=== PATIENT | female | born 1970 | race Caucasian/White ===

== ENCOUNTER 2018-03-17 14:03 | Inpatient (IN) | payer MEDICAID ==
[2018-03-17] MEDS ORDERED: VANCOMYCIN HCL INJ 1000 MG VIAL IV ONE ×2 (15:23→19:45)
--- NOTE | 2018-03-17 15:23 | ER Document Report ---
ED Medical Screen (RME) - General Chief Complaint: Skin Sore(s) Stated Complaint: RIGHT LEG PAIN Time Seen by Provider: 03/17/18 15:16 Notes: 47-year-old female. 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 Symptoms have been present now for approximately 1 month. History of MRSA. History of noncompliance. I have greeted and performed a rapid initial assessment of this patient. A comprehensive ED assessment and evaluation of the patient, analysis of test results and completion of the medical decision making process will be conducted by additional ED providers. TRAVEL OUTSIDE OF THE [place] IN LAST 30 DAYS: No - Related Data Allergies/Adverse Reactions: Sulfa (Sulfonamide Antibiotics) Allergy (Verified 03/17/18 14:06) Past Medical History - Social History Chew tobacco use (# tins/day): No Drug Abuse: None Renal/ Medical History: Denies: Hx Peritoneal Dialysis Physical Exam - Vital signs Vitals: Temp Pulse Resp BP Pulse Ox 99.2 F 111 H 20 151/83 H 97 03/17/18 14:32 03/17/18 14:32 03/17/18 14:32 03/17/18 14:32 03/17/18 14:32 - Notes Notes: There is a large open sore on the right BKA stump. Very foul odor. Mild amount of drainage. Course - Vital Signs Vital signs: Temp Pulse Resp BP Pulse Ox 99.2 F 111 H 20 151/83 H 97 03/17/18 14:32 03/17/18 14:32 03/17/18 14:32 03/17/18 14:32 03/17/18 14:32
[2018-03-17 16:03] LABS: ABSOLUTE BASOPHILS # (AUTO) 0.1 10^3/uL (0.0-0.2); ABSOLUTE EOSINOPHILS # (AUTO) 0.1 10^3/uL (0.0-0.6); ABSOLUTE LYMPHOCYTES (AUTO) 2.2 10^3/uL (0.5-4.7); ABSOLUTE MONOCYTES (AUTO) 0.5 10^3/uL (0.1-1.4); ABSOLUTE NEUT (AUTO) 7.2 10^3/uL (1.7-8.2); BASOPHILS % (AUTO) 0.8 % (0-2); EOSINOPHILS % (AUTO) 0.8 % (0-6); HEMATOCRIT 42.2 % (36.0-47.0); HEMOGLOBIN 14.1 g/dL (12.0-15.5); LYMPHOCYTES % (AUTO) 21.5 % (13-45); MEAN CORPUSCULAR HEMOGLOBIN 27.4 pg (27.0-33.4); MEAN CORPUSCULAR HGB CONC 33.5 g/dL (32.0-36.0); MEAN CORPUSCULAR VOLUME 82 fl (80-97); MONOCYTES % (AUTO) 5.3 % (3-13); PLATELET COUNT 333 10^3/uL (150-450); RED BLOOD COUNT 5.16 10^6/uL (3.72-5.28); RED CELL DISTRIBUTION WIDTH 14.7 % (11.5-14.0); SEGMENTED NEUTROPHILS % (AUTO) 71.6 % (42-78); TOTAL CELLS COUNTED % (AUTO) 100 %
--- NOTE | 2018-03-17 16:18 | RADIOLOGY REPORT (SQ) ---
EXAM DESCRIPTION: TIBIA FIBULA RIGHT COMPLETED DATE/TIME: 03/17/2018 4:04 pm REASON FOR STUDY: Open lesion on stump COMPARISON: None. NUMBER OF VIEWS: Two views. TECHNIQUE: Two radiographic images acquired of the right tibia and fibula to include the knee and an kle in at least one projection. LIMITATIONS: None. FINDINGS: MINERALIZATION: Normal. BONES: Amputation of the distal leg. There are no findings to suggest osteomyelitis. SOFT TISSUES: No obvious swelling or foreign body. OTHER: No other significant finding. IMPRESSION: No evidence of osteomyelitis. TECHNICAL DOCUMENTATION: JOB ID: [id number] [employer]- All Rights Reserved Reading location - IP/workstation name: [email or web address]
[2018-03-17 16:23] LABS: ALANINE AMINOTRANSFERASE 15 U/L (9-52); ALKALINE PHOSPHATASE 80 U/L (38-126); ANION GAP 13 (5-19); ASPARTATE AMINO TRANSFERASE 15 U/L (14-36); BILIRUBIN,DIRECT 0.3 mg/dL (0.0-0.4); BILIRUBIN,TOTAL 0.6 mg/dL (0.2-1.3); BLOOD UREA NITROGEN 16 mg/dL (7-20); C-REACTIVE PROTEIN 51.8 mg/L (<10.0); CALCIUM 9.2 mg/dL (8.4-10.2); CARBON DIOXIDE 27 mmol/L (22-30); CHLORIDE 97 mmol/L (98-107); GLUCOSE 388 mg/dL (75-110); POTASSIUM 4.5 mmol/L (3.6-5.0); SODIUM 137.2 mmol/L (137-145); TOTAL PROTEIN 7.8 g/dL (6.3-8.2)
[2018-03-17 16:40] LABS: ERYTHROCYTE SEDIMENTATION RATE 86 mm/hr (0-20)
[2018-03-17] MEDS ORDERED: LIDOCAINE 1% INJ-PF (10 MG/ML) 30 ML SDV ONE (19:02)
[2018-03-17] MEDS ORDERED: LIDOCAINE 1% INJ (10 MG/ML) 10 ML MDV INJ ONE (19:28)
--- NOTE | 2018-03-17 19:28 | Operative Report ---
Operative Report DATE OF SURGERY: 03/17/18 PREOPERATIVE DIAGNOSIS: Infected right BKA stump with callus POSTOPERATIVE DIAGNOSIS: Same OPERATION: Excisional debridement of skin, subcutaneous tissue, fascia from the right BKA stump SURGEON: TIMOTHY PERDOMO ANESTHESIA: Local TISSUE REMOVED OR ALTERED: tissue, subcutaneous tissue, and fibrous fragments COMPLICATIONS: None ESTIMATED BLOOD LOSS: 15 cc INTRAOPERATIVE FINDINGS: See below PROCEDURE: The patient's right BKA stump was exposed. There was evidence of cellulitis, and a chronic wound at the o'clock position of the stomach consistent with a, neglected pressure ulcer, with hypertrophied perimeter, and callus. There was some foul smell but no pus. Of note the patient had a strong popliteal pulse Surgical timeout was conducted. The right BKA stump was Ibis times with 1% plain lidocaine. It was scrubbed with Betadine. The hypertrophied callus and granulation tissue was excised with scissors and. The underlying heaped granulation tissue was curetted vigorously. I removed a significant amount of chronic granulation tissue and fibrous tissue such that it was only a small rim of granulating tissue posteriorly. A portion of granulation tissue sent for Gram stain culture and sensitivity. I mechanically debrided with index finger the deep tissue to the point that the transected was surrounded by a pseudocapsule. Based on preop x- ray, there was no evidence of osteomyelitis. The degree of debridement was felt to be very good. Wound irrigated with saline. 2 deep soft tissue bleeding sites were oversewn with 4-0 chromic suture. Wound irrigated again with saline, packed open with a portion of moist 4 x 4 gauze. Patient tolerated procedure well Recommendations: 1. Start wet-to-dry dressing changes tomorrow with normal saline, cover with 4 x 4 and Kerlix wrap 2. Absolutely no use of prosthesis until cleared by general surgeon. This means at least 6 weeks of no use of prosthetic limb. This was explained to the patient. 3. Patient can follow-up with advanced wound center upon discharge from hospital.
--- NOTE | 2018-03-17 19:30 | ER Document Report ---
ED General - General Chief Complaint: Skin Sore(s) Stated Complaint: RIGHT LEG PAIN Time Seen by Provider: 03/17/18 15:16 Mode of Arrival: Wheelchair Information source: Patient TRAVEL OUTSIDE OF THE [place] IN LAST 30 DAYS: No - HPI Patient complains to provider of: Leg ulcer Onset: Other - 47-year-old diabetic that presents for evaluation of a worsening ulcer at the base of her right lower extremity. 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 She does wear a prosthesis on her right leg and has been wearing it faithfully over the last several months, she developed an ulcer over the last 3 weeks which is worse and she now has drainage from that wound as well as redness and swelling. She is been attempting to change the dressings daily without much improvement in her symptoms and presented for further help today. Her blood sugars have been very uncontrolled recently. Onset/Duration: Gradual - Related Data Allergies/Adverse Reactions: Sulfa (Sulfonamide Antibiotics) Allergy (Verified 03/17/18 14:06) Past Medical History - General Information source: Patient - Social History Smoking Status: Former Smoker Chew tobacco use (# tins/day): No Drug Abuse: None Family History: None Patient has suicidal ideation: No Patient has homicidal ideation: No - Past Medical History Cardiac Medical History: Reports: Hx Hypertension Endocrine Medical History: Reports: Hx Diabetes Mellitus Type 2 Renal/ Medical History: Denies: Hx Peritoneal Dialysis Past Surgical History: Reports: Hx Orthopedic Surgery - R side BTK amputation, L elbow Review of Systems - Review of Systems -: Yes All other systems reviewed and negative Physical Exam - Vital signs Vitals: Temp Pulse Resp BP Pulse Ox 99.2 F 111 H 20 151/83 H 97 03/17/18 14:32 03/17/18 14:32 03/17/18 14:32 03/17/18 14:32 03/17/18 14:32 - General General appearance: Appears well In distress: None - HEENT Head: Normocephalic Eyes: Normal Conjunctiva: Normal Cornea: Normal Extraocular movements intact: Yes Eyelashes: Normal Pupils: PERRL - Respiratory Respiratory status: No respiratory distress Chest status: Nontender Breath sounds: Normal Chest palpation: Normal - Cardiovascular Rhythm: Tachycardia Murmur: No - Abdominal Inspection: Normal, Morbidly Obese Distension: No distension Tenderness: Nontender - Back Back: Normal - Extremities General upper extremity: Normal inspection, Nontender, Normal strength, Normal temperature General lower extremity: Other - The right lower extremity demonstrates a BKA with a stump that has an erythematous inflamed base with a large ulcerated wound approximately 3 x 3 cm with some moderate purulent drainage. Course - Re-evaluation Re-evalutation: 03/18/18 00:49 [age]-year-old female who presents for an infected stump. She has an ulcerated wound at the base of the right leg which likely demonstrates a possible undserlying osteomyelitis but at least a cellulitis in the skin surrounding the tissue. Labs through triage demonstrate an elevated CRP, there is purulent drainage the patient is actively receiving vancomycin through the IV. I have contacted on-call surgical list Dr. Landa for evaluation of possible debridement at the bedside. Dr. Landa has debrided the wound, has given wound dressing instructions this patient is to avoid the use of her prosthesis for several weeks. As this patient now is unable to use her prosthesis is morbidly obese out of shape with poorly controlled diabetes believe she is a poor outpatient management candidate. We will plan for admission to the hospitalist service for further IV antibiotics as well as therapy as necessary. Have contacted on-call hospitalist Dr. Hardy who agrees to evaluate this patient for admission - Vital Signs Vital signs: Temp Pulse Resp BP Pulse Ox 98.0 F 97 14 129/73 H 94 03/17/18 23:17 03/17/18 23:17 03/17/18 22:23 03/17/18 23:17 03/17/18 23:17 - Laboratory Result Diagrams: 03/17/18 15:46 03/17/18 15:46 Laboratory results interpreted by me: 03/17/18 03/17/18 15:46 15:46 RDW 14.7 H ESR 86 H Chloride 97 L Creatinine 0.50 L Glucose 388 H C-Reactive Protein 51.8 H Discharge - Discharge Clinical Impression: Hyperglycemia, Infection of amputation stump, right lower extremity Cellulitis Qualifiers: Site of cellulitis: extremity Site of cellulitis of extremity: lower extremity Laterality: right Qualified Code(s): L03.115 - Cellulitis of right lower limb Leg wound, right Qualifiers: Encounter type: initial encounter Qualified Code(s): S81.801A - Unspecified open wound, right lower leg, initial encounter Condition: Good Disposition: ADMITTED INPATIENT Admitting Provider: Hospitalist
[2018-03-17] MEDS ORDERED: PROMETHAZINE HCL INJ 25 MG/1 ML VIAL IV PRN (21:25)
[2018-03-17] MEDS ORDERED: ALBUTEROL SULFATE 0.083% NEB 2.5 MG/3 ML AMPUL NEB PRN (21:25)
[2018-03-17] MEDS ORDERED: PROMETHAZINE HCL 25 MG TABLET PO PRN (21:25)
[2018-03-17] MEDS ORDERED: MAG HYDROX/AL HYDROX/SIMETH SUSP 30 ML UDCUP PO PRN (21:25)
[2018-03-17] MEDS ORDERED: VANCOMYCIN HCL 0 MG in DEXTROSE 5%-WATER 250 ML IV NR (21:45)
[2018-03-17] MEDS ORDERED: AMPICILLIN SODIUM/SULBACTAM NA 3 GM in NORMAL SALINE 100 ML IV SCH (22:00)
--- NOTE | 2018-03-17 22:35 | PDOC H&P ---
History of Present Illness Admission Date/PCP: 03/17/18 21:55 None Patient complains of: right stump infection History of Present Illness: HANNAH VICTOR is a 47 year old female who has medical history of uncontrolled diabetes mellitus type 2 with right BKA done 4 years ago. Tells me that one month ago she noticed a small sore in the stump area that she did not pay much attention she was trying to heal that at home but is instead of getting better it has been getting worse to the point that last night she had excruciating pain up to 8/10 in intensity, has been having malodorous bloody and purulent secretions. Patient uses a right lower extremity prosthesis. Had evidence of cellulitis with a large wound consistent with a neglected pressure ulcer as per surgical evaluation. Surgery with Dr. Landa came and evaluated the patient and diagnosed an infected right BKA stump with callus, did excisional debridement of the skin, subcutaneous tissue, fascia from the right BKA stump. By the time I went to see the patient the procedure was over and it was all related dressing. Still malodorous smelling in the room. Denies fever has been having mild chills today, denies nausea, vomiting, shortness of breath, chest pain, cough, she is on urine or bowel movements. Patient tells me she does not have a primary care physician as she moves to our area 2 months ago from [place]. Past Medical History Cardiac Medical History: Reports: Hyperlipidema, Hypertension Pulmonary Medical History: Reports: Asthma EENT Medical History: Reports: Other - Vertigo Endocrine Medical History: Reports: Diabetes Mellitus Type 2 Psychiatric Medical History: Reports: Depression Past Surgical History Past Surgical History: Reports: Orthopedic Surgery - R side BTK amputation, L elbow Social History Smoking Status: Former Smoker - Quit 2 years ago, used to smoke 6 cigarettes/day Frequency of Alcohol Use: None Hx Recreational Drug Use: No Hx Prescription Drug Abuse: No Family History Family History: Father alive 75 years old with history of hypertension, mother at 73 years old with history of diabetes mellitus and cancer Parental Family History Reviewed: Yes - As above Children Family History Reviewed: NA Sibling(s) Family History Reviewed.: NA Medication/Allergy Allergies/Adverse Reactions: Sulfa (Sulfonamide Antibiotics) Allergy (Verified 03/17/18 14:06) Review of Systems Review of Systems: As outlined in the HPI, all others negative Physical Exam Vital Signs: Temp Pulse Resp BP Pulse Ox 99.2 F 111 H 15 139/90 H 95 03/17/18 14:32 03/17/18 14:32 03/17/18 22:00 03/17/18 20:01 03/17/18 22:00 Additional comments: General appearance: Disheveled, obese, alert and cooperative, and appears to be in no acute distress Head: Normocephalic Eyes: PEERL, EOMI, vision is grossly intact. Ears: External auditory canal and tympanic membranes clear, hearing grossly intact. Nose: No nasal discharge. Throat: Oral cavity and pharynx normal. No inflammation, swelling, exudate or lesions. Neck: Neck supple, nontender without lymphadenopathy, masses or thyromegaly. Cardiac: Normal S1 and S2. No S3, S4 or murmurs. Rhythm is regular. There is no peripheral edema, cyanosis or pallor. Extremities are warm and well perfused. Capillary refill is less than 2 seconds. No carotid bruits. Lungs: No rales, rhonchi, wheezing, distant breath sounds. Not using accessory muscles. Abdomen: Positive bowel sounds. Soft. Nondistended, nontender. No guarding or rebound. No masses. Unable to evaluate for hepatosplenomegaly due to body habitus Extremities: Right BKA with a dressing in place after I&D done. peripheral pulses intact. No varicosities. Neurological: Cranial nerves II through XII grossly intact. Strength and sensation symmetric and intact throughout. Reflexes 2+ throughout. Skin: Skin normal color, texture and turgor with no lesions or eruptions, warm and dry. Psychiatric: The mental examination revealed the patient was oriented to person , place, and time. The patient was able to demonstrate good judgment on recent , without hallucinations, abnormal affect or abnormal behaviors. Results Laboratory Results: 03/17/18 03/17/18 15:46 15:46 WBC 10.0 RBC 5.16 Hgb 14.1 Hct 42.2 MCV 82 MCH 27.4 MCHC 33.5 RDW 14.7 H Plt Count 333 Seg Neutrophils % 71.6 Lymphocytes % 21.5 Monocytes % 5.3 Eosinophils % 0.8 Basophils % 0.8 Absolute Neutrophils 7.2 Absolute Lymphocytes 2.2 Absolute Monocytes 0.5 Absolute Eosinophils 0.1 Absolute Basophils 0.1 ESR 86 H Sodium 137.2 Potassium 4.5 Chloride 97 L Carbon Dioxide 27 Anion Gap 13 BUN 16 Creatinine 0.50 L Est GFR ( Amer) > 60 Est GFR (Non-Af Amer) > 60 Glucose 388 H Calcium 9.2 Total Bilirubin 0.6 Direct Bilirubin 0.3 AST 15 ALT 15 Alkaline Phosphatase 80 C-Reactive Protein 51.8 H Total Protein 7.8 Albumin 4.0 Impressions: Tibia/Fibula X-Ray 03/17/18 15:21 IMPRESSION: No evidence of osteomyelitis. Assessment & Plan - Diagnosis (1) Infection of amputation stump, right lower extremity Is this a current diagnosis for this admission?: Yes Plan: Patient tells me she had a small ulceration in the stump area a month ago that did not have appropriate care, now comes with a large and deep ulceration that he was unable to evaluate as by the time he went to see her already surgery with Dr. Landa did I&D and the area was dressing. We will continue with IV antibiotics with vancomycin and Unasyn. Wound culture and blood cultures has been sent please follow identification and sensitivity. IV and p.o. pain medication as needed. Dr. Landa recommended start wet-to-dry dressing changes tomorrow with normal saline, cover with 4 x 4 and Kerlix wrap Absolutely no use of prosthesis and until cleared by general surgeon, this means at least 6 weeks of no use of prosthetic limb (2) Diabetes mellitus type 2 in obese Is this a current diagnosis for this admission?: Yes Plan: Accu-Cheks q. before meals and at bedtime, insulin lispro sliding scale and hypoglycemia protocol. Continue with home diabetic medication (3) Hypertension Is this a current diagnosis for this admission?: Yes Plan: Continue with home antihypertensive medications (4) DVT prophylaxis Is this a current diagnosis for this admission?: Yes Plan: Heparin - Time Time Spent: 50 to 70 Minutes - Inpatient Certification Based on my medical assessment, after consideration of the patient's comorbidities, presenting symptoms, or acuity I expect that the services needed warrant INPATIENT care.: Yes I certify that my determination is in accordance with my understanding of Medicare's requirements for reasonable and necessary INPATIENT services [42 CFR 412.3e].: Yes Medical Necessity: Risk of Complication if Not Cared For in Hospital - Infection with sepsis and septic shock - Plan Summary Plan Summary: Plan discussed with patient, agrees with it.
[2018-03-17] MEDS ORDERED: DEXTROSE 50%-WATER 25 GM/50 ML DISP.SYRIN IV PRN ×2 (22:36)
[2018-03-17] MEDS ORDERED: DEXTROSE 40% GEL 15 GM TUBE PO PRN ×2 (22:36)
[2018-03-17] MEDS ORDERED: GLUCAGON,HUMAN RECOMB 1 MG INJ IM PRN (22:36)
[2018-03-17] MEDS: HEPARIN SOD (PORCINE) 5,000 UNIT/ML 1 ML SYRINGE SUBCUT SCH (23:34)
[2018-03-18] MEDS ORDERED: AMPICILLIN SODIUM/SULBACTAM NA 3 GM in NORMAL SALINE 100 ML IV ONE ×2 (01:00→01:45)
[2018-03-18] MEDS: OXYCODONE-ACETAMINOPHEN 5-325 MG TABLET PO PRN ×3 (01:17→21:04)
[2018-03-18] MEDS ORDERED: VANCOMYCIN HCL INJ 1000 MG VIAL IV PRN (05:37)
[2018-03-18] MEDS ORDERED: AMPICILLIN SODIUM/SULBACTAM NA 3 GM in NORMAL SALINE 100 ML IV SCH (06:00)
[2018-03-18] MEDS ORDERED: VANCOMYCIN HCL 2,000 MG in DEXTROSE 5%-WATER 500 ML IV ONE ×2 (06:00→08:00)
[2018-03-18 06:19] LABS: ABSOLUTE BASOPHILS # (AUTO) 0.1 10^3/uL (0.0-0.2); ABSOLUTE EOSINOPHILS # (AUTO) 0.1 10^3/uL (0.0-0.6); ABSOLUTE LYMPHOCYTES (AUTO) 2.3 10^3/uL (0.5-4.7); ABSOLUTE MONOCYTES (AUTO) 0.7 10^3/uL (0.1-1.4); ABSOLUTE NEUT (AUTO) 7.4 10^3/uL (1.7-8.2); BASOPHILS % (AUTO) 0.8 % (0-2); HEMATOCRIT 36.8 % (36.0-47.0); HEMOGLOBIN 12.3 g/dL (12.0-15.5); LYMPHOCYTES % (AUTO) 21.4 % (13-45); MEAN CORPUSCULAR HEMOGLOBIN 27.7 pg (27.0-33.4); MEAN CORPUSCULAR HGB CONC 33.4 g/dL (32.0-36.0); MEAN CORPUSCULAR VOLUME 83 fl (80-97); MONOCYTES % (AUTO) 6.7 % (3-13); PLATELET COUNT 276 10^3/uL (150-450); RED BLOOD COUNT 4.44 10^6/uL (3.72-5.28); SEGMENTED NEUTROPHILS % (AUTO) 70.1 % (42-78); TOTAL CELLS COUNTED % (AUTO) 100 %; WHITE BLOOD COUNT 10.6 10^3/uL (4.0-10.5)
[2018-03-18] MEDS: HEPARIN SOD (PORCINE) 5,000 UNIT/ML 1 ML SYRINGE SUBCUT SCH ×3 (06:26→21:22)
[2018-03-18 06:34] LABS: ANION GAP 12 (5-19); BLOOD UREA NITROGEN 14 mg/dL (7-20); CALCIUM 8.7 mg/dL (8.4-10.2); CARBON DIOXIDE 24 mmol/L (22-30); CHLORIDE 100 mmol/L (98-107); POTASSIUM 4.2 mmol/L (3.6-5.0); SODIUM 136.4 mmol/L (137-145)
[2018-03-18] MEDS ORDERED: INSULIN LISPRO 100 UNIT/ML 3 ML VIAL SUBCUT ONE (06:45)
[2018-03-18 06:46] LABS: GLUCOSE 461 mg/dL (75-110)
[2018-03-18] MEDS: INSULIN LISPRO 100 UNIT/ML 3 ML VIAL SUBCUT PRN ×4 (06:49→21:23)
[2018-03-18] MEDS: AMPICILLIN SODIUM/SULBACTAM NA 3 GM in NORMAL SALINE 100 ML IV SCH ×3 (09:48→20:37)
[2018-03-18] MEDS ORDERED: INSULIN GLARGINE,HUM.REC.ANLOG 1,000 UNIT/10 ML UNIT SUBCUT SCH (10:00)
[2018-03-18] MEDS: INSULIN GLARGINE,HUM.REC.ANLOG 300 UNIT/3 ML INSULN.PEN SUBCUT SCH (10:35)
[2018-03-18] MEDS: VANCOMYCIN HCL 1,500 MG in DEXTROSE 5%-WATER 250 ML IV SCH (11:01)
--- NOTE | 2018-03-18 11:01 | PDOC PROGRESS REPORT ---
Subjective Progress Note for:: 03/18/18 Subjective:: The patient is sitting in bed. She does not appear to be in discomfort. She finished breakfast and is eating a bag of potato chips. Reason For Visit: STUMP INFECTION Physical Exam Vital Signs: Temp Pulse Resp BP Pulse Ox 98.0 F 96 17 117/62 94 03/18/18 08:05 03/18/18 08:05 03/18/18 08:05 03/18/18 08:05 03/18/18 08:05 General appearance: PRESENT: no acute distress, cooperative, morbidly obese - BMI 49, well-developed Head exam: PRESENT: atraumatic, normocephalic Mouth exam: PRESENT: moist, tongue midline Neck exam: PRESENT: full ROM. ABSENT: carotid bruit, JVD, lymphadenopathy Respiratory exam: PRESENT: clear to auscultation armida, symmetrical, unlabored. ABSENT: accessory muscle use, rales, rhonchi, wheezes Cardiovascular exam: PRESENT: RRR, +S1, +S2, systolic murmur - 2/6 systolic murmur GI/Abdominal exam: PRESENT: normal bowel sounds, soft. ABSENT: distended - Pendulous abdomen, guarding, tenderness Extremities exam: PRESENT: other - Right below-knee amputation Neurological exam: PRESENT: alert, awake, oriented to person, oriented to place , oriented to time, oriented to situation, CN II-XII grossly intact Psychiatric exam: PRESENT: appropriate affect, normal mood. ABSENT: agitated Focused psych exam: ABSENT: restlessness Skin exam: PRESENT: erythema - Left lower leg, other - Open wound it is several centimeters in diameter and approximately 2 cm deep. There was bright red blood on the dressing. There is nonviable appearing subcutaneous tissue at the base. It did not appear that there was exposed bone. She was tender over the superior aspect of the wound. No tenderness along the inferior aspect of the stump. Results Laboratory Results: 03/18/18 06:10 03/18/18 06:10 03/18/18 03/18/18 06:10 06:10 WBC 10.6 H RBC 4.44 Hgb 12.3 Hct 36.8 MCV 83 MCH 27.7 MCHC 33.4 RDW 15.0 H Plt Count 276 Seg Neutrophils % 70.1 Lymphocytes % 21.4 Monocytes % 6.7 Eosinophils % 1.0 Basophils % 0.8 Absolute Neutrophils 7.4 Absolute Lymphocytes 2.3 Absolute Monocytes 0.7 Absolute Eosinophils 0.1 Absolute Basophils 0.1 Sodium 136.4 L Potassium 4.2 Chloride 100 Carbon Dioxide 24 Anion Gap 12 BUN 14 Creatinine 0.44 L Est GFR ( Amer) > 60 Est GFR (Non-Af Amer) > 60 Glucose 461 H* Calcium 8.7 Impressions: Tibia/Fibula X-Ray 03/17/18 15:21 IMPRESSION: No evidence of osteomyelitis. Assessment & Plan - Diagnosis (1) Cellulitis Qualifiers: Site of cellulitis: extremity Site of cellulitis of extremity: lower extremity Laterality: right Qualified Code(s): L03.115 - Cellulitis of right lower limb Is this a current diagnosis for this admission?: Yes Plan: The patient is on vancomycin and Unasyn. Surgery has seen the patient as well. The patient's CRP is elevated at 52. White blood cell count is not elevated. (2) Diabetes mellitus type 2 in obese Is this a current diagnosis for this admission?: Yes Plan: The patient's glucose was 461 this morning. She was only on sliding scale. Initiated Lantus therapy today. Continue to watch her Accu-Cheks and adjust her medications accordingly. She is on Accu-Cheks with sliding scale coverage before meals and at bedtime. (3) Hyperglycemia Is this a current diagnosis for this admission?: Yes Plan: As above (4) Infection of amputation stump, right lower extremity Is this a current diagnosis for this admission?: Yes Plan: As above. In addition surgery recommends that the patient does not wear her prosthesis for at least a month and more likely not until the wound has been healed for several weeks. When the patient was immediately post amputation she states that she used a walker. She did fall frequently. I have asked physical therapy to see the patient to work on stand pivot transfers and possibly other modes of mobility. - Time Time Spent with patient: 15-24 minutes Medications reviewed and adjusted accordingly: Yes
--- NOTE | 2018-03-18 14:21 | PDOC PROGRESS REPORT ---
Subjective Reason For Visit: STUMP INFECTION Physical Exam Vital Signs: Temp Pulse Resp BP Pulse Ox 97.9 F 83 17 114/67 92 03/18/18 11:47 03/18/18 12:15 03/18/18 12:15 03/18/18 11:47 03/18/18 12:15 Results Laboratory Results: 03/18/18 06:10 03/18/18 06:10 03/18/18 03/18/18 06:10 06:10 WBC 10.6 H RBC 4.44 Hgb 12.3 Hct 36.8 MCV 83 MCH 27.7 MCHC 33.4 RDW 15.0 H Plt Count 276 Seg Neutrophils % 70.1 Lymphocytes % 21.4 Monocytes % 6.7 Eosinophils % 1.0 Basophils % 0.8 Absolute Neutrophils 7.4 Absolute Lymphocytes 2.3 Absolute Monocytes 0.7 Absolute Eosinophils 0.1 Absolute Basophils 0.1 Sodium 136.4 L Potassium 4.2 Chloride 100 Carbon Dioxide 24 Anion Gap 12 BUN 14 Creatinine 0.44 L Est GFR ( Amer) > 60 Est GFR (Non-Af Amer) > 60 Glucose 461 H* Calcium 8.7 Impressions: Tibia/Fibula X-Ray 03/17/18 15:21 IMPRESSION: No evidence of osteomyelitis. Assessment & Plan - Diagnosis (1) Pressure ulcer of right leg, stage 4 Is this a current diagnosis for this admission?: Yes - Plan Summary Plan Summary: Pt with a pressure ulcere to the RLE, s/p debridement. There is no active purulence or necrosis on exam today. I have discussed care with the pt. She would like to perform damp dressing changes at home instead of applying for a home wound VAC. Wash wound with soap and water BID. Damp to dry dressing chnages BID. Tight blood glucose control. Followup with wound-care clinic after discharge. F/u at [facility] in 7-10 days. I will see her again on an as-needed basis. Please renotify with any questions or concerns.
[2018-03-18] MEDS ORDERED: VANCOMYCIN HCL 1,500 MG in DEXTROSE 5%-WATER 250 ML IV ONE (21:00)
[2018-03-18] MEDS: KETOROLAC TROMETHAMINE INJ/PF 30 MG/1 ML SDV IV PRN (21:56)
[2018-03-19] MEDS: AMPICILLIN SODIUM/SULBACTAM NA 3 GM in NORMAL SALINE 100 ML IV SCH ×2 (02:23→09:23)
[2018-03-19] MEDS: VANCOMYCIN HCL 1,500 MG in DEXTROSE 5%-WATER 250 ML IV SCH ×4 (02:57→21:17)
[2018-03-19] MEDS: HEPARIN SOD (PORCINE) 5,000 UNIT/ML 1 ML SYRINGE SUBCUT SCH ×3 (05:59→21:19)
[2018-03-19 06:13] LABS: ABSOLUTE BASOPHILS # (AUTO) 0.1 10^3/uL (0.0-0.2); ABSOLUTE EOSINOPHILS # (AUTO) 0.2 10^3/uL (0.0-0.6); ABSOLUTE LYMPHOCYTES (AUTO) 2.9 10^3/uL (0.5-4.7); ABSOLUTE MONOCYTES (AUTO) 0.6 10^3/uL (0.1-1.4); ABSOLUTE NEUT (AUTO) 4.9 10^3/uL (1.7-8.2); BASOPHILS % (AUTO) 1.2 % (0-2); HEMATOCRIT 36.5 % (36.0-47.0); HEMOGLOBIN 12.1 g/dL (12.0-15.5); LYMPHOCYTES % (AUTO) 33.3 % (13-45); MEAN CORPUSCULAR HEMOGLOBIN 27.4 pg (27.0-33.4); MEAN CORPUSCULAR HGB CONC 33.1 g/dL (32.0-36.0); MEAN CORPUSCULAR VOLUME 83 fl (80-97); MONOCYTES % (AUTO) 6.7 % (3-13); PLATELET COUNT 261 10^3/uL (150-450); RED BLOOD COUNT 4.41 10^6/uL (3.72-5.28); SEGMENTED NEUTROPHILS % (AUTO) 56.8 % (42-78); TOTAL CELLS COUNTED % (AUTO) 100 %; WHITE BLOOD COUNT 8.6 10^3/uL (4.0-10.5)
[2018-03-19] MEDS: KETOROLAC TROMETHAMINE INJ/PF 30 MG/1 ML SDV IV PRN ×2 (06:22→15:12)
[2018-03-19] MEDS: OXYCODONE-ACETAMINOPHEN 5-325 MG TABLET PO PRN ×3 (06:24→21:18)
[2018-03-19] MEDS: INSULIN LISPRO 100 UNIT/ML 3 ML VIAL SUBCUT PRN ×2 (06:25→21:28)
[2018-03-19 06:33] LABS: ANION GAP 11 (5-19); BLOOD UREA NITROGEN 20 mg/dL (7-20); CALCIUM 8.5 mg/dL (8.4-10.2); CARBON DIOXIDE 25 mmol/L (22-30); CHLORIDE 101 mmol/L (98-107); GLUCOSE 285 mg/dL (75-110); POTASSIUM 4.1 mmol/L (3.6-5.0); SODIUM 137.2 mmol/L (137-145)
[2018-03-19] MEDS: INSULIN GLARGINE,HUM.REC.ANLOG 300 UNIT/3 ML INSULN.PEN SUBCUT SCH (09:23)
[2018-03-19 10:30] LABS: VANCOMYCIN,TROUGH 23.3 ug/mL (5.0-20.0)
[2018-03-19] MEDS ORDERED: INSULIN LISPRO 100 UNIT/ML 3 ML VIAL SUBCUT ONE (13:00)
--- NOTE | 2018-03-19 14:09 | PDOC PROGRESS REPORT ---
Subjective Progress Note for:: 03/19/18 Subjective:: The patient is sitting in bed. She does not appear to be in discomfort. She finished breakfast. 03/19/2018-the patient is resting comfortably in bed. She is getting her blood drawn for a vancomycin level. She reports no new clinical issues. Reason For Visit: STUMP INFECTION Physical Exam Vital Signs: Temp Pulse Resp BP Pulse Ox 98.1 F 93 18 128/65 H 94 03/19/18 11:03 03/19/18 11:03 03/19/18 11:03 03/19/18 11:03 03/19/18 11:03 Intake & Output 03/18/18 03/19/18 03/20/18 06:59 06:59 06:59 Intake Total 1172 Balance 1172 Weight 140.4 kg General appearance: PRESENT: no acute distress, cooperative, morbidly obese - BMI 48.5, well-developed Head exam: PRESENT: atraumatic, normocephalic Respiratory exam: PRESENT: clear to auscultation armida, symmetrical, unlabored. ABSENT: prolonged expiratory phas, rales, rhonchi, wheezes Cardiovascular exam: PRESENT: RRR, +S1, +S2 GI/Abdominal exam: PRESENT: normal bowel sounds, soft, other - Protuberant abdomen. ABSENT: tenderness Extremities exam: PRESENT: other - Right below-knee amputation with dressing in place. Neurological exam: PRESENT: alert, awake, oriented to person, oriented to place , oriented to time, oriented to situation, CN II-XII grossly intact Psychiatric exam: PRESENT: appropriate affect, normal mood. ABSENT: agitated, anxious Focused psych exam: ABSENT: restlessness Results Laboratory Results: 03/19/18 06:01 03/19/18 09:50 03/19/18 03/19/18 03/19/18 06:01 06:01 09:50 WBC 8.6 RBC 4.41 Hgb 12.1 Hct 36.5 MCV 83 MCH 27.4 MCHC 33.1 RDW 15.0 H Plt Count 261 Seg Neutrophils % 56.8 Lymphocytes % 33.3 Monocytes % 6.7 Eosinophils % 2.0 Basophils % 1.2 Absolute Neutrophils 4.9 Absolute Lymphocytes 2.9 Absolute Monocytes 0.6 Absolute Eosinophils 0.2 Absolute Basophils 0.1 Sodium 137.2 Potassium 4.1 Chloride 101 Carbon Dioxide 25 Anion Gap 11 BUN 20 Creatinine 0.53 0.52 Est GFR ( Amer) > 60 > 60 Est GFR (Non-Af Amer) > 60 > 60 Glucose 285 H Calcium 8.5 Magnesium 1.4 L Impressions: Tibia/Fibula X-Ray 03/17/18 15:21 IMPRESSION: No evidence of osteomyelitis. Assessment & Plan - Diagnosis (1) Cellulitis Qualifiers: Site of cellulitis: extremity Site of cellulitis of extremity: lower extremity Laterality: right Qualified Code(s): L03.115 - Cellulitis of right lower limb Is this a current diagnosis for this admission?: Yes Plan: The patient is on vancomycin and Unasyn. Surgery has seen the patient as well. The patient's CRP is elevated at 52. White blood cell count is not elevated. 03/19/2018-continue current antibiotic regimen. Pharmacy is dosing vancomycin. Culture from lesion is pending. He is also see the surgeons note. (2) Diabetes mellitus type 2 in obese Is this a current diagnosis for this admission?: Yes Plan: The patient's glucose was 461 this morning. She was only on sliding scale. Initiated Lantus therapy today. Continue to watch her Accu-Cheks and adjust her medications accordingly. She is on Accu-Cheks with sliding scale coverage before meals and at bedtime. 03/19/2018-patient normally takes her Levemir 70 units in the morning and 16 units at night. This is not the regimen that she is currently on. Changing over I will start with 50 units in the morning and 40 units at night and continue the sliding scale. I will adjust the Levemir based on the sliding scale requirements. (3) Hyperglycemia Is this a current diagnosis for this admission?: Yes Plan: As above 03/19/2018-her sugars have exhibited significant lability with wide variations. We discussed her regimen at home. I have made changes to approximate her home regimen. Initially I would use lower doses and then gradually increase to a point or have steady control. (4) Infection of amputation stump, right lower extremity Is this a current diagnosis for this admission?: Yes Plan: As above. In addition surgery recommends that the patient does not wear her prosthesis for at least a month and more likely not until the wound has been healed for several weeks. When the patient was immediately post amputation she states that she used a walker. She did fall frequently. I have asked physical therapy to see the patient to work on stand pivot transfers and possibly other modes of mobility. 03/19/2018-surgery has discussed treatment plan with the patient. The patient wishes to utilize conventional moist dressings. She would like to avoid a negative pressure dressing if possible. Surgery will see her as an outpatient in 1-2 weeks. I will need to stabilize her glucose regimen before discharging. - Time Time Spent with patient: 15-24 minutes Medications reviewed and adjusted accordingly: Yes
--- NOTE | 2018-03-19 14:10 | Progress Note ---
Provider Note Provider Note: This is an addendum to the progress note dated 03/19/2018- Diagnosis hypomagnesemia The patient's serum magnesium was low today. She will receive IV magnesium sulfate today and I have started magnesium oxide 400 mg twice daily to start. I will monitor her magnesium level.
[2018-03-19 14:18] LABS: VANCOMYCIN,TROUGH 15.8 ug/mL (5.0-20.0)
[2018-03-19] MEDS ORDERED: MAGNESIUM SULFATE/D5W 1 GM/100 ML RTUPB IV SCH (15:30)
[2018-03-19] MEDS ORDERED: AMPICILLIN SODIUM/SULBACTAM NA 3 GM in NORMAL SALINE 100 ML IV ONE (19:00)
[2018-03-19] MEDS: INSULIN DETEMIR 100 UNIT/ML 3 ML PEN SUBCUT SCH (19:15)
--- NOTE | 2018-03-19 19:22 | Operative Report ---
Bedside Procedure - History of Present Illness History of Present Illness: HANNAH VICTOR is a 47 year old female who has medical history of uncontrolled diabetes mellitus type 2 with right BKA done 4 years ago. Tells me that one month ago she noticed a small sore in the stump area that she did not pay much attention she was trying to heal that at home but is instead of getting better it has been getting worse to the point that last night she had excruciating pain up to 8/10 in intensity, has been having malodorous bloody and purulent secretions. Patient uses a right lower extremity prosthesis. Had evidence of cellulitis with a large wound consistent with a neglected pressure ulcer as per surgical evaluation. Surgery with Dr. Landa came and evaluated the patient and diagnosed an infected right BKA stump with callus, did excisional debridement of the skin, subcutaneous tissue, fascia from the right BKA stump. By the time I went to see the patient the procedure was over and it was all related dressing. Still malodorous smelling in the room. Denies fever has been having mild chills today, denies nausea, vomiting, shortness of breath, chest pain, cough, she is on urine or bowel movements. Patient tells me she does not have a primary care physician as she moves to our area 2 months ago from [place]. Indication for Procedure: Poor IV access, multiple IV medications, frequent blood draws Date: 03/19/18 Surgeon: GURINDER JIMENEZ - Central Line Right Subclavian Time completed: 18:00 Consent obtained: Yes Central line pre-insertion: Sterile PPE donned, Betadine prep applied, Chloraprep applied, Sterile drapes applied Central line lumen type: Triple Anesthetic type: 1% Lidocaine mL's of anesthesia: 5 Ultrasound guided: No Line secured with sutures: Yes Central line post-insertion: Blood return from lumens, Biopatch applied, Sutured , Sterile dressing applied, Position confirmed w/ CXR Number of attempts: 2 Complications: No Notes: 03/19/18 19:14 Procedure: Central line placement Indications: Multiple blood draws, multiple IV medications, poor IV access Consent: Obtained from the patient. Procedure, risks, benefits and alternatives were discussed and explained to the patient in detail Procedure summary: Patient was draped in usual sterile fashion. Sterility was maintained throughout the procedure. Right IJ central line placement was attempted but was unsuccessful. Anesthesia was obtained with 5 mL of 1% lidocaine. The right subclavian vein was accessed successfully and we noticed dark nonpulsatile blood flow through the needle and guidewire was introduced without any difficulty. The puncture site was dilated with a dilator. Triple lumen catheter was inserted over the guidewire was no problems. Blood withdrawn from all the ports without any difficulty and easily. Stat x-ray was ordered to confirm appropriate positioning. 03/19/18 19:20
--- NOTE | 2018-03-19 19:29 | RADIOLOGY REPORT (SQ) ---
EXAM DESCRIPTION: CHEST SINGLE VIEW COMPLETED DATE/TIME: 03/19/2018 7:08 pm REASON FOR STUDY: Central line placement. COMPARISON: None. EXAM PARAMETERS: NUMBER OF VIEWS: One view. TECHNIQUE: Single frontal radiographic view of the chest acquired. RADIATION DOSE: NA LIMITATIONS: None. FINDINGS: LUNGS AND PLEURA: No opacities, masses or pneumothorax. No pleural effusion. MEDIASTINUM AND HILAR STRUCTURES: No masses. Contour normal. HEART AND VASCULAR STRUCTURES: Heart normal in size. Normal vasculature. BONES: No acute findings. HARDWARE: None in the chest. OTHER: Right subclavian vascular catheter is positioned with tip projecting over the superior cavoatr ial junction. IMPRESSION: Right subclavian vascular catheter is positioned with tip projecting over the superior c avoatrial junction. No pneumothorax or pleural effusion in AP projection. TECHNICAL DOCUMENTATION: JOB ID: [id number] [employer]- All Rights Reserved Reading location - IP/workstation name: [email or web address]
[2018-03-19] MEDS: MAGNESIUM SULFATE/D5W 1 GM/100 ML RTUPB IV SCH ×2 (20:11→21:17)
[2018-03-20] MEDS ORDERED: INSULIN LISPRO 100 UNIT/ML 3 ML VIAL SUBCUT ONE
[2018-03-20] MEDS: AMPICILLIN SODIUM/SULBACTAM NA 3 GM in NORMAL SALINE 100 ML IV SCH ×4 (00:02→17:39)
[2018-03-20] MEDS: ACETAMINOPHEN 325 MG TABLET PO PRN ×2 (00:08→10:46)
[2018-03-20 06:28] LABS: HEMATOCRIT 35.4 % (36.0-47.0); HEMOGLOBIN 12.1 g/dL (12.0-15.5); MEAN CORPUSCULAR HEMOGLOBIN 27.9 pg (27.0-33.4); MEAN CORPUSCULAR HGB CONC 34.2 g/dL (32.0-36.0); MEAN CORPUSCULAR VOLUME 82 fl (80-97); PLATELET COUNT 235 10^3/uL (150-450); RED BLOOD COUNT 4.34 10^6/uL (3.72-5.28); RED CELL DISTRIBUTION WIDTH 14.7 % (11.5-14.0); WHITE BLOOD COUNT 9.6 10^3/uL (4.0-10.5)
[2018-03-20] MEDS: HEPARIN SOD (PORCINE) 5,000 UNIT/ML 1 ML SYRINGE SUBCUT SCH ×3 (06:31→22:11)
[2018-03-20] MEDS: VANCOMYCIN HCL 1,500 MG in DEXTROSE 5%-WATER 250 ML IV SCH ×3 (06:40→22:12)
[2018-03-20 06:43] LABS: ANION GAP 13 (5-19); BLOOD UREA NITROGEN 20 mg/dL (7-20); CALCIUM 8.4 mg/dL (8.4-10.2); CARBON DIOXIDE 25 mmol/L (22-30); CHLORIDE 101 mmol/L (98-107); GLUCOSE 163 mg/dL (75-110); PHOSPHORUS 4.4 mg/dL (2.5-4.5); POTASSIUM 3.9 mmol/L (3.6-5.0); SODIUM 139.1 mmol/L (137-145)
[2018-03-20] MEDS: OXYCODONE-ACETAMINOPHEN 5-325 MG TABLET PO PRN ×2 (07:44→22:30)
[2018-03-20] MEDS ORDERED: INSULIN DETEMIR 100 UNIT/ML 3 ML PEN SUBCUT SCH ×3 (08:00→15:00)
[2018-03-20] MEDS: INSULIN LISPRO 100 UNIT/ML 3 ML VIAL SUBCUT PRN ×3 (08:14→22:30)
[2018-03-20] MEDS: MAGNESIUM OXIDE 400 MG TABLET PO SCH ×3 (10:47→18:25)
--- NOTE | 2018-03-20 13:49 | PDOC PROGRESS REPORT ---
Subjective Progress Note for:: 03/20/18 Subjective:: The patient is sitting in bed. She does not appear to be in discomfort. She finished breakfast. 03/19/2018-the patient is resting comfortably in bed. She is getting her blood drawn for a vancomycin level. She reports no new clinical issues. 03/20/18-Mehdi is resting comfortably in bed. She reports that her wound is still sore but she has reasonable pain control. Reason For Visit: STUMP INFECTION Physical Exam Vital Signs: Temp Pulse Resp BP Pulse Ox 97.8 F 95 20 124/62 92 03/20/18 12:18 03/20/18 12:18 03/20/18 12:18 03/20/18 12:18 03/20/18 12:18 Intake & Output 03/19/18 03/20/18 03/21/18 06:59 06:59 06:59 Intake Total 1172 3432 800 Balance 1172 3432 800 Weight 140.4 kg 146.1 kg General appearance: PRESENT: no acute distress, cooperative, morbidly obese - BMI 50.4, well-developed Mouth exam: PRESENT: moist, tongue midline Respiratory exam: PRESENT: clear to auscultation armida, symmetrical, unlabored. ABSENT: rales, rhonchi, wheezes Cardiovascular exam: PRESENT: RRR, +S1, +S2 GI/Abdominal exam: PRESENT: distended - Protuberant abdomen, normal bowel sounds , soft. ABSENT: guarding, rebound, tenderness Musculoskeletal exam: PRESENT: other - New dressing on right stump. I did not remove the dressing today. Neurological exam: PRESENT: alert, awake, oriented to person, oriented to place , oriented to time, oriented to situation, CN II-XII grossly intact Psychiatric exam: PRESENT: appropriate affect, normal mood. ABSENT: agitated, anxious Focused psych exam: ABSENT: restlessness Skin exam: PRESENT: dry, warm. ABSENT: petechiae, rash Results Laboratory Results: 03/20/18 06:15 03/20/18 06:15 03/20/18 03/20/18 06:15 06:15 WBC 9.6 RBC 4.34 Hgb 12.1 Hct 35.4 L MCV 82 MCH 27.9 MCHC 34.2 RDW 14.7 H Plt Count 235 Sodium 139.1 Potassium 3.9 Chloride 101 Carbon Dioxide 25 Anion Gap 13 BUN 20 Creatinine 0.46 L Est GFR ( Amer) > 60 Est GFR (Non-Af Amer) > 60 Glucose 163 H Calcium 8.4 Phosphorus 4.4 Magnesium 1.9 Impressions: Tibia/Fibula X-Ray 03/17/18 15:21 IMPRESSION: No evidence of osteomyelitis. Chest X-Ray 03/19/18 00:00 IMPRESSION: Right subclavian vascular catheter is positioned with tip projecting over the superior cavoatrial junction. No pneumothorax or pleural effusion in AP projection. Assessment & Plan - Diagnosis (1) Cellulitis Qualifiers: Site of cellulitis: extremity Site of cellulitis of extremity: lower extremity Laterality: right Qualified Code(s): L03.115 - Cellulitis of right lower limb Is this a current diagnosis for this admission?: Yes Plan: The patient is on vancomycin and Unasyn. Surgery has seen the patient as well. The patient's CRP is elevated at 52. White blood cell count is not elevated. 03/19/2018-continue current antibiotic regimen. Pharmacy is dosing vancomycin. Culture from lesion is pending. He is also see the surgeons note. 03/20/2018-continuing vancomycin and Unasyn. Consider paring the antibiotics to a single agent. We will need to consider if coverage of MRSA is required. (2) Infection of amputation stump, right lower extremity Is this a current diagnosis for this admission?: Yes Plan: As above. In addition surgery recommends that the patient does not wear her prosthesis for at least a month and more likely not until the wound has been healed for several weeks. When the patient was immediately post amputation she states that she used a walker. She did fall frequently. I have asked physical therapy to see the patient to work on stand pivot transfers and possibly other modes of mobility. 03/19/2018-surgery has discussed treatment plan with the patient. The patient wishes to utilize conventional moist dressings. She would like to avoid a negative pressure dressing if possible. Surgery will see her as an outpatient in 1-2 weeks. I will need to stabilize her glucose regimen before discharging. 03/20/2018-continue dressings per surgery. Antibiotics as above. Her sugars are slowly improving and this will help healing. She needs to stay out of her prosthesis for at least 4 weeks. (3) Diabetes mellitus type 2 in obese Is this a current diagnosis for this admission?: Yes Plan: The patient's glucose was 461 this morning. She was only on sliding scale. Initiated Lantus therapy today. Continue to watch her Accu-Cheks and adjust her medications accordingly. She is on Accu-Cheks with sliding scale coverage before meals and at bedtime. 03/19/2018-patient normally takes her Levemir 70 units in the morning and 60 units at night. This is not the regimen that she is currently on. Changing over I will start with 50 units in the morning and 40 units at night and continue the sliding scale. I will adjust the Levemir based on the sliding scale requirements. 03/20/2018-her sugars are slightly improved. I am going to increase the morning Levemir to 50 units and keep the evening at 40 units of the time being. She is still utilizing the sliding scale. Home dose was 70 units in the morning and 60 units at night. (4) Hyperglycemia Is this a current diagnosis for this admission?: Yes Plan: As above 03/19/2018-her sugars have exhibited significant lability with wide variations. We discussed her regimen at home. I have made changes to approximate her home regimen. Initially I would use lower doses and then gradually increase to a point or have steady control. 03/20/2018-improving as noted above. 2 glucose readings last night were greater than 400. So far today her numbers are much better. - Time Time Spent with patient: 15-24 minutes Medications reviewed and adjusted accordingly: Yes
[2018-03-20] MEDS: INSULIN DETEMIR 100 UNIT/ML 3 ML PEN SUBCUT SCH (17:37)
[2018-03-21] MEDS: AMPICILLIN SODIUM/SULBACTAM NA 3 GM in NORMAL SALINE 100 ML IV SCH ×4 (00:16→17:08)
[2018-03-21] MEDS: HEPARIN SOD (PORCINE) 5,000 UNIT/ML 1 ML SYRINGE SUBCUT SCH ×3 (05:46→22:15)
[2018-03-21] MEDS: VANCOMYCIN HCL 1,500 MG in DEXTROSE 5%-WATER 250 ML IV SCH ×3 (06:53→21:52)
[2018-03-21] MEDS: INSULIN LISPRO 100 UNIT/ML 3 ML VIAL SUBCUT PRN ×4 (07:55→22:15)
[2018-03-21] MEDS: INSULIN DETEMIR 100 UNIT/ML 3 ML PEN SUBCUT SCH ×2 (08:16→17:08)
--- NOTE | 2018-03-21 08:52 | PDOC PROGRESS REPORT ---
Subjective Progress Note for:: 03/21/18 Subjective:: She is name is miles Harding date of visit is 03/21/2018 this 47-year-old female admitted for light right lower extremity stump wound and she is sitting comfortably in the bed this morning eating her breakfast not in distress and she is smiling denies any complaints and concerns Reason For Visit: STUMP INFECTION Physical Exam Vital Signs: Temp Pulse Resp BP Pulse Ox 98.6 F 107 H 20 137/84 H 93 03/21/18 07:50 03/21/18 07:50 03/21/18 07:50 03/21/18 07:50 03/21/18 07:50 Intake & Output 03/20/18 03/21/18 03/22/18 06:59 06:59 06:59 Intake Total 3432 1698 Output Total 1000 Balance 3432 698 Weight 146.1 kg 146.3 kg General appearance: PRESENT: no acute distress, cooperative Head exam: PRESENT: atraumatic, normocephalic Eye exam: PRESENT: conjunctiva pink, EOMI, PERRLA. ABSENT: scleral icterus Ear exam: PRESENT: normal external ear exam Mouth exam: PRESENT: moist Neck exam: ABSENT: carotid bruit, JVD, lymphadenopathy, thyromegaly Respiratory exam: PRESENT: clear to auscultation armida. ABSENT: rales, rhonchi, wheezes Cardiovascular exam: PRESENT: RRR. ABSENT: diastolic murmur, rubs, systolic murmur Pulses: PRESENT: other - Patient has right lower extremity stump the left foot peripheral pulses are poor GI/Abdominal exam: PRESENT: normal bowel sounds, soft. ABSENT: guarding, tenderness Extremities exam: PRESENT: other - Right lower extremity stump with wound is covered with dressing. Left lower extremity with chronic erythema may be secondary to venous stasis Neurological exam: PRESENT: alert, awake, oriented to person, oriented to place , oriented to time, oriented to situation, CN II-XII grossly intact. ABSENT: motor sensory deficit Psychiatric exam: PRESENT: appropriate affect, normal mood. ABSENT: homicidal ideation, suicidal ideation Skin exam: PRESENT: other - Left lower extremity rash/erythema Results Laboratory Results: 03/20/18 06:15 03/20/18 06:15 Impressions: Tibia/Fibula X-Ray 03/17/18 15:21 IMPRESSION: No evidence of osteomyelitis. Chest X-Ray 03/19/18 00:00 IMPRESSION: Right subclavian vascular catheter is positioned with tip projecting over the superior cavoatrial junction. No pneumothorax or pleural effusion in AP projection. Assessment & Plan - Diagnosis (1) Cellulitis Qualifiers: Site of cellulitis: extremity Site of cellulitis of extremity: lower extremity Laterality: right Qualified Code(s): L03.115 - Cellulitis of right lower limb Is this a current diagnosis for this admission?: Yes Plan: 03/21/2018-patient is on IV vancomycin afebrile WBC is normal he is to continue the IV antibiotic therapy. After reviewing the physical therapy evaluation the plan was to treat the cellulitis with IV antibiotic therapy after referring to the senior care facility we are going to get in touch with ID further recommendation about IV antibiotic therapy while the patient in the [facility] patient is unable to use the prosthesis at this time and she may have to go to the senior care facility for his physical therapy. (2) Infection of amputation stump, right lower extremity Is this a current diagnosis for this admission?: Yes Plan: The surgeon recommended not to wear the prosthesis for at least for a month and is also recommended to discharge the patient home with wet dressings and follow- up in wound care center in 7-10 days but based on the physical therapy report we think it is better for her to go to senior care facility with IV antibiotic therapy and wound care while she was in the [facility] has a also history of frequent falls at home I discussed the plan to transfer to her to set senior care facility patient agreed and willing to do whatever she can to get better wound healing. We will continue to we will continue IV antibiotic therapy and dressings while she was in the hospital . case assembler was reconsulted again today to make arrangements for transfer to [facility] (3) Diabetes mellitus type 2 in obese Is this a current diagnosis for this admission?: Yes Plan: 03/21/2018 patient's blood sugar is 285 this morning she is on Levemir 60 in the morning 50 in the evening we increased it to 70 units in the morning and 55 units in the evening .she is on Accu-Cheks with sliding scale coverage before meals and at bedtime. Dietitian is on board (4) Hyperglycemia Is this a current diagnosis for this admission?: Yes Plan: 03/21/2018 plan is as above - Time Time Spent with patient: 15-24 minutes Medications reviewed and adjusted accordingly: Yes Anticipated discharge: SNF Within: when bed available
[2018-03-21] MEDS: MAGNESIUM OXIDE 400 MG TABLET PO SCH ×2 (09:57→17:09)
--- NOTE | 2018-03-21 16:00 | Progress Note ---
Provider Note Provider Note: ID Consult Note Asked by Pharmacy to review patient's chart. Pt not seen or examined. Reviewed provider reports, operative report, imaging reports, lab results, VS. Discussed case briefly via telephone with Dr Silva. Ms. Egan is a 47 year old woman with PMH including uncontrolled DM, morbid obesity, and prior R BKA for osteomyelitis and gangrene. She presented on with open draining wound with redness and swelling to her R BKA stump. She reported wound being present x 3-4 weeks. Pt was tachycardic and tachypnic when she presented but afebrile. The wound was noted to have malodor and purulent drainage with erythema surrounding a 3 x 3 cm wound, as noted by the ED provider who obtained a wound swab for culture. Plain films showed no radiographic evidnece of osteomyelitis. Blood cultures are negative. Surgery was consulted. Dr Landa took the patient to the OR on 03/17 for excisional debridement with removal of tissue, chronic granulation tissue and firbrous tissue. A portion of granulation tissue was sent for Gram stain culture and sensitivity, per the operative report. The submitting provider on the specimen was recorded as Dr Tamayo, however. The specimen was noted to have 4+ GPCs and few GNRs on the Gram stain and has yielded growth preliminarily reported as 4+ MRSA (susceptible to vancomycin, daptomycin, tetracyclines), 2+ Providencia stuartii (resistant to ampicillin, Augmentin, tobramycin and gentamicin, and tetracyclines), and 3+ GNRs that have not yet been identified. Of note, pt has a sulfa allergy. Impression polymicrobial RLE stump wound infection - elevated ESR 86 is concerning but pt has had no radiographic evidence of osteomyelitis and no clinical description highly suspicious of osteomyelitis ( encountering soft bone, probing to bone) nor histopathological specimen evidencing osteomyelitis; based on the operative findings and debridement, this appears to be confined to soft tissue - preliminarily the culture has yielded MRSA, Providencia, and a second Gram negative fam that has yet to be identified - In terms of MRSA, the patient is requiring 1.5 g vancomycin q8h currently, which is concerning. Vancomycin doses of over 4 grams in a day are associated with increased risk of nephrotoxicity, and with no bacteremia, there is not a compelling indication for continuing IV vancomycin per se. Recommendations - While awaiting identification and susceptibilities of the second GNR (called Micro lab; anticipates further information tomorrow 03/22/18), continuing Unasyn is reasonable, as long as pt is clinically improving - Recommend switching from IV vancomycin to PO doxycycline 100 mg BID and discontinuing PO magnesium oxide (multivalent cations such as calcium or magnesium can decrease the absorption of tetracyclines, such as doxycycline); if pt needs to continue magnesium oxide, MagOx should be scheduled at least 2 hours before or 4 hours after doxycycline doses - Duration of therapy depends upon severity of the infection and rapidity of response to treatment. In general, anywhere from 5-14 days may be adequate for a soft tissue infection. Anticipate that the patient may need 10 more days or so of antibiotics at discharge. Grover Seymour MD [facility] Infectious Diseases pager [phone]
[2018-03-21] MEDS: KETOROLAC TROMETHAMINE INJ/PF 30 MG/1 ML SDV IV PRN (21:49)
[2018-03-22] MEDS: AMPICILLIN SODIUM/SULBACTAM NA 3 GM in NORMAL SALINE 100 ML IV SCH ×3 (00:18→12:31)
[2018-03-22] MEDS: HEPARIN SOD (PORCINE) 5,000 UNIT/ML 1 ML SYRINGE SUBCUT SCH ×3 (05:44→21:24)
[2018-03-22] MEDS: VANCOMYCIN HCL 1,500 MG in DEXTROSE 5%-WATER 250 ML IV SCH (06:46)
--- NOTE | 2018-03-22 07:55 | PDOC PROGRESS REPORT ---
Subjective Progress Note for:: 03/22/18 Subjective:: 03/22/2018-patient was comfortably in the bed communicating very well denies any problems her blood sugars this morning is 121 patient is willing to go to the custodial for physical therapy Reason For Visit: STUMP INFECTION Physical Exam Vital Signs: Temp Pulse Resp BP Pulse Ox 98.8 F 82 18 120/62 95 03/22/18 04:37 03/22/18 04:37 03/22/18 04:37 03/22/18 04:37 03/22/18 04:37 Intake & Output 03/21/18 03/22/18 03/23/18 06:59 06:59 06:59 Intake Total 1698 3050 Output Total 1000 1400 Balance 698 1650 Weight 146.3 kg 148.1 kg General appearance: PRESENT: no acute distress Head exam: PRESENT: atraumatic Eye exam: PRESENT: conjunctiva pink, EOMI, PERRLA. ABSENT: scleral icterus Neck exam: ABSENT: carotid bruit, JVD, lymphadenopathy, thyromegaly Respiratory exam: PRESENT: clear to auscultation armida. ABSENT: rales, rhonchi, wheezes Cardiovascular exam: PRESENT: RRR. ABSENT: diastolic murmur, rubs, systolic murmur GI/Abdominal exam: PRESENT: normal bowel sounds, soft, tenderness, other - Obese abdomen. ABSENT: guarding Extremities exam: PRESENT: other - Slight pedal edema in the left lower extremity. ABSENT: calf tenderness, joint swelling Neurological exam: PRESENT: alert, awake, oriented to person, oriented to place , oriented to time, oriented to situation, CN II-XII grossly intact. ABSENT: motor sensory deficit Psychiatric exam: PRESENT: appropriate affect, normal mood. ABSENT: homicidal ideation, suicidal ideation Skin exam: PRESENT: dry, intact, warm. ABSENT: cyanosis, rash Results Laboratory Results: 03/20/18 06:15 Impressions: Tibia/Fibula X-Ray 03/17/18 15:21 IMPRESSION: No evidence of osteomyelitis. Chest X-Ray 03/19/18 00:00 IMPRESSION: Right subclavian vascular catheter is positioned with tip projecting over the superior cavoatrial junction. No pneumothorax or pleural effusion in AP projection. Assessment & Plan - Diagnosis (1) Hyperglycemia Is this a current diagnosis for this admission?: Yes Plan: 03/21/2018 plan is as above (2) Diabetes mellitus type 2 in obese Is this a current diagnosis for this admission?: Yes Plan: 03/21/2018 patient's blood sugar is 285 this morning she is on Levemir 60 in the morning 50 in the evening we increased it to 70 units in the morning and 55 units in the evening .she is on Accu-Cheks with sliding scale coverage before meals and at bedtime. Dietitian is on board 03/22/2018 patient's blood sugar this morning is 121 please she is on Levemir 70 units in the morning 55 units in the evening also on insulin sliding scale before meals and in the evening. We will continue the current regimen. (3) Infection of amputation stump, right lower extremity Is this a current diagnosis for this admission?: Yes Plan: The surgeon recommended not to wear the prosthesis for at least for a month and is also recommended to discharge the patient home with wet dressings and follow- up in wound care center in 7-10 days but based on the physical therapy report we think it is better for her to go to alf facility with IV antibiotic therapy and wound care while she was in the custodial has a also history of frequent falls at home I discussed the plan to transfer to her to set alf facility patient agreed and willing to do whatever she can to get better wound healing. We will continue to we will continue IV antibiotic therapy and dressings while she was in the hospital . case preparer and liner was reconsulted again today to make arrangements for transfer to custodial 03/22/2018-patient has a right lower extremity wound the radiological investigations ruled out osteomyelitis. As per ID recommendations, IV vancomycin is going to be discontinued and we are going to start her. On p.o. doxycycline and continue Unasyn in the meantime. The main reason she is going to the alf facility is because of the difficulty in using the processes and history of falls at home. We are waiting for custodial placement. (4) Cellulitis Qualifiers: Site of cellulitis: extremity Site of cellulitis of extremity: lower extremity Laterality: right Qualified Code(s): L03.115 - Cellulitis of right lower limb Is this a current diagnosis for this admission?: Yes Plan: 03/21/2018-patient is on IV vancomycin afebrile WBC is normal he is to continue the IV antibiotic therapy. After reviewing the physical therapy evaluation the plan was to treat the cellulitis with IV antibiotic therapy after referring to the alf facility we are going to get in touch with ID further recommendation about IV antibiotic therapy while the patient in the custodial patient is unable to use the prosthesis at this time and she may have to go to the alf facility for his physical therapy. 03/22/2018 I discussed the care with infectious disease specialist from [facility]. Her recommendation is to discontinue IV vancomycin, start on doxycycline p.o. 100 mg twice daily, she also recommended to discontinue magnesium oxide. We are waiting for the complete report of the blood cultures today. The preliminary report blood cultures from 03/17/2018 indicates gram- negative rods/MRSA/providentia. I requested for the labs today CBC CMP and for magnesium and also requested to get hemoglobin A1c levels. (5) Morbid (severe) obesity due to excess calories Is this a current diagnosis for this admission?: Yes Plan: 03/22/2018 patient's BMI is 48.5. Discussed the diet and exercise with the patient, and weight loss is also advised. Dietitian is also following up with the patient with the dietary recommendations. - Time Time Spent with patient: 15-24 minutes Medications reviewed and adjusted accordingly: Yes Anticipated discharge: SNF
[2018-03-22] MEDS: INSULIN DETEMIR 100 UNIT/ML 3 ML PEN SUBCUT SCH ×2 (09:38→17:49)
[2018-03-22] MEDS: DOXYCYCLINE HYCLATE 100 MG TABLET PO SCH ×2 (10:11→21:26)
[2018-03-22 10:31] LABS: ABSOLUTE BASOPHILS # (AUTO) 0.1 10^3/uL (0.0-0.2); ABSOLUTE EOSINOPHILS # (AUTO) 0.1 10^3/uL (0.0-0.6); ABSOLUTE LYMPHOCYTES (AUTO) 2.1 10^3/uL (0.5-4.7); ABSOLUTE MONOCYTES (AUTO) 0.5 10^3/uL (0.1-1.4); ABSOLUTE NEUT (AUTO) 4.9 10^3/uL (1.7-8.2); BASOPHILS % (AUTO) 0.9 % (0-2); EOSINOPHILS % (AUTO) 1.7 % (0-6); HEMATOCRIT 31.9 % (36.0-47.0); HEMOGLOBIN 10.9 g/dL (12.0-15.5); MEAN CORPUSCULAR HEMOGLOBIN 28.1 pg (27.0-33.4); MEAN CORPUSCULAR HGB CONC 34.2 g/dL (32.0-36.0); MEAN CORPUSCULAR VOLUME 82 fl (80-97); MONOCYTES % (AUTO) 6.4 % (3-13); PLATELET COUNT 284 10^3/uL (150-450); RED BLOOD COUNT 3.88 10^6/uL (3.72-5.28); RED CELL DISTRIBUTION WIDTH 15.1 % (11.5-14.0); TOTAL CELLS COUNTED % (AUTO) 100 %; WHITE BLOOD COUNT 7.7 10^3/uL (4.0-10.5)
[2018-03-22 10:32] LABS: ALANINE AMINOTRANSFERASE 15 U/L (9-52); ALKALINE PHOSPHATASE 60 U/L (38-126); ANION GAP 10 (5-19); ASPARTATE AMINO TRANSFERASE 14 U/L (14-36); BILIRUBIN,DIRECT 0.2 mg/dL (0.0-0.4); BILIRUBIN,TOTAL 0.4 mg/dL (0.2-1.3); BLOOD UREA NITROGEN 15 mg/dL (7-20); CALCIUM 8.9 mg/dL (8.4-10.2); CARBON DIOXIDE 28 mmol/L (22-30); CHLORIDE 103 mmol/L (98-107); GLUCOSE 187 mg/dL (75-110); POTASSIUM 4.3 mmol/L (3.6-5.0); SODIUM 141.4 mmol/L (137-145); TOTAL PROTEIN 6.2 g/dL (6.3-8.2)
[2018-03-22] MEDS: INSULIN LISPRO 100 UNIT/ML 3 ML VIAL SUBCUT PRN ×3 (12:30→21:24)
--- NOTE | 2018-03-22 16:42 | Progress Note ---
Provider Note Provider Note: ID Consult Note - Follow up Results of culture have been finalized with growth of MRSA, Providencia stuartii and Acinetobacter baumannii. Both the Providencia stuartii and Acinetobacter baumannii isolates are susceptible to ciprofloxacin. Recommend discontinuing Unasyn in favor of giving the patient PO ciprofloxacin 750 mg BID (rather than 500 mg BID considering morbid obesity and Acinetobacter species). Recommend continuing doxycycline 100 mg BID PO for MRSA. For both ciprofloxacin and doxycycline, the same interaction exists with multivalent cations (iron, magnesium, zinc, and calcium containing products) - should be by several hourse from the antibiotics. Again, duration of therapy for soft tissue infections is in the range of 5-14 days, depending upon severity of infection and clinical response. With debridement performed and some IV antibiotic therapy completed inpatient, another 10 days of doxycycline and Cipro may be sufficient to treat the infection. Grover Seymour MD [facility] Infectious Diseases pager [phone]
[2018-03-22] MEDS: CIPROFLOXACIN HCL 750 MG TABLET PO SCH (21:26)
[2018-03-23] MEDS: HEPARIN SOD (PORCINE) 5,000 UNIT/ML 1 ML SYRINGE SUBCUT SCH ×3 (05:00→21:41)
[2018-03-23] MEDS: DOXYCYCLINE HYCLATE 100 MG TABLET PO SCH ×2 (09:04→21:41)
[2018-03-23] MEDS: CIPROFLOXACIN HCL 750 MG TABLET PO SCH ×2 (09:04→21:41)
[2018-03-23] MEDS: INSULIN DETEMIR 100 UNIT/ML 3 ML PEN SUBCUT SCH ×2 (09:32→17:59)
[2018-03-23] MEDS: INSULIN LISPRO 100 UNIT/ML 3 ML VIAL SUBCUT PRN ×3 (13:04→21:54)
--- NOTE | 2018-03-23 13:23 | PDOC PROGRESS REPORT ---
Subjective Progress Note for:: 03/23/18 Subjective:: No overnight events. Feeling "much better". Has been working with physical therapy however only able to "move a few steps". Requiring bedside commode. Denies fevers, chills, CP, SOB, NV. Appetite good. Lives at home with father. Reason For Visit: STUMP INFECTION Physical Exam Vital Signs: Temp Pulse Resp BP Pulse Ox 97.8 F 92 16 134/74 H 93 03/23/18 08:30 03/23/18 08:30 03/23/18 08:30 03/23/18 08:30 03/23/18 08:30 Intake & Output 03/22/18 03/23/18 03/24/18 06:59 06:59 06:59 Intake Total 3050 2110 Output Total 1400 700 Balance 1650 1410 Weight 148.1 kg 148.1 kg General appearance: PRESENT: no acute distress, cooperative, morbidly obese Head exam: PRESENT: atraumatic Mouth exam: PRESENT: moist Respiratory exam: PRESENT: unlabored. ABSENT: wheezes Cardiovascular exam: PRESENT: +S1, +S2. ABSENT: systolic murmur, tachycardia GI/Abdominal exam: PRESENT: soft, other - Obese. ABSENT: tenderness Extremities exam: PRESENT: pedal edema, other - Right BKA; stump wrapped, no active drainage. Neurological exam: PRESENT: alert, awake, CN II-XII grossly intact Psychiatric exam: PRESENT: appropriate affect Skin exam: PRESENT: dry, intact Results Laboratory Results: 03/22/18 09:35 03/22/18 09:35 Impressions: Tibia/Fibula X-Ray 03/17/18 15:21 IMPRESSION: No evidence of osteomyelitis. Chest X-Ray 03/19/18 00:00 IMPRESSION: Right subclavian vascular catheter is positioned with tip projecting over the superior cavoatrial junction. No pneumothorax or pleural effusion in AP projection. Assessment & Plan - Diagnosis (1) Infection of amputation stump, right lower extremity Is this a current diagnosis for this admission?: Yes Plan: Has been evaluated by surgery, who recommended not to wear the prosthesis for at least for a month. - Imaging this admission negative for osteo - Previous on IV Vanc and was switched to p.o. doxycycline and IV Unasyn on - [place] that patient should go to SNF for rehab however due to insurance reasons pt refused and wants to go home - Continue to work with PT to improve conditioning for discharge to home - At home should continue wet dressings and follow-up in wound care center in 7- 10 day - Discussed plan on 03/23 with discharge planning (2) Cellulitis Qualifiers: Site of cellulitis: extremity Site of cellulitis of extremity: lower extremity Laterality: right Qualified Code(s): L03.115 - Cellulitis of right lower limb Is this a current diagnosis for this admission?: Yes Plan: Per above. - Continue antibiotics - Blood cultures negative * 5 days - Wound culture + for polymicrobes (3) Diabetes mellitus type 2 in obese Is this a current diagnosis for this admission?: Yes Plan: Blood sugars have been elevated this admission however better - Continue Levemir 70U in AM and 55U in PM - LDISS (4) Hyperglycemia Is this a current diagnosis for this admission?: Yes Plan: Continue optimizing glycemic control - Time Time Spent with patient: 15-24 minutes Anticipated discharge: Home with Homehealth Within: within 48 hours
[2018-03-23] MEDS: OXYCODONE-ACETAMINOPHEN 5-325 MG TABLET PO PRN (22:52)
[2018-03-24] MEDS: HEPARIN SOD (PORCINE) 5,000 UNIT/ML 1 ML SYRINGE SUBCUT SCH ×2 (06:19→14:31)
[2018-03-24] MEDS: INSULIN DETEMIR 100 UNIT/ML 3 ML PEN SUBCUT SCH (07:51)
[2018-03-24] MEDS: DOXYCYCLINE HYCLATE 100 MG TABLET PO SCH (09:53)
[2018-03-24] MEDS: CIPROFLOXACIN HCL 750 MG TABLET PO SCH (09:53)
--- NOTE | 2018-03-24 10:56 | PDOC DISCHARGE SUMMARY ---
General - Admit/Disc Date/PCP Admission Date/Primary Care Provider: 03/17/18 21:55 Discharge Date: 03/24/18 - Discharge Diagnosis (1) Infection of amputation stump, right lower extremity Is this a current diagnosis for this admission?: Yes Summary: Has been evaluated by surgery, who recommended not to wear the prosthesis for 4- 6 weeks - Imaging this admission negative for osteo - Previous on IV Vanc and was switched to p.o. doxycycline and IV Unasyn on . Continue PO antibiotics - [place] that patient should go to SNF for rehab however due to insurance reasons pt refused and wants to go home - Continue to work with PT to improve conditioning for discharge to home - At home should continue wet dressings and follow-up in wound care center in 7- 10 day Outpatient plan: - Script for Cipro 750mg BID PO and Doxy 100mg BID PO for 5 additional days - Follow up with [facility] next week - Home health ordered, discussed with discharge planning (2) Cellulitis Is this a current diagnosis for this admission?: Yes Summary: Per above. - Continue antibiotics plans for 5 additional days - Blood cultures negative * 5 days - Wound culture + for polymicrobes (3) Diabetes mellitus type 2 in obese Is this a current diagnosis for this admission?: Yes Summary: Blood sugars have been elevated this admission however better controlled on day of surgery - HgA1c 14% - Continue Levemir 70U in AM and 55U in PM at home - Optomize blood sugars with PCP (4) Hyperglycemia Is this a current diagnosis for this admission?: Yes Summary: Per above. Needs close monitoring by PCP - Additional Information Resuscitation Status: Full Code Discharge Diet: Cardiac, Diabetic Discharge Activity: Activity As Tolerated Prescriptions: Ciprofloxacin HCl [Cipro 750 mg Tablet] 750 mg PO Q12 5 Days #10 tablet Doxycycline Hyclate [Vibramycin 100 mg Tablet] 100 mg PO Q12 5 Days #10 tablet Home Medications: Albuterol Sulfate [Proair HFA Inhalation Aerosol 8.5 gm MDI] 1 puff IH Q4 PRN Atorvastatin Calcium [Lipitor 40 mg Tablet] 40 mg PO QHS 03/18/18 Budesonide/Formoterol Fumarate [Symbicort HFA 80-4.5 mcg Inhaler 6.9 gm] 2 puff IH BID 03/18/18 Insulin Aspart [Novolog Insulin (Aspart) 100 unit/mL] 25 unit SQ TID 03/18/18 Insulin Detemir [Levemir] 50 unit SQ QPM 03/18/18 Insulin Detemir [Levemir] 70 unit SQ QAM 03/18/18 Lisinopril [Prinivil] 20 mg PO DAILY 03/18/18 Omeprazole 40 mg PO DAILY 03/18/18 Sertraline HCl [Zoloft 50 mg Tablet] 50 mg PO DAILY 03/18/18 Ciprofloxacin HCl [Cipro 750 mg Tablet] 750 mg PO Q12 5 Days #10 tablet Doxycycline Hyclate [Vibramycin 100 mg Tablet] 100 mg PO Q12 5 Days #10 tablet 03/24/18 History of Present Illness Patient complains of: right stump infection. History of Present Illness: HANNAH VICTOR is a 47 year old female who has medical history of uncontrolled diabetes mellitus type 2 with right BKA done 4 years ago. Tells me that one month ago she noticed a small sore in the stump area that she did not pay much attention she was trying to heal that at home but is instead of getting better it has been getting worse to the point that last night she had excruciating pain up to 8/10 in intensity, has been having malodorous bloody and purulent secretions. Patient uses a right lower extremity prosthesis. Had evidence of cellulitis with a large wound consistent with a neglected pressure ulcer as per surgical evaluation. Surgery with Dr. Landa came and evaluated the patient and diagnosed an infected right BKA stump with callus, did excisional debridement of the skin, subcutaneous tissue, fascia from the right BKA stump. By the time I went to see the patient the procedure was over and it was all related dressing. Still malodorous smelling in the room. Denies fever has been having mild chills today, denies nausea, vomiting, shortness of breath, chest pain, cough, she is on urine or bowel movements. Patient tells me she does not have a primary care physician as she moves to our area 2 months ago from [place]. Physical Exam Vital Signs: Temp Pulse Resp BP Pulse Ox 98.4 F 95 18 144/64 H 97 03/24/18 07:59 03/24/18 07:59 03/24/18 07:59 03/24/18 07:59 03/24/18 07:59 Intake & Output 03/23/18 03/24/18 03/25/18 06:59 06:59 06:59 Intake Total 2110 700 Output Total 700 Balance 1410 700 Weight 148.1 kg 144.4 kg General appearance: PRESENT: no acute distress, cooperative Head exam: PRESENT: atraumatic Mouth exam: PRESENT: moist Respiratory exam: PRESENT: unlabored. ABSENT: wheezes Cardiovascular exam: PRESENT: +S1, +S2. ABSENT: tachycardia GI/Abdominal exam: PRESENT: soft. ABSENT: tenderness Extremities exam: PRESENT: pedal edema, other - Right BKA; stump wrapped, c/d/i - no drainage noted Neurological exam: PRESENT: alert, awake, CN II-XII grossly intact Psychiatric exam: PRESENT: appropriate affect Skin exam: PRESENT: dry Results Laboratory Results: 03/22/18 09:35 03/22/18 09:35 Impressions: Tibia/Fibula X-Ray 03/17/18 15:21 IMPRESSION: No evidence of osteomyelitis. Chest X-Ray 03/19/18 00:00 IMPRESSION: Right subclavian vascular catheter is positioned with tip projecting over the superior cavoatrial junction. No pneumothorax or pleural effusion in AP projection. Qualifiers - * PATIENT BEING DISCHARGED WITH ANY OF THE FOLLOWING DIAGNOSIS: No Plan Time Spent: Greater than 30 Minutes
[2018-03-24 12:14] VITALS: BP 123/64
== END 2018-03-24 15:15 | disposition home health service (06) | DRG 464 ==
LOC: ER 14:03 → EH 21:55 → 2N 22:51
PROVIDERS: ADMIT Internal Medicine; ATTEND Internal Medicine
PROC: 0JBN0ZZ Excision of Right Lower Leg Subcutaneous Tissue and Fascia, Open Approach (ICD-10-PCS; principal; 2018-03-17)
PROC: 02HV33Z Insertion of Infusion Device into Superior Vena Cava, Percutaneous Approach (ICD-10-PCS; 2018-03-19)
DX: T87.43 Infection of amputation stump, right lower extremity (principal); L03.115 Cellulitis of right lower limb; E11.65 Type 2 diabetes mellitus with hyperglycemia; E83.42 Hypomagnesemia; Z89.511 Acquired absence of right leg below knee; E78.5 Hyperlipidemia, unspecified; I10 Essential (primary) hypertension; J45.909 Unspecified asthma, uncomplicated; F32.9 Major depressive disorder, single episode, unspecified; Z87.891 Personal history of nicotine dependence; Z88.2 Allergy status to sulfonamides; Z79.4 Long term (current) use of insulin; Z79.899 Other long term (current) drug therapy
CPT/HCPCS: 36415; 71045; 80048; 80053; 80202; 82565; 82962; 83036; 83735; 84100; 85025; 85027; 85652; 86140; 87040; 87070; 87075; 87077; 87186; 87205; 90471; 90686; 96365; 99285; C1751; G0008; G8978-GP; G8979-GP; J0295; J1642; J1644; J1815; J1885; J3370; J3475; J3490; J7060

== ENCOUNTER 2020-01-03 10:42 | Inpatient (IN) | payer MEDICAID ==
[2020-01-03 11:18] LABS: VENOUS BLOOD HCO3 22.5 mmol/L (20-32); VENOUS BLOOD PCO2 41.8 mmHg (35-63); VENOUS BLOOD PH 7.35 (7.30-7.42)
--- NOTE | 2020-01-03 11:18 | RADIOLOGY REPORT (SQ) ---
EXAM DESCRIPTION: CHEST SINGLE VIEW IMAGES COMPLETED DATE/TIME: 01/03/2020 11:08 am REASON FOR STUDY: fever COMPARISON: 03/19/2018 EXAM PARAMETERS: NUMBER OF VIEWS: One view. TECHNIQUE: Single frontal radiographic view of the chest acquired. RADIATION DOSE: NA LIMITATIONS: None. FINDINGS: LUNGS AND PLEURA: No opacities, masses or pneumothorax. No pleural effusion. MEDIASTINUM AND HILAR STRUCTURES: No masses. Contour normal. HEART AND VASCULAR STRUCTURES: Heart normal in size. Normal vasculature. BONES: No acute findings. HARDWARE: None in the chest. OTHER: No other significant finding. IMPRESSION: No focal airspace disease or other evidence of acute intrathoracic process. TECHNICAL DOCUMENTATION: JOB ID: [id number] 2010 [employer]- All Rights Reserved Reading location - IP/workstation name: [email or web address]
[2020-01-03 11:22] LABS: HEMATOCRIT 35.1 % (36.0-47.0); HEMOGLOBIN 11.5 g/dL (12.0-15.5); MEAN CORPUSCULAR HEMOGLOBIN 28.1 pg (27.0-33.4); MEAN CORPUSCULAR HGB CONC 32.8 g/dL (32.0-36.0); MEAN CORPUSCULAR VOLUME 86 fl (80-97); PLATELET COUNT 570 10^3/uL (150-450); RED BLOOD COUNT 4.09 10^6/uL (3.72-5.28); RED CELL DISTRIBUTION WIDTH 14.9 % (11.5-14.0)
[2020-01-03 11:36] LABS: INTERNATIONAL RATION (INR) 1.14; PROTHROMBIN TIME 14.8 SEC (11.4-15.4)
[2020-01-03] MEDS ORDERED: NORMAL SALINE IV ONE (11:37)
[2020-01-03 11:40] LABS: ALBUMIN 3.7 g/dL (3.5-5.0); ALKALINE PHOSPHATASE 107 U/L (38-126); ANION GAP 16 (5-19); ASPARTATE AMINO TRANSFERASE 19 U/L (14-36); BILIRUBIN,DIRECT 0.4 mg/dL (0.0-0.4); BILIRUBIN,TOTAL 0.8 mg/dL (0.2-1.3); BLOOD UREA NITROGEN 12 mg/dL (7-20); CARBON DIOXIDE 23 mmol/L (22-30); CHLORIDE 96 mmol/L (98-107); POTASSIUM 3.4 mmol/L (3.6-5.0); TOTAL PROTEIN 8.9 g/dL (6.3-8.2)
[2020-01-03 11:47] LABS: GLUCOSE 438 mg/dL (75-110)
[2020-01-03] MEDS: PIPERACILLIN/TAZOBACTAM 3.375 GM VIAL IV ONE (11:49)
--- NOTE | 2020-01-03 12:07 | ER Document Report ---
ED General - General Chief Complaint: Wound Infection Stated Complaint: LEFT LEG PAIN Time Seen by Provider: 01/03/20 10:47 Primary Care Provider: VIDAL GRANT MD [HONORARY] - Follow up as needed TRAVEL OUTSIDE OF THE [place] IN LAST 30 DAYS: No - HPI Onset: Other - Several days ago Onset/Duration: Gradual Quality of pain: No pain Associated symptoms: Chills, Diarrhea, Headache, Nausea, Vomiting Exacerbated by: Denies Relieved by: Denies Notes: Patient is a 49-year-old female with a past medical history of diabetes and danielito betic foot ulcers who presents with concern for an infection of her left foot. She was seen at wound care today and sent to the ED for suspected sepsis. Patient states she has had fevers and chills. She also has been having diarrhea and vomiting. She has no feeling in her left foot which is not new from diabetic neuropathy. Previous amputation of her right leg years ago. She denies cough or shortness of breath. Denies any sick contacts. Not been exposed to anyone with COVID-19 that she knows of. - Related Data Allergies/Adverse Reactions: Sulfa (Sulfonamide Antibiotics) Allergy (Verified 01/03/20 10:59) Past Medical History - Social History Smoking Status: Former Smoker Chew tobacco use (# tins/day): No Frequency of alcohol use: None Drug Abuse: None Family History: None - Past Medical History Cardiac Medical History: Reports: Hx Hypercholesterolemia, Hx Hypertension Pulmonary Medical History: Reports: Hx Asthma Endocrine Medical History: Reports: Hx Diabetes Mellitus Type 2 Renal/ Medical History: Denies: Hx Peritoneal Dialysis Psychiatric Medical History: Reports: Hx Depression Past Surgical History: Reports: Hx Orthopedic Surgery - R side BTK amputation, L elbow Review of Systems - Review of Systems Constitutional: Chills, Diaphoresis, Fever EENT: denies: Nose congestion, Throat pain Cardiovascular: Lightheaded. denies: Chest pain, Dyspnea Respiratory: denies: Cough, Hurts to breathe, Short of breath Gastrointestinal: Diarrhea, Nausea, Vomiting. denies: Abdominal pain Genitourinary: denies: Burning, Dysuria Musculoskeletal: No symptoms reported Skin: Change in color, Rash Neurological/Psychological: No symptoms reported -: Yes All other systems reviewed and negative Physical Exam - Vital signs Vitals: Temp Pulse Resp BP Pulse Ox 99.0 F 121 H 18 140/87 H 95 01/03/20 10:42 01/03/20 10:42 01/03/20 10:42 01/03/20 10:42 01/03/20 10:42 Interpretation: Tachycardic, Tachypneic - General General appearance: Appears well In distress: Mild - HEENT Head: Normocephalic, Atraumatic Eyes: Normal Conjunctiva: Normal Mucous membranes: Normal - Respiratory Respiratory status: No respiratory distress Chest status: Nontender Breath sounds: Normal. No: Rales, Rhonchi Chest palpation: Normal - Cardiovascular Rhythm: Regular Heart sounds: Normal auscultation - Abdominal Inspection: Obese Distension: No distension Tenderness: Nontender - Extremities General upper extremity: Normal inspection, Normal ROM Foot: Other - Previous amputation to right leg. Heel of left foot with diabetic ulcer with concern for necrosis. Did not probe to bone on my exam. Warmth, erythema, and swelling to left foot. Chronic diabetic neuropathy per patient. - Neurological Cognition: Normal Orientation: AAOx4 Dmitry Coma Scale Eye Opening: Spontaneous [place] Coma Scale Verbal: Oriented [place] Coma Scale Motor: Obeys Commands Dmitry Coma Scale Total: 15 - Psychological Associated symptoms: Normal affect, Normal mood. No: Aggressive, Agitated - Skin Skin Temperature: Warm Skin Moisture: Dry Skin Color: Normal Course - Re-evaluation Re-evalutation: 01/03/20 13:23 Patient symptoms are concerning for sepsis. She was started on 30 cc/kg fluids and antibiotics were ordered. X-ray shows concern for possible subcutaneous air at the heel where she has the ulcer. Possible osteomyelitis of toe. I discussed with surgery who will evaluate the patient in the ED. Her blood sugar has been in the 400s. She states that she missed her insulin dose today. We will give her a dose of subcutaneous insulin and recheck. Patient has significant lab abnormalities including leukocytosis and lactic acidosis with an elevated ESR. Surgery evaluated the patient in the ED. Will be taken to the OR later today. I discussed with the hospitalist who will admit the patient. Patient has not been hypotensive. Still mildly tachycardic at 110 but this is improving. She continues to be alert and oriented. Patient is agreeable to the plan. 01/03/20 13:58 01/03/20 16:41 - Vital Signs Vital signs: Temp Pulse Resp BP Pulse Ox 100.5 F H 121 H 23 H 140/87 H 95 01/03/20 15:00 01/03/20 10:42 01/03/20 16:01 01/03/20 16:01 01/03/20 16:01 - Laboratory Result Diagrams: 01/03/20 10:54 01/03/20 10:54 Laboratory results interpreted by me: 01/03/20 01/03/20 01/03/20 10:53 10:54 10:54 WBC 23.0 H Hgb 11.5 L Hct 35.1 L RDW 14.9 H Plt Count 570 H Abs Neuts (Manual) 17.5 H ESR Sodium 135.3 L Potassium 3.4 L Chloride 96 L Glucose 438 H* POC Glucose 425 H* Lactic Acid C-Reactive Protein Total Protein 8.9 H Urine Protein Urine Glucose (UA) Urine Ketones 01/03/20 01/03/20 01/03/20 10:54 10:54 10:54 WBC Hgb Hct RDW Plt Count Abs Neuts (Manual) ESR 108 H Sodium Potassium Chloride Glucose POC Glucose Lactic Acid 2.6 H C-Reactive Protein 397.3 H Total Protein Urine Protein Urine Glucose (UA) Urine Ketones 01/03/20 01/03/20 13:08 13:12 WBC Hgb Hct RDW Plt Count Abs Neuts (Manual) ESR Sodium Potassium Chloride Glucose POC Glucose 400 H Lactic Acid C-Reactive Protein Total Protein Urine Protein 100 H Urine Glucose (UA) >=500 H Urine Ketones 20 H - Diagnostic Test Radiology reviewed: Image reviewed, Reports reviewed - EKG Interpretation by Ne EKG shows normal: Sinus rhythm Rate: Tachycardia When compared to previous EKG there are: Previous EKG unavailable Additional EKG results interpreted by me: 01/03/20 13:56 Sinus tachycardia at a rate of 112. QTc 448. No acute ST changes. No previous EKG available for comparison. Critical Care Note - Critical Care Note Total time excluding time spent on procedures (mins): 30 Discharge - Discharge Clinical Impression: Sepsis Qualifiers: Sepsis type: sepsis due to unspecified organism Sepsis acute organ dysfunction status: without acute organ dysfunction Qualified Code(s): A41.9 - Sepsis, unspecified organism Diabetic ulcer of heel Qualifiers: Diabetes mellitus type: type 2 Laterality: left Non-pressure ulcer stage: with other severity Qualified Code(s): E11.621 - Type 2 diabetes mellitus with foot ulcer Condition: Fair Disposition: ADMITTED INPATIENT Admitting Provider: [facility] Unit Admitted: Medical Floor Referrals: VIDAL GRANT MD [HONORARY] - Follow up as needed ED Sepsis - Sepsis Documentation Sepsis Patient: Yes - Vital Signs Interpretation: Tachycardic, Tachypneic - Cardiovascular Peripheral Pulse Strength: Normal Capillary refill: < 3 seconds Rhythm: Regular Heart Sounds: Normal auscultation - Respiratory Breath sounds: Clear Respiratory Status: Tachypnea - Skin Skin Color: Normal - Bedside Cardiovascular Ultrasound Was a bedside Cardiovascular Ultrasound performed?: No
--- NOTE | 2020-01-03 12:07 | RADIOLOGY REPORT (SQ) ---
EXAM DESCRIPTION: FOOT LEFT COMPLETE IMAGES COMPLETED DATE/TIME: 01/03/2020 10:49 am REASON FOR STUDY: diabetic ulcer laterally, rule out osteomylitis COMPARISON: None. NUMBER OF VIEWS: Three views. TECHNIQUE: AP, lateral and oblique radiographic images acquired of the left foot. LIMITATIONS: None. FINDINGS: MINERALIZATION: Normal. BONES: There is cortical irregularity and lucency at the proximal base of the 5th digit proximal phal anx. 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 Small plantar calcaneal spur. No eugenia caneal lucency. JOINTS: No effusions. SOFT TISSUES: There is subcutaneous emphysema in the plantar soft tissues overlying the calcaneus. N o radiopaque foreign body. Diffuse edema in the mid and forefoot. OTHER: No other significant finding. IMPRESSION: 1. Cortical irregularity and lucency at the proximal base 5th digit proximal phalanx, possibly repres enting osteomyelitis. 2. Subcutaneous gas in the plantar soft tissues overlying the calcaneus. Clinical correlation for ul ceration in this region recommended. Finding may represent necrotizing infection. Clinical correlat ion. TECHNICAL DOCUMENTATION: JOB ID: [id number] 2010 [employer]- All Rights Reserved Reading location - IP/workstation name: [email or web address]
[2020-01-03 12:08] LABS: ABSOLUTE LYMPHOCYTES# (MANUAL) 4.4 10^3/uL (0.5-4.7); ABSOLUTE MONOCYTES # (MANUAL) 1.2 10^3/uL (0.1-1.4); BASOPHILS % (MANUAL) 0 % (0-2); EOSINOPHILS % (MANUAL) 0 % (0-6); LYMPHOCYTES % (MANUAL) 19 % (13-45); MONOCYTES % (MANUAL) 5 % (3-13); SEGMENTED NEUTROPHILS % (MAN) 76 % (42-78); TOTAL CELLS COUNTED 100
[2020-01-03 12:10] LABS: ANISOCYTOSIS SLIGHT; PLATELET COMMENT INCREASED; TOXIC GRANULATION 1+
[2020-01-03 12:12] LABS: PLATELET LARGE PRESENT
[2020-01-03] MEDS ORDERED: INSULIN REG, HUMAN 100 UNIT/ML 3 ML VIAL (PYX) SUBCUT ONE (12:39)
[2020-01-03] MEDS ORDERED: VANCOMYCIN HCL INJ 1000 MG VIAL IV ONE (12:43)
[2020-01-03 13:37] LABS: APPEARANCE,URINE SLIGHTLY-CLOUDY; BILIRUBIN,URINE NEGATIVE (NEGATIVE); COLOR,URINE YELLOW; GLUCOSE, URINE >=500 mg/dL (NEGATIVE); KETONES,URINE 20 mg/dL (NEGATIVE); PROTEIN,URINE 100 mg/dL (NEGATIVE); URINE SPECIFIC GRAVITY 1.033; UROBILINOGEN,URINE NEGATIVE mg/dL (<2.0)
--- NOTE | 2020-01-03 13:50 | EKG REPORT ---
SEVERITY:- BORDERLINE ECG - SINUS TACHYCARDIA BORDERLINE T ABNORMALITIES, INFERIOR LEADS : Confirmed by: Giuseppe Tipton MD 03-Jan-2020 13:49:57
[2020-01-03] MEDS ORDERED: MIDAZOLAM 2 MG/2 ML INJ ONE ×2 (15:37→16:40)
[2020-01-03] MEDS ORDERED: KETAMINE HCL INJ 500 MG/10 ML VIAL ONE (15:37)
[2020-01-03] MEDS ORDERED: ONDANSETRON HCL INJ/PF 4 MG/2 ML SDV ONE (15:37)
[2020-01-03] MEDS ORDERED: PROPOFOL INJ 200 MG/20 ML VIAL IV ONE (15:38)
[2020-01-03] MEDS ORDERED: MORPHINE SULFATE 10 MG/ML INJ IV PRN (16:37)
[2020-01-03] MEDS ORDERED: PROMETHAZINE HCL INJ 25 MG/1 ML VIAL IV PRN (16:37)
[2020-01-03] MEDS ORDERED: FENTANYL CITRATE INJ/PF 100 MCG/2 ML AMPUL IV PRN ×3 (16:37)
[2020-01-03] MEDS ORDERED: MEPERIDINE HCL/PF INJ 25 MG/1 ML DISP.SYRIN IV PRN (16:37)
[2020-01-03] MEDS ORDERED: DIPHENHYDRAMINE HCL 50 MG/ML VIAL IV PRN (16:37)
[2020-01-03] MEDS ORDERED: LIDOCAINE 1% INJ-PF (10 MG/ML) 30 ML SDV ONE (16:43)
--- NOTE | 2020-01-03 17:24 | Operative Report ---
Operative Report DATE OF SURGERY: 01/03/20 PREOPERATIVE DIAGNOSIS: Diabetic infection of left heel ulcer POSTOPERATIVE DIAGNOSIS: Same OPERATION: Sharp debridement of right heel ulcer close to the periosteum of the calcaneus bone SURGEON: RAVIN DONIS ANESTHESIA: LMAC TISSUE REMOVED OR ALTERED: Necrotic tissue of the left heel COMPLICATIONS: None ESTIMATED BLOOD LOSS: 40 cc QUANTITATIVE BLOOD LOSS: 40 INTRAOPERATIVE FINDINGS: Necrotic ulcer along the left heel with foul-smelling discharge. Tunneling from the ulcer to about 3 cm up the medial area with some foul-smelling yellowish drainage. This tunnel was probe all the way down to the ulcer on the left heel PROCEDURE: After adequate IV sedation patient was placed in supine position on the left foot and ankle were then prepped and draped in the usual sterile fashion. Appropriate timeout was then called. Next 1% lidocaine was injected around the ulcer site. Sharp debridement of the necrotic ulcer was done and the tunnel was unroofed sharply. There was some foul-smelling discharge from the heel part. Specimen for cultures were obtained. The necrotic tissue goes almost to the calcaneal bone with a lot of necrotic tissue that were debrided through the thick pad on the heel side. The debridement goes to just fascia above the calcaneus bone. The wound roughly measured 5 x 6cm. The tunnel that was unroofed was about 3cm from the heel ulcer edge. An incision was made through the ulcer to unroofed that. Hemostasis was then controlled with the use of cautery. The wound was then covered with a layer of Xeroform gauze and 4 x 4's ABD pads and wrapped with Kerlix and Anthony bandage. Patient tolerated procedure quite well. Patient brought to the recovery room in guarded condition.
[2020-01-03] MEDS ORDERED: PIPERACILLIN/TAZOBACTAM 3.375 GM VIAL IV SCH (17:30)
[2020-01-03] MEDS ORDERED: VANCOMYCIN HCL INJ 1000 MG VIAL IV SCH (17:30)
[2020-01-03] MEDS ORDERED: KETOROLAC TROMETHAMINE INJ/PF 30 MG/1 ML SDV IV SCH (19:00)
--- NOTE | 2020-01-03 19:44 | PDOC H&P ---
History of Present Illness Admission Date/PCP: 01/03/20 14:59 VIDAL DEAL MD History of Present Illness: HANNAH VICTOR is a 49 year old female with medical history significant for uncon trolled insulin dependent diabetes mellitus type 2 c/b remote right BKA and peripheral neuropathy who developed a L heel ulcer after putting her foot down on a nail on Tuesday. She was seen at wound care today and sent to the ED due to concern for suspected sepsis. She states she has had fevers and chills for the last 2 days. She also has been having diarrhea and vomiting. She has no sick contacts. Past Medical History Cardiac Medical History: Reports: Hyperlipidema, Hypertension Pulmonary Medical History: Reports: Asthma Endocrine Medical History: Reports: Diabetes Mellitus Type 2 Psychiatric Medical History: Reports: Depression Past Surgical History Past Surgical History: Reports: Orthopedic Surgery - R side BTK amputation, L elbow Social History Smoking Status: Never Smoker Electronic Cigarette use?: No Frequency of Alcohol Use: None Hx Recreational Drug Use: No Drugs: None Hx Prescription Drug Abuse: No - Advance Directive Resuscitation Status: Full Code Family History Family History: None, Reviewed & Not Pertinent Parental Family History Reviewed: Yes Children Family History Reviewed: Yes Sibling(s) Family History Reviewed.: Yes Medication/Allergy Home Medications: Albuterol Sulfate [Proair HFA Inhalation Aerosol 8.5 gm MDI] 2 puff IH Q6HP PRN 03/18/18 Atorvastatin Calcium [Lipitor 40 mg Tablet] 40 mg PO QHS 03/18/18 Sertraline HCl [Zoloft 50 mg Tablet] 50 mg PO BID 03/18/18 Budesonide/Formoterol Fumarate [Symbicort HFA 160-4.5 mcg Inhaler 6 gm] 2 puff IH BID 01/03/20 Esomeprazole Magnesium 40 mg PO Q6AM 01/03/20 Famotidine [Pepcid 20 mg Tablet] 40 mg PO DAILY 01/03/20 Insulin Glargine,Hum.rec.anlog [Lantus Insulin 100 Unit/1 ml 10 ml] 60 unit SQ QPM 01/03/20 Insulin Glargine,Hum.rec.anlog [Lantus Insulin 100 Unit/1 ml 10 ml] 70 unit SQ QAM 01/03/20 Meclizine HCl [Antivert 25 mg Tablet] 25 mg PO BID 01/03/20 Trazodone HCl [Desyrel 50 mg Tablet] 50 mg PO HSP PRN 01/03/20 Allergies/Adverse Reactions: Sulfa (Sulfonamide Antibiotics) Allergy (Verified 01/03/20 10:59) Review of Systems Constitutional: PRESENT: chills, fatigue, fever(s) Eyes: ABSENT: visual disturbances Ears: ABSENT: hearing changes Nose, Mouth, and Throat: ABSENT: sore throat Cardiovascular: ABSENT: chest pain, dyspnea on exertion, palpitations Respiratory: PRESENT: other - chronic dry cough, unchanged Gastrointestinal: PRESENT: as per HPI Genitourinary: ABSENT: dysuria Musculoskeletal: PRESENT: as per HPI Integumentary: PRESENT: as per HPI Neurological: ABSENT: syncope Psychiatric: PRESENT: anxiety, depression Physical Exam Vital Signs: Temp Pulse Resp BP Pulse Ox 98.9 F 77 24 H 128/102 H 96 01/03/20 18:18 01/03/20 18:18 01/03/20 18:18 01/03/20 18:18 01/03/20 18:18 Intake & Output 01/02/20 01/03/20 01/04/20 06:59 06:59 06:59 Intake Total 5200 Output Total 5 Balance 5195 Weight 142.3 kg Additional comments: General: tearful, anxious woman Head: normocephalic, atraumatic Eyes: anicteric sclera ENT: moist mucus memranes, no oropharyngeal erythema/exudate Neck: no lymphadenopathy Lungs: clear to auscultation bilaterally Heart: regular rate and rhythm, no murmurs/rubs/gallops Abdomen: obese, normoactive bowel sounds, soft, non-tender, non-distended : no CVA tenderness, no suprapubic tenderness Extremities: s/p remote R BKA, red/purulent L heel ulcer and erythema/warmth up the L leg to the knee Neuro: A&Ox3 Results Laboratory Results: 01/03/20 10:54 01/03/20 10:54 01/03/20 01/03/20 01/03/20 10:54 10:54 10:54 WBC 23.0 H RBC 4.09 Hgb 11.5 L Hct 35.1 L MCV 86 MCH 28.1 MCHC 32.8 RDW 14.9 H Plt Count 570 H Seg Neutrophils % Not Reportable VBG pH VBG pCO2 VBG HCO3 VBG Base Excess Sodium 135.3 L Potassium 3.4 L Chloride 96 L Carbon Dioxide 23 Anion Gap 16 BUN 12 Creatinine 0.62 Est GFR ( Amer) > 60 Glucose 438 H* Lactic Acid Calcium 9.0 Total Bilirubin 0.8 AST 19 Alkaline Phosphatase 107 C-Reactive Protein Total Protein 8.9 H Albumin 3.7 Serum HCG, Qual NEGATIVE Urine Color Urine Appearance Urine pH Ur Specific [place] Urine Protein Urine Glucose (UA) Urine Ketones Urine Blood Urine RBC (Auto) 01/03/20 01/03/20 01/03/20 10:54 10:54 10:54 WBC RBC Hgb Hct MCV MCH MCHC RDW Plt Count Seg Neutrophils % VBG pH 7.35 VBG pCO2 41.8 VBG HCO3 22.5 VBG Base Excess -3.0 Sodium Potassium Chloride Carbon Dioxide Anion Gap BUN Creatinine Est GFR ( Amer) Glucose Lactic Acid 2.6 H Calcium Total Bilirubin AST Alkaline Phosphatase C-Reactive Protein 397.3 H Total Protein Albumin Serum HCG, Qual Urine Color Urine Appearance Urine pH Ur Specific [place] Urine Protein Urine Glucose (UA) Urine Ketones Urine Blood Urine RBC (Auto) 01/03/20 01/03/20 13:08 14:46 WBC RBC Hgb Hct MCV MCH MCHC RDW Plt Count Seg Neutrophils % VBG pH VBG pCO2 VBG HCO3 VBG Base Excess Sodium Potassium Chloride Carbon Dioxide Anion Gap BUN Creatinine Est GFR ( Amer) Glucose Lactic Acid 1.3 Calcium Total Bilirubin AST Alkaline Phosphatase C-Reactive Protein Total Protein Albumin Serum HCG, Qual Urine Color YELLOW Urine Appearance SLIGHTLY-CLOUDY Urine pH 5.0 Ur Specific [place] 1.033 Urine Protein 100 H Urine Glucose (UA) >=500 H Urine Ketones 20 H Urine Blood NEGATIVE Urine RBC (Auto) 4 01/03/20 10:54 Troponin I < 0.012 Impressions: Chest X-Ray 01/03/20 10:58 IMPRESSION: No focal airspace disease or other evidence of acute intrathoracic process. Foot X-Ray 01/03/20 11:17 IMPRESSION: 1. Cortical irregularity and lucency at the proximal base 5th digit proximal phalanx, possibly representing osteomyelitis. 2. Subcutaneous gas in the plantar soft tissues overlying the calcaneus. Clinical correlation for ulceration in this region recommended. Finding may represent necrotizing infection. Clinical correlation. Assessment and Plan - Plan Summary Summary: Sepsis due to LLE Cellulitis and L Heel Ulcer: had elevated HR, RR, leukocytosis and fever (4/4 SIRS) on arrival - BCx x2 and wound cultures pending - vanc/zosyn - surgery consulted, plan to go to OR today for debridement - NPO (for surgery), IVF Uncontrolled Insulin-Dependent DM2: c/b peripheral neuropathy and prior R BKA - glucose elevated >400 on admission - start Lantus and SSI, adjust PRN DVT ppx Lovenox - Time Time Spent with patient: 35 or more minutes Anticipated Discharge Disposition: Home, Self Care Anticipated Discharge Timeframe: within 72 hours
[2020-01-03] MEDS ORDERED: VANCOMYCIN HCL 0 MG in DEXTROSE 5%-WATER 250 ML IV NR (19:45)
[2020-01-03] MEDS ORDERED: ONDANSETRON HCL INJ/PF 4 MG/2 ML SDV IV PRN (19:47)
[2020-01-03] MEDS ORDERED: ONDANSETRON 4 MG TAB.RAPDIS PO PRN (19:47)
[2020-01-03] MEDS ORDERED: (PENDING PHARMACY ID) (Albuterol Sulfate 2 PUFF) IH PRN (19:52)
[2020-01-03] MEDS ORDERED: DEXTROSE 40% GEL 15 GM TUBE PO PRN ×2 (19:54)
[2020-01-03] MEDS ORDERED: GLUCAGON,HUMAN RECOMB 1 MG INJ IM PRN (19:54)
[2020-01-03] MEDS ORDERED: DEXTROSE 50%-WATER 25 GM/50 ML DISP.SYRIN IV PRN ×2 (19:54)
[2020-01-03] MEDS ORDERED: ALBUTEROL SULFATE HFA (90 MCG/PUFF) 8 GM MDI IH PRN (20:45)
[2020-01-03] MEDS: INSULIN GLARGINE,HUM.REC.ANLOG 1,000 UNIT/10 ML VIAL SUBCUT SCH (21:55)
[2020-01-03] MEDS: ATORVASTATIN CALCIUM 40 MG TABLET PO SCH (21:56)
[2020-01-03] MEDS: INSULIN REG, HUMAN 100 UNIT/ML 3 ML VIAL (PYX) SUBCUT SCH (21:56)
[2020-01-03] MEDS: SERTRALINE HCL 50 MG TABLET PO SCH (21:56)
[2020-01-03] MEDS: KETOROLAC TROMETHAMINE INJ/PF 30 MG/1 ML SDV IV SCH (21:57)
[2020-01-03] MEDS: PIPERACILLIN SODIUM/TAZOBACTAM 3.375 GM in NORMAL SALINE 100 ML IV SCH (21:58)
[2020-01-03] MEDS: NORMAL SALINE 1000 ML 1,000 ML IV PRN (22:11)
[2020-01-03] MEDS: VANCOMYCIN HCL 1,250 MG in DEXTROSE 5%-WATER 250 ML IV SCH (23:10)
[2020-01-04] MEDS: KETOROLAC TROMETHAMINE INJ/PF 30 MG/1 ML SDV IV SCH ×5 (02:50→21:26)
[2020-01-04] MEDS: PIPERACILLIN SODIUM/TAZOBACTAM 3.375 GM in NORMAL SALINE 100 ML IV SCH ×5 (02:50→21:26)
[2020-01-04] MEDS: VANCOMYCIN HCL 1,250 MG in DEXTROSE 5%-WATER 250 ML IV SCH ×3 (05:19→23:40)
[2020-01-04] MEDS: PANTOPRAZOLE SODIUM 40 MG TABLET.DR PO SCH (05:19)
[2020-01-04] MEDS ORDERED: (PENDING PHARMACY ID) (Esomeprazole Magnesium [Esomeprazole Magnesium] 40 MG) PO SCH (06:00)
[2020-01-04 07:36] LABS: ABSOLUTE BASOPHILS # (AUTO) 0.1 10^3/uL (0.0-0.2); ABSOLUTE EOSINOPHILS # (AUTO) 0.3 10^3/uL (0.0-0.6); ABSOLUTE LYMPHOCYTES (AUTO) 1.7 10^3/uL (0.5-4.7); ABSOLUTE MONOCYTES (AUTO) 0.7 10^3/uL (0.1-1.4); ABSOLUTE NEUT (AUTO) 12.8 10^3/uL (1.7-8.2); BASOPHILS % (AUTO) 0.4 % (0-2); EOSINOPHILS % (AUTO) 1.9 % (0-6); HEMATOCRIT 28.6 % (36.0-47.0); MEAN CORPUSCULAR HEMOGLOBIN 27.6 pg (27.0-33.4); MEAN CORPUSCULAR HGB CONC 32.1 g/dL (32.0-36.0); MEAN CORPUSCULAR VOLUME 86 fl (80-97); MONOCYTES % (AUTO) 4.5 % (3-13); PLATELET COUNT 413 10^3/uL (150-450); RED BLOOD COUNT 3.32 10^6/uL (3.72-5.28); RED CELL DISTRIBUTION WIDTH 14.9 % (11.5-14.0); SEGMENTED NEUTROPHILS % (AUTO) 82.2 % (42-78); TOTAL CELLS COUNTED % (AUTO) 100 %; WHITE BLOOD COUNT 15.6 10^3/uL (4.0-10.5)
[2020-01-04 07:37] LABS: INTERNATIONAL RATION (INR) 1.23; PROTHROMBIN TIME 15.7 SEC (11.4-15.4)
[2020-01-04 07:38] LABS: HEMOGLOBIN 9.2 g/dL (12.0-15.5)
[2020-01-04 07:55] LABS: ANION GAP 11 (5-19); BLOOD UREA NITROGEN 15 mg/dL (7-20); CALCIUM 7.5 mg/dL (8.4-10.2); CARBON DIOXIDE 21 mmol/L (22-30); CHLORIDE 103 mmol/L (98-107); POTASSIUM 3.6 mmol/L (3.6-5.0)
[2020-01-04 08:05] LABS: GLUCOSE 400 mg/dL (75-110)
[2020-01-04] MEDS: FAMOTIDINE 20 MG TABLET PO SCH (10:45)
[2020-01-04] MEDS: SERTRALINE HCL 50 MG TABLET PO SCH ×2 (10:46→17:43)
[2020-01-04] MEDS: ENOXAPARIN SODIUM INJ 40 MG/0.4 ML DISP.SYRIN SUBCUT SCH (10:46)
[2020-01-04] MEDS: MECLIZINE HCL 25 MG TABLET PO SCH ×2 (10:46→17:43)
[2020-01-04] MEDS: INSULIN REG, HUMAN 100 UNIT/ML 3 ML VIAL (PYX) SUBCUT SCH ×2 (10:47→12:32)
[2020-01-04] MEDS: FLUTICASONE/VILANTEROL 200-25 MCG/DOSE IH SCH (10:50)
[2020-01-04] MEDS: INSULIN GLARGINE,HUM.REC.ANLOG 1,000 UNIT/10 ML VIAL SUBCUT SCH ×2 (10:58→21:41)
[2020-01-04] MEDS ORDERED: DEXTROSE 40% GEL 15 GM TUBE PO PRN ×2 (11:03)
[2020-01-04] MEDS ORDERED: GLUCAGON,HUMAN RECOMB 1 MG INJ IM PRN (11:03)
[2020-01-04] MEDS ORDERED: DEXTROSE 50%-WATER 25 GM/50 ML DISP.SYRIN IV PRN ×2 (11:03)
[2020-01-04] MEDS ORDERED: MORPHINE SULFATE 10 MG/ML INJ IV PRN (11:06)
[2020-01-04] MEDS: INSULIN LISPRO 100 UNIT/ML 3 ML VIAL SUBCUT SCH ×3 (12:34→21:43)
[2020-01-04] MEDS ORDERED: INSULIN LISPRO 100 UNIT/ML 3 ML VIAL SUBCUT SCH (16:00)
--- NOTE | 2020-01-04 17:29 | PDOC PROGRESS REPORT ---
Subjective Progress Note for:: 01/04/20 Subjective:: Less pains left foot operative site Reason For Visit: SEPSIS Physical Exam Vital Signs: Temp Pulse Resp BP Pulse Ox 97.5 F 83 16 108/79 95 01/04/20 15:42 01/04/20 16:04 01/04/20 15:42 01/04/20 15:42 01/04/20 15:42 Intake & Output 01/03/20 01/04/20 01/05/20 06:59 06:59 06:59 Intake Total 6150 350 Output Total 5 Balance 6145 350 Weight 142 kg Exam: The left heel debridement site looks fairly clean. May need to have debridement at bedside of couple of areas. May need wound VAC tomorrow. Results Laboratory Results: 01/04/20 06:27 01/04/20 06:27 01/03/20 01/04/20 01/04/20 19:11 06:27 06:27 WBC 15.6 H RBC 3.32 L Hgb 9.2 L D Hct 28.6 L MCV 86 MCH 27.6 MCHC 32.1 RDW 14.9 H Plt Count 413 Seg Neutrophils % 82.2 H Sodium 135.1 L Potassium 3.6 Chloride 103 Carbon Dioxide 21 L Anion Gap 11 BUN 15 Creatinine 0.94 Est GFR ( Amer) > 60 Glucose 400 H* Lactic Acid 1.3 Calcium 7.5 L 01/03/20 10:54 Troponin I < 0.012 Impressions: Chest X-Ray 01/03/20 10:58 IMPRESSION: No focal airspace disease or other evidence of acute intrathoracic process. Foot X-Ray 01/03/20 11:17 IMPRESSION: 1. Cortical irregularity and lucency at the proximal base 5th digit proximal phalanx, possibly representing osteomyelitis. 2. Subcutaneous gas in the plantar soft tissues overlying the calcaneus. Clinical correlation for ulceration in this region recommended. Finding may represent necrotizing infection. Clinical correlation. Assessment & Plan - Time Critical Time spent with patient: 15-24 minutes Anticipated Discharge Disposition: Home with Home Health Anticipated Discharge Timeframe: 1 week - Inpatient Certification Medical Necessity: Need for IV Antibiotics - Plan Summary Plan Summary: 49-year-old female post debridement of left heel necrotic area with air on x- ray. This is her first postop day. Her white count is slightly lower compared to yesterday. The wound looks fairly clean with a couple of areas that may need to be debrided at bedside. May need wound VAC tomorrow. Continue IV antibiotics
[2020-01-04] MEDS ORDERED: NORMAL SALINE 1000 ML 1,000 ML IV PRN (18:56)
--- NOTE | 2020-01-04 19:06 | PDOC PROGRESS REPORT ---
Subjective Progress Note for:: 01/04/20 Subjective:: Feeling anxious about needing another debridement today. Has L foot pain. Denies fevers/chills. Glucose remains uncontrolled. She has been taking Lantus 130 units daily + SSI of about 20 units TID AC at home prior to this hospitalization. Reason For Visit: SEPSIS DUE TO LLE DIABETIC FOOT ULCER, UNCONTROLLED DM2 Physical Exam Vital Signs: Temp Pulse Resp BP Pulse Ox 97.5 F 83 16 108/79 95 01/04/20 15:42 01/04/20 16:04 01/04/20 15:42 01/04/20 15:42 01/04/20 15:42 Intake & Output 01/03/20 01/04/20 01/05/20 06:59 06:59 06:59 Intake Total 6150 840 Output Total 5 0 Balance 6145 840 Weight 142 kg Additional comments: General: tearful, anxious Head: normocephalic, atraumatic Eyes: anicteric sclera ENT: moist mucus memranes, no oropharyngeal erythema/exudate Neck: no lymphadenopathy Lungs: clear to auscultation bilaterally Heart: regular rate and rhythm, no murmurs/rubs/gallops Abdomen: obese, normoactive bowel sounds, soft, non-tender, non-distended : no CVA tenderness, no suprapubic tenderness Extremities: s/p remote R BKA, +L heel ulcer Neuro: A&Ox3 Results Laboratory Results: 01/04/20 06:27 01/04/20 06:27 01/03/20 01/04/20 01/04/20 19:11 06:27 06:27 WBC 15.6 H RBC 3.32 L Hgb 9.2 L D Hct 28.6 L MCV 86 MCH 27.6 MCHC 32.1 RDW 14.9 H Plt Count 413 Seg Neutrophils % 82.2 H Sodium 135.1 L Potassium 3.6 Chloride 103 Carbon Dioxide 21 L Anion Gap 11 BUN 15 Creatinine 0.94 Est GFR ( Amer) > 60 Glucose 400 H* Lactic Acid 1.3 Calcium 7.5 L 01/03/20 10:54 Troponin I < 0.012 Impressions: Chest X-Ray 01/03/20 10:58 IMPRESSION: No focal airspace disease or other evidence of acute intrathoracic process. Foot X-Ray 01/03/20 11:17 IMPRESSION: 1. Cortical irregularity and lucency at the proximal base 5th digit proximal phalanx, possibly representing osteomyelitis. 2. Subcutaneous gas in the plantar soft tissues overlying the calcaneus. Clinical correlation for ulceration in this region recommended. Finding may represent necrotizing infection. Clinical correlation. Assessment and Plan - Plan Summary Summary: Sepsis due to LLE Cellulitis and L Heel Ulcer: had elevated HR, RR, leukocytosis and fever (4/4 SIRS) on arrival - BCx x2 and wound cultures show NGTD - continue vancomycin and Zosyn - surgery consulted, went to OR 01/02 for debridement and got bedside debridement again on 01/03 Uncontrolled Insulin-Dependent DM2: c/b peripheral neuropathy and prior R BKA - glucose elevated >400 on admission - increase Lantus dose, start scheduled mealtime insulin and increase dosing of SSI, adjust PRN - carb controlled diet - give 2 L NS bolus Hypokalemia - replete K DVT ppx Lovenox - Time Time Spent with patient: 35 or more minutes Anticipated Discharge Disposition: Home, Self Care Anticipated Discharge Timeframe: >72 hours
[2020-01-04] MEDS: POTASSIUM CHLORIDE 10 MEQ TABLET.ER PO SCH (19:42)
[2020-01-04] MEDS: NORMAL SALINE 1000 ML 1,000 ML IV PRN ×2 (20:35→21:26)
[2020-01-04] MEDS: ATORVASTATIN CALCIUM 40 MG TABLET PO SCH (21:41)
[2020-01-04] MEDS: MELATONIN 5 MG TABLET PO SCH (21:41)
[2020-01-05] MEDS: KETOROLAC TROMETHAMINE INJ/PF 30 MG/1 ML SDV IV SCH ×2 (02:08→09:04)
[2020-01-05] MEDS: PIPERACILLIN SODIUM/TAZOBACTAM 3.375 GM in NORMAL SALINE 100 ML IV SCH ×3 (02:08→22:50)
--- NOTE | 2020-01-05 02:39 | Operative Report ---
Operative Report DATE OF SURGERY: 01/04/20 PREOPERATIVE DIAGNOSIS: Necrotic tissue along the left heel that was previously debrided in the OR 01/03/2020 POSTOPERATIVE DIAGNOSIS: Same OPERATION: Sharp debridement of further necrotic tissue on the left heel ulcer SURGEON: RAVIN DONIS ANESTHESIA: Other TISSUE REMOVED OR ALTERED: Necrotic tissue consisting of subcu and fascia of the left heel ulcer COMPLICATIONS: None ESTIMATED BLOOD LOSS: 1 cc QUANTITATIVE BLOOD LOSS: 1 INTRAOPERATIVE FINDINGS: Patient had debridement of necrotic tissue with gas- forming bacteria on the left heel ulcer done 01/03/2020. There were still some necrotic tissue on 01/04/2020 that was then sharply debrided with 15 and 11 blade PROCEDURE: Patient was placed in the supine position while in bed and the left leg lifted on pillow. The left ulcer site still showed some more necrotic tissue and this was then sharply debrided using #11 and #15 blade. There is one spot that appears to have starting granulation tissue but the majority of the ulcer that is roughly measuring 5 x 6 cm is still has some necrotic tissue. A third debridement the ulcer site was then dressed with a layer of Xeroform gauze and 4 x 4 and ABD pad wrapped with Kerlix. Patient tolerated procedure well. There was still cellulitis on the plantar aspect going towards the toes and around medial aspect where the tunnel was unroofed. Patient was informed of possibility of below-knee amputation versus attempt to place wound VAC. We will asked Dr. Mello to reevaluate the wound in a.m.
[2020-01-05] MEDS: PANTOPRAZOLE SODIUM 40 MG TABLET.DR PO SCH (05:30)
[2020-01-05] MEDS: VANCOMYCIN HCL 1,250 MG in DEXTROSE 5%-WATER 250 ML IV SCH (05:31)
[2020-01-05 06:09] LABS: VANCOMYCIN,TROUGH 38.8 ug/mL (5.0-20.0)
[2020-01-05] MEDS: INSULIN LISPRO 100 UNIT/ML 3 ML VIAL SUBCUT SCH ×7 (09:04→22:51)
[2020-01-05] MEDS: FAMOTIDINE 20 MG TABLET PO SCH (09:12)
[2020-01-05] MEDS: POTASSIUM CHLORIDE 10 MEQ TABLET.ER PO SCH (09:12)
[2020-01-05] MEDS: SERTRALINE HCL 50 MG TABLET PO SCH ×2 (09:12→17:04)
[2020-01-05] MEDS: ENOXAPARIN SODIUM INJ 40 MG/0.4 ML DISP.SYRIN SUBCUT SCH (09:12)
[2020-01-05] MEDS: MECLIZINE HCL 25 MG TABLET PO SCH ×2 (09:12→17:04)
[2020-01-05] MEDS: FLUTICASONE/VILANTEROL 200-25 MCG/DOSE IH SCH (09:16)
[2020-01-05] MEDS: INSULIN GLARGINE,HUM.REC.ANLOG 1,000 UNIT/10 ML VIAL SUBCUT SCH ×2 (09:16→22:51)
[2020-01-05] MEDS ORDERED: LIDOCAINE 1% INJ-PF (10 MG/ML) 30 ML SDV ONE (11:42)
[2020-01-05] MEDS ORDERED: LIDOCAINE 1% INJ-PF (10 MG/ML) 30 ML SDV INJ ONE (12:15)
[2020-01-05] MEDS ORDERED: LIDOCAINE 1% INJ (10 MG/ML) 10 ML MDV INJ ONE (13:00)
--- NOTE | 2020-01-05 13:04 | PDOC PROGRESS REPORT ---
Subjective Progress Note for:: 01/05/20 Subjective:: Patient comfortable Reason For Visit: SEPSIS Physical Exam Vital Signs: Temp Pulse Resp BP Pulse Ox 97.5 F 85 16 103/75 95 01/05/20 11:13 01/05/20 11:13 01/05/20 11:13 01/05/20 11:13 01/05/20 11:13 Intake & Output 01/04/20 01/05/20 01/06/20 06:59 06:59 06:59 Intake Total 7150 2660 Output Total 5 0 Balance 7145 2660 Weight 142 kg 145.2 kg General appearance: PRESENT: no acute distress, obese Extremities exam: PRESENT: other - Left foot = diffuse erythema of the heel, large area of the heel which is missing soft tissue coverage with fibrous tissue present, palpable bone, no odor, no pain on palpation Results Laboratory Results: 01/04/20 06:27 01/05/20 05:30 01/05/20 05:30 Creatinine 2.52 H Est GFR ( Amer) 24 L 01/03/20 10:54 Troponin I < 0.012 Impressions: Foot X-Ray 01/03/20 11:17 IMPRESSION: 1. Cortical irregularity and lucency at the proximal base 5th digit proximal phalanx, possibly representing osteomyelitis. 2. Subcutaneous gas in the plantar soft tissues overlying the calcaneus. Clinical correlation for ulceration in this region recommended. Finding may represent necrotizing infection. Clinical correlation. 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 with other specified severity Is this a current diagnosis for this admission?: Yes (2) Cellulitis Qualifiers: Site of cellulitis: extremity Site of cellulitis of extremity: lower extremity Laterality: right Qualified Code(s): L03.115 - Cellulitis of right lower limb Is this a current diagnosis for this admission?: Yes (3) Diabetes mellitus type 2 in obese Is this a current diagnosis for this admission?: Yes - Time Anticipated Discharge Disposition: As per PCP Anticipated Discharge Timeframe: Per PCP - Plan Summary Plan Summary: Assessment: Morbid obese diabetic patient Left heel MRSA infection with gas-forming organisms Postop day #0 following debridement left heel at bedside Patient currently on vancomycin and Zosyn Physical exam of the left heel reveals a large area of erythema, missing soft tissue of the entire heel with bone exposed, no odor Need of IV access as per the primary care physician None: Plan placement of central venous line at bedside Procedure, benefits, complications, including pneumothorax and bleeding is been discussed with the patient she understands all above desires to proceed MRI with and without contrast of the left lower extremity to rule out osteomyelitis N.p.o. after midnight IV fluids starting tonight Plan debridement left heel, possible left below-knee amputation according to the MRI results pending today and the patient wishes. Procedure, risks, benefits, complications, explained the patient, she understands all the above, questions answered, she desires to proceed with either procedure following the MRI to be done later today. Hold Lovenox Hold Toradol
--- NOTE | 2020-01-05 13:06 | Operative Report ---
Operative Report DATE OF SURGERY: 01/05/20 PREOPERATIVE DIAGNOSIS: Need of IV access POSTOPERATIVE DIAGNOSIS: Same OPERATION: Right subclavian vein triple-lumen catheter SURGEON: MANISH ARELLANO ANESTHESIA: Local - 15 mL's 1% lidocaine TISSUE REMOVED OR ALTERED: None COMPLICATIONS: None ESTIMATED BLOOD LOSS: Negligible PROCEDURE: The procedure was done at bedside: The patient was placed in a supine position, the patient neck and chest were prepped and draped in the usual fashion. The midportion of the right clavicle and just below it was infiltrated with lidocaine, a 16-gauge needle was then used to cannulate the [right subclavianugular vein without difficulty with good blood return; a guidewire was inserted through the needle into the central vein without difficulty the needle was removed. The insertion point of the guidewire was enlarged with a #11 blade and a tissue dilator which was then removed. A triple-lumen catheter was inserted without difficulty over the guidewire into the central vein without difficulty up to [16/20] cm, the guidewire was removed. Each port was aspirated and flushed with normal saline without difficulty. The catheter was secured to the skin with 3-0 nylon sutures and sterile dressing applied. The patient tolerated the procedure well and portable chest-ray was obtained to confirm good position of the line.
--- NOTE | 2020-01-05 13:46 | RADIOLOGY REPORT (SQ) ---
EXAM DESCRIPTION: CHEST SINGLE VIEW IMAGES COMPLETED DATE/TIME: 01/05/2020 1:10 pm REASON FOR STUDY: central line placement COMPARISON: Chest x-ray 01/03/2020 EXAM PARAMETERS: NUMBER OF VIEWS: One view. TECHNIQUE: Single frontal radiographic view of the chest acquired. RADIATION DOSE: NA LIMITATIONS: None. FINDINGS: LUNGS AND PLEURA: No consolidation, pleural effusion or pneumothorax. MEDIASTINUM AND HILAR STRUCTURES: No masses. Contour normal. HEART AND VASCULAR STRUCTURES: Heart normal in size. Normal vasculature. BONES: No acute findings. HARDWARE: Interval placement of a right subclavian central line with the tip overlying the region of the SVC. IMPRESSION: No evidence for pneumothorax status post central line placement. TECHNICAL DOCUMENTATION: JOB ID: [id number] 2010 [employer]- All Rights Reserved Reading location - IP/workstation name: [email or web address]
[2020-01-05] MEDS ORDERED: LORAZEPAM INJ 2 MG/1 ML VIAL IV ONE (14:07)
[2020-01-05 16:52] LABS: HEMATOCRIT 29.7 % (36.0-47.0); HEMOGLOBIN 9.7 g/dL (12.0-15.5); MEAN CORPUSCULAR HEMOGLOBIN 28.1 pg (27.0-33.4); MEAN CORPUSCULAR HGB CONC 32.8 g/dL (32.0-36.0); MEAN CORPUSCULAR VOLUME 86 fl (80-97); PLATELET COUNT 448 10^3/uL (150-450); RED BLOOD COUNT 3.46 10^6/uL (3.72-5.28); RED CELL DISTRIBUTION WIDTH 15.3 % (11.5-14.0); WHITE BLOOD COUNT 13.2 10^3/uL (4.0-10.5)
--- NOTE | 2020-01-05 16:54 | RADIOLOGY REPORT (SQ) ---
EXAM DESCRIPTION: MRI LT LOWER EXTREMITY WITHOUT IMAGES COMPLETED DATE/TIME: 01/05/2020 4:25 pm REASON FOR STUDY: L heel MRSA wound; r/o Osteolyelitis; ? contrast COMPARISON: Recent radiographs from several days ago. TECHNIQUE: Multiplanar imaging of the left hindfoot to include fat and fluid sensitive sequences. LIMITATIONS: Motion artifact. This is marked on many sequences, significantly limiting the study. FINDINGS: BONE MARROW: Motion artifact limits. There is some minimal reactive marrow edema in the p lantar aspect of the posterior heel. This may simply be reactive to the overlying infection. No agg ressive bone resorption suggested. SOFT TISSUES: Motion artifact limits. There is a large wound along the plantar aspect of the heel me dially. This looks essentially full-thickness. There is no drainable abscess. Regional edema and c ellulitis. OTHER: No gross plantar fascia disruption. Achilles tendon looks intact. IMPRESSION: 1. Suspect mild reactive marrow edema in the calcaneus underlying a large ulcer. Doubt osteomyelitis but close follow-up is recommended. The should consist of surveillance followup radiographs predomi nantly with repeat MRI as needed. TECHNICAL DOCUMENTATION: JOB ID: [id number] 2010 [employer]- All Rights Reserved Reading location - IP/workstation name: [email or web address]
[2020-01-05 16:58] LABS: ALBUMIN 2.7 g/dL (3.5-5.0); ALKALINE PHOSPHATASE 81 U/L (38-126); ANION GAP 13 (5-19); ASPARTATE AMINO TRANSFERASE 55 U/L (14-36); BILIRUBIN,DIRECT 0.3 mg/dL (0.0-0.4); BILIRUBIN,TOTAL 0.4 mg/dL (0.2-1.3); BLOOD UREA NITROGEN 23 mg/dL (7-20); CALCIUM 7.8 mg/dL (8.4-10.2); CARBON DIOXIDE 18 mmol/L (22-30); CHLORIDE 105 mmol/L (98-107); GLUCOSE 259 mg/dL (75-110); POTASSIUM 3.8 mmol/L (3.6-5.0); TOTAL PROTEIN 6.4 g/dL (6.3-8.2)
[2020-01-05 17:14] LABS: ABSOLUTE LYMPHOCYTES# (MANUAL) 1.2 10^3/uL (0.5-4.7); ABSOLUTE MONOCYTES # (MANUAL) 0.7 10^3/uL (0.1-1.4); BASOPHILS % (MANUAL) 2 % (0-2); EOSINOPHILS % (MANUAL) 1 % (0-6); LYMPHOCYTES % (MANUAL) 9 % (13-45); MONOCYTES % (MANUAL) 5 % (3-13); SEGMENTED NEUTROPHILS % (MAN) 83 % (42-78); TOTAL CELLS COUNTED 100
[2020-01-05 17:15] LABS: ANISOCYTOSIS SLIGHT; PLATELET COMMENT ADEQUATE; PLATELET GIANT PRESENT; POLYCHROMASIA SLIGHT
[2020-01-05] MEDS ORDERED: POTASSI CL 20 MEQ/NS 1L 1,000 ML IV PRN (17:42)
--- NOTE | 2020-01-05 17:58 | PDOC PROGRESS REPORT ---
Subjective Progress Note for:: 01/05/20 Subjective:: She is feeling "okay." She is nervous about a possible a BKA tomorrow. Denies fevers/chills, abdominal pain, nausea. She is eating well, has a good appetite. Reason For Visit: SEPSIS Physical Exam Vital Signs: Temp Pulse Resp BP Pulse Ox 97.5 F 97 16 103/75 95 01/05/20 11:13 01/05/20 14:00 01/05/20 11:13 01/05/20 11:13 01/05/20 11:13 Intake & Output 01/04/20 01/05/20 01/06/20 06:59 06:59 06:59 Intake Total 7150 2660 930 Output Total 5 0 Balance 7145 2660 930 Weight 142 kg 145.2 kg Additional comments: General: NAD Head: normocephalic, atraumatic Eyes: anicteric sclera ENT: moist mucus memranes, no oropharyngeal erythema/exudate Neck: no lymphadenopathy Lungs: clear to auscultation bilaterally Heart: regular rate and rhythm, no murmurs/rubs/gallops Abdomen: obese, normoactive bowel sounds, soft, non-tender, non-distended : no CVA tenderness, no suprapubic tenderness Extremities: s/p remote R BKA, L heel ulcer (bandage not removed but discussed at length with surgeon today, who did dressing change) Neuro: A&Ox3 Results Laboratory Results: 01/05/20 05:30 01/05/20 05:30 01/05/20 01/05/20 01/05/20 05:30 05:30 05:30 WBC 13.2 H RBC 3.46 L Hgb 9.7 L Hct 29.7 L MCV 86 MCH 28.1 MCHC 32.8 RDW 15.3 H Plt Count 448 Seg Neutrophils % Not Reportable Sodium 136.2 L Potassium 3.8 Chloride 105 Carbon Dioxide 18 L Anion Gap 13 BUN 23 H Creatinine 2.52 H 2.62 H Est GFR ( Amer) 24 L 23 L Glucose 259 H Calcium 7.8 L Magnesium 1.3 L Total Bilirubin 0.4 AST 55 H Alkaline Phosphatase 81 Total Protein 6.4 Albumin 2.7 L 01/03/20 10:54 Troponin I < 0.012 Impressions: Foot X-Ray 01/03/20 11:17 IMPRESSION: 1. Cortical irregularity and lucency at the proximal base 5th digit proximal phalanx, possibly representing osteomyelitis. 2. Subcutaneous gas in the plantar soft tissues overlying the calcaneus. Clinical correlation for ulceration in this region recommended. Finding may represent necrotizing infection. Clinical correlation. Lower Extremity MRI 01/05/20 00:00 IMPRESSION: 1. Suspect mild reactive marrow edema in the calcaneus underlying a large ulcer. Doubt osteomyelitis but close follow-up is recommended. The should consist of surveillance followup radiographs predominantly with repeat MRI as needed. Chest X-Ray 01/05/20 12:24 IMPRESSION: No evidence for pneumothorax status post central line placement. Assessment and Plan - Plan Summary Summary: Sepsis due to LLE Cellulitis and L Heel Ulcer: had elevated HR, RR, leukocytosis and fever (4/4 SIRS) on arrival - BCx x2 show NGTD - wound cultures show +MRSA - continue vancomycin (currently held due to increasing Cr) and Zosyn, if cultures do not grow anything else, would discontinue Zosyn - surgery consulted, went to OR 01/02 for debridement and got bedside debridement again on 01/03 - on 01/04, surgery concerned for worsening infection, will plan to go back to OR tomorrow, NPO past MN Uncontrolled Insulin-Dependent DM2: c/b peripheral neuropathy and prior R BKA - glucose elevated >400 on admission - continue current Lantus dose, increase scheduled mealtime insulin and increase dosing of SSI, adjust PRN - carb controlled diet MONO: added on full CMP to labs from this AM which were not fully reported in [facility] for some reason. Results concerning for increasing Cr, decreasing bicarb, low electrolytes. Unclear of the accuracy of this specimen, as it was incompletely reported in [facility], so will repeat STAT labs now. - give 2 L NS bolus and start continuous fluids - HOLD Vancomycin for now, will need a trough before next dose - avoid nephrotoxins - renally dose medications - consider nephrology consult tomorrow Hypokalemia, Hypomagnesemia - replete K, MG DVT ppx: held in preparation for surgery tomorrow - Time Time Spent with patient: 35 or more minutes Anticipated Discharge Disposition: Home, Self Care Anticipated Discharge Timeframe: within 72 hours
--- NOTE | 2020-01-05 18:05 | Progress Note ---
Provider Note Provider Note: Vancomycin trough ~40 and patient with dramatically worsened kidney function today in comparison to baseline, highly concerning for MONO due to vancomycin- induced nephrotoxicity. Vancomycin on hold. Repeat vanc trough daily until decreased to <20 and then plan to start an alternative antibiotic for treatment of MRSA wound infection. Plan to consult nephrology in AM. Continue to monitor I/O Q4H.
[2020-01-05] MEDS ORDERED: NORMAL SALINE 1000 ML 1,000 ML IV ONE (18:30)
[2020-01-05] MEDS ORDERED: MAGNESIUM SULFATE INJ 8 MEQ/2 ML IV ONE (18:30)
[2020-01-05 18:45] LABS: ANION GAP 11 (5-19); BLOOD UREA NITROGEN 25 mg/dL (7-20); CALCIUM 7.7 mg/dL (8.4-10.2); CARBON DIOXIDE 19 mmol/L (22-30); CHLORIDE 108 mmol/L (98-107); GLUCOSE 170 mg/dL (75-110); POTASSIUM 3.7 mmol/L (3.6-5.0)
[2020-01-05] MEDS ORDERED: NORMAL SALINE 1000 ML 1,000 ML IV PRN (22:00)
[2020-01-05] MEDS: NORMAL SALINE 1000 ML 1,000 ML IV PRN (22:49)
[2020-01-05] MEDS: ATORVASTATIN CALCIUM 40 MG TABLET PO SCH (22:51)
[2020-01-05] MEDS: MELATONIN 5 MG TABLET PO SCH (22:51)
[2020-01-05] MEDS: MAGNESIUM SULFATE 1 GM/D5W 100 ML IV SCH (23:04)
[2020-01-06] MEDS: MAGNESIUM SULFATE 1 GM/D5W 100 ML IV SCH (00:38)
[2020-01-06] MEDS: PANTOPRAZOLE SODIUM 40 MG TABLET.DR PO SCH (05:46)
[2020-01-06] MEDS: PIPERACILLIN SODIUM/TAZOBACTAM 3.375 GM in NORMAL SALINE 100 ML IV SCH (05:46)
[2020-01-06 06:26] LABS: ABSOLUTE BASOPHILS # (AUTO) 0.1 10^3/uL (0.0-0.2); ABSOLUTE EOSINOPHILS # (AUTO) 0.5 10^3/uL (0.0-0.6); ABSOLUTE LYMPHOCYTES (AUTO) 1.9 10^3/uL (0.5-4.7); ABSOLUTE MONOCYTES (AUTO) 0.5 10^3/uL (0.1-1.4); ABSOLUTE NEUT (AUTO) 11.6 10^3/uL (1.7-8.2); BASOPHILS % (AUTO) 0.6 % (0-2); EOSINOPHILS % (AUTO) 3.7 % (0-6); HEMATOCRIT 29.1 % (36.0-47.0); HEMOGLOBIN 9.4 g/dL (12.0-15.5); MEAN CORPUSCULAR HEMOGLOBIN 27.7 pg (27.0-33.4); MEAN CORPUSCULAR HGB CONC 32.3 g/dL (32.0-36.0); MEAN CORPUSCULAR VOLUME 86 fl (80-97); MONOCYTES % (AUTO) 3.2 % (3-13); PLATELET COUNT 478 10^3/uL (150-450); RED BLOOD COUNT 3.39 10^6/uL (3.72-5.28); RED CELL DISTRIBUTION WIDTH 15.2 % (11.5-14.0); SEGMENTED NEUTROPHILS % (AUTO) 79.5 % (42-78); TOTAL CELLS COUNTED % (AUTO) 100 %; WHITE BLOOD COUNT 14.6 10^3/uL (4.0-10.5)
[2020-01-06 06:49] LABS: ALBUMIN 2.6 g/dL (3.5-5.0); ALKALINE PHOSPHATASE 86 U/L (38-126); ANION GAP 11 (5-19); ASPARTATE AMINO TRANSFERASE 38 U/L (14-36); BILIRUBIN,DIRECT 0.3 mg/dL (0.0-0.4); BILIRUBIN,TOTAL 0.3 mg/dL (0.2-1.3); BLOOD UREA NITROGEN 25 mg/dL (7-20); CALCIUM 7.4 mg/dL (8.4-10.2); CARBON DIOXIDE 18 mmol/L (22-30); CHLORIDE 109 mmol/L (98-107); GLUCOSE 152 mg/dL (75-110); POTASSIUM 3.9 mmol/L (3.6-5.0); TOTAL PROTEIN 6.2 g/dL (6.3-8.2)
[2020-01-06 07:07] LABS: C-REACTIVE PROTEIN 203.5 mg/L (<10.0)
[2020-01-06 08:06] LABS: ERYTHROCYTE SEDIMENTATION RATE > 120 mm/hr (0-30)
[2020-01-06] MEDS ORDERED: PROPOFOL INJ 200 MG/20 ML VIAL IV ONE (08:15)
[2020-01-06] MEDS ORDERED: MIDAZOLAM 2 MG/2 ML INJ ONE (08:15)
[2020-01-06] MEDS ORDERED: ONDANSETRON HCL INJ/PF 4 MG/2 ML SDV ONE (08:15)
[2020-01-06] MEDS ORDERED: FENTANYL CITRATE INJ/PF 100 MCG/2 ML AMPUL ONE (08:15)
[2020-01-06] MEDS ORDERED: LIDOCAINE 2% INJ-PF (20 MG/ML) 10 ML AMPUL ONE (08:15)
[2020-01-06] MEDS ORDERED: BUPIVACAINE HCL 0.5 % INJ/PF 30 ML SDV ONE (09:08)
[2020-01-06] MEDS ORDERED: LIDOCAINE 1% INJ-PF (10 MG/ML) 30 ML SDV ONE (09:09)
[2020-01-06] MEDS ORDERED: RINGERS SOLUTION,LACTATED 1,000 ML IV PRN (09:22)
[2020-01-06] MEDS ORDERED: LIDOCAINE 1% INJ-PF (10 MG/ML) 30 ML SDV INJ ONE (09:25)
[2020-01-06] MEDS ORDERED: BUPIVACAINE HCL 0.5 % INJ/PF 30 ML SDV INJ ONE (09:25)
[2020-01-06] MEDS ORDERED: ONDANSETRON HCL INJ/PF 4 MG/2 ML SDV IV PRN (09:39)
[2020-01-06] MEDS ORDERED: DIPHENHYDRAMINE HCL 50 MG/ML VIAL IV PRN (09:39)
[2020-01-06] MEDS ORDERED: PROMETHAZINE HCL INJ 25 MG/1 ML VIAL IV PRN ×2 (09:39)
[2020-01-06] MEDS ORDERED: FENTANYL CITRATE INJ/PF 100 MCG/2 ML AMPUL IV PRN ×3 (09:39)
[2020-01-06] MEDS ORDERED: MEPERIDINE HCL/PF INJ 25 MG/1 ML DISP.SYRIN IV PRN (09:39)
[2020-01-06] MEDS ORDERED: OXYCODONE-ACETAMINOPHEN 5-325 MG TABLET PO PRN (09:39)
[2020-01-06] MEDS ORDERED: CEFEPIME 2 GM/D5W RTU 2 GM/50 ML RTUPB IV SCH (10:00)
--- NOTE | 2020-01-06 10:12 | Operative Report ---
Operative Report DATE OF SURGERY: 01/06/20 PREOPERATIVE DIAGNOSIS: Left heel gas gangrene POSTOPERATIVE DIAGNOSIS: Same OPERATION: Left heel sharp debridement, full-thickness down to subcutaneous tissue and fat: Wound VAC application SURGEON: MANISH ARELLANO ANESTHESIA: LMAC - Last 30 mL's of 50-50 v/v 0,5% Marcaine and 1% lidocaine without epinephrine TISSUE REMOVED OR ALTERED: Soft tissue from left heel sent for aerobic, anaerobic culture and Gram stain COMPLICATIONS: None ESTIMATED BLOOD LOSS: Less than 5 mL's INTRAOPERATIVE FINDINGS: 49-year-old, obese female, diabetic, presented with left heel gas gangrene, underwent debridement 2 days ago, the left heel debrided area still appears to have necrotic tissue which required further debridement, an MRI of the left foot and leg was done yesterday which was negative for osteomyelitis; the left heel area to be debrided was approximately 8 cm in diameter PROCEDURE: The procedure was done in the operating room, MAC anesthesia was induced by the anesthesiologist, the patient was placed in a supine decubitus, the area of interest was prepped and draped in usual fashion. Local anesthetic was infiltrated in the area of interest. A surgical marker was used to outline the proposed incision, this was made with a #15 blade and deepened through the healthy tissue until good bleeding was obtained. The dissection was then continued to completely excise the area of interest previously outlined. The debrided area was irrigated with normal saline until clear. Some of the tissue of the debrided area was sent to microbiology for culture and Gram stain. Local bleeders were cauterized with Bovie. Following this, the area was covered with Adaptic, a wound VAC sponge was placed followed by Tegaderm, an opening was made on the Tegaderm, a suction cap was placed on top of it and connected to the wound VAC machine with a 125 mmHg negative pressure settings with good seal. The patient tolerated procedure well and transferred to the recovery room in satisfactory conditions
[2020-01-06] MEDS: INSULIN LISPRO 100 UNIT/ML 3 ML VIAL SUBCUT SCH ×9 (12:50→22:00)
[2020-01-06] MEDS: CEFEPIME HCL 2 GM in DEXTROSE 5%-WATER 50 ML IV SCH ×2 (13:09→21:42)
[2020-01-06] MEDS: MECLIZINE HCL 25 MG TABLET PO SCH ×2 (13:09→17:06)
[2020-01-06] MEDS: SERTRALINE HCL 50 MG TABLET PO SCH ×2 (13:10→17:05)
[2020-01-06] MEDS: FAMOTIDINE 20 MG TABLET PO SCH (13:10)
--- NOTE | 2020-01-06 13:14 | PDOC PROGRESS REPORT ---
Subjective Progress Note for:: 01/06/20 Subjective:: A patient is a 49-year-old female with a past medical history significant for uncontrolled diabetes mellitus, remote right BKA, peripheral neuropathy, hypertension, hyperlipidemia, asthma, depression, and morbid obesity who was admitted 01/03/2028 with Sepsis secondary to left lower extremity cellulitis and diabetic foot ulcer now status post surgical debridement x3 with wound VAC in place. Patient was seen on afternoon rounds after returning from the OR. She had additional debridement of narcotic tissue today. Per op note, the wound now extends down to the subcutaneous tissue and fat; wound VAC has been applied by surgeon. Patient states that she is currently pain-free. She is somewhat anxious about the potential of additional surgeries leading to BKA. She is also concerned about her renal function; she is assured that the offending medication has been discontinued (vancomycin) and that we are monitoring her renal function closely. She is also informed that she will be seen by nephrology; did discuss that this may not potentially be until Tuesday due to hol but that we would continue to manage her ATN and would be able to contact them should she show signs of worsening. Otherwise, patient states that she is feeling much better. She denies fever, chills, chest pain, palpitations, dyspnea, orthopnea, abdominal pain, nausea vomiting and diarrhea. She has no other questions or concerns at this time. No concerns per nursing. Reason For Visit: SEPSIS Physical Exam Vital Signs: Temp Pulse Resp BP Pulse Ox 97.6 F 85 16 101/67 100 01/06/20 10:53 01/06/20 10:53 01/06/20 10:53 01/06/20 10:53 01/06/20 10:53 Intake & Output 01/05/20 01/06/20 01/07/20 06:59 06:59 06:59 Intake Total 3660 2590 775 Output Total 0 20 Balance 3660 2590 755 Weight 145.2 kg 150.3 kg General appearance: PRESENT: no acute distress, cooperative, morbidly obese, well-developed, well-nourished Head exam: PRESENT: atraumatic, normocephalic Eye exam: PRESENT: conjunctiva pink, EOMI, PERRLA. ABSENT: scleral icterus Mouth exam: PRESENT: moist, tongue midline Respiratory exam: PRESENT: clear to auscultation armida, symmetrical, unlabored. ABSENT: rales, rhonchi, wheezes Cardiovascular exam: PRESENT: RRR, +S1, +S2. ABSENT: diastolic murmur, rubs, systolic murmur Vascular exam: PRESENT: normal capillary refill Extremities exam: PRESENT: other - Remote right BKA. ABSENT: calf tenderness, clubbing, pedal edema Neurological exam: PRESENT: alert, awake, oriented to person, oriented to place, oriented to time, oriented to situation, CN II-XII grossly intact. ABSENT: motor sensory deficit Psychiatric exam: PRESENT: appropriate affect, normal mood. ABSENT: homicidal ideation, suicidal ideation Skin exam: PRESENT: dry, warm, other - Wound VAC with postop dressing to left foot. ABSENT: cyanosis, intact, rash Results Laboratory Results: 01/06/20 06:15 01/06/20 06:15 01/05/20 01/05/20 01/05/20 05:30 05:30 18:15 WBC 13.2 H RBC 3.46 L Hgb 9.7 L Hct 29.7 L MCV 86 MCH 28.1 MCHC 32.8 RDW 15.3 H Plt Count 448 Seg Neutrophils % Not Reportable Sodium 136.2 L 137.9 Potassium 3.8 3.7 Chloride 105 108 H Carbon Dioxide 18 L 19 L Anion Gap 13 11 BUN 23 H 25 H Creatinine 2.62 H 3.17 H Est GFR ( Amer) 23 L 19 L Glucose 259 H 170 H Lactic Acid Calcium 7.8 L 7.7 L Magnesium 1.3 L Total Bilirubin 0.4 AST 55 H Alkaline Phosphatase 81 C-Reactive Protein Total Protein 6.4 Albumin 2.7 L 01/05/20 01/06/20 01/06/20 18:15 06:15 06:15 WBC 14.6 H RBC 3.39 L Hgb 9.4 L Hct 29.1 L MCV 86 MCH 27.7 MCHC 32.3 RDW 15.2 H Plt Count 478 H Seg Neutrophils % 79.5 H Sodium 137.8 Potassium 3.9 Chloride 109 H Carbon Dioxide 18 L Anion Gap 11 BUN 25 H Creatinine 3.63 H Est GFR ( Amer) 16 L Glucose 152 H Lactic Acid 1.1 Calcium 7.4 L Magnesium 1.7 Total Bilirubin 0.3 AST 38 H Alkaline Phosphatase 86 C-Reactive Protein 203.5 H Total Protein 6.2 L Albumin 2.6 L 01/03/20 10:54 Troponin I < 0.012 Impressions: Foot X-Ray 01/03/20 11:17 IMPRESSION: 1. Cortical irregularity and lucency at the proximal base 5th digit proximal phalanx, possibly representing osteomyelitis. 2. Subcutaneous gas in the plantar soft tissues overlying the calcaneus. Clin ical correlation for ulceration in this region recommended. Finding may represent necrotizing infection. Clinical correlation. Lower Extremity MRI 01/05/20 00:00 IMPRESSION: 1. Suspect mild reactive marrow edema in the calcaneus underlying a large ulcer. Doubt osteomyelitis but close follow-up is recommended. The should consist of surveillance followup radiographs predominantly with repeat MRI as needed. Chest X-Ray 01/05/20 12:24 IMPRESSION: No evidence for pneumothorax status post central line placement. Assessment and Plan - Diagnosis (1) Diabetic ulcer of heel Qualifiers: Diabetes mellitus type: type 2 Laterality: left Non-pressure ulcer stage: with other severity Qualified Code(s): E11.621 - Type 2 diabetes mellitus with foot ulcer; L97.428 - Non-pressure chronic ulcer of left heel and midfoot with other specified severity Is this a current diagnosis for this admission?: Yes Plan: MRI showed suspected mild reactive marrow edema in the calcaneus underlying a large ulcer; doubt osteomyelitis but close follow-up recommended with serial MRIs. Wound culture (01/06/2020) pending Wound culture (01/03/2020) MRSA and gram-positive cocci Wound culture (01/03/2020) MRSA, Enterococcus faecalis, gram-negative rods Blood cultures no growth to date. Surgery is consulted; greatly appreciate their assistance. Now status post multiple surgical debridements to the left heel; per op note wound would be a stage IV through subcutaneous tissue and to the muscle. Wound VAC in place; wound care per surgery expertise. Vancomycin on hold secondary to high trough level and development of ATN. We will repeat Vanco trough today; once under 20, will start daptomycin. IV Zosyn discontinued; start cefepime for decreased renal toxicity properties. Obtain tight glycemic control. (2) Cellulitis Qualifiers: Site of cellulitis: extremity Site of cellulitis of extremity: lower extremity Laterality: left Qualified Code(s): L03.116 - Cellulitis of left lower limb Is this a current diagnosis for this admission?: Yes Plan: Evaluation management as above. (3) MONO (acute kidney injury) Is this a current diagnosis for this admission?: Yes Plan: Patient with MONO secondary to vancomycin toxicity resulting in likely ATN. Baseline creatinine 0.62; Increased 0.94-> 2.52-> 2.62-> 3.17-> 3.63 Vancomycin is discontinued. Continue to monitor daily trough levels. Vancomycin discontinued; start cefepime this is less toxic to the kidneys when used in conjunction with vancomycin. Continue IV fluids. Nephrology is consulted. Strict I&Os Follow chemistries. (4) Diabetes mellitus type 2 in obese Is this a current diagnosis for this admission?: Yes Plan: We will check A1c with a.m. lab work. Patient is placed on a consistent carb diet. Accu-Cheks before meals and at bedtime with Humalog for sliding scale coverage. Hypoglycemia protocol in place. Registered dietitian informatics educator consulted. (5) Morbid (severe) obesity due to excess calories Is this a current diagnosis for this admission?: Yes Plan: Lifestyle modification dietary discretion advised. Consistent carb diet. Registered dietitian and informatics educator are consulted. (6) Sepsis Qualifiers: Sepsis type: methicillin resistant Staphylococcus aureus Sepsis acute organ dysfunction status: without acute organ dysfunction Qualified Code(s): A41.02 - Sepsis due to Methicillin resistant Staphylococcus aureus Is this a current diagnosis for this admission?: Yes Plan: Resolved; vital signs now stable, leukocytosis is improved, lactic acid has normalized, and patient has no toxic appearance. Acute kidney injury is related to vancomycin ATN. Received appropriate IV fluid resuscitation. Cultures and antibiotics as above. - Time Time Spent with patient: 25-34 minutes Medications reviewed and adjusted accordingly: Yes Anticipated Discharge Disposition: [facility] Facility Anticipated Discharge Timeframe: > 72 hrs
[2020-01-06] MEDS: FLUTICASONE/VILANTEROL 200-25 MCG/DOSE IH SCH (13:17)
[2020-01-06] MEDS: INSULIN GLARGINE,HUM.REC.ANLOG 1,000 UNIT/10 ML VIAL SUBCUT SCH ×2 (13:18→23:33)
[2020-01-06] MEDS: MELATONIN 5 MG TABLET PO SCH (21:41)
[2020-01-06] MEDS: ATORVASTATIN CALCIUM 40 MG TABLET PO SCH (21:42)
[2020-01-06] MEDS: OXYCODONE HCL IR 5 MG TABLET PO PRN (21:42)
[2020-01-07] MEDS: PANTOPRAZOLE SODIUM 40 MG TABLET.DR PO SCH (06:29)
[2020-01-07 07:09] LABS: ABSOLUTE BASOPHILS # (AUTO) 0.1 10^3/uL (0.0-0.2); ABSOLUTE EOSINOPHILS # (AUTO) 0.5 10^3/uL (0.0-0.6); ABSOLUTE LYMPHOCYTES (AUTO) 2.8 10^3/uL (0.5-4.7); ABSOLUTE MONOCYTES (AUTO) 0.7 10^3/uL (0.1-1.4); BASOPHILS % (AUTO) 0.7 % (0-2); EOSINOPHILS % (AUTO) 2.7 % (0-6); HEMATOCRIT 24.2 % (36.0-47.0); HEMOGLOBIN 8.2 g/dL (12.0-15.5); LYMPHOCYTES % (AUTO) 16.4 % (13-45); MEAN CORPUSCULAR HEMOGLOBIN 28.5 pg (27.0-33.4); MEAN CORPUSCULAR HGB CONC 33.7 g/dL (32.0-36.0); MEAN CORPUSCULAR VOLUME 85 fl (80-97); MONOCYTES % (AUTO) 4.2 % (3-13); PLATELET COUNT 564 10^3/uL (150-450); RED BLOOD COUNT 2.86 10^6/uL (3.72-5.28); RED CELL DISTRIBUTION WIDTH 15.5 % (11.5-14.0); TOTAL CELLS COUNTED % (AUTO) 100 %; WHITE BLOOD COUNT 17.1 10^3/uL (4.0-10.5)
[2020-01-07] MEDS: INSULIN LISPRO 100 UNIT/ML 3 ML VIAL SUBCUT SCH ×7 (08:00→23:29)
[2020-01-07 08:24] LABS: ALBUMIN 2.8 g/dL (3.5-5.0); ALKALINE PHOSPHATASE 74 U/L (38-126); ANION GAP 12 (5-19); ASPARTATE AMINO TRANSFERASE 31 U/L (14-36); BILIRUBIN,DIRECT 0.4 mg/dL (0.0-0.4); BILIRUBIN,TOTAL 0.4 mg/dL (0.2-1.3); BLOOD UREA NITROGEN 29 mg/dL (7-20); CALCIUM 8.2 mg/dL (8.4-10.2); CARBON DIOXIDE 18 mmol/L (22-30); CHLORIDE 109 mmol/L (98-107); GLUCOSE 117 mg/dL (75-110); POTASSIUM 4.3 mmol/L (3.6-5.0); TOTAL PROTEIN 6.6 g/dL (6.3-8.2)
[2020-01-07] MEDS: FAMOTIDINE 20 MG TABLET PO SCH (10:13)
[2020-01-07] MEDS: INSULIN GLARGINE,HUM.REC.ANLOG 1,000 UNIT/10 ML VIAL SUBCUT SCH ×2 (10:14→23:30)
[2020-01-07] MEDS: SERTRALINE HCL 50 MG TABLET PO SCH ×2 (10:14→17:04)
[2020-01-07] MEDS: FLUTICASONE/VILANTEROL 200-25 MCG/DOSE IH SCH (10:14)
[2020-01-07] MEDS: MECLIZINE HCL 25 MG TABLET PO SCH ×2 (10:14→17:04)
[2020-01-07] MEDS: CEFEPIME HCL 2 GM in DEXTROSE 5%-WATER 50 ML IV SCH ×2 (10:22→23:27)
--- NOTE | 2020-01-07 11:10 | PDOC CONSULTATION ---
Consultation Consult Date: 01/07/20 Provider Consulted: Lorena AMADOR Consult reason:: MONO History of Present Illness Admission Date/PCP: 01/03/20 14:59 VIDAL DEAL MD History of Present Illness: HANNAH VICTOR is a 49 year old female with a past medical history significant for uncontrolled diabetes mellitus, remote right BKA, peripheral neuropathy, hyperlipidemia, asthma, depression, and morbid obesity was admitted 01/03/2028 with Sepsis secondary to left lower extremity cellulitis and gas forming diabetic foot ulcer now status post surgical debridement x3 with wound VAC in place. She also mentions that she has been having 1-2 rather loose bowels for the a week prior to admission which she continues. No abdominal pains or bloody stools. No orthostasis. Admission creatinine was 0.6 and today is 4.7. Unsure of exact urine output and she does not have a Victoria catheter. Her Vanco trough levels a couple of days after initiation of vancomycin was 38 on 01/04 and then on 01/06 is down a little bit to 34.Discussions were carried out with the treating nurse. 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, L elbow Social History Smoking Status: Never Smoker Electronic Cigarette use?: No Frequency of Alcohol Use: None Hx Recreational Drug Use: No Drugs: None Hx Prescription Drug Abuse: No - Advance Directive Resuscitation Status: Full Code Family History Parental Family History Reviewed: Yes - Negative for ESRD Children Family History Reviewed: No Sibling(s) Family History Reviewed.: No Medication/Allergy Home Medications: Albuterol Sulfate [Proair HFA Inhalation Aerosol 8.5 gm MDI] 2 puff IH Q6HP PRN 03/18/18 Atorvastatin Calcium [Lipitor 40 mg Tablet] 40 mg PO QHS 03/18/18 Sertraline HCl [Zoloft 50 mg Tablet] 50 mg PO BID 03/18/18 Budesonide/Formoterol Fumarate [Symbicort HFA 160-4.5 mcg Inhaler 6 gm] 2 puff IH BID 01/03/20 Esomeprazole Magnesium 40 mg PO Q6AM 01/03/20 Famotidine [Pepcid 20 mg Tablet] 40 mg PO DAILY 01/03/20 Insulin Glargine,Hum.rec.anlog [Lantus Insulin 100 Unit/1 ml 10 ml] 60 unit SQ QPM 01/03/20 Insulin Glargine,Hum.rec.anlog [Lantus Insulin 100 Unit/1 ml 10 ml] 70 unit SQ QAM 01/03/20 Meclizine HCl [Antivert 25 mg Tablet] 25 mg PO BID 01/03/20 Trazodone HCl [Desyrel 50 mg Tablet] 50 mg PO HSP PRN 01/03/20 Allergies/Adverse Reactions: Sulfa (Sulfonamide Antibiotics) Allergy (Verified 01/03/20 10:59) Review of Systems Constitutional: PRESENT: fatigue, weakness. ABSENT: anorexia, fever(s), headache(s), night sweats Nose, Mouth, and Throat: ABSENT: mouth pain, sore throat Cardiovascular: ABSENT: chest pain, dyspnea on exertion, edema, orthropnea, palpitations Respiratory: ABSENT: dyspnea, hemoptysis Gastrointestinal: PRESENT: diarrhea. ABSENT: abdominal pain, coffee ground emesis, hematemesis, hematochezia, nausea, vomiting Musculoskeletal: ABSENT: muscle weakness Integumentary: ABSENT: erythema, lesions, pruritus, rash Neurological: ABSENT: abnormal movements, abnormal speech, focal weakness, frequent falls Hematologic/Lymphatic: ABSENT: easy bruising, lymphadenopathy Physical Exam Vital Signs: Temp Pulse Resp BP Pulse Ox 97.4 F 83 15 107/61 97 01/07/20 03:22 01/07/20 07:00 01/07/20 03:22 01/07/20 03:22 01/07/20 03:22 Intake & Output 01/06/20 01/07/20 01/08/20 06:59 06:59 06:59 Intake Total 2590 1415 50 Output Total 220 Balance 2590 1195 50 Weight 150.3 kg 157 kg General appearance: PRESENT: no acute distress Eye exam: PRESENT: EOMI, PERRLA Ear exam: PRESENT: normal external ear exam Mouth exam: PRESENT: moist, neck supple Neck exam: ABSENT: lymphadenopathy, meningismus, tenderness, thyromegaly, tracheal deviation Respiratory exam: PRESENT: clear to auscultation armida, decreased breath sounds. ABSENT: crackles Cardiovascular exam: PRESENT: +S1, +S2 GI/Abdominal exam: PRESENT: normal bowel sounds, soft. ABSENT: organomegaly, te nderness Extremities exam: PRESENT: other - She is status post right BKA.. ABSENT: pedal edema Neurological exam: PRESENT: alert, awake, oriented to person, oriented to place Psychiatric exam: PRESENT: appropriate affect Skin exam: PRESENT: rash - Over her bandaged left leg/venous stasis around the bandaged left foot. Results Laboratory Results: 01/07/20 06:27 01/07/20 07:45 01/07/20 01/07/20 01/07/20 06:27 06:27 07:45 WBC 17.1 H RBC 2.86 L Hgb 8.2 L Hct 24.2 L MCV 85 MCH 28.5 MCHC 33.7 RDW 15.5 H Plt Count 564 H Seg Neutrophils % 76.0 Sodium Cancelled 139.1 Potassium Cancelled 4.3 Chloride Cancelled 109 H Carbon Dioxide Cancelled 18 L Anion Gap Cancelled 12 BUN Cancelled 29 H Creatinine Cancelled 4.79 H Est GFR ( Amer) Cancelled 12 L Est GFR (Non-Af Amer) Cancelled Glucose Cancelled 117 H Calcium Cancelled 8.2 L Total Bilirubin Cancelled 0.4 AST Cancelled 31 Alkaline Phosphatase Cancelled 74 Total Protein Cancelled 6.6 Albumin Cancelled 2.8 L 01/03/20 10:54 Troponin I < 0.012 Impressions: Foot X-Ray 01/03/20 11:17 IMPRESSION: 1. Cortical irregularity and lucency at the proximal base 5th digit proximal phalanx, possibly representing osteomyelitis. 2. Subcutaneous gas in the plantar soft tissues overlying the calcaneus. Clinical correlation for ulceration in this region recommended. Finding may represent necrotizing infection. Clinical correlation. Lower Extremity MRI 01/05/20 00:00 IMPRESSION: 1. Suspect mild reactive marrow edema in the calcaneus underlying a large ulcer. Doubt osteomyelitis but close follow-up is recommended. The should consist of surveillance followup radiographs predominantly with repeat MRI as needed. Chest X-Ray 01/05/20 12:24 IMPRESSION: No evidence for pneumothorax status post central line placement. Assessment & Plan - Diagnosis (1) MONO (acute kidney injury) Is this a current diagnosis for this admission?: Yes Plan: Secondary to combination of MONO from septic left foot ulcer/vancomycin toxicity. At this point I am going to increase her fluid rate as well as get an ultrasound to make sure she we are not dealing with any other possibilities including any evidences to relate to ischemic kidneys. No acute indications for renal replacements but if renal numbers gets worse and she is starts becoming oligo anuric then I would initiate dialysis in the next couple of days. 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 Currently she is on IV cefepime. However patient is growing MRSA/enterococcus/gram-negative organisms. I would consider starting this patient on daptomycin once the vancomycin toxic levels gets to be subtherapeutic. (3) Sepsis Qualifiers: Sepsis type: methicillin resistant Staphylococcus aureus Sepsis acute organ dysfunction status: without acute organ dysfunction Qualified Code(s): A41.02 - Sepsis due to Methicillin resistant Staphylococcus aureus Is this a current diagnosis for this admission?: Yes Plan: As mentioned earlier. Initially high lactic acid which is now normalized.Hemodynamically stable which is good for her (4) Diabetes mellitus type 2 in obese Is this a current diagnosis for this admission?: Yes Plan: Apparently uncontrolled as OP. As per hospitalist.
--- NOTE | 2020-01-07 11:33 | PDOC PROGRESS REPORT ---
Subjective Progress Note for:: 01/07/20 Reason For Visit: SEPSIS Physical Exam Vital Signs: Temp Pulse Resp BP Pulse Ox 97.4 F 83 15 107/61 97 01/07/20 03:22 01/07/20 07:00 01/07/20 03:22 01/07/20 03:22 01/07/20 03:22 Intake & Output 01/06/20 01/07/20 01/08/20 06:59 06:59 06:59 Intake Total 2590 1415 50 Output Total 220 Balance 2590 1195 50 Weight 150.3 kg 157 kg Results Laboratory Results: 01/07/20 06:27 01/07/20 07:45 01/07/20 01/07/20 01/07/20 06:27 06:27 07:45 WBC 17.1 H RBC 2.86 L Hgb 8.2 L Hct 24.2 L MCV 85 MCH 28.5 MCHC 33.7 RDW 15.5 H Plt Count 564 H Seg Neutrophils % 76.0 Sodium Cancelled 139.1 Potassium Cancelled 4.3 Chloride Cancelled 109 H Carbon Dioxide Cancelled 18 L Anion Gap Cancelled 12 BUN Cancelled 29 H Creatinine Cancelled 4.79 H Est GFR ( Amer) Cancelled 12 L Est GFR (Non-Af Amer) Cancelled Glucose Cancelled 117 H Calcium Cancelled 8.2 L Total Bilirubin Cancelled 0.4 AST Cancelled 31 Alkaline Phosphatase Cancelled 74 Total Protein Cancelled 6.6 Albumin Cancelled 2.8 L 01/03/20 10:54 Troponin I < 0.012 Impressions: Foot X-Ray 01/03/20 11:17 IMPRESSION: 1. Cortical irregularity and lucency at the proximal base 5th digit proximal phalanx, possibly representing osteomyelitis. 2. Subcutaneous gas in the plantar soft tissues overlying the calcaneus. Clinical correlation for ulceration in this region recommended. Finding may represent necrotizing infection. Clinical correlation. Lower Extremity MRI 01/05/20 00:00 IMPRESSION: 1. Suspect mild reactive marrow edema in the calcaneus underlying a large ulcer. Doubt osteomyelitis but close follow-up is recommended. The should consist of surveillance followup radiographs predominantly with repeat MRI as needed. Chest X-Ray 01/05/20 12:24 IMPRESSION: No evidence for pneumothorax status post central line placement. 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 with other specified severity - Time Anticipated Discharge Disposition: Unknown Anticipated Discharge Timeframe: Unknown - Plan Summary Plan Summary: 49-year-old female with a diabetic foot infection. She is status post debridement and wound VAC placement. The wound VAC is working appropriately today. The plan is for wound VAC change in the next 24 to 48 hours. The patient reports that her symptoms are improving. Her pain is less today. Her sugars are reasonably well controlled. Continue with wound VAC, and less symptoms or problems develop. Surgery will continue to follow.
[2020-01-07] MEDS: RINGERS SOLUTION,LACTATED 1,000 ML IV PRN ×2 (12:01→20:18)
--- NOTE | 2020-01-07 12:48 | PDOC PROGRESS REPORT ---
Subjective Progress Note for:: 01/07/20 Subjective:: Patient denies any new complaints questions for me this morningPatient was admitted with sepsis secondary to left lower extremity cellulitis and diabetic foot ulcer status post surgical debridement with wound VAC in place. She does have a chronic right below-knee amputation. Patient denies any other complaints this morning. She was found to have vancomycin induced nephrotoxicity however this has since been discontinued. Kidney function is still rising with a creatinine at 4.79 today up from 0.62 on admission, BUN was 12 on admission and is currently 29. She is acidotic with a CO2 of 18 Nephrology suggest to increase her IV fluids and also obtain an ultrasound to evaluate for any other possible etiologies of MONO Reason For Visit: SEPSIS Physical Exam Vital Signs: Temp Pulse Resp BP Pulse Ox 97.4 F 83 15 107/61 97 01/07/20 10:00 01/07/20 07:00 01/07/20 03:22 01/07/20 03:22 01/07/20 03:22 Intake & Output 01/06/20 01/07/20 01/08/20 06:59 06:59 06:59 Intake Total 2590 1415 50 Output Total 220 Balance 2590 1195 50 Weight 150.3 kg 157 kg General appearance: PRESENT: no acute distress, morbidly obese, well-nourished Head exam: PRESENT: atraumatic, normocephalic Eye exam: PRESENT: conjunctiva pink, EOMI, PERRLA. ABSENT: scleral icterus Ear exam: PRESENT: normal external ear exam Mouth exam: PRESENT: moist, tongue midline Neck exam: ABSENT: carotid bruit, JVD, lymphadenopathy, thyromegaly Respiratory exam: PRESENT: clear to auscultation armida, unlabored. ABSENT: rales, rhonchi, wheezes Cardiovascular exam: PRESENT: RRR, +S1, +S2. ABSENT: diastolic murmur, rubs, systolic murmur Pulses: PRESENT: normal dorsalis pedis pul Vascular exam: PRESENT: normal capillary refill GI/Abdominal exam: PRESENT: normal bowel sounds, soft. ABSENT: distended, guarding, mass, organolmegaly, rebound, tenderness Rectal exam: PRESENT: deferred Extremities exam: PRESENT: other - Left lower extremity with dressing and wound VAC in place Right below-knee amputation. ABSENT: clubbing, pedal edema Neurological exam: PRESENT: alert, awake, oriented to person, oriented to place, oriented to time, oriented to situation, CN II-XII grossly intact. ABSENT: motor sensory deficit Psychiatric exam: PRESENT: appropriate affect, normal mood. ABSENT: homicidal ideation, suicidal ideation Skin exam: PRESENT: warm. ABSENT: cyanosis, rash Results Laboratory Results: 01/07/20 06:27 01/07/20 07:45 01/07/20 01/07/20 01/07/20 06:27 06:27 07:45 WBC 17.1 H RBC 2.86 L Hgb 8.2 L Hct 24.2 L MCV 85 MCH 28.5 MCHC 33.7 RDW 15.5 H Plt Count 564 H Seg Neutrophils % 76.0 Sodium Cancelled 139.1 Potassium Cancelled 4.3 Chloride Cancelled 109 H Carbon Dioxide Cancelled 18 L Anion Gap Cancelled 12 BUN Cancelled 29 H Creatinine Cancelled 4.79 H Est GFR ( Amer) Cancelled 12 L Est GFR (Non-Af Amer) Cancelled Glucose Cancelled 117 H Calcium Cancelled 8.2 L Total Bilirubin Cancelled 0.4 AST Cancelled 31 Alkaline Phosphatase Cancelled 74 Total Protein Cancelled 6.6 Albumin Cancelled 2.8 L 01/03/20 10:54 Troponin I < 0.012 Impressions: Foot X-Ray 01/03/20 11:17 IMPRESSION: 1. Cortical irregularity and lucency at the proximal base 5th digit proximal phalanx, possibly representing osteomyelitis. 2. Subcutaneous gas in the plantar soft tissues overlying the calcaneus. Clinical correlation for ulceration in this region recommended. Finding may represent necrotizing infection. Clinical correlation. Lower Extremity MRI 01/05/20 00:00 IMPRESSION: 1. Suspect mild reactive marrow edema in the calcaneus underlying a large ulcer. Doubt osteomyelitis but close follow-up is recommended. The should consist of surveillance followup radiographs predominantly with repeat MRI as needed. Chest X-Ray 01/05/20 12:24 IMPRESSION: No evidence for pneumothorax status post central line placement. Assessment and Plan - Diagnosis (1) MONO (acute kidney injury) Is this a current diagnosis for this admission?: Yes Plan: Patient with MONO secondary to vancomycin toxicity resulting in likely ATN. Baseline creatinine 0.62; Increased 0.94-> 2.52-> 2.62-> 3.17-> 3.63 Vancomycin is discontinued. Continue to monitor daily trough levels. Vancomycin discontinued continue cefepime and will continue to monitor kidney function. Appreciate nephrology input. Follow-up with ultrasound to rule out contributing factors (2) Diabetic ulcer of heel Qualifiers: Diabetes mellitus type: type 2 Laterality: left Non-pressure ulcer stage: with other severity Qualified Code(s): E11.621 - Type 2 diabetes mellitus with foot ulcer; L97.428 - Non-pressure chronic ulcer of left heel and midfoot with other specified severity Is this a current diagnosis for this admission?: Yes Plan: MRI showed suspected mild reactive marrow edema in the calcaneus underlying a large ulcer; doubt osteomyelitis but close follow-up recommended with serial MRIs. Wound culture (01/06/2020) pending Wound culture (01/03/2020) MRSA and gram-positive cocci Wound culture (01/03/2020) MRSA, Enterococcus faecalis, gram-negative rods Blood cultures no growth to date. Surgery is consulted; greatly appreciate their assistance. Now status post multiple surgical debridements to the left heel; per op note wound would be a stage IV through subcutaneous tissue and to the muscle. Wound VAC in place; wound care per surgery expertise. (3) Sepsis Qualifiers: Sepsis type: methicillin resistant Staphylococcus aureus Sepsis acute organ dysfunction status: without acute organ dysfunction Qualified Code(s): A41.02 - Sepsis due to Methicillin resistant Staphylococcus aureus Is this a current diagnosis for this admission?: Yes Plan: Resolved; (4) Cellulitis Qualifiers: Site of cellulitis: extremity Site of cellulitis of extremity: lower extremity Laterality: left Qualified Code(s): L03.116 - Cellulitis of left lower limb Is this a current diagnosis for this admission?: Yes (5) Diabetes mellitus type 2 in obese Is this a current diagnosis for this admission?: Yes Plan: Decrease her dose of regular insulin as patient is getting 60 units of Lantus every 12 in addition to 15 units AC as well as sliding scale insulin. It appears that she actually had not been getting the a.m. 15 units on a regular basis. Her blood sugars are in the low 100 so have decided to decrease her insulin slightly just down to 12 units of Humalog AC we will continue to adjust as needed (6) Morbid (severe) obesity due to excess calories Is this a current diagnosis for this admission?: Yes Plan: Lifestyle modification dietary discretion advised. Consistent carb diet. Registered dietitian and clinical systems educator are consulted. Unsure if patient is really motivated - Plan Summary Summary: Continue with current antibiotics and continue to monitor kidney function. Will have to wait for her MONO to plateau and hopefully improve over the next few days - Time Time Spent with patient: 15-24 minutes Medications reviewed and adjusted accordingly: Yes Anticipated Discharge Disposition: Home, Self Care Anticipated Discharge Timeframe: within 72 hours
--- NOTE | 2020-01-07 13:04 | RADIOLOGY REPORT (SQ) ---
EXAM DESCRIPTION: U/S RETROPERITON LTD IMAGES COMPLETED DATE/TIME: 01/07/2020 12:53 pm REASON FOR STUDY: [email or web address] COMPARISON: None. TECHNIQUE: Dynamic and static grayscale images acquired of the kidneys and bladder and recorded on P ACS. Additional selected color Doppler and spectral images recorded. LIMITATIONS: Bowel gas, body habitus. FINDINGS: RIGHT KIDNEY: Normal size, 14 cm. Normal echogenicity. No solid or suspicious masses. No hydronephrosis. No calcifications. Suboptimal blood flow. LEFT KIDNEY: Normal size, 15.6 cm. Normal echogenicity. No solid or suspicious masses. No hydr onephrosis. No calcifications. BLADDER: A Victoria catheter is in the bladder. OTHER FINDINGS: No other significant finding. IMPRESSION: Unable to verify normal blood flow in the right kidney. The study is otherwise unremark able. The bladder was empty. TECHNICAL DOCUMENTATION: JOB ID: [id number] [employer] All Rights Reserved Reading location - IP/workstation name: [email or web address]
[2020-01-07] MEDS: OXYCODONE HCL IR 5 MG TABLET PO PRN ×2 (14:48→23:29)
[2020-01-07] MEDS: MELATONIN 5 MG TABLET PO SCH (23:28)
[2020-01-07] MEDS: ATORVASTATIN CALCIUM 40 MG TABLET PO SCH (23:28)
[2020-01-08] MEDS: RINGERS SOLUTION,LACTATED 1,000 ML IV PRN ×3 (05:06→23:01)
[2020-01-08 05:28] LABS: ABSOLUTE BASOPHILS # (AUTO) 0.1 10^3/uL (0.0-0.2); ABSOLUTE EOSINOPHILS # (AUTO) 0.4 10^3/uL (0.0-0.6); ABSOLUTE MONOCYTES (AUTO) 0.6 10^3/uL (0.1-1.4); ABSOLUTE NEUT (AUTO) 9.6 10^3/uL (1.7-8.2); BASOPHILS % (AUTO) 0.9 % (0-2); EOSINOPHILS % (AUTO) 3.2 % (0-6); HEMATOCRIT 27.8 % (36.0-47.0); LYMPHOCYTES % (AUTO) 15.6 % (13-45); MEAN CORPUSCULAR HEMOGLOBIN 27.6 pg (27.0-33.4); MEAN CORPUSCULAR HGB CONC 32.3 g/dL (32.0-36.0); MEAN CORPUSCULAR VOLUME 86 fl (80-97); PLATELET COUNT 477 10^3/uL (150-450); RED BLOOD COUNT 3.25 10^6/uL (3.72-5.28); RED CELL DISTRIBUTION WIDTH 15.6 % (11.5-14.0); SEGMENTED NEUTROPHILS % (AUTO) 75.3 % (42-78); TOTAL CELLS COUNTED % (AUTO) 100 %; WHITE BLOOD COUNT 12.8 10^3/uL (4.0-10.5)
[2020-01-08] MEDS: PANTOPRAZOLE SODIUM 40 MG TABLET.DR PO SCH (05:35)
[2020-01-08 05:54] LABS: ALBUMIN 2.6 g/dL (3.5-5.0); ALKALINE PHOSPHATASE 68 U/L (38-126); ANION GAP 11 (5-19); ASPARTATE AMINO TRANSFERASE 21 U/L (14-36); BILIRUBIN,DIRECT 0.3 mg/dL (0.0-0.4); BILIRUBIN,TOTAL 0.3 mg/dL (0.2-1.3); BLOOD UREA NITROGEN 29 mg/dL (7-20); CARBON DIOXIDE 18 mmol/L (22-30); CHLORIDE 109 mmol/L (98-107); GLUCOSE 96 mg/dL (75-110); POTASSIUM 4.2 mmol/L (3.6-5.0); TOTAL PROTEIN 6.2 g/dL (6.3-8.2)
[2020-01-08] MEDS: INSULIN LISPRO 100 UNIT/ML 3 ML VIAL SUBCUT SCH ×7 (08:20→22:58)
[2020-01-08] MEDS: INSULIN GLARGINE,HUM.REC.ANLOG 1,000 UNIT/10 ML VIAL SUBCUT SCH ×2 (09:41→22:55)
[2020-01-08] MEDS: FLUTICASONE/VILANTEROL 200-25 MCG/DOSE IH SCH (09:41)
[2020-01-08] MEDS: MECLIZINE HCL 25 MG TABLET PO SCH ×2 (09:41→17:30)
[2020-01-08] MEDS: SERTRALINE HCL 50 MG TABLET PO SCH ×2 (09:41→17:30)
[2020-01-08] MEDS: CEFEPIME HCL 2 GM in DEXTROSE 5%-WATER 50 ML IV SCH ×2 (09:41→22:54)
[2020-01-08] MEDS: FAMOTIDINE 20 MG TABLET PO SCH (09:41)
[2020-01-08] MEDS ORDERED: LIDOCAINE 1% INJ-PF (10 MG/ML) 30 ML SDV ONE ×2 (10:31→10:36)
--- NOTE | 2020-01-08 10:58 | PDOC PROGRESS REPORT ---
Subjective Progress Note for:: 01/08/20 Reason For Visit: Patient seen today. She is generally feeling OK. Denies any fever , chills, dyspnea or chest pains. Labs and medications were reviewed with her and the treating RN. Her renal numbers are getting worse. Her urine output is negligent. No symptoms of uremia. Physical Exam Vital Signs: Temp Pulse Resp BP Pulse Ox 97.5 F 81 16 105/56 L 96 01/08/20 10:00 01/08/20 07:49 01/08/20 07:49 01/08/20 07:49 01/08/20 07:49 Intake & Output 01/07/20 01/08/20 01/09/20 06:59 06:59 06:59 Intake Total 1415 3082 50 Output Total 220 40 Balance 1195 3042 50 Weight 157 kg 158.2 kg General appearance: PRESENT: no acute distress Respiratory exam: PRESENT: clear to auscultation armida, decreased breath sounds. ABSENT: crackles Cardiovascular exam: PRESENT: +S1, +S2 GI/Abdominal exam: PRESENT: normal bowel sounds, soft. ABSENT: organomegaly, tenderness Extremities exam: ABSENT: joint swelling, pedal edema Neurological exam: PRESENT: alert, awake, oriented to person, oriented to place Psychiatric exam: PRESENT: appropriate affect Skin exam: ABSENT: cyanosis, erythema, jaundice Results Laboratory Results: 01/08/20 05:05 01/08/20 05:05 01/08/20 01/08/20 05:05 05:05 WBC 12.8 H RBC 3.25 L Hgb 9.0 L Hct 27.8 L MCV 86 MCH 27.6 MCHC 32.3 RDW 15.6 H Plt Count 477 H Seg Neutrophils % 75.3 Sodium 137.8 Potassium 4.2 Chloride 109 H Carbon Dioxide 18 L Anion Gap 11 BUN 29 H Creatinine 6.11 H Est GFR ( Amer) 9 L Glucose 96 Calcium 8.0 L Total Bilirubin 0.3 AST 21 Alkaline Phosphatase 68 Total Protein 6.2 L Albumin 2.6 L 01/03/20 10:54 Troponin I < 0.012 Impressions: Foot X-Ray 01/03/20 11:17 IMPRESSION: 1. Cortical irregularity and lucency at the proximal base 5th digit proximal phalanx, possibly representing osteomyelitis. 2. Subcutaneous gas in the plantar soft tissues overlying the calcaneus. Clinical correlation for ulceration in this region recommended. Finding may represent necrotizing infection. Clinical correlation. Lower Extremity MRI 01/05/20 00:00 IMPRESSION: 1. Suspect mild reactive marrow edema in the calcaneus underlying a large ulcer. Doubt osteomyelitis but close follow-up is recommended. The should consist of surveillance followup radiographs predominantly with repeat MRI as needed. Chest X-Ray 01/05/20 12:24 IMPRESSION: No evidence for pneumothorax status post central line placement. Renal Ultrasound 01/07/20 00:00 IMPRESSION: Unable to verify normal blood flow in the right kidney. The study is otherwise unremarkable. The bladder was empty. Assessment & Plan - Diagnosis (1) MONO (acute kidney injury) Is this a current diagnosis for this admission?: Yes Plan: Anuric secondary to combination of MONO from septic left foot ulcer/vancomycin toxicity. Besides that the renal ultrasound shows possibility of poor perfusion of the right kidney. No acute indications for renal replacements today but her renal numbers are getting worse and she is anuric and so plan to initiate dialysis tomorrow. Discussed this as well as the procedure of HD and its inherent though rare complications to the patient and she is willing to proceed. Discussed with Dr Mello/ surgicalist for placement of a temporary femoral dialysis catheter and plan to initiate HD in AM. 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 Currently she is on IV cefepime. However patient is growing MRSA/enterococcus/gram-negative organisms. I would consider starting this patient on daptomycin once the vancomycin toxic levels gets to be subtherapeutic which would happen post HD tomorrow for sure.Please dose medications for GFR of less than 20 cc/min. (3) Sepsis Qualifiers: Sepsis type: methicillin resistant Staphylococcus aureus Sepsis acute organ dysfunction status: without acute organ dysfunction Qualified Code(s): A41.02 - Sepsis due to Methicillin resistant Staphylococcus aureus Is this a current diagnosis for this admission?: Yes Plan: As mentioned earlier. Initially high lactic acid which is now normalized.Hemodynamically stable which is good for her (4) Diabetes mellitus type 2 in obese Is this a current diagnosis for this admission?: Yes Plan: Apparently uncontrolled as OP. As per hospitalist. (5) Metabolic acidosis Plan: On p.o. replacements. See response to dialysis. (6) Morbid (severe) obesity due to excess calories Is this a current diagnosis for this admission?: Yes Plan: Status quo.
--- NOTE | 2020-01-08 11:38 | PDOC PROGRESS REPORT ---
Subjective Progress Note for:: 01/08/20 Subjective:: Patient denies any new complaints questions for me this morningPatient was admitted with sepsis secondary to left lower extremity cellulitis and diabetic foot ulcer status post surgical debridement with wound VAC in place. She does have a chronic right below-knee amputation. Patient denies any other complaints this morning. She was found to have vancomycin induced nephrotoxicity however this has since been discontinued. Kidney function is still rising with a creatinine at 4.79 today up from 0.62 on admission, BUN was 12 on admission and is currently 29. She is acidotic with a CO2 of 18 Kidney function noted to be worsening and at this point the plan is to initiate dialysis in a.m. Reason For Visit: SEPSIS Physical Exam Vital Signs: Temp Pulse Resp BP Pulse Ox 97.5 F 81 16 105/56 L 96 01/08/20 10:00 01/08/20 07:49 01/08/20 07:49 01/08/20 07:49 01/08/20 07:49 Intake & Output 01/07/20 01/08/20 01/09/20 06:59 06:59 06:59 Intake Total 1415 3082 50 Output Total 220 40 Balance 1195 3042 50 Weight 157 kg 158.2 kg General appearance: PRESENT: no acute distress, morbidly obese, well-developed, well-nourished Head exam: PRESENT: atraumatic, normocephalic Eye exam: PRESENT: conjunctiva pink, EOMI, PERRLA. ABSENT: scleral icterus Ear exam: PRESENT: normal external ear exam Mouth exam: PRESENT: moist, tongue midline Neck exam: ABSENT: carotid bruit, JVD, lymphadenopathy, thyromegaly Respiratory exam: PRESENT: clear to auscultation armida, unlabored. ABSENT: rales, rhonchi, wheezes Cardiovascular exam: PRESENT: RRR, +S1, +S2. ABSENT: diastolic murmur, rubs, systolic murmur Vascular exam: PRESENT: normal capillary refill GI/Abdominal exam: PRESENT: normal bowel sounds, soft. ABSENT: distended, guarding, mass, organolmegaly, rebound, tenderness Rectal exam: PRESENT: deferred Extremities exam: PRESENT: other - LLE with dressing and wound vac in place RLE s/p BKA. ABSENT: calf tenderness, clubbing Neurological exam: PRESENT: alert, awake, oriented to person, oriented to place, oriented to time, oriented to situation, CN II-XII grossly intact. ABSENT: motor sensory deficit Psychiatric exam: PRESENT: appropriate affect, normal mood. ABSENT: homicidal ideation, suicidal ideation Skin exam: PRESENT: dry, intact, warm. ABSENT: cyanosis, rash Results Laboratory Results: 01/08/20 05:05 01/08/20 05:05 01/08/20 01/08/20 05:05 05:05 WBC 12.8 H RBC 3.25 L Hgb 9.0 L Hct 27.8 L MCV 86 MCH 27.6 MCHC 32.3 RDW 15.6 H Plt Count 477 H Seg Neutrophils % 75.3 Sodium 137.8 Potassium 4.2 Chloride 109 H Carbon Dioxide 18 L Anion Gap 11 BUN 29 H Creatinine 6.11 H Est GFR ( Amer) 9 L Glucose 96 Calcium 8.0 L Total Bilirubin 0.3 AST 21 Alkaline Phosphatase 68 Total Protein 6.2 L Albumin 2.6 L 01/03/20 10:54 Blood Blood Culture - Final NO GROWTH IN 5 DAYS 01/03/20 10:54 Troponin I < 0.012 Impressions: Foot X-Ray 01/03/20 11:17 IMPRESSION: 1. Cortical irregularity and lucency at the proximal base 5th digit proximal phalanx, possibly representing osteomyelitis. 2. Subcutaneous gas in the plantar soft tissues overlying the calcaneus. Clinical correlation for ulceration in this region recommended. Finding may represent necrotizing infection. Clinical correlation. Lower Extremity MRI 01/05/20 00:00 IMPRESSION: 1. Suspect mild reactive marrow edema in the calcaneus underlying a large ulcer. Doubt osteomyelitis but close follow-up is recommended. The should consist of surveillance followup radiographs predominantly with repeat MRI as needed. Chest X-Ray 01/05/20 12:24 IMPRESSION: No evidence for pneumothorax status post central line placement. Renal Ultrasound 01/07/20 00:00 IMPRESSION: Unable to verify normal blood flow in the right kidney. The study is otherwise unremarkable. The bladder was empty. Assessment and Plan - Diagnosis (1) MONO (acute kidney injury) Is this a current diagnosis for this admission?: Yes Plan: Creatinine is now up to 6.11. Plan is to initiate dialysis in a.m. as patient is near oliguric and acidotic. Appreciate nephrology input (2) Diabetic ulcer of heel Qualifiers: Diabetes mellitus type: type 2 Laterality: left Non-pressure ulcer stage: with other severity Qualified Code(s): E11.621 - Type 2 diabetes mellitus with foot ulcer; L97.428 - Non-pressure chronic ulcer of left heel and midfoot with other specified severity Is this a current diagnosis for this admission?: Yes Plan: MRI showed suspected mild reactive marrow edema in the calcaneus underlying a large ulcer; doubt osteomyelitis but close follow-up recommended with serial MRIs. Wound culture (01/06/2020) pending Wound culture (01/03/2020) MRSA and gram-positive cocci Wound culture (01/03/2020) MRSA, Enterococcus faecalis, gram-negative rods Blood cultures no growth to date. Surgery is consulted; greatly appreciate their assistance. Now status post multiple surgical debridements to the left heel; per op note wound would be a stage IV through subcutaneous tissue and to the muscle. Wound VAC in place; wound care per surgery expertise. Wound culture for January 05 yielding MRSA. Patient is currently off vancomycin due to toxicity (3) Sepsis Qualifiers: Sepsis type: methicillin resistant Staphylococcus aureus Sepsis acute organ dysfunction status: without acute organ dysfunction Qualified Code(s): A41.02 - Sepsis due to Methicillin resistant Staphylococcus aureus Is this a current diagnosis for this admission?: Yes Plan: Resolved; (4) Cellulitis Qualifiers: Site of cellulitis: extremity Site of cellulitis of extremity: lower extremity Laterality: left Qualified Code(s): L03.116 - Cellulitis of left lower limb Is this a current diagnosis for this admission?: Yes Plan: Evaluation management as outlined above. (5) Diabetes mellitus type 2 in obese Is this a current diagnosis for this admission?: Yes Plan: Decrease her dose of regular insulin as patient is getting 60 units of Lantus every 12 in addition to 15 units AC as well as sliding scale insulin. It appears that she actually had not been getting the a.m. 15 units on a regular basis. Her blood sugars are in the low 100 so have decided to decrease her insulin slightly just down to 12 units of Humalog AC we will continue to adjust as needed 01/07 will continue to monitor and adjust (6) Morbid (severe) obesity due to excess calories Is this a current diagnosis for this admission?: Yes Plan: Lifestyle modification dietary discretion advised. Consistent carb diet. Registered dietitian and cat breeder are consulted. Unsure if patient is really motivated - Plan Summary Summary: Patient is yielding methicillin-resistant Staphylococcus aureus, enterococcus faecalis as well as gram-negative rods from her wounds. She is currently on cefepime day 3 presumably to cover the gram-negative fam possibly as well as enterococcus. Vancomycin has been discontinued. I think she probably can be safely placed on clindamycin once her trough for vancomycin is subtherapeutic. She can be placed on ampicillin or 3rd-generation cephalosporin for the enterococcus and gram-negative fam to simplify antibiotics. The plan is to continue with current surgical management as per general surgery - Time Anticipated Discharge Disposition: Home with Home Health Anticipated Discharge Timeframe: TBD
--- NOTE | 2020-01-08 16:39 | PDOC PROGRESS REPORT ---
Subjective Progress Note for:: 01/08/20 Subjective:: Patient comfortable Reason For Visit: SEPSIS Physical Exam Vital Signs: Temp Pulse Resp BP Pulse Ox 97.6 F 84 16 134/76 H 95 01/08/20 11:00 01/08/20 14:00 01/08/20 11:00 01/08/20 11:00 01/08/20 11:00 Intake & Output 01/07/20 01/08/20 01/09/20 06:59 06:59 06:59 Intake Total 1415 3082 1290 Output Total 220 40 Balance 1195 3042 1290 Weight 157 kg 158.2 kg General appearance: PRESENT: no acute distress, obese Extremities exam: PRESENT: other - Left heel = granulating, no odor, no drainage, minimal erythema surrounding the left heel wound Results Laboratory Results: 01/08/20 05:05 01/08/20 05:05 01/08/20 01/08/20 05:05 05:05 WBC 12.8 H RBC 3.25 L Hgb 9.0 L Hct 27.8 L MCV 86 MCH 27.6 MCHC 32.3 RDW 15.6 H Plt Count 477 H Seg Neutrophils % 75.3 Sodium 137.8 Potassium 4.2 Chloride 109 H Carbon Dioxide 18 L Anion Gap 11 BUN 29 H Creatinine 6.11 H Est GFR ( Amer) 9 L Glucose 96 Calcium 8.0 L Total Bilirubin 0.3 AST 21 Alkaline Phosphatase 68 Total Protein 6.2 L Albumin 2.6 L 01/03/20 16:42 Foot - Left Gram Stain - Final 01/03/20 16:42 Foot - Left Wound Culture - Final Mrsa (Meth Resis Staph Aureus) Streptococcus Mitis Bacteroides Species 01/03/20 10:54 Foot - Diabetic Ulcer Gram Stain - Final 01/03/20 12:11 Blood Blood Culture - Final NO GROWTH IN 5 DAYS 01/03/20 10:54 Blood Blood Culture - Final NO GROWTH IN 5 DAYS 01/03/20 10:54 Troponin I < 0.012 Impressions: Foot X-Ray 01/03/20 11:17 IMPRESSION: 1. Cortical irregularity and lucency at the proximal base 5th digit proximal phalanx, possibly representing osteomyelitis. 2. Subcutaneous gas in the plantar soft tissues overlying the calcaneus. Clinical correlation for ulceration in this region recommended. Finding may represent necrotizing infection. Clinical correlation. Lower Extremity MRI 01/05/20 00:00 IMPRESSION: 1. Suspect mild reactive marrow edema in the calcaneus underlying a large ulcer. Doubt osteomyelitis but close follow-up is recommended. The should consist of surveillance followup radiographs predominantly with repeat MRI as needed. Chest X-Ray 01/05/20 12:24 IMPRESSION: No evidence for pneumothorax status post central line placement. Renal Ultrasound 01/07/20 00:00 IMPRESSION: Unable to verify normal blood flow in the right kidney. The study is otherwise unremarkable. The bladder was empty. 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 with other specified severity Is this a current diagnosis for this admission?: Yes (2) Cellulitis Qualifiers: Site of cellulitis: extremity Site of cellulitis of extremity: lower extremity Laterality: left Qualified Code(s): L03.116 - Cellulitis of left lower limb Is this a current diagnosis for this admission?: Yes (3) Diabetes mellitus type 2 in obese Is this a current diagnosis for this admission?: Yes - Time Anticipated Discharge Disposition: As per PCP Anticipated Discharge Timeframe: As per PCP - Plan Summary Plan Summary: Assessment: Postoperative day #2 following debridement of left heel wound Culture significant for MRSA Patient on vancomycin IV Patient kidney function worsened with BUN and creatinine are 29 and 6, respectively Plan: Replace wound VAC every 3 days Continue left leg elevation and strict no left leg weightbearing Continue strict bedrest Plan to insert left groin femoral vein hemodialysis catheter today Procedure, risks, benefits, complications, explained to the patient, she understands all the above, and she desires to proceed
--- NOTE | 2020-01-08 16:42 | Operative Report ---
Operative Report DATE OF SURGERY: 01/08/20 PREOPERATIVE DIAGNOSIS: Need of hemodialysis catheter POSTOPERATIVE DIAGNOSIS: Same OPERATION: Placement of a left femoral vein hemodialysis catheter SURGEON: MANISH ARELLANO ANESTHESIA: Local - 10 mL's 1% lidocaine TISSUE REMOVED OR ALTERED: None COMPLICATIONS: None ESTIMATED BLOOD LOSS: 20 mL's INTRAOPERATIVE FINDINGS: Not applicable PROCEDURE: The procedure was done at bedside: The patient was placed in a supine position, the patient left groin prepped and draped in the usual fashion. The midportion of the left groin was infiltrated with lidocaine, a 16-gauge needle was then used to cannulate the left femoral vein without difficulty with good blood return; a guidewire was inserted through the needle into the central vein without difficulty the needle was removed. The insertion point of the guidewire was enlarged with a #11 blade and a tissue dilator which was then removed. A triple-lumen hemodialysis catheter was inserted without difficulty over the guidewire into the femoral vein and iliac vein without difficulty up to 30 cm, the guidewire was removed. Each port was aspirated and flushed with normal saline without difficulty. The catheter was secured to the skin with 3-0 nylon sutures and sterile dressing applied. The patient tolerated the procedure well.
[2020-01-08] MEDS: ATORVASTATIN CALCIUM 40 MG TABLET PO SCH (22:54)
[2020-01-08] MEDS: MELATONIN 5 MG TABLET PO SCH (22:54)
[2020-01-08] MEDS: OXYCODONE HCL IR 5 MG TABLET PO PRN (22:58)
[2020-01-09] MEDS ORDERED: EPOETIN ALFA-EPBX 2,000 UNIT, EPOETIN ALFA-EPBX 3,000 UNIT, EPOETIN ALFA-EPBX 20,000 UN... IV PRN ×4 (05:00)
[2020-01-09] MEDS ORDERED: HEPARIN SOD (PORCINE) 1,000 UNIT/ML 10 ML VIAL IV PRN (05:00)
[2020-01-09] MEDS: PANTOPRAZOLE SODIUM 40 MG TABLET.DR PO SCH (06:14)
[2020-01-09 06:37] LABS: HEPATITS B SURFACE ANTIGEN Negative (Negative)
[2020-01-09 06:52] LABS: ALBUMIN 2.7 g/dL (3.5-5.0); ALKALINE PHOSPHATASE 71 U/L (38-126); ANION GAP 14 (5-19); ASPARTATE AMINO TRANSFERASE 19 U/L (14-36); BILIRUBIN,DIRECT 0.4 mg/dL (0.0-0.4); BILIRUBIN,TOTAL 0.4 mg/dL (0.2-1.3); BLOOD UREA NITROGEN 32 mg/dL (7-20); CALCIUM 8.4 mg/dL (8.4-10.2); CARBON DIOXIDE 14 mmol/L (22-30); CHLORIDE 110 mmol/L (98-107); GLUCOSE 102 mg/dL (75-110); IRON(TIBC) 51.1 ug/dL (37-170); PHOSPHORUS 6.7 mg/dL (2.5-4.5); POTASSIUM 4.4 mmol/L (3.6-5.0); TOTAL PROTEIN 6.4 g/dL (6.3-8.2)
[2020-01-09 06:53] LABS: VANCOMYCIN,TROUGH 28.2 ug/mL (5.0-20.0)
[2020-01-09 06:54] LABS: HEMATOCRIT 29.4 % (36.0-47.0); HEMOGLOBIN 9.4 g/dL (12.0-15.5); MEAN CORPUSCULAR HEMOGLOBIN 27.6 pg (27.0-33.4); MEAN CORPUSCULAR HGB CONC 32.2 g/dL (32.0-36.0); MEAN CORPUSCULAR VOLUME 86 fl (80-97); PLATELET COUNT 503 10^3/uL (150-450); RED BLOOD COUNT 3.42 10^6/uL (3.72-5.28); RED CELL DISTRIBUTION WIDTH 15.9 % (11.5-14.0); RETICULOCYTE COUNT (AUTO) 1.47 % (0.66-2.85); WHITE BLOOD COUNT 12.7 10^3/uL (4.0-10.5)
[2020-01-09 07:18] LABS: HEPATITIS B CORE AB TOT Negative (Negative)
[2020-01-09 07:27] LABS: ABSOLUTE LYMPHOCYTES# (MANUAL) 1.5 10^3/uL (0.5-4.7); ABSOLUTE MONOCYTES # (MANUAL) 0.6 10^3/uL (0.1-1.4); ANISOCYTOSIS 1+; BAND NEUTROPHILS % (MANUAL) 2 % (3-5); BASOPHILS % (MANUAL) 0 % (0-2); EOSINOPHILS % (MANUAL) 5 % (0-6); LYMPHOCYTES % (MANUAL) 12 % (13-45); MONOCYTES % (MANUAL) 5 % (3-13); SEGMENTED NEUTROPHILS % (MAN) 76 % (42-78); TOTAL CELLS COUNTED 100
[2020-01-09 07:28] LABS: PLATELET COMMENT INCREASED; POLYCHROMASIA SLIGHT
[2020-01-09 08:01] LABS: FOLATE 8.34 ng/mL (>2.76)
[2020-01-09] MEDS: INSULIN LISPRO 100 UNIT/ML 3 ML VIAL SUBCUT SCH ×5 (08:20→22:11)
[2020-01-09] MEDS: CEFEPIME HCL 2 GM in DEXTROSE 5%-WATER 50 ML IV SCH ×2 (10:00→22:12)
--- NOTE | 2020-01-09 11:52 | PDOC PROGRESS REPORT ---
Subjective Progress Note for:: 01/09/20 Subjective:: under HD now Reason For Visit: SEPSIS Physical Exam Vital Signs: Temp Pulse Resp BP Pulse Ox 97.4 F 84 18 124/56 L 98 01/09/20 03:56 01/09/20 07:00 01/09/20 03:56 01/09/20 03:56 01/09/20 03:56 Intake & Output 01/08/20 01/09/20 01/10/20 06:59 06:59 06:59 Intake Total 3082 2580 Output Total 40 110 Balance 3042 2470 Weight 158.2 kg 156.1 kg General appearance: PRESENT: no acute distress, obese Extremities exam: PRESENT: other - left heel with woundvac Results Laboratory Results: 01/09/20 06:27 01/09/20 06:27 01/09/20 01/09/20 01/09/20 06:27 06:27 06:27 WBC 12.7 H RBC 3.42 L Hgb 9.4 L Hct 29.4 L MCV 86 MCH 27.6 MCHC 32.2 RDW 15.9 H Plt Count 503 H Seg Neutrophils % Not Reportable Retic Count (auto) 1.47 Sodium 137.5 Potassium 4.4 Chloride 110 H Carbon Dioxide 14 L Anion Gap 14 BUN 32 H Creatinine 6.80 H Est GFR ( Amer) 8 L Glucose 102 Calcium 8.4 Phosphorus 6.7 H Iron 51.1 TIBC 214 L % Saturation 24 Ferritin 237.00 Total Bilirubin 0.4 AST 19 Alkaline Phosphatase 71 Total Protein 6.4 Albumin 2.7 L Vitamin B12 554.0 Folate 8.34 PTH Intact 80.8 H 01/06/20 09:44 Foot - Tissue (Surgical) Gram Stain - Final 01/06/20 09:44 Foot - Tissue (Surgical) Wound Culture - Final Mrsa (Meth Resis Staph Aureus) Streptococcus Mitis/Oralis Anaerococcus (Peptostrep) Sp. 01/03/20 10:54 Foot - Diabetic Ulcer Gram Stain - Final 01/03/20 10:54 Foot - Diabetic Ulcer Wound Culture - Final Mrsa (Meth Resis Staph Aureus) Enterococcus Faecalis(Group D) Proteus Vulgaris 01/03/20 16:42 Foot - Left Gram Stain - Final 01/03/20 16:42 Foot - Left Wound Culture - Final Mrsa (Meth Resis Staph Aureus) Streptococcus Mitis/Oralis Bacteroides Species 01/03/20 12:11 Blood Blood Culture - Final NO GROWTH IN 5 DAYS 01/03/20 10:54 Blood Blood Culture - Final NO GROWTH IN 5 DAYS 01/03/20 10:54 Troponin I < 0.012 Impressions: Foot X-Ray 01/03/20 11:17 IMPRESSION: 1. Cortical irregularity and lucency at the proximal base 5th digit proximal phalanx, possibly representing osteomyelitis. 2. Subcutaneous gas in the plantar soft tissues overlying the calcaneus. Cl inical correlation for ulceration in this region recommended. Finding may represent necrotizing infection. Clinical correlation. Lower Extremity MRI 01/05/20 00:00 IMPRESSION: 1. Suspect mild reactive marrow edema in the calcaneus underlying a large ulcer. Doubt osteomyelitis but close follow-up is recommended. The should consist of surveillance followup radiographs predominantly with repeat MRI as needed. Chest X-Ray 01/05/20 12:24 IMPRESSION: No evidence for pneumothorax status post central line placement. Renal Ultrasound 01/07/20 00:00 IMPRESSION: Unable to verify normal blood flow in the right kidney. The study is otherwise unremarkable. The bladder was empty. 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 with other specified severity Is this a current diagnosis for this admission?: Yes (2) Cellulitis Qualifiers: Site of cellulitis: extremity Site of cellulitis of extremity: lower extremity Laterality: left Qualified Code(s): L03.116 - Cellulitis of left lower limb Is this a current diagnosis for this admission?: Yes (3) Diabetes mellitus type 2 in obese Is this a current diagnosis for this admission?: Yes - Time Anticipated Discharge Disposition: as per PCP Anticipated Discharge Timeframe: as per PCP - Plan Summary Plan Summary: A/ Left heel MRSA infection, S/p debridment Woundvac applied on Left heel wound yesterday, granulating patient on temporatry HD today after HD catheter placed yesterday Plan: Continue WoundVac change q3 days (M/W/F) Call Surgery service before patient is discharged from hospital Once MRSA infection of the left heel is under control, the wound is granulating, and she is off dialysis, she can be considered for skin grafting of the left heel wound This will be arranged after her discharge and when patient will come to the General Surgery office. I will sign off. Pls. call us with questions.
--- NOTE | 2020-01-09 16:35 | PDOC PROGRESS REPORT ---
Subjective Progress Note for:: 01/09/20 Reason For Visit: Patient seen today on dialysis. She has had a temporary left femoral dialysis catheter placed and undergoing dialysis without any issues. She is quite comfortable during the procedure. Vital signs are stable. Labs and medications were reviewed. Dialysis orders were reviewed with treating dialysis nurse. Physical Exam Vital Signs: Temp Pulse Resp BP Pulse Ox 98.1 F 89 19 134/66 H 98 01/09/20 14:49 01/09/20 14:49 01/09/20 14:49 01/09/20 14:49 01/09/20 14:49 Intake & Output 01/08/20 01/09/20 01/10/20 06:59 06:59 06:59 Intake Total 3082 2580 Output Total 40 110 1500 Balance 3042 2470 -1500 Weight 158.2 kg 156.1 kg General appearance: PRESENT: no acute distress Respiratory exam: PRESENT: clear to auscultation armida, decreased breath sounds. ABSENT: crackles Cardiovascular exam: PRESENT: +S1, +S2 GI/Abdominal exam: PRESENT: normal bowel sounds, soft. ABSENT: organomegaly, tenderness Extremities exam: PRESENT: pedal edema Neurological exam: PRESENT: alert, oriented to person, oriented to place Psychiatric exam: PRESENT: appropriate affect Results Laboratory Results: 01/09/20 06:27 01/09/20 06:27 01/09/20 01/09/20 01/09/20 06:27 06:27 06:27 WBC 12.7 H RBC 3.42 L Hgb 9.4 L Hct 29.4 L MCV 86 MCH 27.6 MCHC 32.2 RDW 15.9 H Plt Count 503 H Seg Neutrophils % Not Reportable Retic Count (auto) 1.47 Sodium 137.5 Potassium 4.4 Chloride 110 H Carbon Dioxide 14 L Anion Gap 14 BUN 32 H Creatinine 6.80 H Est GFR ( Amer) 8 L Glucose 102 Calcium 8.4 Phosphorus 6.7 H Iron 51.1 TIBC 214 L % Saturation 24 Ferritin 237.00 Total Bilirubin 0.4 AST 19 Alkaline Phosphatase 71 Total Protein 6.4 Albumin 2.7 L Vitamin B12 554.0 Folate 8.34 PTH Intact 80.8 H 01/06/20 09:44 Foot - Tissue (Surgical) Gram Stain - Final 01/06/20 09:44 Foot - Tissue (Surgical) Wound Culture - Final Mrsa (Meth Resis Staph Aureus) Streptococcus Mitis/Oralis Anaerococcus (Peptostrep) Sp. 01/03/20 10:54 Foot - Diabetic Ulcer Gram Stain - Final 01/03/20 10:54 Foot - Diabetic Ulcer Wound Culture - Final Mrsa (Meth Resis Staph Aureus) Enterococcus Faecalis(Group D) Proteus Vulgaris 01/03/20 16:42 Foot - Left Gram Stain - Final 01/03/20 16:42 Foot - Left Wound Culture - Final Mrsa (Meth Resis Staph Aureus) Streptococcus Mitis/Oralis Bacteroides Species 01/03/20 10:54 Troponin I < 0.012 Impressions: Foot X-Ray 01/03/20 11:17 IMPRESSION: 1. Cortical irregularity and lucency at the proximal base 5th digit proximal phalanx, possibly representing osteomyelitis. 2. Subcutaneous gas in the plantar soft tissues overlying the calcaneus. Clinical correlation for ulceration in this region recommended. Finding may represent necrotizing infection. Clinical correlation. Lower Extremity MRI 01/05/20 00:00 IMPRESSION: 1. Suspect mild reactive marrow edema in the calcaneus underlying a large ulcer. Doubt osteomyelitis but close follow-up is recommended. The should consist of surveillance followup radiographs predominantly with repeat MRI as needed. Chest X-Ray 01/05/20 12:24 IMPRESSION: No evidence for pneumothorax status post central line placement. Renal Ultrasound 01/07/20 00:00 IMPRESSION: Unable to verify normal blood flow in the right kidney. The study is otherwise unremarkable. The bladder was empty. Assessment & Plan - Diagnosis (1) MONO (acute kidney injury) Is this a current diagnosis for this admission?: Yes Plan: Anuric secondary to combination of MONO from septic left foot ulcer/vancomycin toxicity. Besides that the renal ultrasound shows possibility of poor perfusion of the right kidney. She has now been initiated on hemodialysis and undergoing dialysis currently without any problems .Vital signs are stable. Dialysis being supervised. Plan to remove approximately a liter of fluid as tolerated. Dialysis orders reviewed with the treating dialysis nurse. 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 Currently she is on IV cefepime. However patient is growing MRSA/enterococcus/gram-negative organisms. I would consider starting this patient on daptomycin once the vancomycin toxic levels gets to be subtherapeutic which would happen post HD tomorrow for sure.Please dose medications for GFR of less than 20 cc/min. (3) Sepsis Qualifiers: Sepsis type: methicillin resistant Staphylococcus aureus Sepsis acute organ dysfunction status: without acute organ dysfunction Qualified Code(s): A41.02 - Sepsis due to Methicillin resistant Staphylococcus aureus Is this a current diagnosis for this admission?: Yes Plan: As mentioned earlier. Initially high lactic acid which is now normalized.Hemodynamically stable which is good for her (4) Diabetes mellitus type 2 in obese Is this a current diagnosis for this admission?: Yes Plan: Apparently uncontrolled as OP. As per hospitalist. (5) Metabolic acidosis Plan: On p.o. replacements. See response to dialysis. (6) Morbid (severe) obesity due to excess calories Is this a current diagnosis for this admission?: Yes Plan: Status quo.
--- NOTE | 2020-01-09 16:39 | PDOC PROGRESS REPORT ---
Subjective Progress Note for:: 01/09/20 Subjective:: Patient denies any new complaints questions for me this morningPatient was admitted with sepsis secondary to left lower extremity cellulitis and diabetic foot ulcer status post surgical debridement with wound VAC in place. She does have a chronic right below-knee amputation. Patient denies any other complaints this morning. She was found to have vancomycin induced nephrotoxicity however this has since been discontinued. Kidney function is still rising with a creatinine at 4.79 today up from 0.62 on admission, BUN was 12 on admission and is currently 29. She is acidotic with a CO2 of 18 Kidney function noted to be worsening and at this point the plan is to initiate dialysis in a.m. 01/08 Cr now 6.8, acidotic, awaiting HD Reason For Visit: SEPSIS Physical Exam Vital Signs: Temp Pulse Resp BP Pulse Ox 98.1 F 89 19 134/66 H 98 01/09/20 14:49 01/09/20 14:49 01/09/20 14:49 01/09/20 14:49 01/09/20 14:49 Intake & Output 01/08/20 01/09/20 01/10/20 06:59 06:59 06:59 Intake Total 3082 2580 Output Total 40 110 1500 Balance 3042 2470 -1500 Weight 158.2 kg 156.1 kg General appearance: PRESENT: no acute distress, morbidly obese, well-developed, well-nourished Head exam: PRESENT: atraumatic Eye exam: ABSENT: scleral icterus Ear exam: PRESENT: normal external ear exam Mouth exam: PRESENT: tongue midline Neck exam: ABSENT: carotid bruit, JVD, lymphadenopathy, thyromegaly Respiratory exam: PRESENT: clear to auscultation armida, unlabored. ABSENT: rales, rhonchi, wheezes Cardiovascular exam: PRESENT: RRR, +S1, +S2. ABSENT: diastolic murmur, rubs, systolic murmur Pulses: PRESENT: normal dorsalis pedis pul Vascular exam: PRESENT: normal capillary refill GI/Abdominal exam: PRESENT: normal bowel sounds, soft. ABSENT: distended, guarding, mass, organolmegaly, rebound, tenderness Rectal exam: PRESENT: deferred Extremities exam: PRESENT: full ROM, other - LLE in dressing R BKA. ABSENT: calf tenderness, clubbing, pedal edema Neurological exam: PRESENT: alert, awake, oriented to person, oriented to place, oriented to time, oriented to situation, CN II-XII grossly intact. ABSENT: motor sensory deficit Psychiatric exam: PRESENT: appropriate affect, normal mood. ABSENT: homicidal ideation, suicidal ideation Skin exam: PRESENT: dry, intact, warm. ABSENT: cyanosis, rash Results Laboratory Results: 01/09/20 06:27 01/09/20 06:27 01/09/20 01/09/20 01/09/20 06:27 06:27 06:27 WBC 12.7 H RBC 3.42 L Hgb 9.4 L Hct 29.4 L MCV 86 MCH 27.6 MCHC 32.2 RDW 15.9 H Plt Count 503 H Seg Neutrophils % Not Reportable Retic Count (auto) 1.47 Sodium 137.5 Potassium 4.4 Chloride 110 H Carbon Dioxide 14 L Anion Gap 14 BUN 32 H Creatinine 6.80 H Est GFR ( Amer) 8 L Glucose 102 Calcium 8.4 Phosphorus 6.7 H Iron 51.1 TIBC 214 L % Saturation 24 Ferritin 237.00 Total Bilirubin 0.4 AST 19 Alkaline Phosphatase 71 Total Protein 6.4 Albumin 2.7 L Vitamin B12 554.0 Folate 8.34 PTH Intact 80.8 H 01/06/20 09:44 Foot - Tissue (Surgical) Gram Stain - Final 01/06/20 09:44 Foot - Tissue (Surgical) Wound Culture - Final Mrsa (Meth Resis Staph Aureus) Streptococcus Mitis/Oralis Anaerococcus (Peptostrep) Sp. 01/03/20 10:54 Foot - Diabetic Ulcer Gram Stain - Final 01/03/20 10:54 Foot - Diabetic Ulcer Wound Culture - Final Mrsa (Meth Resis Staph Aureus) Enterococcus Faecalis(Group D) Proteus Vulgaris 01/03/20 16:42 Foot - Left Gram Stain - Final 01/03/20 16:42 Foot - Left Wound Culture - Final Mrsa (Meth Resis Staph Aureus) Streptococcus Mitis/Oralis Bacteroides Species 01/03/20 10:54 Troponin I < 0.012 Impressions: Foot X-Ray 01/03/20 11:17 IMPRESSION: 1. Cortical irregularity and lucency at the proximal base 5th digit proximal phalanx, possibly representing osteomyelitis. 2. Subcutaneous gas in the plantar soft tissues overlying the calcaneus. Clinical correlation for ulceration in this region recommended. Finding may represent necrotizing infection. Clinical correlation. Lower Extremity MRI 01/05/20 00:00 IMPRESSION: 1. Suspect mild reactive marrow edema in the calcaneus underlying a large ulcer. Doubt osteomyelitis but close follow-up is recommended. The should consist of surveillance followup radiographs predominantly with repeat MRI as needed. Chest X-Ray 01/05/20 12:24 IMPRESSION: No evidence for pneumothorax status post central line placement. Renal Ultrasound 01/07/20 00:00 IMPRESSION: Unable to verify normal blood flow in the right kidney. The study is otherwise unremarkable. The bladder was empty. Assessment and Plan - Diagnosis (1) MONO (acute kidney injury) Is this a current diagnosis for this admission?: Yes Plan: Creatinine continues to increase, plan to dialyze today (2) Diabetic ulcer of heel Qualifiers: Qualified Code(s): E11.621 - Type 2 diabetes mellitus with foot ulcer; L97.428 - Non-pressure chronic ulcer of left heel and midfoot with other specified severity Is this a current diagnosis for this admission?: Yes Plan: MRI showed suspected mild reactive marrow edema in the calcaneus underlying a large ulcer; doubt osteomyelitis but close follow-up recommended with serial MRIs. Wound culture (01/06/2020) pending Wound culture (01/03/2020) MRSA and gram-positive cocci Wound culture (01/03/2020) MRSA, Enterococcus faecalis, gram-negative rods Blood cultures no growth to date. Surgery is consulted; greatly appreciate their assistance. Now status post multiple surgical debridements to the left heel; per op note wound would be a stage IV through subcutaneous tissue and to the muscle. Wound VAC in place; wound care per surgery expertise. Wound culture for January 05 yielding MRSA. Patient is currently off vancomycin due to toxicity. Will continue to monitor kidney function and restart antibiotics possibly Clindamycin (3) Sepsis Qualifiers: Qualified Code(s): A41.02 - Sepsis due to Methicillin resistant Staphylococcus aureus Is this a current diagnosis for this admission?: Yes Plan: Resolved; (4) Cellulitis Qualifiers: Qualified Code(s): L03.116 - Cellulitis of left lower limb Is this a current diagnosis for this admission?: Yes Plan: Continue current management (5) Diabetes mellitus type 2 in obese Is this a current diagnosis for this admission?: Yes Plan: Decrease her dose of regular insulin as patient is getting 60 units of Lantus every 12 in addition to 15 units AC as well as sliding scale insulin. It appea rs that she actually had not been getting the a.m. 15 units on a regular basis. Her blood sugars are in the low 100 so have decided to decrease her insulin slightly just down to 12 units of Humalog AC we will continue to adjust as needed 01/07 will continue to monitor and adjust (6) Morbid (severe) obesity due to excess calories Is this a current diagnosis for this admission?: Yes Plan: Lifestyle modification dietary discretion advised. Consistent carb diet. Registered dietitian and hospital educator are consulted. Unsure if patient is really motivated to lose weight - Plan Summary Summary: Patient is yielding methicillin-resistant Staphylococcus aureus, enterococcus faecalis as well as gram-negative rods from her wounds. She is currently on cefepime day 3 presumably to cover the gram-negative fam possibly as well as enterococcus. Vancomycin has been discontinued. I think she probably can be safely placed on clindamycin once her trough for vancomycin is subtherapeutic. She can be placed on ampicillin or 3rd-generation cephalosporin for the enterococcus and gram-negative fam to simplify antibiotics. The plan is to continue with current surgical management as per general surgery - Time Anticipated Discharge Disposition: Home with Home Health Anticipated Discharge Timeframe: within 72 hours
[2020-01-09] MEDS: MECLIZINE HCL 25 MG TABLET PO SCH ×2 (18:22→18:56)
[2020-01-09] MEDS: INSULIN GLARGINE,HUM.REC.ANLOG 1,000 UNIT/10 ML VIAL SUBCUT SCH ×2 (18:22→22:11)
[2020-01-09] MEDS: FLUTICASONE/VILANTEROL 200-25 MCG/DOSE IH SCH (18:22)
[2020-01-09] MEDS: FAMOTIDINE 20 MG TABLET PO SCH (18:23)
[2020-01-09] MEDS: SERTRALINE HCL 50 MG TABLET PO SCH ×2 (18:51→18:56)
[2020-01-09] MEDS: ATORVASTATIN CALCIUM 40 MG TABLET PO SCH (22:10)
[2020-01-09] MEDS: MELATONIN 5 MG TABLET PO SCH (22:10)
[2020-01-10] MEDS: PANTOPRAZOLE SODIUM 40 MG TABLET.DR PO SCH (05:12)
[2020-01-10 06:28] LABS: HEMATOCRIT 27.3 % (36.0-47.0); MEAN CORPUSCULAR HEMOGLOBIN 27.8 pg (27.0-33.4); MEAN CORPUSCULAR VOLUME 84 fl (80-97); PLATELET COUNT 504 10^3/uL (150-450); RED BLOOD COUNT 3.24 10^6/uL (3.72-5.28); RED CELL DISTRIBUTION WIDTH 15.8 % (11.5-14.0); WHITE BLOOD COUNT 10.9 10^3/uL (4.0-10.5)
[2020-01-10 06:48] LABS: ALBUMIN 2.8 g/dL (3.5-5.0); ALKALINE PHOSPHATASE 68 U/L (38-126); ANION GAP 11 (5-19); ASPARTATE AMINO TRANSFERASE 18 U/L (14-36); BILIRUBIN,DIRECT 0.4 mg/dL (0.0-0.4); BILIRUBIN,TOTAL 0.4 mg/dL (0.2-1.3); BLOOD UREA NITROGEN 30 mg/dL (7-20); CALCIUM 8.2 mg/dL (8.4-10.2); CARBON DIOXIDE 22 mmol/L (22-30); CHLORIDE 105 mmol/L (98-107); GLUCOSE 81 mg/dL (75-110); POTASSIUM 4.4 mmol/L (3.6-5.0); TOTAL PROTEIN 6.6 g/dL (6.3-8.2)
[2020-01-10 07:02] LABS: ABSOLUTE MONOCYTES # (MANUAL) 0.7 10^3/uL (0.1-1.4); BASOPHILS % (MANUAL) 0 % (0-2); EOSINOPHILS % (MANUAL) 5 % (0-6); LYMPHOCYTES % (MANUAL) 18 % (13-45); MONOCYTES % (MANUAL) 6 % (3-13); SEGMENTED NEUTROPHILS % (MAN) 71 % (42-78); TOTAL CELLS COUNTED 100
[2020-01-10 07:03] LABS: ANISOCYTOSIS SLIGHT; HYPOCHROMASIA SLIGHT
[2020-01-10 07:04] LABS: PLATELET CLUMPS PRESENT; PLATELET COMMENT INCREASED
[2020-01-10] MEDS: INSULIN LISPRO 100 UNIT/ML 3 ML VIAL SUBCUT SCH ×6 (10:07→21:43)
[2020-01-10] MEDS: INSULIN GLARGINE,HUM.REC.ANLOG 1,000 UNIT/10 ML VIAL SUBCUT SCH (10:09)
[2020-01-10] MEDS: CEFEPIME HCL 2 GM in DEXTROSE 5%-WATER 50 ML IV SCH ×2 (10:13→21:28)
[2020-01-10] MEDS: MECLIZINE HCL 25 MG TABLET PO SCH ×2 (10:14→19:25)
[2020-01-10] MEDS: FAMOTIDINE 20 MG TABLET PO SCH (10:14)
[2020-01-10] MEDS: SERTRALINE HCL 50 MG TABLET PO SCH ×2 (10:14→19:26)
[2020-01-10] MEDS: FLUTICASONE/VILANTEROL 200-25 MCG/DOSE IH SCH (10:18)
[2020-01-10 10:37] LABS: HEPATITIS C QUANTITATION HCV Not Detected IU/mL (.)
--- NOTE | 2020-01-10 11:12 | PDOC PROGRESS REPORT ---
Subjective Progress Note for:: 01/10/20 Reason For Visit: Patient seen today in the hospital. She had an uneventful first dialysis yesterday through her temporary femoral catheter. She still has a Victoria catheter and she still remains rather anuric. She denies any history of chest pain or shortness of breath. No abdominal pains. No complaints of any fever or chills. Labs and medications were reviewed. Physical Exam Vital Signs: Temp Pulse Resp BP Pulse Ox 98.0 F 86 16 142/72 H 93 01/10/20 03:33 01/10/20 07:00 01/10/20 03:33 01/10/20 03:33 01/10/20 03:33 Intake & Output 01/09/20 01/10/20 01/11/20 06:59 06:59 06:59 Intake Total 2580 2467 50 Output Total 110 1650 Balance 2470 817 50 Weight 156.1 kg General appearance: PRESENT: no acute distress Respiratory exam: PRESENT: clear to auscultation armida, decreased breath sounds. ABSENT: crackles Cardiovascular exam: PRESENT: +S1, +S2 GI/Abdominal exam: PRESENT: normal bowel sounds, soft. ABSENT: organomegaly, tenderness Extremities exam: ABSENT: pedal edema Neurological exam: PRESENT: alert, awake, oriented to person, oriented to place Psychiatric exam: PRESENT: appropriate affect Results Laboratory Results: 01/10/20 06:15 01/10/20 06:15 01/10/20 01/10/20 06:15 06:15 WBC 10.9 H RBC 3.24 L Hgb 9.0 L Hct 27.3 L MCV 84 MCH 27.8 MCHC 33.0 RDW 15.8 H Plt Count 504 H Seg Neutrophils % Not Reportable Sodium 137.9 Potassium 4.4 Chloride 105 Carbon Dioxide 22 Anion Gap 11 BUN 30 H Creatinine 5.97 H Est GFR ( Amer) 9 L Glucose 81 Calcium 8.2 L Total Bilirubin 0.4 AST 18 Alkaline Phosphatase 68 Total Protein 6.6 Albumin 2.8 L 01/06/20 09:44 Foot - Tissue (Surgical) Gram Stain - Final 01/06/20 09:44 Foot - Tissue (Surgical) Wound Culture - Final Mrsa (Meth Resis Staph Aureus) Streptococcus Mitis/Oralis Anaerococcus (Peptostrep) Sp. 01/03/20 10:54 Foot - Diabetic Ulcer Gram Stain - Final 01/03/20 10:54 Foot - Diabetic Ulcer Wound Culture - Final Mrsa (Meth Resis Staph Aureus) Enterococcus Faecalis(Group D) Proteus Vulgaris 01/03/20 16:42 Foot - Left Gram Stain - Final 01/03/20 16:42 Foot - Left Wound Culture - Final Mrsa (Meth Resis Staph Aureus) Streptococcus Mitis/Oralis Bacteroides Species 01/03/20 10:54 Troponin I < 0.012 Impressions: Foot X-Ray 01/03/20 11:17 IMPRESSION: 1. Cortical irregularity and lucency at the proximal base 5th digit proximal phalanx, possibly representing osteomyelitis. 2. Subcutaneous gas in the plantar soft tissues overlying the calcaneus. Clinical correlation for ulceration in this region recommended. Finding may represent necrotizing infection. Clinical correlation. Lower Extremity MRI 01/05/20 00:00 IMPRESSION: 1. Suspect mild reactive marrow edema in the calcaneus underlying a large ulcer. Doubt osteomyelitis but close follow-up is recommended. The should consist of surveillance followup radiographs predominantly with repeat MRI as needed. Chest X-Ray 01/05/20 12:24 IMPRESSION: No evidence for pneumothorax status post central line placement. Renal Ultrasound 01/07/20 00:00 IMPRESSION: Unable to verify normal blood flow in the right kidney. The study is otherwise unremarkable. The bladder was empty. Assessment & Plan - Diagnosis (1) MONO (acute kidney injury) Is this a current diagnosis for this admission?: Yes Plan: Anuric secondary to combination of MONO from septic left foot ulcer/vancomycin to xicity. Besides that the renal ultrasound shows possibility of poor perfusion of the right kidney. She had a first initial dialysis yesterday which was uneventful. She still not producing hardly any urine. Plan for repeat dialysis again tomorrow.Orders have been placed. Discussions were done with the patient as well. 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 Currently she is on IV cefepime. However patient is growing MRSA/enterococcus/gram-negative organisms. I would consider starting this patient on daptomycin once the vancomycin toxic levels gets to be subtherapeutic which would happen post HD yesterday for sure.Please dose medications for GFR of less than 20 cc/min. (3) Sepsis Qualifiers: Sepsis type: methicillin resistant Staphylococcus aureus Sepsis acute organ dysfunction status: without acute organ dysfunction Qualified Code(s): A41.02 - Sepsis due to Methicillin resistant Staphylococcus aureus Is this a current diagnosis for this admission?: Yes Plan: As mentioned earlier. Initially high lactic acid which is now normalized.Hemodynamically stable which is good for her (4) Diabetes mellitus type 2 in obese Is this a current diagnosis for this admission?: Yes Plan: Apparently uncontrolled as OP. As per hospitalist. (5) Metabolic acidosis Plan: On p.o. replacements. Good response to dialysis. (6) Morbid (severe) obesity due to excess calories Is this a current diagnosis for this admission?: Yes Plan: Status quo.
[2020-01-10] MEDS: NORMAL SALINE 1000 ML 1,000 ML IV PRN ×2 (11:55→21:29)
--- NOTE | 2020-01-10 13:12 | PDOC PROGRESS REPORT ---
Subjective Progress Note for:: 01/10/20 Subjective:: Patient denies any new complaints questions for me this morningPatient was admitted with sepsis secondary to left lower extremity cellulitis and diabetic foot ulcer status post surgical debridement with wound VAC in place. She does have a chronic right below-knee amputation. Patient denies any other complaints this morning. She was found to have vancomycin induced nephrotoxicity however this has since been discontinued. Kidney function is still rising with a creatinine at 4.79 today up from 0.62 on admission, BUN was 12 on admission and is currently 29. She is acidotic with a CO2 of 18 Kidney function noted to be worsening and at this point the plan is to initiate dialysis in a.m. 01/08 Cr now 6.8, acidotic, awaiting HD 01/09Dialyzed yesterday, for IVF today and dialysis in am Kidney function noted, still anuric Reason For Visit: SEPSIS Physical Exam Vital Signs: Temp Pulse Resp BP Pulse Ox 98.0 F 86 16 142/72 H 93 01/10/20 10:00 01/10/20 07:00 01/10/20 03:33 01/10/20 03:33 01/10/20 03:33 Intake & Output 01/09/20 01/10/20 01/11/20 06:59 06:59 06:59 Intake Total 2580 2467 50 Output Total 110 1650 Balance 2470 817 50 Weight 156.1 kg General appearance: PRESENT: no acute distress, well-developed, well-nourished Head exam: PRESENT: atraumatic, normocephalic Eye exam: PRESENT: conjunctiva pink, EOMI, PERRLA. ABSENT: scleral icterus Ear exam: PRESENT: normal external ear exam Mouth exam: PRESENT: moist, tongue midline Neck exam: ABSENT: carotid bruit, JVD, lymphadenopathy, thyromegaly Respiratory exam: PRESENT: clear to auscultation armida. ABSENT: rales, rhonchi, wheezes Cardiovascular exam: PRESENT: RRR. ABSENT: diastolic murmur, rubs, systolic murmur Pulses: PRESENT: normal dorsalis pedis pul Vascular exam: PRESENT: normal capillary refill GI/Abdominal exam: PRESENT: normal bowel sounds, soft. ABSENT: distended, guar ding, mass, organolmegaly, rebound, tenderness Rectal exam: PRESENT: deferred Extremities exam: PRESENT: full ROM, other - R bKA LLE swelling and erythema improving. ABSENT: calf tenderness, clubbing, pedal edema Neurological exam: PRESENT: alert, awake, oriented to person, oriented to place, oriented to time, oriented to situation, CN II-XII grossly intact. ABSENT: motor sensory deficit Psychiatric exam: PRESENT: appropriate affect, normal mood. ABSENT: homicidal ideation, suicidal ideation Skin exam: PRESENT: dry, intact, warm. ABSENT: cyanosis, rash Results Laboratory Results: 01/10/20 06:15 01/10/20 06:15 01/10/20 01/10/20 06:15 06:15 WBC 10.9 H RBC 3.24 L Hgb 9.0 L Hct 27.3 L MCV 84 MCH 27.8 MCHC 33.0 RDW 15.8 H Plt Count 504 H Seg Neutrophils % Not Reportable Sodium 137.9 Potassium 4.4 Chloride 105 Carbon Dioxide 22 Anion Gap 11 BUN 30 H Creatinine 5.97 H Est GFR ( Amer) 9 L Glucose 81 Calcium 8.2 L Total Bilirubin 0.4 AST 18 Alkaline Phosphatase 68 Total Protein 6.6 Albumin 2.8 L 01/06/20 09:44 Foot - Tissue (Surgical) Gram Stain - Final 01/06/20 09:44 Foot - Tissue (Surgical) Wound Culture - Final Mrsa (Meth Resis Staph Aureus) Streptococcus Mitis/Oralis Anaerococcus (Peptostrep) Sp. 01/03/20 10:54 Foot - Diabetic Ulcer Gram Stain - Final 01/03/20 10:54 Foot - Diabetic Ulcer Wound Culture - Final Mrsa (Meth Resis Staph Aureus) Enterococcus Faecalis(Group D) Proteus Vulgaris 01/03/20 16:42 Foot - Left Gram Stain - Final 01/03/20 16:42 Foot - Left Wound Culture - Final Mrsa (Meth Resis Staph Aureus) Streptococcus Mitis/Oralis Bacteroides Species 01/03/20 10:54 Troponin I < 0.012 Impressions: Foot X-Ray 01/03/20 11:17 IMPRESSION: 1. Cortical irregularity and lucency at the proximal base 5th digit proximal phalanx, possibly representing osteomyelitis. 2. Subcutaneous gas in the plantar soft tissues overlying the calcaneus. Clinical correlation for ulceration in this region recommended. Finding may represent necrotizing infection. Clinical correlation. Lower Extremity MRI 01/05/20 00:00 IMPRESSION: 1. Suspect mild reactive marrow edema in the calcaneus underlying a large ulcer. Doubt osteomyelitis but close follow-up is recommended. The should consist of surveillance followup radiographs predominantly with repeat MRI as needed. Chest X-Ray 01/05/20 12:24 IMPRESSION: No evidence for pneumothorax status post central line placement. Renal Ultrasound 01/07/20 00:00 IMPRESSION: Unable to verify normal blood flow in the right kidney. The study is otherwise unremarkable. The bladder was empty. Assessment and Plan - Diagnosis (1) MONO (acute kidney injury) Is this a current diagnosis for this admission?: Yes Plan: Creatinine maximilian after HD Continue to monitor, hopefully her kidney function will improve (2) Diabetic ulcer of heel Qualifiers: Diabetes mellitus type: type 2 Laterality: left Non-pressure ulcer stage: with other severity Qualified Code(s): E11.621 - Type 2 diabetes mellitus with foot ulcer; L97.428 - Non-pressure chronic ulcer of left heel and midfoot with other specified severity Is this a current diagnosis for this admission?: Yes Plan: MRI showed suspected mild reactive marrow edema in the calcaneus underlying a large ulcer; doubt osteomyelitis but close follow-up recommended with serial MRIs. Wound culture (01/06/2020) pending Wound culture (01/03/2020) MRSA and gram-positive cocci Wound culture (01/03/2020) MRSA, Enterococcus faecalis, gram-negative rods Blood cultures no growth to date. Surgery is consulted; greatly appreciate their assistance. Now status post multiple surgical debridements to the left heel; per op note wound would be a stage IV through subcutaneous tissue and to the muscle. Wound VAC in place; wound care per surgery expertise. Wound culture for January 05 yielding MRSA. Patient is currently off vancomycin due to toxicity. Will continue to monitor kidney function and restart antibiotics possibly Clindamycin Vanc level 28.2 (3) Sepsis Qualifiers: Sepsis type: methicillin resistant Staphylococcus aureus Sepsis acute organ dysfunction status: without acute organ dysfunction Qualified Code(s): A41.02 - Sepsis due to Methicillin resistant Staphylococcus aureus Is this a current diagnosis for this admission?: Yes Plan: Resolved; (4) Cellulitis Qualifiers: Site of cellulitis: extremity Site of cellulitis of extremity: lower extremity Laterality: left Qualified Code(s): L03.116 - Cellulitis of left lower limb Is this a current diagnosis for this admission?: Yes Plan: Continue current management (5) Diabetes mellitus type 2 in obese Is this a current diagnosis for this admission?: Yes Plan: Decrease her dose of regular insulin as patient is getting 60 units of Lantus every 12 in addition to 15 units AC as well as sliding scale insulin. It appears that she actually had not been getting the a.m. 15 units on a regular basis. Her blood sugars are in the low 100 so have decided to decrease her insulin slightly just down to 12 units of Humalog AC we will continue to adjust as needed 01/07 will continue to monitor and adjust 01/09 Adjust insulin dose as her Blood sugars have been low (6) Morbid (severe) obesity due to excess calories Is this a current diagnosis for this admission?: Yes Plan: Lifestyle modification dietary discretion advised. Consistent carb diet. Registered dietitian and life educator are consulted. Doubt patient is really motivated to lose weight - Plan Summary Summary: Patient is yielding methicillin-resistant Staphylococcus aureus, enterococcus faecalis as well as gram-negative rods from her wounds. She is currently on cefepime day 3 presumably to cover the gram-negative fam possibly as well as enterococcus. Vancomycin has been discontinued. I think she probably can be safely placed on clindamycin once her trough for vancomycin is subtherapeutic. She can be placed on ampicillin or 3rd-generation cephalosporin for the enterococcus and gram-negative fam to simplify antibiotics. The plan is to continue with current surgical management as per general surgery - Time Time Spent with patient: 15-24 minutes Anticipated Discharge Disposition: Home with Home Health Anticipated Discharge Timeframe: within 72 hours
[2020-01-10] MEDS: MELATONIN 5 MG TABLET PO SCH (21:30)
[2020-01-10] MEDS: ATORVASTATIN CALCIUM 40 MG TABLET PO SCH (21:30)
[2020-01-10] MEDS: OXYCODONE HCL IR 5 MG TABLET PO PRN (21:36)
[2020-01-10] MEDS ORDERED: INSULIN GLARGINE,HUM.REC.ANLOG 1,000 UNIT/10 ML VIAL SUBCUT SCH (22:00)
[2020-01-11] MEDS ORDERED: EPOETIN ALFA-EPBX 10,000 UNIT in SYRINGE, DISPOSABLE, 1 EACH IV PRN (05:00)
[2020-01-11] MEDS ORDERED: HEPARIN SOD (PORCINE) 1,000 UNIT/ML 10 ML VIAL IV PRN (05:00)
[2020-01-11] MEDS: PANTOPRAZOLE SODIUM 40 MG TABLET.DR PO SCH (05:18)
[2020-01-11 06:08] LABS: ALBUMIN 2.7 g/dL (3.5-5.0); ALKALINE PHOSPHATASE 66 U/L (38-126); ANION GAP 11 (5-19); ASPARTATE AMINO TRANSFERASE 16 U/L (14-36); BILIRUBIN,DIRECT 0.4 mg/dL (0.0-0.4); BILIRUBIN,TOTAL 0.4 mg/dL (0.2-1.3); BLOOD UREA NITROGEN 34 mg/dL (7-20); CALCIUM 8.2 mg/dL (8.4-10.2); CARBON DIOXIDE 20 mmol/L (22-30); CHLORIDE 107 mmol/L (98-107); GLUCOSE 97 mg/dL (75-110); POTASSIUM 4.7 mmol/L (3.6-5.0); TOTAL PROTEIN 6.6 g/dL (6.3-8.2)
[2020-01-11 06:21] LABS: HEMATOCRIT 28.2 % (36.0-47.0); HEMOGLOBIN 9.3 g/dL (12.0-15.5); MEAN CORPUSCULAR HGB CONC 33.1 g/dL (32.0-36.0); MEAN CORPUSCULAR VOLUME 85 fl (80-97); PLATELET COUNT 502 10^3/uL (150-450); RED BLOOD COUNT 3.33 10^6/uL (3.72-5.28); RED CELL DISTRIBUTION WIDTH 15.6 % (11.5-14.0); WHITE BLOOD COUNT 10.8 10^3/uL (4.0-10.5)
[2020-01-11 06:50] LABS: ABSOLUTE LYMPHOCYTES# (MANUAL) 2.1 10^3/uL (0.5-4.7); ABSOLUTE MONOCYTES # (MANUAL) 0.8 10^3/uL (0.1-1.4); BAND NEUTROPHILS % (MANUAL) 1 % (3-5); BASOPHILS % (MANUAL) 0 % (0-2); EOSINOPHILS % (MANUAL) 4 % (0-6); LYMPHOCYTES % (MANUAL) 19 % (13-45); MONOCYTES % (MANUAL) 7 % (3-13); SEGMENTED NEUTROPHILS % (MAN) 69 % (42-78); TOTAL CELLS COUNTED 100
[2020-01-11 06:51] LABS: ANISOCYTOSIS SLIGHT; POLYCHROMASIA SLIGHT
[2020-01-11 06:52] LABS: PLATELET COMMENT INCREASED; SCHISTOCYTES SLIGHT; TEAR DROP CELLS SLIGHT
[2020-01-11] MEDS: SERTRALINE HCL 50 MG TABLET PO SCH ×2 (11:18→18:48)
[2020-01-11] MEDS: FAMOTIDINE 20 MG TABLET PO SCH (11:18)
[2020-01-11] MEDS: CEFEPIME HCL 2 GM in DEXTROSE 5%-WATER 50 ML IV SCH ×2 (11:19→21:52)
[2020-01-11] MEDS: FLUTICASONE/VILANTEROL 200-25 MCG/DOSE IH SCH (11:20)
[2020-01-11] MEDS: INSULIN LISPRO 100 UNIT/ML 3 ML VIAL SUBCUT SCH ×6 (11:20→22:12)
[2020-01-11] MEDS: MECLIZINE HCL 25 MG TABLET PO SCH ×2 (11:21→18:48)
--- NOTE | 2020-01-11 12:29 | PDOC PROGRESS REPORT ---
Subjective Progress Note for:: 01/11/20 Subjective:: I am seeing the patient during dialysis this morning. She is tolerating dialysis well without any problems so far. Her blood pressure is acceptable. She states that she feels good. She denies any nausea, vomiting or shortness of breath. She appears to be passing slightly more urine but her urine output for the past 24 hours is still 250 mL only. She is +1623 mL for the past 24 hours. Reason For Visit: SEPSIS Physical Exam Vital Signs: Temp Pulse Resp BP Pulse Ox 97.4 F 82 15 155/94 H 97 01/11/20 07:29 01/11/20 07:29 01/11/20 07:29 01/11/20 07:29 01/11/20 07:29 Intake & Output 01/10/20 01/11/20 01/12/20 06:59 06:59 06:59 Intake Total 2467 1873 Output Total 1650 250 Balance 817 1623 Weight 165.6 kg Vitals during dialysis: Blood pressure 143/81, heart rate of 87, blood flow rate of 250 mL/min and dialysate flow rate of 600 mL/min. Exam: General appearance: PRESENT: no acute distress, cooperative, well-developed, well-nourished Head exam: PRESENT: atraumatic, normocephalic Eye exam: PRESENT: conjunctiva slightly pale, PERRLA. ABSENT: scleral icterus Neck exam: ABSENT: JVD Respiratory exam: PRESENT: Diminished breath sounds. ABSENT: crackles, rales, rhonchi, unlabored, wheezes Cardiovascular exam: PRESENT: Regular rate rhythm -+S1, +S2. ABSENT: diastolic murmur, systolic murmur GI/Abdominal exam: PRESENT: normal bowel sounds, soft. ABSENT: guarding, mass, tenderness Extremities exam: Right BKA, bilateral grade 1 lower extremity pitting edema; left ankle and foot in Anthony wrap bandage where she has the infected wound. Neurological exam: PRESENT: alert, awake, oriented to person, place and time. Skin exam: PRESENT: dry, warm, Cardiovascular exam: PRESENT: +S1, +S2 GI/Abdominal exam: PRESENT: normal bowel sounds, soft. ABSENT: organomegaly, tenderness Results Laboratory Results: 01/11/20 04:27 01/11/20 04:27 01/11/20 01/11/20 04:27 04:27 WBC 10.8 H RBC 3.33 L Hgb 9.3 L Hct 28.2 L MCV 85 MCH 28.0 MCHC 33.1 RDW 15.6 H Plt Count 502 H Seg Neutrophils % Not Reportable Sodium 138.0 Potassium 4.7 Chloride 107 Carbon Dioxide 20 L Anion Gap 11 BUN 34 H Creatinine 6.34 H Est GFR ( Amer) 8 L Glucose 97 Calcium 8.2 L Total Bilirubin 0.4 AST 16 Alkaline Phosphatase 66 Total Protein 6.6 Albumin 2.7 L 01/03/20 10:54 Troponin I < 0.012 Impressions: Foot X-Ray 01/03/20 11:17 IMPRESSION: 1. Cortical irregularity and lucency at the proximal base 5th digit proximal phalanx, possibly representing osteomyelitis. 2. Subcutaneous gas in the plantar soft tissues overlying the calcaneus. Clinical correlation for ulceration in this region recommended. Finding may represent necrotizing infection. Clinical correlation. Lower Extremity MRI 01/05/20 00:00 IMPRESSION: 1. Suspect mild reactive marrow edema in the calcaneus underlying a large ulcer. Doubt osteomyelitis but close follow-up is recommended. The should consist of surveillance followup radiographs predominantly with repeat MRI as needed. Chest X-Ray 01/05/20 12:24 IMPRESSION: No evidence for pneumothorax status post central line placement. Renal Ultrasound 01/07/20 00:00 IMPRESSION: Unable to verify normal blood flow in the right kidney. The study is otherwise unremarkable. The bladder was empty. Assessment & Plan - Diagnosis (1) MONO (acute kidney injury) Is this a current diagnosis for this admission?: Yes Plan: Secondary to ATN likely due to vancomycin toxicity and left foot diabetic infection with sepsis. Baseline creatinine 0.9 on 01/04/2020. Currently still oligo anuric although urine output is slightly improved. Patient still is requiring renal replacement therapy at this point. We will do dialysis today for 2.5 hours, using the patient's right femoral dialysis catheter, with 2 potassium bath, blood flow rate of 250 mL per minute, dialysate flow rate of 600 mL per minute, ultrafiltration 1 to 2 L as tolerated, no heparin and Retacrit with 10,000 units during dialysis intravenously. Patient is being monitored throughout dialysis treatment. We will reevaluate the patient for further need for hemodialysis on Tuesday. We will continue hemodialysis support as needed. (2) Anemia Is this a current diagnosis for this admission?: Yes Plan: Due to acute illness. Iron stores are adequate. Retacrit given during dialysis. (3) Sepsis Qualifiers: Sepsis type: methicillin resistant Staphylococcus aureus Sepsis acute organ dysfunction status: without acute organ dysfunction Qualified Code(s): A41.02 - Sepsis due to Methicillin resistant Staphylococcus aureus Is this a current diagnosis for this admission?: Yes Plan: Due to diabetic ulcer. (4) Diabetic ulcer of heel Qualifiers: Diabetes mellitus type: type 2 Laterality: left Non-pressure ulcer stage: with other severity Qualified Code(s): E11.621 - Type 2 diabetes mellitus with foot ulcer; L97.428 - Non-pressure chronic ulcer of left heel and midfoot with other specified severity Is this a current diagnosis for this admission?: Yes Plan: Positive MRSA infection. Currently on IV cefepime with discontinuation of vancomycin due to Vancomycin toxicity. Once vancomycin levels are subtherapeutic, recommend daptomycin IV. Surgery following. Currently with wound VAC. (5) Metabolic acidosis Is this a current diagnosis for this admission?: Yes Plan: Improving on dialysis. (6) Diabetes mellitus type 2 in obese Is this a current diagnosis for this admission?: Yes Plan: Controlled. (7) Hypertension Is this a current diagnosis for this admission?: Yes Plan: Fairly controlled. - Time Time with patient: 15-25 minutes
[2020-01-11] MEDS: INSULIN GLARGINE,HUM.REC.ANLOG 1,000 UNIT/10 ML VIAL SUBCUT SCH (12:42)
--- NOTE | 2020-01-11 15:14 | PDOC PROGRESS REPORT ---
Subjective Progress Note for:: 01/11/20 Subjective:: Patient denies any new complaints questions for me this morningPatient was admitted with sepsis secondary to left lower extremity cellulitis and diabetic foot ulcer status post surgical debridement with wound VAC in place. She does have a chronic right below-knee amputation. Patient denies any other complaints this morning. She was found to have vancomycin induced nephrotoxicity however this has since been discontinued. Kidney function is still rising with a creatinine at 4.79 today up from 0.62 on admission, BUN was 12 on admission and is currently 29. She is acidotic with a CO2 of 18 Kidney function noted to be worsening and at this point the plan is to initiate dialysis in a.m. 01/08 Cr now 6.8, acidotic, awaiting HD 01/09Dialyzed yesterday, for IVF today and dialysis in am Kidney function noted, still anuric 01/10 she received a second dialysis today. Reason For Visit: SEPSIS Physical Exam Vital Signs: Temp Pulse Resp BP Pulse Ox 97.4 F 96 15 155/94 H 97 01/11/20 10:00 01/11/20 14:00 01/11/20 07:29 01/11/20 07:29 01/11/20 07:29 Intake & Output 01/10/20 01/11/20 01/12/20 06:59 06:59 06:59 Intake Total 2467 1873 50 Output Total 1650 250 Balance 817 1623 50 Weight 165.6 kg General appearance: PRESENT: no acute distress, morbidly obese, well-developed, well-nourished Head exam: PRESENT: atraumatic, normocephalic Eye exam: PRESENT: conjunctiva pink, EOMI, PERRLA. ABSENT: scleral icterus Ear exam: PRESENT: normal external ear exam Mouth exam: PRESENT: moist, tongue midline Neck exam: ABSENT: carotid bruit, JVD, lymphadenopathy, thyromegaly Respiratory exam: PRESENT: clear to auscultation armida. ABSENT: rales, rhonchi, wheezes Cardiovascular exam: PRESENT: RRR. ABSENT: diastolic murmur, rubs, systolic murmur Pulses: PRESENT: normal dorsalis pedis pul Vascular exam: PRESENT: normal capillary refill GI/Abdominal exam: PRESENT: normal bowel sounds, soft. ABSENT: distended, guarding, mass, organolmegaly, rebound, tenderness Rectal exam: PRESENT: deferred Extremities exam: PRESENT: full ROM, other - Erythema and swelling of left lower extremity, right below-knee amputation. ABSENT: calf tenderness, clubbing, pedal edema Neurological exam: PRESENT: alert, awake, oriented to person, oriented to place, oriented to time, oriented to situation, CN II-XII grossly intact. ABSENT: motor sensory deficit Psychiatric exam: PRESENT: appropriate affect, normal mood. ABSENT: homicidal ideation, suicidal ideation Skin exam: ABSENT: cyanosis, rash Results Laboratory Results: 01/11/20 04:27 01/11/20 04:27 01/11/20 01/11/20 01/11/20 04:27 04:27 04:27 WBC 10.8 H RBC 3.33 L Hgb 9.3 L Hct 28.2 L MCV 85 MCH 28.0 MCHC 33.1 RDW 15.6 H Plt Count 502 H Seg Neutrophils % Not Reportable Sodium 138.0 Potassium 4.7 Chloride 107 Carbon Dioxide 20 L Anion Gap 11 BUN 34 H Creatinine 6.34 H Est GFR ( Amer) 8 L Glucose 97 Calcium 8.2 L Phosphorus 6.8 H Total Bilirubin 0.4 AST 16 Alkaline Phosphatase 66 Total Protein 6.6 Albumin 2.7 L 01/03/20 10:54 Troponin I < 0.012 Impressions: Foot X-Ray 01/03/20 11:17 IMPRESSION: 1. Cortical irregularity and lucency at the proximal base 5th digit proximal phalanx, possibly representing osteomyelitis. 2. Subcutaneous gas in the plantar soft tissues overlying the calcaneus. Clinical correlation for ulceration in this region recommended. Finding may represent necrotizing infection. Clinical correlation. Lower Extremity MRI 01/05/20 00:00 IMPRESSION: 1. Suspect mild reactive marrow edema in the calcaneus underlying a large ulcer. Doubt osteomyelitis but close follow-up is recommended. The should consist of surveillance followup radiographs predominantly with repeat MRI as needed. Chest X-Ray 01/05/20 12:24 IMPRESSION: No evidence for pneumothorax status post central line placement. Renal Ultrasound 01/07/20 00:00 IMPRESSION: Unable to verify normal blood flow in the right kidney. The study is otherwise unremarkable. The bladder was empty. Assessment and Plan - Diagnosis (1) MONO (acute kidney injury) Is this a current diagnosis for this admission?: Yes (2) Diabetic ulcer of heel Qualifiers: Diabetes mellitus type: type 2 Laterality: left Non-pressure ulcer stage: with other severity Qualified Code(s): E11.621 - Type 2 diabetes mellitus with foot ulcer; L97.428 - Non-pressure chronic ulcer of left heel and midfoot with other specified severity Is this a current diagnosis for this admission?: Yes (3) Sepsis Qualifiers: Sepsis type: methicillin resistant Staphylococcus aureus Sepsis acute organ dysfunction status: without acute organ dysfunction Qualified Code(s): A41.02 - Sepsis due to Methicillin resistant Staphylococcus aureus Is this a current diagnosis for this admission?: Yes (4) Cellulitis Qualifiers: Site of cellulitis: extremity Site of cellulitis of extremity: lower extremity Laterality: left Qualified Code(s): L03.116 - Cellulitis of left lower limb Is this a current diagnosis for this admission?: Yes (5) Diabetes mellitus type 2 in obese Is this a current diagnosis for this admission?: Yes (6) Morbid (severe) obesity due to excess calories Is this a current diagnosis for this admission?: Yes - Plan Summary Summary: Patient is yielding methicillin-resistant Staphylococcus aureus, enterococcus faecalis as well as gram-negative rods from her wounds. She is currently on cefepime day 3 presumably to cover the gram-negative fam possibly as well as enterococcus. Vancomycin has been discontinued. I think she probably can be safely placed on clindamycin once her trough for vancomycin is subtherapeutic. She can be placed on ampicillin or 3rd-generation cephalosporin for the enterococcus and gram-negative fam to simplify antibiotics. The plan is to continue with current surgical management as per general surgery 01/10 kidney function unfortunately remains poor and patient still anuric. Creatinine is up to 6.3 today. She had discussed weekend to see if she will make some improvement. We will continue to follow kidney function. Acidosis is improving, she remains anemic and we will check her vancomycin level with her next blood work - Time Time Spent with patient: 15-24 minutes Medications reviewed and adjusted accordingly: Yes Anticipated Discharge Disposition: Home, Self Care Anticipated Discharge Timeframe: within 72 hours
[2020-01-11] MEDS: NORMAL SALINE 1000 ML 1,000 ML IV PRN (15:35)
[2020-01-11] MEDS: MELATONIN 5 MG TABLET PO SCH (21:48)
[2020-01-11] MEDS: ATORVASTATIN CALCIUM 40 MG TABLET PO SCH (21:48)
[2020-01-12] MEDS: PANTOPRAZOLE SODIUM 40 MG TABLET.DR PO SCH (05:24)
[2020-01-12 06:50] LABS: HEMATOCRIT 28.6 % (36.0-47.0); HEMOGLOBIN 9.6 g/dL (12.0-15.5); MEAN CORPUSCULAR HEMOGLOBIN 28.2 pg (27.0-33.4); MEAN CORPUSCULAR HGB CONC 33.4 g/dL (32.0-36.0); MEAN CORPUSCULAR VOLUME 84 fl (80-97); PLATELET COUNT 509 10^3/uL (150-450); WHITE BLOOD COUNT 11.5 10^3/uL (4.0-10.5)
[2020-01-12 07:21] LABS: ALBUMIN 2.7 g/dL (3.5-5.0); ALKALINE PHOSPHATASE 70 U/L (38-126); ANION GAP 11 (5-19); ASPARTATE AMINO TRANSFERASE 18 U/L (14-36); BILIRUBIN,DIRECT 0.5 mg/dL (0.0-0.4); BILIRUBIN,TOTAL 0.6 mg/dL (0.2-1.3); BLOOD UREA NITROGEN 32 mg/dL (7-20); CALCIUM 8.3 mg/dL (8.4-10.2); CARBON DIOXIDE 21 mmol/L (22-30); CHLORIDE 105 mmol/L (98-107); GLUCOSE 84 mg/dL (75-110); POTASSIUM 4.4 mmol/L (3.6-5.0); TOTAL PROTEIN 6.3 g/dL (6.3-8.2)
[2020-01-12 07:46] LABS: ABSOLUTE LYMPHOCYTES# (MANUAL) 2.1 10^3/uL (0.5-4.7); ABSOLUTE MONOCYTES # (MANUAL) 0.3 10^3/uL (0.1-1.4); BASOPHILS % (MANUAL) 0 % (0-2); EOSINOPHILS % (MANUAL) 1 % (0-6); LYMPHOCYTES % (MANUAL) 18 % (13-45); MONOCYTES % (MANUAL) 3 % (3-13); NUCLEATED RED BLOOD CELLS 2 /100 WBC (0); SEGMENTED NEUTROPHILS % (MAN) 78 % (42-78); TOTAL CELLS COUNTED 100
[2020-01-12 07:49] LABS: ANISOCYTOSIS 1+; PLATELET CLUMPS PRESENT; PLATELET COMMENT ADEQUATE; POLYCHROMASIA SLIGHT
[2020-01-12] MEDS: FLUTICASONE/VILANTEROL 200-25 MCG/DOSE IH SCH (11:00)
[2020-01-12] MEDS: CEFEPIME HCL 2 GM in DEXTROSE 5%-WATER 50 ML IV SCH ×2 (11:10→21:26)
[2020-01-12] MEDS: FAMOTIDINE 20 MG TABLET PO SCH (11:11)
[2020-01-12] MEDS: NORMAL SALINE 1000 ML 1,000 ML IV PRN (11:11)
[2020-01-12] MEDS: MECLIZINE HCL 25 MG TABLET PO SCH ×2 (11:11→19:19)
[2020-01-12] MEDS: SERTRALINE HCL 50 MG TABLET PO SCH ×2 (11:12→19:19)
[2020-01-12] MEDS: INSULIN LISPRO 100 UNIT/ML 3 ML VIAL SUBCUT SCH ×3 (12:42→21:22)
[2020-01-12] MEDS: INSULIN GLARGINE,HUM.REC.ANLOG 1,000 UNIT/10 ML VIAL SUBCUT SCH (12:43)
--- NOTE | 2020-01-12 13:16 | PDOC PROGRESS REPORT ---
Subjective Progress Note for:: 01/12/20 Subjective:: Patient denies any new complaints questions for me this morningPatient was admitted with sepsis secondary to left lower extremity cellulitis and diabetic foot ulcer status post surgical debridement with wound VAC in place. She does have a chronic right below-knee amputation. Patient denies any other complaints this morning. She was found to have vancomycin induced nephrotoxicity however this has since been discontinued. Kidney function is still rising with a creatinine at 4.79 today up from 0.62 on admission, BUN was 12 on admission and is currently 29. She is acidotic with a CO2 of 18 Kidney function noted to be worsening and at this point the plan is to initiate dialysis in a.m. 01/08 Cr now 6.8, acidotic, awaiting HD 01/09Dialyzed yesterday, for IVF today and dialysis in am Kidney function noted, still anuric 01/10 she received a second dialysis today. 01/11No new complaints Reason For Visit: SEPSIS Physical Exam Vital Signs: Temp Pulse Resp BP Pulse Ox 97.3 F 75 16 143/81 H 97 01/12/20 09:01 01/12/20 09:01 01/12/20 09:01 01/12/20 09:01 01/12/20 09:01 Intake & Output 01/11/20 01/12/20 01/13/20 06:59 06:59 06:59 Intake Total 1873 2708 100 Output Total 250 2070 Balance 1623 638 100 Weight 165.6 kg 162.6 kg General appearance: PRESENT: no acute distress, morbidly obese, well-developed, well-nourished Head exam: PRESENT: atraumatic, normocephalic Eye exam: PRESENT: conjunctiva pink, EOMI, PERRLA. ABSENT: scleral icterus Ear exam: PRESENT: normal external ear exam Mouth exam: PRESENT: moist, tongue midline Neck exam: ABSENT: carotid bruit, JVD, lymphadenopathy, thyromegaly Respiratory exam: PRESENT: clear to auscultation armida. ABSENT: rales, rhonchi, wheezes Cardiovascular exam: PRESENT: RRR, +S1, +S2. ABSENT: diastolic murmur, rubs, systolic murmur Pulses: PRESENT: normal dorsalis pedis pul Vascular exam: PRESENT: normal capillary refill GI/Abdominal exam: PRESENT: normal bowel sounds, soft. ABSENT: distended, g uarding, mass, organolmegaly, rebound, tenderness Rectal exam: PRESENT: deferred Extremities exam: PRESENT: full ROM, other - LLE swelling and erythema improved, wound vac RLE stump. ABSENT: calf tenderness, clubbing, pedal edema Neurological exam: PRESENT: alert, awake, oriented to person, oriented to place, oriented to time, oriented to situation, CN II-XII grossly intact. ABSENT: motor sensory deficit Psychiatric exam: PRESENT: appropriate affect, normal mood. ABSENT: homicidal ideation, suicidal ideation Skin exam: PRESENT: dry, intact, warm. ABSENT: cyanosis, rash Results Laboratory Results: 01/12/20 05:30 01/12/20 05:30 01/12/20 01/12/20 05:30 05:30 WBC 11.5 H RBC 3.40 L Hgb 9.6 L Hct 28.6 L MCV 84 MCH 28.2 MCHC 33.4 RDW 16.0 H Plt Count 509 H Seg Neutrophils % Not Reportable Sodium 137.4 Potassium 4.4 Chloride 105 Carbon Dioxide 21 L Anion Gap 11 BUN 32 H Creatinine 5.67 H Est GFR ( Amer) 10 L Glucose 84 Calcium 8.3 L Total Bilirubin 0.6 AST 18 Alkaline Phosphatase 70 Total Protein 6.3 Albumin 2.7 L 01/03/20 10:54 Troponin I < 0.012 Impressions: Foot X-Ray 01/03/20 11:17 IMPRESSION: 1. Cortical irregularity and lucency at the proximal base 5th digit proximal phalanx, possibly representing osteomyelitis. 2. Subcutaneous gas in the plantar soft tissues overlying the calcaneus. Clinical correlation for ulceration in this region recommended. Finding may represent necrotizing infection. Clinical correlation. Lower Extremity MRI 01/05/20 00:00 IMPRESSION: 1. Suspect mild reactive marrow edema in the calcaneus underlying a large ulcer. Doubt osteomyelitis but close follow-up is recommended. The should consist of surveillance followup radiographs predominantly with repeat MRI as needed. Chest X-Ray 01/05/20 12:24 IMPRESSION: No evidence for pneumothorax status post central line placement. Renal Ultrasound 01/07/20 00:00 IMPRESSION: Unable to verify normal blood flow in the right kidney. The study is otherwise unremarkable. The bladder was empty. Assessment and Plan - Diagnosis (1) MONO (acute kidney injury) Is this a current diagnosis for this admission?: Yes Plan: Creatinine maximilian after HD Kidney function is at creatinine of 5.6 and BUN of 32 today. She is making urine. I am hopeful that her kidney function will continue to improve and kidney function will recover (2) Diabetic ulcer of heel Qualifiers: Diabetes mellitus type: type 2 Laterality: left Non-pressure ulcer stage: with other severity Qualified Code(s): E11.621 - Type 2 diabetes mellitus with foot ulcer; L97.428 - Non-pressure chronic ulcer of left heel and midfoot with other specified severity Is this a current diagnosis for this admission?: Yes Plan: MRI showed suspected mild reactive marrow edema in the calcaneus underlying a large ulcer; doubt osteomyelitis but close follow-up recommended with serial MRIs. Wound culture (01/06/2020) pending Wound culture (01/03/2020) MRSA and gram-positive cocci Wound culture (01/03/2020) MRSA, Enterococcus faecalis, gram-negative rods Blood cultures no growth to date. Surgery is consulted; greatly appreciate their assistance. Now status post multiple surgical debridements to the left heel; per op note w ound would be a stage IV through subcutaneous tissue and to the muscle. Wound VAC in place; wound care per surgery expertise. Wound culture for January 05 yielding MRSA. Patient is currently off va ncomycin due to toxicity. Will continue to monitor kidney function and restart antibiotics possibly Clindamycin Vanc level 28.2 (3) Sepsis Qualifiers: Sepsis type: methicillin resistant Staphylococcus aureus Sepsis acute organ dysfunction status: without acute organ dysfunction Qualified Code(s): A41.02 - Sepsis due to Methicillin resistant Staphylococcus aureus Is this a current diagnosis for this admission?: Yes (4) Cellulitis Qualifiers: Site of cellulitis: extremity Site of cellulitis of extremity: lower extremity Laterality: left Qualified Code(s): L03.116 - Cellulitis of left lower limb Is this a current diagnosis for this admission?: Yes (5) Diabetes mellitus type 2 in obese Is this a current diagnosis for this admission?: Yes (6) Morbid (severe) obesity due to excess calories Is this a current diagnosis for this admission?: Yes - Plan Summary Summary: Patient is yielding methicillin-resistant Staphylococcus aureus, enterococcus faecalis as well as gram-negative rods from her wounds. She is currently on cefepime day 3 presumably to cover the gram-negative fam possibly as well as enterococcus. Vancomycin has been discontinued. I think she probably can be safely placed on clindamycin once her trough for vancomycin is subtherapeutic. She can be placed on ampicillin or 3rd-generation cephalosporin for the enterococcus and gram-negative fam to simplify antibiotics. The plan is to continue with current surgical management as per general surgery 01/10 kidney function unfortunately remains poor and patient still anuric. Creatinine is up to 6.3 today. She had discussed weekend to see if she will make some improvement. We will continue to follow kidney function. Acidosis is improving, she remains anemic and we will check her vancomycin level with her next blood work 01/11She is yielding MRSA, Streptococcus as well as Peptostreptococcus from her wound cultures. Blood cultures negative. Vancomycin level will be obtained in a.m. Patient can be started on clindamycin or another appropriate agent for MRSA management if clinically indicated once her vancomycin trough levels is down. Meanwhile she is on day 7 of cefepime and will consider a 10-day regimen - Time Time Spent with patient: 15-24 minutes Medications reviewed and adjusted accordingly: Yes Anticipated Discharge Disposition: Home with Home Health Anticipated Discharge Timeframe: within 72 hours
[2020-01-12] MEDS ORDERED: FENTANYL CITRATE INJ/PF 100 MCG/2 ML AMPUL IV ONE (20:26)
[2020-01-12] MEDS: ATORVASTATIN CALCIUM 40 MG TABLET PO SCH (21:29)
[2020-01-12] MEDS: MELATONIN 5 MG TABLET PO SCH (21:29)
[2020-01-13] MEDS: NORMAL SALINE 1000 ML 1,000 ML IV PRN ×2 (01:06→18:00)
[2020-01-13] MEDS: PANTOPRAZOLE SODIUM 40 MG TABLET.DR PO SCH (05:29)
[2020-01-13 06:22] LABS: ANION GAP 11 (5-19); BLOOD UREA NITROGEN 34 mg/dL (7-20); CALCIUM 8.1 mg/dL (8.4-10.2); CARBON DIOXIDE 21 mmol/L (22-30); CHLORIDE 106 mmol/L (98-107); GLUCOSE 105 mg/dL (75-110); POTASSIUM 4.6 mmol/L (3.6-5.0)
[2020-01-13 06:27] LABS: VANCOMYCIN,TROUGH 18.6 ug/mL (5.0-20.0)
[2020-01-13] MEDS: INSULIN LISPRO 100 UNIT/ML 3 ML VIAL SUBCUT SCH ×4 (08:25→21:33)
--- NOTE | 2020-01-13 10:01 | PDOC PROGRESS REPORT ---
Subjective Progress Note for:: 01/13/20 Subjective:: 01/12/20 Subjective:: Patient denies any new complaints questions for me this morningPatient was admitted with sepsis secondary to left lower extremity cellulitis and diabetic foot ulcer status post surgical debridement with wound VAC in place. She does have a chronic right below-knee amputation. Patient denies any other complaints this morning. She was found to have vancomycin induced nephrotoxicity however this has since been discontinued. Kidney function is still rising with a creatinine at 4.79 today up from 0.62 on admission, BUN was 12 on admission and is currently 29. She is acidotic with a CO2 of 18 Kidney function noted to be worsening and at this point the plan is to initiate dialysis in a.m. 01/08 Cr now 6.8, acidotic, awaiting HD 01/09Dialyzed yesterday, for IVF today and dialysis in am Kidney function noted, still anuric 01/10 she received a second dialysis today. 01/11No new complaints 01/13/2020-patient is comfortably in the bed talking to the family members on the phone. Last hemodialysis on Tuesday. Latest creatinine is 6.27. Potassium is 4.6. Patient may need a dialysis session tomorrow. Came in with normal kidney function now in a kidney failure secondary to vancomycin toxicity. Vancomycin is on hold. Patient has a wound VAC on the left lower leg. And has a right BKA. Reason For Visit: SEPSIS Physical Exam Vital Signs: Temp Pulse Resp BP Pulse Ox 97.4 F 71 18 144/76 H 96 01/13/20 08:14 01/13/20 08:14 01/13/20 08:14 01/13/20 08:14 01/13/20 08:14 Intake & Output 01/12/20 01/13/20 01/14/20 06:59 06:59 06:59 Intake Total 2708 1852 Output Total 7710 725 Balance 638 1127 Weight 162.6 kg 162.8 kg General appearance: PRESENT: no acute distress, morbidly obese Head exam: PRESENT: atraumatic Eye exam: PRESENT: conjunctiva pale, PERRLA Mouth exam: PRESENT: moist, tongue midline Neck exam: ABSENT: carotid bruit, JVD, lymphadenopathy, thyromegaly Respiratory exam: PRESENT: decreased breath sounds Cardiovascular exam: PRESENT: RRR. ABSENT: diastolic murmur, rubs, systolic murmur GI/Abdominal exam: PRESENT: normal bowel sounds, soft. ABSENT: distended, guarding, mass, organolmegaly, rebound, tenderness Rectal exam: PRESENT: deferred Extremities exam: PRESENT: other - Has a right BKA and left lower leg with Anthony wrap and wound VAC in place. Neurological exam: PRESENT: alert, awake, oriented to person, oriented to place, oriented to time, oriented to situation, CN II-XII grossly intact. ABSENT: motor sensory deficit Psychiatric exam: PRESENT: appropriate affect, normal mood. ABSENT: homicidal ideation, suicidal ideation Results Laboratory Results: 01/12/20 05:30 01/13/20 05:25 01/13/20 05:25 Sodium 138.2 Potassium 4.6 Chloride 106 Carbon Dioxide 21 L Anion Gap 11 BUN 34 H Creatinine 6.21 H Est GFR ( Amer) 9 L Glucose 105 Calcium 8.1 L 01/03/20 10:54 Troponin I < 0.012 Impressions: Foot X-Ray 01/03/20 11:17 IMPRESSION: 1. Cortical irregularity and lucency at the proximal base 5th digit proximal phalanx, possibly representing osteomyelitis. 2. Subcutaneous gas in the plantar soft tissues overlying the calcaneus. Clinical correlation for ulceration in this region recommended. Finding may represent necrotizing infection. Clinical correlation. Lower Extremity MRI 01/05/20 00:00 IMPRESSION: 1. Suspect mild reactive marrow edema in the calcaneus underlying a large ulcer. Doubt osteomyelitis but close follow-up is recommended. The should consist of surveillance followup radiographs predominantly with repeat MRI as needed. Chest X-Ray 01/05/20 12:24 IMPRESSION: No evidence for pneumothorax status post central line placement. Renal Ultrasound 01/07/20 00:00 IMPRESSION: Unable to verify normal blood flow in the right kidney. The study is otherwise unremarkable. The bladder was empty. Assessment and Plan - Diagnosis (1) MONO (acute kidney injury) Is this a current diagnosis for this admission?: Yes Plan: Creatinine maximilian after HD Kidney function is at creatinine of 5.6 and BUN of 32 today. She is making urine. I am hopeful that her kidney function will continue to improve and kidney function will recover 01/13/2020-patient developed vancomycin induced nephrotoxicity. Last hemodialysis on Tuesday. Urinary output is 725 mL in the last 24 hours. Has a Victoria's catheter. Potassium is 4.6 creatinine 6.2 this morning most likely she needed dialysis tomorrow. Nephrology on board. (2) Diabetic ulcer of heel Qualifiers: Diabetes mellitus type: type 2 Laterality: left Non-pressure ulcer stage: with other severity Qualified Code(s): E11.621 - Type 2 diabetes mellitus with foot ulcer; L97.428 - Non-pressure chronic ulcer of left heel and midfoot with other specified severity Is this a current diagnosis for this admission?: Yes Plan: MRI showed suspected mild reactive marrow edema in the calcaneus underlying a large ulcer; doubt osteomyelitis but close follow-up recommended with serial MRIs. Wound culture (01/06/2020) pending Wound culture (01/03/2020) MRSA and gram-positive cocci Wound culture (01/03/2020) MRSA, Enterococcus faecalis, gram-negative rods Blood cultures no growth to date. Surgery is consulted; greatly appreciate their assistance. Now status post multiple surgical debridements to the left heel; per op note wound would be a stage IV through subcutaneous tissue and to the muscle. Wound VAC in place; wound care per surgery expertise. Wound culture for January 05 yielding MRSA. Patient is currently off vancomycin due to toxicity. Will continue to monitor kidney function and restart antibiotics possibly Clindamycin Vanc level 28.2 01/13/2020-patient has left heel wound wound culture is growing MRSA. Blood cultures are negative. Patient has multiple surgical debridements. Wound VAC in place. Presently on IV cefepime every 12 hours. WBC count is 11,500 blood pressure is stable afebrile. (3) Sepsis Qualifiers: Sepsis type: methicillin resistant Staphylococcus aureus Sepsis acute organ dysfunction status: without acute organ dysfunction Qualified Code(s): A41.02 - Sepsis due to Methicillin resistant Staphylococcus aureus Is this a current diagnosis for this admission?: Yes Plan: Resolved; 01/13/2020-patient came in with left heel wound, wound cultures are positive for MRSA receiving IV antibiotic therapy. White cell count is improving. May meet the criteria for sepsis. (4) Hypertension Is this a current diagnosis for this admission?: No Plan: 01/13/2020-blood pressure today is 138/73. Stable. Plan is to continue the present management at this time. (5) Diabetes mellitus type 2 in obese Is this a current diagnosis for this admission?: No Plan: Decrease her dose of regular insulin as patient is getting 60 units of Lantus every 12 in addition to 15 units AC as well as sliding scale insulin. It appears that she actually had not been getting the a.m. 15 units on a regular basis. Her blood sugars are in the low 100 so have decided to decrease her insulin slightly just down to 12 units of Humalog AC we will continue to adjust as needed 01/07 will continue to monitor and adjust 01/09 Adjust insulin dose as her Blood sugars have been low 01/13/2020-patient has history of type 2 diabetes mellitus. Latest blood sugar is 89. Hemoglobin A1c is 13.4. Presently on Lantus 40 units subcu daily and insulin sliding scale. Diet compliance with medications discussed with the patient. (6) Morbid (severe) obesity due to excess calories Is this a current diagnosis for this admission?: No Plan: Lifestyle modification dietary discretion advised. Consistent carb diet. Registered dietitian and clinical systems educator are consulted. Doubt patient is really motivated to lose weight (7) Anemia Is this a current diagnosis for this admission?: No Plan: 01/13/2020-patient has history of anemia of chronic disease. Hemoglobin is 9.6. Stable. - Plan Summary Summary: Patient is yielding methicillin-resistant Staphylococcus aureus, enterococcus faecalis as well as gram-negative rods from her wounds. She is currently on cefepime day 3 presumably to cover the gram-negative fam possibly as well as enterococcus. Vancomycin has been discontinued. I think she probably can be safely placed on clindamycin once her trough for vancomycin is subtherapeutic. She can be placed on ampicillin or 3rd-generation cephalosporin for the enterococcus and gram-negative fam to simplify antibiotics. The plan is to continue with current surgical management as per general surgery 01/10 kidney function unfortunately remains poor and patient still anuric. Creatinine is up to 6.3 today. She had discussed weekend to see if she will make some improvement. We will continue to follow kidney function. Acidosis is improving, she remains anemic and we will check her vancomycin level with her next blood work 01/11She is yielding MRSA, Streptococcus as well as Peptostreptococcus from her wound cultures. Blood cultures negative. Vancomycin level will be obtained in a.m. Patient can be started on clindamycin or another appropriate agent for MRSA management if clinically indicated once her vancomycin trough levels is down. Meanwhile she is on day 7 of cefepime and will consider a 10-day regimen - Time Anticipated Discharge Disposition: Home, Self Care Anticipated Discharge Timeframe: within 72 hours
[2020-01-13] MEDS: SERTRALINE HCL 50 MG TABLET PO SCH ×2 (10:42→17:33)
[2020-01-13] MEDS: FAMOTIDINE 20 MG TABLET PO SCH (10:42)
[2020-01-13] MEDS: CEFEPIME HCL 2 GM in DEXTROSE 5%-WATER 50 ML IV SCH (10:42)
[2020-01-13] MEDS: MECLIZINE HCL 25 MG TABLET PO SCH ×2 (10:42→17:33)
[2020-01-13] MEDS: INSULIN GLARGINE,HUM.REC.ANLOG 1,000 UNIT/10 ML VIAL SUBCUT SCH (10:47)
[2020-01-13] MEDS: FLUTICASONE/VILANTEROL 200-25 MCG/DOSE IH SCH (12:45)
[2020-01-13] MEDS: OXYCODONE-ACETAMINOPHEN 5-325 MG TABLET PO PRN (19:40)
[2020-01-13] MEDS: MELATONIN 5 MG TABLET PO SCH (21:33)
[2020-01-13] MEDS: ATORVASTATIN CALCIUM 40 MG TABLET PO SCH (21:33)
[2020-01-14] MEDS ORDERED: NORMAL SALINE 1000 ML 1,000 ML IV PRN (05:00)
[2020-01-14] MEDS ORDERED: HEPARIN SOD (PORCINE) 1,000 UNIT/ML 10 ML VIAL IV PRN (05:00)
[2020-01-14] MEDS ORDERED: EPOETIN ALFA-EPBX 10,000 UNIT in SYRINGE, DISPOSABLE, 1 EACH IV PRN (05:00)
[2020-01-14] MEDS: PANTOPRAZOLE SODIUM 40 MG TABLET.DR PO SCH (05:30)
[2020-01-14] MEDS: NORMAL SALINE 1000 ML 1,000 ML IV PRN ×2 (06:22→23:59)
[2020-01-14 07:04] LABS: ANION GAP 13 (5-19); BLOOD UREA NITROGEN 43 mg/dL (7-20); CALCIUM 8.3 mg/dL (8.4-10.2); CARBON DIOXIDE 18 mmol/L (22-30); CHLORIDE 107 mmol/L (98-107); GLUCOSE 103 mg/dL (75-110); POTASSIUM 4.9 mmol/L (3.6-5.0)
[2020-01-14 08:20] LABS: HEMOGLOBIN 9.3 g/dL (12.0-15.5); MEAN CORPUSCULAR HEMOGLOBIN 28.5 pg (27.0-33.4); MEAN CORPUSCULAR HGB CONC 33.2 g/dL (32.0-36.0); MEAN CORPUSCULAR VOLUME 86 fl (80-97); PLATELET COUNT 439 10^3/uL (150-450); RED BLOOD COUNT 3.26 10^6/uL (3.72-5.28); RED CELL DISTRIBUTION WIDTH 15.8 % (11.5-14.0); WHITE BLOOD COUNT 9.9 10^3/uL (4.0-10.5)
--- NOTE | 2020-01-14 08:41 | PDOC PROGRESS REPORT ---
Subjective Progress Note for:: 01/14/20 Subjective:: 01/12/20 Subjective:: Patient denies any new complaints questions for me this morningPatient was admitted with sepsis secondary to left lower extremity cellulitis and diabetic foot ulcer status post surgical debridement with wound VAC in place. She does have a chronic right below-knee amputation. Patient denies any other complaints this morning. She was found to have vancomycin induced nephrotoxicity however this has since been discontinued. Kidney function is still rising with a creatinine at 4.79 today up from 0.62 on admission, BUN was 12 on admission and is currently 29. She is acidotic with a CO2 of 18 Kidney function noted to be worsening and at this point the plan is to initiate dialysis in a.m. 01/08 Cr now 6.8, acidotic, awaiting HD 01/09Dialyzed yesterday, for IVF today and dialysis in am Kidney function noted, still anuric 01/10 she received a second dialysis today. 01/11No new complaints 01/13/2020-patient is comfortably in the bed talking to the family members on the phone. Last hemodialysis on Tuesday. Latest creatinine is 6.27. Potassium is 4.6. Patient may need a dialysis session tomorrow. Came in with normal kidney function now in a kidney failure secondary to vancomycin toxicity. Vancomycin is on hold. Patient has a wound VAC on the left lower leg. And has a right BKA. 01/14/2020-patient is comfortable in the bed communicating well. Urinary output in the last 24 hours is more than 700. Him creatinine today 6.46. Patient is requesting to remove Victoria's catheter at this time. Reason For Visit: SEPSIS Physical Exam Vital Signs: Temp Pulse Resp BP Pulse Ox 97.5 F 75 17 154/84 H 97 01/14/20 03:26 01/14/20 07:00 01/14/20 03:26 01/14/20 03:26 01/14/20 03:26 Intake & Output 01/13/20 01/14/20 01/15/20 06:59 06:59 06:59 Intake Total 1852 2680 Output Total 725 775 Balance 1127 1905 Weight 162.8 kg 165.8 kg General appearance: PRESENT: no acute distress, morbidly obese Head exam: PRESENT: atraumatic Eye exam: PRESENT: PERRLA Ear exam: PRESENT: normal external ear exam Mouth exam: PRESENT: moist, tongue midline Neck exam: ABSENT: carotid bruit, JVD, lymphadenopathy, thyromegaly Respiratory exam: PRESENT: clear to auscultation armida. ABSENT: rales, rhonchi, wheezes Cardiovascular exam: PRESENT: RRR. ABSENT: diastolic murmur, rubs, systolic murmur GI/Abdominal exam: PRESENT: normal bowel sounds, soft. ABSENT: distended, guarding, mass, organolmegaly, rebound, tenderness Rectal exam: PRESENT: deferred Gentrourinary exam: PRESENT: indwelling catheter Extremities exam: PRESENT: other - Patient has a right BKA, left lower leg with Anthony wrap and wound VAC is attached. Neurological exam: PRESENT: alert, awake, oriented to person, oriented to place, oriented to time, oriented to situation, CN II-XII grossly intact. ABSENT: motor sensory deficit Psychiatric exam: PRESENT: appropriate affect, normal mood. ABSENT: homicidal ideation, suicidal ideation Results Laboratory Results: 01/14/20 05:47 01/14/20 05:47 Sodium 137.9 Potassium 4.9 Chloride 107 Carbon Dioxide 18 L Anion Gap 13 BUN 43 H Creatinine 6.46 H Est GFR ( Amer) 8 L Glucose 103 Calcium 8.3 L Magnesium 1.7 01/03/20 10:54 Troponin I < 0.012 Impressions: Foot X-Ray 01/03/20 11:17 IMPRESSION: 1. Cortical irregularity and lucency at the proximal base 5th digit proximal phalanx, possibly representing osteomyelitis. 2. Subcutaneous gas in the plantar soft tissues overlying the calcaneus. Clinical correlation for ulceration in this region recommended. Finding may represent necrotizing infection. Clinical correlation. Lower Extremity MRI 01/05/20 00:00 IMPRESSION: 1. Suspect mild reactive marrow edema in the calcaneus underlying a large ulcer. Doubt osteomyelitis but close follow-up is recommended. The should consist of surveillance followup radiographs predominantly with repeat MRI as needed. Chest X-Ray 01/05/20 12:24 IMPRESSION: No evidence for pneumothorax status post central line placement. Renal Ultrasound 01/07/20 00:00 IMPRESSION: Unable to verify normal blood flow in the right kidney. The study is otherwise unremarkable. The bladder was empty. Assessment and Plan - Diagnosis (1) MONO (acute kidney injury) Is this a current diagnosis for this admission?: Yes Plan: Creatinine maximilian after HD Kidney function is at creatinine of 5.6 and BUN of 32 today. She is making urine. I am hopeful that her kidney function will continue to improve and kidney function will recover 01/13/2020-patient developed vancomycin induced nephrotoxicity. Last hemodialysis on Tuesday. Urinary output is 725 mL in the last 24 hours. Has a Victoria's catheter. Potassium is 4.6 creatinine 6.2 this morning most likely she needed dialysis tomorrow. Nephrology on board. 01/14/20-patient has vancomycin-induced nephrotoxicity last dialysis on Tuesday. Probably she may go for dialysis today. Urinary output is 775 mL in the last 24 hours. Serum creatinine today is 6.46 and bun is 43. (2) Diabetic ulcer of heel Qualifiers: Diabetes mellitus type: type 2 Laterality: left Non-pressure ulcer stage: with other severity Qualified Code(s): E11.621 - Type 2 diabetes mellitus with foot ulcer; L97.428 - Non-pressure chronic ulcer of left heel and midfoot with other specified severity Is this a current diagnosis for this admission?: Yes Plan: MRI showed suspected mild reactive marrow edema in the calcaneus underlying a large ulcer; doubt osteomyelitis but close follow-up recommended with serial MRIs. Wound culture (01/06/2020) pending Wound culture (01/03/2020) MRSA and gram-positive cocci Wound culture (01/03/2020) MRSA, Enterococcus faecalis, gram-negative rods Blood cultures no growth to date. Surgery is consulted; greatly appreciate their assistance. Now status post multiple surgical debridements to the left heel; per op note wound would be a stage IV through subcutaneous tissue and to the muscle. Wound VAC in place; wound care per surgery expertise. Wound culture for January 05 yielding MRSA. Patient is currently off vancomycin due to toxicity. Will continue to monitor kidney function and restart antibiotics possibly Clindamycin Vanc level 28.2 01/13/2020-patient has left heel wound wound culture is growing MRSA. Blood cultures are negative. Patient has multiple surgical debridements. Wound VAC in place. Presently on IV cefepime every 12 hours. WBC count is 11,500 blood pressure is stable afebrile. 01/14/2020-patient is getting IV cefepime every 12 hours for wound cultures berry wing MRSA. Blood cultures are negative. Patient has multiple surgical debridements. Wound VAC in place. (3) Sepsis Qualifiers: Sepsis type: methicillin resistant Staphylococcus aureus Sepsis acute organ dysfunction status: without acute organ dysfunction Qualified Code(s): A41.02 - Sepsis due to Methicillin resistant Staphylococcus aureus Is this a current diagnosis for this admission?: Yes Plan: Resolved; 01/13/2020-patient came in with left heel wound, wound cultures are positive for MRSA receiving IV antibiotic therapy. White cell count is improving. May meet the criteria for sepsis. (4) Hypertension Is this a current diagnosis for this admission?: No Plan: 01/13/2020-blood pressure today is 138/73. Stable. Plan is to continue the present management at this time. 01/14/2020-blood pressure this morning is 154/84. Stable. (5) Diabetes mellitus type 2 in obese Is this a current diagnosis for this admission?: No Plan: Decrease her dose of regular insulin as patient is getting 60 units of Lantus every 12 in addition to 15 units AC as well as sliding scale insulin. It appears that she actually had not been getting the a.m. 15 units on a regular basis. Her blood sugars are in the low 100 so have decided to decrease her insulin slightly just down to 12 units of Humalog AC we will continue to adjust as needed 01/07 will continue to monitor and adjust 01/09 Adjust insulin dose as her Blood sugars have been low 01/13/2020-patient has history of type 2 diabetes mellitus. Latest blood sugar is 89. Hemoglobin A1c is 13.4. Presently on Lantus 40 units subcu daily and insulin sliding scale. Diet compliance with medications discussed with the patient. 01/14/2020-patient has history of type 2 diabetes mellitus. Latest blood sugar is 101. Hemoglobin A1c is 13.1 point. Plan is to continue the present management at this time. (6) Morbid (severe) obesity due to excess calories Is this a current diagnosis for this admission?: No Plan: Lifestyle modification dietary discretion advised. Consistent carb diet. Registered dietitian and rug frame mounter are consulted. Doubt patient is really motivated to lose weight (7) Anemia Is this a current diagnosis for this admission?: No Plan: 01/13/2020-patient has history of anemia of chronic disease. Hemoglobin is 9.6. Stable. 01/13-patient has history of anemia of chronic disease. Today's hemoglobin is pending. - Plan Summary Summary: Patient is yielding methicillin-resistant Staphylococcus aureus, enterococcus faecalis as well as gram-negative rods from her wounds. She is currently on cefepime day 3 presumably to cover the gram-negative fam possibly as well as enterococcus. Vancomycin has been discontinued. I think she probably can be s afely placed on clindamycin once her trough for vancomycin is subtherapeutic. She can be placed on ampicillin or 3rd-generation cephalosporin for the enterococcus and gram-negative fam to simplify antibiotics. The plan is to continue with current surgical management as per general surgery 01/10 kidney function unfortunately remains poor and patient still anuric. Creatinine is up to 6.3 today. She had discussed weekend to see if she will make some improvement. We will continue to follow kidney function. Acidosis is improving, she remains anemic and we will check her vancomycin level with her next blood work 01/11She is yielding MRSA, Streptococcus as well as Peptostreptococcus from her w ound cultures. Blood cultures negative. Vancomycin level will be obtained in a.m. Patient can be started on clindamycin or another appropriate agent for MRSA management if clinically indicated once her vancomycin trough levels is down. Meanwhile she is on day 7 of cefepime and will consider a 10-day regimen - Time Anticipated Discharge Disposition: Home, Self Care Anticipated Discharge Timeframe: within 72 hours
[2020-01-14] MEDS: INSULIN LISPRO 100 UNIT/ML 3 ML VIAL SUBCUT SCH ×4 (08:43→21:40)
[2020-01-14 08:45] LABS: ABSOLUTE LYMPHOCYTES# (MANUAL) 2.8 10^3/uL (0.5-4.7); ABSOLUTE MONOCYTES # (MANUAL) 0.5 10^3/uL (0.1-1.4); BAND NEUTROPHILS % (MANUAL) 1 % (3-5); BASOPHILS % (MANUAL) 0 % (0-2); EOSINOPHILS % (MANUAL) 5 % (0-6); LYMPHOCYTES % (MANUAL) 23 % (13-45); METAMYELOCYTES % (MANUAL) 1 % (0-1); MONOCYTES % (MANUAL) 5 % (3-13); SEGMENTED NEUTROPHILS % (MAN) 60 % (42-78); TOTAL CELLS COUNTED 100
[2020-01-14 08:46] LABS: ANISOCYTOSIS SLIGHT; PLATELET COMMENT ADEQUATE
[2020-01-14 08:47] LABS: OVALOCYTES 1+; POIKILOCYTOSIS 1+; POLYCHROMASIA 1+
[2020-01-14] MEDS: FAMOTIDINE 20 MG TABLET PO SCH (09:35)
[2020-01-14] MEDS: CEFEPIME HCL 2 GM in DEXTROSE 5%-WATER 50 ML IV SCH ×2 (09:35→21:41)
[2020-01-14] MEDS: SERTRALINE HCL 50 MG TABLET PO SCH ×2 (09:35→17:31)
[2020-01-14] MEDS: MECLIZINE HCL 25 MG TABLET PO SCH ×2 (09:35→17:31)
[2020-01-14] MEDS: FLUTICASONE/VILANTEROL 200-25 MCG/DOSE IH SCH (09:35)
[2020-01-14] MEDS: INSULIN GLARGINE,HUM.REC.ANLOG 1,000 UNIT/10 ML VIAL SUBCUT SCH (09:38)
--- NOTE | 2020-01-14 11:37 | PDOC PROGRESS REPORT ---
Subjective Progress Note for:: 01/14/20 Subjective:: I am seeing the patient during dialysis this morning. Patient is doing well and is comfortable. She tells me she just a little bit nauseated and her appetite is still not good but she denies any shortness of breath or chest pains. She started making a little bit more urine for the past 48 hours, and for the last 24 hours she made 775 mL. However her kidney function is still not improving this he wanted to be. She has no other complaints. Reason For Visit: SEPSIS Physical Exam Vital Signs: Temp Pulse Resp BP Pulse Ox 97.6 F 84 16 154/86 H 97 01/14/20 07:24 01/14/20 07:24 01/14/20 07:24 01/14/20 07:24 01/14/20 07:24 Intake & Output 01/13/20 01/14/20 01/15/20 06:59 06:59 06:59 Intake Total 1852 2680 50 Output Total 725 775 Balance 1127 1905 50 Weight 162.8 kg 165.8 kg Vitals during dialysis: Blood pressure 152/64, heart rate of 78, blood flow rate of 300 mL/min and dialysate flow rate of 600 mL/min. Exam: General appearance: PRESENT: no acute distress, cooperative, well-developed, well-nourished Head exam: PRESENT: atraumatic, normocephalic Eye exam: PRESENT: conjunctiva slightly pale, PERRLA. ABSENT: scleral icterus Neck exam: ABSENT: JVD Respiratory exam: PRESENT: Diminished breath sounds. ABSENT: crackles, rales, rhonchi, unlabored, wheezes Cardiovascular exam: PRESENT: Regular rate rhythm -+S1, +S2. Grade 2/6 systolic murmur GI/Abdominal exam: PRESENT: normal bowel sounds, soft. ABSENT: guarding, mass, tenderness Extremities exam: Grade 1 bilateral lower extremity pitting edema more in the left than the right, right BKA, left ankle wrapped dressing and Anthony wrap. Neurological exam: PRESENT: alert, awake, oriented to person, place and time. Skin exam: PRESENT: dry, warm, Cardiovascular exam: PRESENT: +S1, +S2 GI/Abdominal exam: PRESENT: normal bowel sounds, soft. ABSENT: organomegaly, tenderness Results Laboratory Results: 01/14/20 07:57 01/14/20 05:47 01/14/20 01/14/20 05:47 07:57 WBC 9.9 RBC 3.26 L Hgb 9.3 L Hct 28.0 L MCV 86 MCH 28.5 MCHC 33.2 RDW 15.8 H Plt Count 439 Seg Neutrophils % Not Reportable Sodium 137.9 Potassium 4.9 Chloride 107 Carbon Dioxide 18 L Anion Gap 13 BUN 43 H Creatinine 6.46 H Est GFR ( Amer) 8 L Glucose 103 Calcium 8.3 L Magnesium 1.7 01/03/20 10:54 Troponin I < 0.012 Impressions: Foot X-Ray 01/03/20 11:17 IMPRESSION: 1. Cortical irregularity and lucency at the proximal base 5th digit proximal phalanx, possibly representing osteomyelitis. 2. Subcutaneous gas in the plantar soft tissues overlying the calcaneus. Clinical correlation for ulceration in this region recommended. Finding may represent necrotizing infection. Clinical correlation. Lower Extremity MRI 01/05/20 00:00 IMPRESSION: 1. Suspect mild reactive marrow edema in the calcaneus underlying a large ulcer. Doubt osteomyelitis but close follow-up is recommended. The should consist of surveillance followup radiographs predominantly with repeat MRI as needed. Chest X-Ray 01/05/20 12:24 IMPRESSION: No evidence for pneumothorax status post central line placement. Renal Ultrasound 01/07/20 00:00 IMPRESSION: Unable to verify normal blood flow in the right kidney. The study is otherwise unremarkable. The bladder was empty. Assessment & Plan - Diagnosis (1) MONO (acute kidney injury) Is this a current diagnosis for this admission?: Yes Plan: Secondary to ATN likely due to vancomycin toxicity and left foot diabetic infection with sepsis. Baseline creatinine 0.9 on 01/04/2020. Currently with i mproved urine output. Patient still is requiring renal replacement therapy at this point though. We will do dialysis today for 2.5 hours, using the patient's right femoral dialysis catheter, with 2 potassium bath, blood flow rate of 300 mL per minute, dialysate flow rate of 600 mL per minute, ultrafiltration 1 to 2 L as tolerated, no heparin and Retacrit with 10,000 units during dialysis intravenously. Patient is being monitored throughout dialysis treatment. We will continue to reevaluate the patient for further need for dialysis treatment. I spoke to Ricardo Dockery today regarding plan just in case the patient is ready to be discharged. Patient indicated that she would like to go to [facility]. By Tuesday if the patient's kidney function is still not improving and we anticipate that she would continue to require renal replacement therapy as an outpatient, I will ask for surgery consult for PermCath placement. (2) Anemia Is this a current diagnosis for this admission?: No Plan: Due to acute illness. Iron stores are adequate. Retacrit given during dialysis. (3) Diabetic ulcer of heel Qualifiers: Diabetes mellitus type: type 2 Laterality: left Non-pressure ulcer stage: with other severity Qualified Code(s): E11.621 - Type 2 diabetes mellitus with foot ulcer; L97.428 - Non-pressure chronic ulcer of left heel and midfoot with other specified severity Is this a current diagnosis for this admission?: Yes Plan: Positive MRSA infection. Currently on IV cefepime with discontinuation of vancomycin due to Vancomycin toxicity. Vancomycin level yesterday at 18.6 and still therapeutic. Patient has no osteomyelitis. She may not require any further vancomycin or daptomycin. Surgery following. Currently with wound VAC. (4) Sepsis Qualifiers: Sepsis type: methicillin resistant Staphylococcus aureus Sepsis acute organ dysfunction status: without acute organ dysfunction Qualified Code(s): A41.02 - Sepsis due to Methicillin resistant Staphylococcus aureus Is this a current diagnosis for this admission?: Yes Plan: Due to diabetic ulcer. (5) Metabolic acidosis Is this a current diagnosis for this admission?: Yes Plan: Improving on dialysis. (6) Diabetes mellitus type 2 in obese Is this a current diagnosis for this admission?: No Plan: Controlled. (7) Hypertension Is this a current diagnosis for this admission?: No Plan: Fairly controlled. - Time Time with patient: 15-25 minutes
[2020-01-14] MEDS: OXYCODONE-ACETAMINOPHEN 5-325 MG TABLET PO PRN ×2 (16:35→21:56)
[2020-01-14] MEDS: MELATONIN 5 MG TABLET PO SCH (21:40)
[2020-01-14] MEDS: ATORVASTATIN CALCIUM 40 MG TABLET PO SCH (21:41)
[2020-01-15] MEDS: NORMAL SALINE 1000 ML 1,000 ML IV PRN (02:59)
[2020-01-15] MEDS: PANTOPRAZOLE SODIUM 40 MG TABLET.DR PO SCH (05:55)
[2020-01-15 07:19] LABS: BLOOD UREA NITROGEN 34 mg/dL (7-20); CALCIUM 8.3 mg/dL (8.4-10.2); CHLORIDE 103 mmol/L (98-107); GLUCOSE 129 mg/dL (75-110); POTASSIUM 4.9 mmol/L (3.6-5.0)
[2020-01-15 07:20] LABS: ANION GAP 11 (5-19); CARBON DIOXIDE 24 mmol/L (22-30)
[2020-01-15] MEDS: INSULIN LISPRO 100 UNIT/ML 3 ML VIAL SUBCUT SCH ×4 (10:19→22:32)
[2020-01-15] MEDS: CEFEPIME HCL 2 GM in DEXTROSE 5%-WATER 50 ML IV SCH ×2 (10:30→22:32)
[2020-01-15] MEDS: FAMOTIDINE 20 MG TABLET PO SCH (10:31)
[2020-01-15] MEDS: MECLIZINE HCL 25 MG TABLET PO SCH ×2 (10:31→17:35)
[2020-01-15] MEDS: FLUTICASONE/VILANTEROL 200-25 MCG/DOSE IH SCH (10:34)
[2020-01-15] MEDS: INSULIN GLARGINE,HUM.REC.ANLOG 1,000 UNIT/10 ML VIAL SUBCUT SCH (10:34)
[2020-01-15] MEDS: SERTRALINE HCL 50 MG TABLET PO SCH ×2 (10:34→17:35)
--- NOTE | 2020-01-15 11:46 | PDOC PROGRESS REPORT ---
Subjective Progress Note for:: 01/15/20 Subjective:: Patient is doing fine. She said she ate her whole breakfast this morning and is trying to regain her appetite back. Her Victoria catheter was removed yesterday so there was only about 300 mL of urine output recorded. I instructed her nurse today to make sure to accurately document urine output. Otherwise patient does not have any new complaints today. Reason For Visit: SEPSIS Physical Exam Vital Signs: Temp Pulse Resp BP Pulse Ox 97.6 F 80 20 139/70 H 96 01/15/20 08:17 01/15/20 08:17 01/15/20 08:17 01/15/20 08:17 01/15/20 08:17 Intake & Output 01/14/20 01/15/20 01/16/20 06:59 06:59 06:59 Intake Total 2680 1181 50 Output Total 775 2400 Balance 1905 -1219 50 Weight 165.8 kg 165.6 kg Exam: General appearance: PRESENT: no acute distress, cooperative, well-developed, well-nourished Head exam: PRESENT: atraumatic, normocephalic Eye exam: PRESENT: conjunctiva slightly pale, PERRLA. ABSENT: scleral icterus Neck exam: ABSENT: JVD Respiratory exam: PRESENT: Normal breath sounds. ABSENT: crackles, rales, rhonchi, unlabored, wheezes Cardiovascular exam: PRESENT: Regular rate rhythm -+S1, +S2. ABSENT: diastolic murmur, systolic murmur GI/Abdominal exam: PRESENT: normal bowel sounds, soft. ABSENT: guarding, mass, tenderness Extremities exam: Grade 1 bilateral lower extremity pitting edema, right BKA, left ankle and feet covered with dressing and Anthony wrap. On wound VAC. Neurological exam: PRESENT: alert, awake, oriented to person, place and time. Skin exam: PRESENT: dry, warm, Cardiovascular exam: PRESENT: +S1, +S2 GI/Abdominal exam: PRESENT: normal bowel sounds, soft. ABSENT: organomegaly, tenderness Results Laboratory Results: 01/14/20 07:57 01/15/20 05:25 01/15/20 05:25 Sodium 137.5 Potassium 4.9 Chloride 103 Carbon Dioxide 24 Anion Gap 11 BUN 34 H Creatinine 5.17 H Est GFR ( Amer) 11 L Glucose 129 H Calcium 8.3 L 01/03/20 10:54 Troponin I < 0.012 Impressions: Foot X-Ray 01/03/20 11:17 IMPRESSION: 1. Cortical irregularity and lucency at the proximal base 5th digit proximal phalanx, possibly representing osteomyelitis. 2. Subcutaneous gas in the plantar soft tissues overlying the calcaneus. Clinical correlation for ulceration in this region recommended. Finding may r epresent necrotizing infection. Clinical correlation. Lower Extremity MRI 01/05/20 00:00 IMPRESSION: 1. Suspect mild reactive marrow edema in the calcaneus underlying a large ulcer. Doubt osteomyelitis but close follow-up is recommended. The should consist of surveillance followup radiographs predominantly with repeat MRI as needed. Chest X-Ray 01/05/20 12:24 IMPRESSION: No evidence for pneumothorax status post central line placement. Renal Ultrasound 01/07/20 00:00 IMPRESSION: Unable to verify normal blood flow in the right kidney. The study is otherwise unremarkable. The bladder was empty. Assessment & Plan - Diagnosis (1) MONO (acute kidney injury) Is this a current diagnosis for this admission?: Yes Plan: Secondary to ATN likely due to vancomycin toxicity and left foot diabetic infection with sepsis. Baseline creatinine 0.9 on 01/04/2020. Currently with improved urine output although not adequately recorded since Victoria catheter was removed yesterday. Patient still is requiring renal replacement therapy at this point though. We will plan for dialysis again tomorrow. If no evidence of renal recovery, patient will most likely need outpatient dialysis treatment. Will consult case management to start arranging for outpatient dialysis treatment at [facility]. Will consult surgery for PermCath placement in the next couple of days. (2) Anemia Is this a current diagnosis for this admission?: No Plan: Due to acute illness. Iron stores are adequate. Retacrit given during dialysis. (3) Diabetic ulcer of heel Qualifiers: Diabetes mellitus type: type 2 Laterality: left Non-pressure ulcer stage: with other severity Qualified Code(s): E11.621 - Type 2 diabetes mellitus with foot ulcer; L97.428 - Non-pressure chronic ulcer of left heel and midfoot with other specified severity Is this a current diagnosis for this admission?: Yes Plan: Positive MRSA infection. Currently on IV cefepime with discontinuation of vancomycin due to Vancomycin toxicity. Vancomycin level on 01/12 at 18.6 and still therapeutic. Patient has no osteomyelitis. She may not require any further vancomycin or daptomycin. Surgery following. Currently with wound VAC. (4) Sepsis Qualifiers: Sepsis type: methicillin resistant Staphylococcus aureus Sepsis acute organ dysfunction status: without acute organ dysfunction Qualified Code(s): A41.02 - Sepsis due to Methicillin resistant Staphylococcus aureus Is this a current diagnosis for this admission?: Yes Plan: Due to diabetic ulcer. (5) Metabolic acidosis Is this a current diagnosis for this admission?: Yes Plan: Improving on dialysis. (6) Diabetes mellitus type 2 in obese Is this a current diagnosis for this admission?: No Plan: Controlled. (7) Hypertension Is this a current diagnosis for this admission?: No Plan: Fairly controlled.
--- NOTE | 2020-01-15 14:19 | PDOC CONSULTATION ---
Consultation Consult Date: 01/15/20 Attending physician:: QIANA BERMUDEZ Provider Consulted: MARILIA TATUM Consult reason:: permcath insertion History of Present Illness Admission Date/PCP: 01/03/20 14:59 VIDAL DEAL MD History of Present Illness: HANNAH VICTOR is a 49 year old female Past Medical History Cardiac Medical History: Reports: Hyperlipidema, Hypertension Pulmonary Medical History: Reports: Asthma EENT Medical History: Denies: None, Cataracts, Eyes, Ears, Nose, Throat, Other Neurological Medical History: Denies: None, Hemorrhagic CVA, Ischemic CVA, Migraine, Multiple Sclerosis, Seizures, Other Endocrine Medical History: Reports: Diabetes Mellitus Type 2 Renal/ Medical History: Reports: End Stage Renal Disease Psychiatric Medical History: Reports: Depression Past Surgical History Past Surgical History: Reports: Orthopedic Surgery - R side BTK amputation, L elbow Social History Smoking Status: Never Smoker Electronic Cigarette use?: No Frequency of Alcohol Use: None Hx Recreational Drug Use: No Drugs: None Hx Prescription Drug Abuse: No - Advance Directive Resuscitation Status: Full Code Family History Family History: None, Reviewed & Not Pertinent Parental Family History Reviewed: No Children Family History Reviewed: NA Sibling(s) Family History Reviewed.: NA Medication/Allergy Home Medications: Albuterol Sulfate [Proair HFA Inhalation Aerosol 8.5 gm MDI] 2 puff IH Q6HP PRN 03/18/18 Atorvastatin Calcium [Lipitor 40 mg Tablet] 40 mg PO QHS 03/18/18 Sertraline HCl [Zoloft 50 mg Tablet] 50 mg PO BID 03/18/18 Budesonide/Formoterol Fumarate [Symbicort HFA 160-4.5 mcg Inhaler 6 gm] 2 puff IH BID 01/03/20 Esomeprazole Magnesium 40 mg PO Q6AM 01/03/20 Famotidine [Pepcid 20 mg Tablet] 40 mg PO DAILY 01/03/20 Insulin Glargine,Hum.rec.anlog [Lantus Insulin 100 Unit/1 ml 10 ml] 60 unit SQ QPM 01/03/20 Insulin Glargine,Hum.rec.anlog [Lantus Insulin 100 Unit/1 ml 10 ml] 70 unit SQ QAM 01/03/20 Meclizine HCl [Antivert 25 mg Tablet] 25 mg PO BID 01/03/20 Trazodone HCl [Desyrel 50 mg Tablet] 50 mg PO HSP PRN 01/03/20 Allergies/Adverse Reactions: Sulfa (Sulfonamide Antibiotics) Allergy (Verified 01/03/20 10:59) Review of Systems Eyes: ABSENT: as per HPI, visual disturbances, other Ears: ABSENT: as per HPI, hearing changes, other Nose, Mouth, and Throat: ABSENT: as per HPI, headache(s), mouth pain, sore throat, vertigo, other Breasts: ABSENT: as per HPI, other Cardiovascular: ABSENT: as per HPI, chest pain, dyspnea on exertion, edema, orthropnea, palpitations, other Respiratory: ABSENT: as per HPI, cough, dyspnea, hemoptysis, sputum, other Gastrointestinal: ABSENT: as per HPI, abdominal pain, bloating, coffee ground emesis, constipation, diarrhea, dysphagia, heartburn, hematemesis, hematochezia, melena, nausea, vomiting, other Genitourinary: ABSENT: as per HPI, difficulty urinating, dysuria, hematuria, nocturia, other Musculoskeletal: PRESENT: deformity, joint swelling, muscle weakness Integumentary: PRESENT: wounds Neurological: PRESENT: focal weakness, lack of coordination Psychiatric: PRESENT: anxiety Endocrine: ABSENT: as per HPI, cold intolerance, flushing, heat intolerance, menstrual abnormalities, polydipsia, polyphagia, polyuria, other Hematologic/Lymphatic: ABSENT: as per HPI, easy bleeding, easy bruising, lymphadenopathy, other Allergic/Immunologic: ABSENT: as per HPI, seasonal rhinorrhea, other Physical Exam Vital Signs: Temp Pulse Resp BP Pulse Ox 97.7 F 81 20 149/85 H 97 01/15/20 12:01 01/15/20 12:01 01/15/20 12:01 01/15/20 12:01 01/15/20 12:01 Intake & Output 01/14/20 01/15/20 01/16/20 06:59 06:59 06:59 Intake Total 2680 1181 650 Output Total 775 2400 Balance 1905 -1219 650 Weight 165.8 kg 165.6 kg General appearance: PRESENT: morbidly obese Head exam: PRESENT: atraumatic Eye exam: PRESENT: EOMI Ear exam: PRESENT: normal external ear exam Mouth exam: PRESENT: moist Neck exam: PRESENT: full ROM Respiratory exam: PRESENT: clear to auscultation armida, decreased breath sounds Cardiovascular exam: PRESENT: RRR Pulses: PRESENT: normal femoral pulses, normal dorsalis pedis pul Vascular exam: PRESENT: normal capillary refill Breast: PRESENT: Normal GI/Abdominal exam: PRESENT: other - massively obese abdomen Rectal exam: PRESENT: deferred Extremities exam: PRESENT: other - left heel iwth wound vac in place Neurological exam: PRESENT: alert, awake, oriented to person, oriented to place Skin exam: PRESENT: dry Results Laboratory Results: 01/14/20 07:57 01/15/20 05:25 01/15/20 05:25 Sodium 137.5 Potassium 4.9 Chloride 103 Carbon Dioxide 24 Anion Gap 11 BUN 34 H Creatinine 5.17 H Est GFR ( Amer) 11 L Glucose 129 H Calcium 8.3 L 01/03/20 10:54 Troponin I < 0.012 Impressions: Foot X-Ray 01/03/20 11:17 IMPRESSION: 1. Cortical irregularity and lucency at the proximal base 5th digit proximal phalanx, possibly representing osteomyelitis. 2. Subcutaneous gas in the plantar soft tissues overlying the calcaneus. Clinical correlation for ulceration in this region recommended. Finding may represent necrotizing infection. Clinical correlation. Lower Extremity MRI 01/05/20 00:00 IMPRESSION: 1. Suspect mild reactive marrow edema in the calcaneus underlying a large ulcer. Doubt osteomyelitis but close follow-up is recommended. The should consist of surveillance followup radiographs predominantly with repeat MRI as needed. Chest X-Ray 01/05/20 12:24 IMPRESSION: No evidence for pneumothorax status post central line placement. Renal Ultrasound 01/07/20 00:00 IMPRESSION: Unable to verify normal blood flow in the right kidney. The study is otherwise unremarkable. The bladder was empty. Assessment & Plan - Plan Summary Plan Summary: impression renal failure requiring dialysis has femoral acces in place, need longer term access will plan on permcath insertin in or in day or 2 when scheduling permits.
--- NOTE | 2020-01-15 16:00 | Progress Note ---
Provider Note Provider Note: ID Note- I was asked to recommend a duration of therapy for this patient with osteomyelitis of the heel. She underwent surgical debridement, initially on January 02. Cultures from the deep tissue grew MRSA, Enterococcus faecalis, and Proteus vulgaris. Patient developed MONO, likely related to vancomycin. Recommend treating for a total of 6 weeks, beginning from January 02. Patient could be treated with vancomycin (for MRSA and enterococcus) or daptomycin (both would need renal adjustment per pharmacy. Patient would need coverage for Proteus vulgaris. Oral ciprofloxacin 750 mg daily would be adequate for her current renal function. If renal function improves, there would need to be an increase in the dose of ciprofloxacin. Call me if there are questions. Juan C Baig MD Pager: [phone]
--- NOTE | 2020-01-15 18:53 | PDOC PROGRESS REPORT ---
Subjective Progress Note for:: 01/15/20 Subjective:: Per previous physician: "Patient denies any new complaints questions for me this morningPatient was admitted with sepsis secondary to left lower extremity cellulitis and diabetic foot ulcer status post surgical debridement with wound VAC in place. She does have a chronic right below-knee amputation. Patient denies any other complaints this morning. She was found to have vancomycin induced nephrotoxicity however this has since been discontinued. Kidney function is still rising with a creatinine at 4.79 today up from 0.62 on admission, BUN was 12 on admission and is currently 29. She is acidotic with a CO2 of 18 Kidney function noted to be worsening and at this point the plan is to initiate dialysis in a.m. 01/08 Cr now 6.8, acidotic, awaiting HD 01/09Dialyzed yesterday, for IVF today and dialysis in am Kidney function noted, still anuric 01/10 she received a second dialysis today. 01/11No new complaints 01/13/2020-patient is comfortably in the bed talking to the family members on the phone. Last hemodialysis on Tuesday. Latest creatinine is 6.27. Potassium is 4.6. Patient may need a dialysis session tomorrow. Came in with normal kidney function now in a kidney failure secondary to vancomycin toxicity. Vancomycin is on hold. Patient has a wound VAC on the left lower leg. And has a right BKA. 01/14/2020-patient is comfortable in the bed communicating well. Urinary output in the last 24 hours is more than 700. Him creatinine today 6.46. Patient is requesting to remove Victoria's catheter at this time." 01/15/2020 Patient still with markedly elevated creatinine, likely will need long-term dialysis. Discussed the case with nephrology today. ID consulted who recommended patient be treated with vancomycin IV and ciprofloxacin. Left foot culture growing MRSA, strep mitis/paralysis, anAerococcus, E faecalis, Proteus vulgaris. Patient has no new specific complaints today. blood culture is negative. Reason For Visit: SEPSIS Physical Exam Vital Signs: Temp Pulse Resp BP Pulse Ox 97.9 F 84 22 H 152/136 H 97 01/15/20 16:37 01/15/20 16:37 01/15/20 16:37 01/15/20 16:37 01/15/20 16:37 Intake & Output 01/14/20 01/15/20 01/16/20 06:59 06:59 06:59 Intake Total 2680 1181 1500 Output Total 775 2400 300 Balance 1905 -1219 1200 Weight 165.8 kg 165.6 kg General appearance: PRESENT: no acute distress, well-developed, well-nourished Head exam: PRESENT: atraumatic, normocephalic Eye exam: PRESENT: conjunctiva pink Mouth exam: PRESENT: moist Respiratory exam: PRESENT: clear to auscultation armida. ABSENT: rales, rhonchi, wheezes Cardiovascular exam: PRESENT: RRR. ABSENT: diastolic murmur, rubs, systolic murmur GI/Abdominal exam: PRESENT: normal bowel sounds, soft. ABSENT: distended, guarding, mass, organolmegaly, rebound, tenderness Neurological exam: PRESENT: alert, awake, oriented to person, oriented to place, oriented to time, oriented to situation Psychiatric exam: PRESENT: appropriate affect, normal mood Skin exam: PRESENT: dry, warm, other - Diabetic ulcer of left heel with wound VAC in place Results Laboratory Results: 01/14/20 07:57 01/15/20 05:25 01/15/20 05:25 Sodium 137.5 Potassium 4.9 Chloride 103 Carbon Dioxide 24 Anion Gap 11 BUN 34 H Creatinine 5.17 H Est GFR ( Amer) 11 L Glucose 129 H Calcium 8.3 L 01/03/20 10:54 Troponin I < 0.012 Impressions: Foot X-Ray 01/03/20 11:17 IMPRESSION: 1. Cortical irregularity and lucency at the proximal base 5th digit proximal phalanx, possibly representing osteomyelitis. 2. Subcutaneous gas in the plantar soft tissues overlying the calcaneus. Clinical correlation for ulceration in this region recommended. Finding may represent necrotizing infection. Clinical correlation. Lower Extremity MRI 01/05/20 00:00 IMPRESSION: 1. Suspect mild reactive marrow edema in the calcaneus underlying a large ulcer. Doubt osteomyelitis but close follow-up is recommended. The should consist of surveillance followup radiographs predominantly with repeat MRI as needed. Chest X-Ray 01/05/20 12:24 IMPRESSION: No evidence for pneumothorax status post central line placement. Renal Ultrasound 01/07/20 00:00 IMPRESSION: Unable to verify normal blood flow in the right kidney. The study is otherwise unremarkable. The bladder was empty. Assessment and Plan - Diagnosis (1) Diabetic ulcer of heel Qualifiers: Diabetes mellitus type: type 2 Laterality: left Non-pressure ulcer stage: with other severity Qualified Code(s): E11.621 - Type 2 diabetes mellitus with foot ulcer; L97.428 - Non-pressure chronic ulcer of left heel and midfoot with other specified severity Is this a current diagnosis for this admission?: Yes Plan: Per previous physician: "MRI showed suspected mild reactive marrow edema in the calcaneus underlying a large ulcer; doubt osteomyelitis but close follow-up recommended with serial MRIs. Wound culture (01/06/2020) pending Wound culture (01/03/2020) MRSA and gram-positive cocci Wound culture (01/03/2020) MRSA, Enterococcus faecalis, gram-negative rods Blood cultures no growth to date. Surgery is consulted; greatly appreciate their assistance. Now status post multiple surgical debridements to the left heel; per op note wound would be a stage IV through subcutaneous tissue and to the muscle. Wound VAC in place; wound care per surgery expertise. Wound culture for January 05 yielding MRSA. Patient is currently off vancomycin due to toxicity. Will continue to monitor kidney function and restart antibiotics possibly Clindamycin Vanc level 28.2 01/13/2020-patient has left heel wound wound culture is growing MRSA. Blood cultures are negative. Patient has multiple surgical debridements. Wound VAC in place. Presently on IV cefepime every 12 hours. WBC count is 11,500 blood pressure is stable afebrile. 01/14/2020-patient is getting IV cefepime every 12 hours for wound cultures growing MRSA. Blood cultures are negative. Patient has multiple surgical debridements. Wound VAC in place." 01/15/2020 Consulted ID today and discussed the case with them in detail. They recommended patient complete antibiotic course with IV vancomycin and ciprofloxacin Will need PICC line and outpatient antibiotics arranged (2) MONO (acute kidney injury) Is this a current diagnosis for this admission?: Yes Plan: Per previous physician: "Creatinine maximilian after HD Kidney function is at creatinine of 5.6 and BUN of 32 today. She is making urine. I am hopeful that her kidney function will continue to improve and kidney function will recover 01/13/2020-patient developed vancomycin induced nephrotoxicity. Last hemodialysis on Tuesday. Urinary output is 725 mL in the last 24 hours. Has a Victoria's catheter. Potassium is 4.6 creatinine 6.2 this morning most likely she needed dialysis tomorrow. Nephrology on board. 01/14/20-patient has vancomycin-induced nephrotoxicity last dialysis on Tuesday. Probably she may go for dialysis today. Urinary output is 775 mL in the last 24 hours. Serum creatinine today is 6.46 and bun is 43." 01/15/2020 Discussed case with nephrology, patient will likely need long-term dialysis of her urine output has not greatly improved by tomorrow Will need to be set up with outpatient dialysis at discharge (3) Anemia Qualifiers: Anemia type: unspecified type Qualified Code(s): D64.9 - Anemia, unspecified Is this a current diagnosis for this admission?: No Plan: Per previous physician: "01/13/2020-patient has history of anemia of chronic disease. Hemoglobin is 9.6. Stable. 01/13-patient has history of anemia of chronic disease. Today's hemoglobin is pending." 01/15/2020 Trend CBC, stable (4) Hypertension Is this a current diagnosis for this admission?: No Plan: Stable (5) Sepsis Qualifiers: Sepsis type: methicillin resistant Staphylococcus aureus Sepsis acute organ dysfunction status: without acute organ dysfunction Qualified Code(s): A41.02 - Sepsis due to Methicillin resistant Staphylococcus aureus Is this a current diagnosis for this admission?: Yes Plan: Resolved; Per previous physician: "01/13/2020-patient came in with left heel wound, wound cultures are positive for MRSA receiving IV antibiotic therapy. White cell count is improving. May meet the criteria for sepsis." (6) Diabetes mellitus type 2 in obese Is this a current diagnosis for this admission?: No Plan: Per previous physician: "Decrease her dose of regular insulin as patient is getting 60 units of Lantus every 12 in addition to 15 units AC as well as sliding scale insulin. It a ppears that she actually had not been getting the a.m. 15 units on a regular basis. Her blood sugars are in the low 100 so have decided to decrease her insulin slightly just down to 12 units of Humalog AC we will continue to adjust as needed 01/07 will continue to monitor and adjust 01/09 Adjust insulin dose as her Blood sugars have been low 01/13/2020-patient has history of type 2 diabetes mellitus. Latest blood sugar is 89. Hemoglobin A1c is 13.4. Presently on Lantus 40 units subcu daily and insulin sliding scale. Diet compliance with medications discussed with the patient. 01/14/2020-patient has history of type 2 diabetes mellitus. Latest blood sugar is 101. Hemoglobin A1c is 13.1 point. Plan is to continue the present management at this time." (7) Morbid (severe) obesity due to excess calories Is this a current diagnosis for this admission?: No - Plan Summary Summary: Patient is yielding methicillin-resistant Staphylococcus aureus, enterococcus faecalis as well as gram-negative rods from her wounds. She is currently on cefepime day 3 presumably to cover the gram-negative fam possibly as well as enterococcus. Vancomycin has been discontinued. I think she probably can be safely placed on clindamycin once her trough for vancomycin is subtherapeutic. She can be placed on ampicillin or 3rd-generation cephalosporin for the enterococcus and gram-negative fam to simplify antibiotics. The plan is to continue with current surgical management as per general surgery 01/10 kidney function unfortunately remains poor and patient still anuric. Creatinine is up to 6.3 today. She had discussed weekend to see if she will make some improvement. We will continue to follow kidney function. Acidosis is improving, she remains anemic and we will check her vancomycin level with her next blood work 01/11She is yielding MRSA, Streptococcus as well as Peptostreptococcus from her wound cultures. Blood cultures negative. Vancomycin level will be obtained in a.m. Patient can be started on clindamycin or another appropriate agent for MRSA management if clinically indicated once her vancomycin trough levels is down. Meanwhile she is on day 7 of cefepime and will consider a 10-day regimen - Time Time Spent with patient: 25-34 minutes Medications reviewed and adjusted accordingly: Yes Anticipated Discharge Disposition: Home with Home Health Anticipated Discharge Timeframe: within 48 hours - Inpatient Certification Based on my medical assessment, after consideration of the patient's comorbidities, presenting symptoms, or acuity I expect that the services needed warrant INPATIENT care.: Yes I certify that my determination is in accordance with my understanding of Medicare's requirements for reasonable and necessary INPATIENT services [42 CFR 412.3e].: Yes Medical Necessity: Significant Comorbidiites Make Outpatient Treatment Too Risky, Need Close Monitoring Due to Risk of Patient Decompensation, Need for IV Antibiotics, Risk of Complication if Not Cared For in Hospital, Risk of Diagnosis Which Will Require Inpatient Eval/Care/Monitoring
[2020-01-15] MEDS: MELATONIN 5 MG TABLET PO SCH (22:33)
[2020-01-15] MEDS: ATORVASTATIN CALCIUM 40 MG TABLET PO SCH (22:33)
[2020-01-16] MEDS ORDERED: HEPARIN SOD (PORCINE) 1,000 UNIT/ML 10 ML VIAL IV PRN (05:00)
[2020-01-16] MEDS ORDERED: EPOETIN ALFA-EPBX 20,000 UNIT in SYRINGE, DISPOSABLE, 1 EACH IV PRN (05:00)
[2020-01-16] MEDS ORDERED: NORMAL SALINE 1000 ML 1,000 ML IV PRN (05:00)
[2020-01-16] MEDS: PANTOPRAZOLE SODIUM 40 MG TABLET.DR PO SCH (05:20)
[2020-01-16 06:12] LABS: ABSOLUTE BASOPHILS # (AUTO) 0.1 10^3/uL (0.0-0.2); ABSOLUTE EOSINOPHILS # (AUTO) 0.6 10^3/uL (0.0-0.6); ABSOLUTE LYMPHOCYTES (AUTO) 2.3 10^3/uL (0.5-4.7); ABSOLUTE MONOCYTES (AUTO) 0.7 10^3/uL (0.1-1.4); ABSOLUTE NEUT (AUTO) 6.3 10^3/uL (1.7-8.2); EOSINOPHILS % (AUTO) 6.1 % (0-6); HEMATOCRIT 26.3 % (36.0-47.0); HEMOGLOBIN 8.8 g/dL (12.0-15.5); LYMPHOCYTES % (AUTO) 23.3 % (13-45); MEAN CORPUSCULAR HEMOGLOBIN 28.9 pg (27.0-33.4); MEAN CORPUSCULAR HGB CONC 33.6 g/dL (32.0-36.0); MEAN CORPUSCULAR VOLUME 86 fl (80-97); MONOCYTES % (AUTO) 6.9 % (3-13); PLATELET COUNT 327 10^3/uL (150-450); RED BLOOD COUNT 3.05 10^6/uL (3.72-5.28); RED CELL DISTRIBUTION WIDTH 16.6 % (11.5-14.0); SEGMENTED NEUTROPHILS % (AUTO) 62.7 % (42-78); TOTAL CELLS COUNTED % (AUTO) 100 %
[2020-01-16 06:18] LABS: ANION GAP 10 (5-19); BLOOD UREA NITROGEN 38 mg/dL (7-20); CALCIUM 8.5 mg/dL (8.4-10.2); CARBON DIOXIDE 24 mmol/L (22-30); CHLORIDE 105 mmol/L (98-107); GLUCOSE 118 mg/dL (75-110); PHOSPHORUS 6.8 mg/dL (2.5-4.5); POTASSIUM 5.4 mmol/L (3.6-5.0)
[2020-01-16] MEDS: INSULIN LISPRO 100 UNIT/ML 3 ML VIAL SUBCUT SCH ×7 (09:13→23:33)
[2020-01-16] MEDS ORDERED: VANCOMYCIN HCL INJ 1000 MG VIAL IV SCH (10:00)
[2020-01-16] MEDS: MECLIZINE HCL 25 MG TABLET PO SCH ×2 (11:02→18:53)
[2020-01-16] MEDS: FAMOTIDINE 20 MG TABLET PO SCH (11:03)
[2020-01-16] MEDS: SERTRALINE HCL 50 MG TABLET PO SCH ×2 (11:03→18:54)
[2020-01-16] MEDS: INSULIN GLARGINE,HUM.REC.ANLOG 1,000 UNIT/10 ML VIAL SUBCUT SCH (11:04)
[2020-01-16] MEDS ORDERED: TUBERCULIN,PURIF.PROT.DERIV. 5 TU/0.1 ML TEST 1 ML VIAL ID ONE (13:00)
--- NOTE | 2020-01-16 14:26 | PDOC PROGRESS REPORT ---
Subjective Progress Note for:: 01/16/20 Reason For Visit: Patient seen today on dialysis. Undergoing dialysis without any issues. Vital signs are stable. Denies any history of chest pain or shortness of breath. Labs and medications were reviewed. She is back on vancomycin and she is therapeutic with trough levels at 18. Dialysis orders were reviewed with the treating dialysis nurse. She remains rather oliguric. She is scheduled to have a permacath insertion tomorrow prior to her discharge in the coming few days. Physical Exam Vital Signs: Temp Pulse Resp BP Pulse Ox 97.8 F 78 18 143/81 H 97 01/16/20 12:03 01/16/20 12:03 01/16/20 12:03 01/16/20 12:03 01/16/20 12:03 Intake & Output 01/15/20 01/16/20 01/17/20 06:59 06:59 06:59 Intake Total 1181 2550 Output Total 2400 300 Balance -1219 2250 Weight 165.6 kg 161.3 kg General appearance: PRESENT: no acute distress Respiratory exam: PRESENT: clear to auscultation armida, decreased breath sounds. ABSENT: crackles Cardiovascular exam: PRESENT: +S1, +S2 GI/Abdominal exam: PRESENT: normal bowel sounds, soft. ABSENT: organomegaly, tenderness Extremities exam: ABSENT: pedal edema Neurological exam: PRESENT: alert, awake, oriented to person, oriented to place Psychiatric exam: PRESENT: appropriate affect Results Laboratory Results: 01/16/20 05:30 01/16/20 05:30 01/16/20 01/16/20 05:30 05:30 WBC 10.0 RBC 3.05 L Hgb 8.8 L Hct 26.3 L MCV 86 MCH 28.9 MCHC 33.6 RDW 16.6 H Plt Count 327 Seg Neutrophils % 62.7 Sodium 139.3 Potassium 5.4 H Chloride 105 Carbon Dioxide 24 Anion Gap 10 BUN 38 H Creatinine 5.75 H Est GFR ( Amer) 9 L Glucose 118 H Calcium 8.5 Phosphorus 6.8 H 01/03/20 10:54 Troponin I < 0.012 Impressions: Foot X-Ray 01/03/20 11:17 IMPRESSION: 1. Cortical irregularity and lucency at the proximal base 5th digit proximal phalanx, possibly representing osteomyelitis. 2. Subcutaneous gas in the plantar soft tissues overlying the calcaneus. Clinical correlation for ulceration in this region recommended. Finding may represent necrotizing infection. Clinical correlation. Lower Extremity MRI 01/05/20 00:00 IMPRESSION: 1. Suspect mild reactive marrow edema in the calcaneus underlying a large ulcer. Doubt osteomyelitis but close follow-up is recommended. The should consist of surveillance followup radiographs predominantly with repeat MRI as needed. Chest X-Ray 01/05/20 12:24 IMPRESSION: No evidence for pneumothorax status post central line placement. Renal Ultrasound 01/07/20 00:00 IMPRESSION: Unable to verify normal blood flow in the right kidney. The study is otherwise unremarkable. The bladder was empty. Assessment & Plan - Diagnosis (1) MONO (acute kidney injury) Is this a current diagnosis for this admission?: Yes Plan: Currently oliguric. Secondary to combination of MONO from septic left foot ulcer/vancomycin toxicity. She currently undergoing dialysis through her temporary femoral catheter. Planned for scheduled PermCath insertion tomorrow as she is not yet showing meaningful signs of renal recovery. Plan for outpatient dialysis at [facility]. child daycare worker to arrange this. Plan to remove less than a liter of fluid as tolerated. Dialysis orders were reviewed with the treating dialysis nurse.. 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 Please dose medications for GFR of less than 20 cc/min. (3) Sepsis Qualifiers: Sepsis type: methicillin resistant Staphylococcus aureus Sepsis acute organ dysfunction status: without acute organ dysfunction Qualified Code(s): A41.02 - Sepsis due to Methicillin resistant Staphylococcus aureus Is this a current diagnosis for this admission?: Yes Plan: Stable. (4) Diabetes mellitus type 2 in obese Is this a current diagnosis for this admission?: No Plan: Apparently uncontrolled as OP. As per hospitalist. (5) Morbid (severe) obesity due to excess calories Is this a current diagnosis for this admission?: No Plan: Status quo. (6) Anemia Qualifiers: Anemia type: unspecified type Qualified Code(s): D64.9 - Anemia, unspecified Is this a current diagnosis for this admission?: No Plan: Of chronic disease. Getting erythropoietin on dialysis.
[2020-01-16] MEDS: FLUTICASONE/VILANTEROL 200-25 MCG/DOSE IH SCH (15:05)
--- NOTE | 2020-01-16 16:45 | PDOC PROGRESS REPORT ---
Subjective Subjective:: Per previous physician: "Patient denies any new complaints questions for me this morningPatient was admitted with sepsis secondary to left lower extremity cellulitis and diabetic foot ulcer status post surgical debridement with wound VAC in place. She does have a chronic right below-knee amputation. Patient denies any other complaints this morning. She was found to have vancomycin induced nephrotoxicity however this has since been discontinued. Kidney function is still rising with a creatinine at 4.79 today up from 0.62 on admission, BUN was 12 on admission and is currently 29. She is acidotic with a CO2 of 18 Kidney function noted to be worsening and at this point the plan is to initiate dialysis in a.m. 01/08 Cr now 6.8, acidotic, awaiting HD 01/09Dialyzed yesterday, for IVF today and dialysis in am Kidney function noted, still anuric 01/10 she received a second dialysis today. 01/11No new complaints 01/13/2020-patient is comfortably in the bed talking to the family members on the phone. Last hemodialysis on Tuesday. Latest creatinine is 6.27. Potassium is 4.6. Patient may need a dialysis session tomorrow. Came in with normal kidney function now in a kidney failure secondary to vancomycin toxicity. Vancomycin is on hold. Patient has a wound VAC on the left lower leg. And has a right B KA. 01/14/2020-patient is comfortable in the bed communicating well. Urinary output in the last 24 hours is more than 700. Him creatinine today 6.46. Patient is requesting to remove Victoria's catheter at this time." 01/15/2020 Patient still with markedly elevated creatinine, likely will need long-term dialysis. Discussed the case with nephrology today. ID consulted who recommended patient be treated with vancomycin IV and ciprofloxacin. Left foot culture growing MRSA, strep mitis/paralysis, anAerococcus, E faecalis, Proteus vulgaris. Patient has no new specific complaints today. blood culture is negative. 01/16/2020 Creatinine higher again, very likely patient will continue on dialysis long-term and nephrology is working on setting this up outpatient with [facility]. Patient will need to be on oral ciprofloxacin and IV vancomycin both renally dosed for a total of 6 weeks starting from January 02. Possible patient can be given vancomycin infusions immediately after dialysis at the dialysis center as this would negate the need for her to get a PICC line which could compromise shefali vasculature that may be needed for future dialysis access. Patient has no new complaints today. Blood pressure improved with dialysis. Reason For Visit: SEPSIS Physical Exam Vital Signs: Temp Pulse Resp BP Pulse Ox 97.8 F 78 18 143/81 H 97 01/16/20 12:03 01/16/20 12:03 01/16/20 12:03 01/16/20 12:03 01/16/20 12:03 Intake & Output 01/15/20 01/16/20 01/17/20 06:59 06:59 06:59 Intake Total 1181 2550 Output Total 2400 300 1500 Balance -1219 2250 -1500 Weight 165.6 kg 161.3 kg Exam: General appearance: PRESENT: no acute distress, well-developed, well-nourished, states she feels well today Head exam: PRESENT: atraumatic, normocephalic Eye exam: PRESENT: conjunctiva pink Mouth exam: PRESENT: moist Respiratory exam: PRESENT: clear to auscultation armida. ABSENT: rales, rhonchi, wheezes Cardiovascular exam: PRESENT: RRR. ABSENT: diastolic murmur, rubs, systolic murmur GI/Abdominal exam: PRESENT: normal bowel sounds, soft. ABSENT: distended, guarding, mass, organolmegaly, rebound, tenderness Neurological exam: PRESENT: alert, awake, oriented to person, oriented to place, oriented to time, oriented to situation Psychiatric exam: PRESENT: appropriate affect, normal mood Skin exam: PRESENT: dry, warm, other - Diabetic ulcer of left heel with wound VAC in place Results Laboratory Results: 01/16/20 05:30 01/16/20 05:30 01/16/20 01/16/20 05:30 05:30 WBC 10.0 RBC 3.05 L Hgb 8.8 L Hct 26.3 L MCV 86 MCH 28.9 MCHC 33.6 RDW 16.6 H Plt Count 327 Seg Neutrophils % 62.7 Sodium 139.3 Potassium 5.4 H Chloride 105 Carbon Dioxide 24 Anion Gap 10 BUN 38 H Creatinine 5.75 H Est GFR ( Amer) 9 L Glucose 118 H Calcium 8.5 Phosphorus 6.8 H 01/03/20 10:54 Troponin I < 0.012 Impressions: Foot X-Ray 01/03/20 11:17 IMPRESSION: 1. Cortical irregularity and lucency at the proximal base 5th digit proximal phalanx, possibly representing osteomyelitis. 2. Subcutaneous gas in the plantar soft tissues overlying the calcaneus. Clinical correlation for ulceration in this region recommended. Finding may represent necrotizing infection. Clinical correlation. Lower Extremity MRI 01/05/20 00:00 IMPRESSION: 1. Suspect mild reactive marrow edema in the calcaneus underlying a large ulcer. Doubt osteomyelitis but close follow-up is recommended. The should consist of surveillance followup radiographs predominantly with repeat MRI as needed. Chest X-Ray 01/05/20 12:24 IMPRESSION: No evidence for pneumothorax status post central line placement. Renal Ultrasound 01/07/20 00:00 IMPRESSION: Unable to verify normal blood flow in the right kidney. The study is otherwise unremarkable. The bladder was empty. Assessment and Plan - Diagnosis (1) Diabetic ulcer of heel Qualifiers: Diabetes mellitus type: type 2 Laterality: left Non-pressure ulcer stage: with other severity Qualified Code(s): E11.621 - Type 2 diabetes mellitus with foot ulcer; L97.428 - Non-pressure chronic ulcer of left heel and midfoot with other specified severity Is this a current diagnosis for this admission?: Yes Plan: Per previous physician: "MRI showed suspected mild reactive marrow edema in the calcaneus underlying a large ulcer; doubt osteomyelitis but close follow-up recommended with serial MRIs. Wound culture (01/06/2020) pending Wound culture (01/03/2020) MRSA and gram-positive cocci Wound culture (01/03/2020) MRSA, Enterococcus faecalis, gram-negative rods Blood cultures no growth to date. Surgery is consulted; greatly appreciate their assistance. Now status post multiple surgical debridements to the left heel; per op note wound would be a stage IV through subcutaneous tissue and to the muscle. Wound VAC in place; wound care per surgery expertise. Wound culture for January 05 yielding MRSA. Patient is currently off vancomycin due to toxicity. Will continue to monitor kidney function and restart antibiotics possibly Clindamycin Vanc level 28.2 01/13/2020-patient has left heel wound wound culture is growing MRSA. Blood cultures are negative. Patient has multiple surgical debridements. Wound VAC in place. Presently on IV cefepime every 12 hours. WBC count is 11,500 blood pressure is stable afebrile. 01/14/2020-patient is getting IV cefepime every 12 hours for wound cultures growing MRSA. Blood cultures are negative. Patient has multiple surgical debridements. Wound VAC in place." 01/15/2020 Consulted ID today and discussed the case with them in detail. They recommended patient complete antibiotic course with IV vancomycin and ciprofloxacin Will need PICC line and outpatient antibiotics arranged 01/16/2020 Continue total 6 weeks oral ciprofloxacin and IV vancomycin renally dosed, possible IV vancomycin can be given after each dialysis session and we could avoid needing PICC line which could compromise vasculature needed for future dialysis access (2) MONO (acute kidney injury) Is this a current diagnosis for this admission?: Yes Plan: Per previous physician: "Creatinine maximilian after HD Kidney function is at creatinine of 5.6 and BUN of 32 today. She is making urine. I am hopeful that her kidney function will continue to improve and kidney function will recover 01/13/2020-patient developed vancomycin induced nephrotoxicity. Last hemodialysis on Tuesday. Urinary output is 725 mL in the last 24 hours. Has a Victoria's catheter. Potassium is 4.6 creatinine 6.2 this morning most likely she needed dialysis tomorrow. Nephrology on board. 01/14/20-patient has vancomycin-induced nephrotoxicity last dialysis on Tuesday. Probably she may go for dialysis today. Urinary output is 775 mL in the last 24 hours. Serum creatinine today is 6.46 and bun is 43." 01/15/2020 Discussed case with nephrology, patient will likely need long-term dialysis of her urine output has not greatly improved by tomorrow Will need to be set up with outpatient dialysis at discharge 01/16/2020 Long-term dialysis needed, nephrology setting this up with [facility] outpatient (3) Anemia Qualifiers: Anemia type: unspecified type Qualified Code(s): D64.9 - Anemia, unspecified Is this a current diagnosis for this admission?: No (4) Hypertension Is this a current diagnosis for this admission?: No (5) Sepsis Qualifiers: Sepsis type: methicillin resistant Staphylococcus aureus Sepsis acute organ dysfunction status: without acute organ dysfunction Qualified Code(s): A41.02 - Sepsis due to Methicillin resistant Staphylococcus aureus Is this a current diagnosis for this admission?: Yes (6) Diabetes mellitus type 2 in obese Is this a current diagnosis for this admission?: No (7) Morbid (severe) obesity due to excess calories Is this a current diagnosis for this admission?: No - Plan Summary Summary: Patient is yielding methicillin-resistant Staphylococcus aureus, enterococcus faecalis as well as gram-negative rods from her wounds. She is currently on cefepime day 3 presumably to cover the gram-negative fam possibly as well as enterococcus. Vancomycin has been discontinued. I think she probably can be safely placed on clindamycin once her trough for vancomycin is subtherapeutic. She can be placed on ampicillin or 3rd-generation cephalosporin for the enterococcus and gram-negative fam to simplify antibiotics. The plan is to continue with current surgical management as per general surgery 01/10 kidney function unfortunately remains poor and patient still anuric. Creatinine is up to 6.3 today. She had discussed weekend to see if she will make some improvement. We will continue to follow kidney function. Acidosis is improving, she remains anemic and we will check her vancomycin level with her next blood work 01/11She is yielding MRSA, Streptococcus as well as Peptostreptococcus from her wound cultures. Blood cultures negative. Vancomycin level will be obtained in a.m. Patient can be started on clindamycin or another appropriate agent for MRSA management if clinically indicated once her vancomycin trough levels is down. Meanwhile she is on day 7 of cefepime and will consider a 10-day regimen - Time Time Spent with patient: 15-24 minutes Medications reviewed and adjusted accordingly: Yes Anticipated Discharge Disposition: Home with Home Health Anticipated Discharge Timeframe: within 48 hours - Inpatient Certification Based on my medical assessment, after consideration of the patient's comorbidities, presenting symptoms, or acuity I expect that the services needed warrant INPATIENT care.: Yes I certify that my determination is in accordance with my understanding of Medicare's requirements for reasonable and necessary INPATIENT services [42 CFR 412.3e].: Yes Medical Necessity: Significant Comorbidiites Make Outpatient Treatment Too Risky, Need Close Monitoring Due to Risk of Patient Decompensation, Risk of Complication if Not Cared For in Hospital, Risk of Diagnosis Which Will Require Inpatient Eval/Care/Monitoring
[2020-01-16] MEDS ORDERED: VANCOMYCIN HCL 2,000 MG in DEXTROSE 5%-WATER 500 ML IV ONE (18:00)
[2020-01-16] MEDS: CIPROFLOXACIN HCL 500 MG TABLET PO SCH (18:53)
--- NOTE | 2020-01-16 21:25 | Progress Note ---
Provider Note Provider Note: plan for permacath tomorrow. NPO after midnight
[2020-01-16] MEDS: MELATONIN 5 MG TABLET PO SCH (23:33)
[2020-01-16] MEDS: ATORVASTATIN CALCIUM 40 MG TABLET PO SCH (23:34)
[2020-01-16] MEDS: TRAZODONE HCL 50 MG TABLET PO PRN (23:34)
[2020-01-17] MEDS: PANTOPRAZOLE SODIUM 40 MG TABLET.DR PO SCH (05:52)
[2020-01-17] MEDS ORDERED: FENTANYL CITRATE INJ/PF 100 MCG/2 ML AMPUL ONE (07:00)
[2020-01-17] MEDS ORDERED: MIDAZOLAM 2 MG/2 ML INJ ONE (07:00)
[2020-01-17] MEDS ORDERED: ONDANSETRON HCL INJ/PF 4 MG/2 ML SDV ONE (07:00)
[2020-01-17] MEDS ORDERED: PROPOFOL INJ 200 MG/20 ML VIAL IV ONE (07:00)
[2020-01-17] MEDS ORDERED: LIDOCAINE 2% INJ-PF (20 MG/ML) 10 ML AMPUL ONE (07:00)
[2020-01-17] MEDS ORDERED: PROMETHAZINE HCL INJ 25 MG/1 ML VIAL IV PRN ×2 (08:23)
[2020-01-17] MEDS ORDERED: ONDANSETRON HCL INJ/PF 4 MG/2 ML SDV IV PRN ×2 (08:23→10:30)
[2020-01-17] MEDS ORDERED: FENTANYL CITRATE INJ/PF 100 MCG/2 ML AMPUL IV PRN ×3 (08:23)
[2020-01-17] MEDS ORDERED: DIPHENHYDRAMINE HCL 50 MG/ML VIAL IV PRN (08:23)
[2020-01-17] MEDS ORDERED: MEPERIDINE HCL/PF INJ 25 MG/1 ML DISP.SYRIN IV PRN (08:23)
[2020-01-17] MEDS ORDERED: OXYCODONE-ACETAMINOPHEN 5-325 MG TABLET PO PRN ×2 (08:23)
[2020-01-17] MEDS ORDERED: HEPARIN SOD (PORCINE) 1,000 UNIT/ML 1 ML VIAL ONE (08:56)
[2020-01-17] MEDS ORDERED: LIDOCAINE 1% INJ-PF (10 MG/ML) 30 ML SDV ONE (08:57)
[2020-01-17] MEDS: INSULIN LISPRO 100 UNIT/ML 3 ML VIAL SUBCUT SCH ×7 (09:11→21:53)
[2020-01-17] MEDS ORDERED: CEFAZOLIN INJ 1 GM VIAL ONE (09:12)
[2020-01-17] MEDS ORDERED: ONDANSETRON 4 MG TAB.RAPDIS PO PRN (10:30)
--- NOTE | 2020-01-17 10:55 | Operative Report ---
Nonrecallable Operative Report DATE OF SURGERY: 01/17/20 PREOPERATIVE DIAGNOSIS: Renal failure POSTOPERATIVE DIAGNOSIS: Renal failure OPERATION: Permacath placement left chest SURGEON: MARILIA TATUM ANESTHESIA: Moderate Sedation TISSUE REMOVED OR ALTERED: None COMPLICATIONS: Unable to place permacath left chest secondary to obesity and improper curvature of the catheter ESTIMATED BLOOD LOSS: 300 cc INTRAOPERATIVE FINDINGS: See note PROCEDURE: Laparoscopic repair of ventral hernia none 0Ventral Percocet Percocet patient brought to the operating awake alert stable condition placed on the operative table in a supine position given IV sedation the left neck and chest were prepped and draped in usual sterile fashion we utilize left side because the right side had a central line in the subclavian vein and it was her only venous access at this time. Using 1% lidocaine we anesthetized the skin over the internal jugular vein and then accessed the vein with a 16-gauge needle through the needle a wire was placed which was confirmed the superior vena cava through the brachiocephalic vein on fluoroscopy. Once this was done the serial dilators were utilized to dilate a tract over the wire. The tear-away introducer was then placed. A point was picked on the left anterior chest wall where we anesthetized the skin with 1% lidocaine plain we made a small incision for the permacath catheter was tunneled from that cyst skin incision on the left anterior chest wall to the neck incision. The catheter was then placed in through the tear-away introducer which was torn away. It was placed it was noted on fluoroscopy to be in the superior vena cava just below the brachiocephalic bifurcation. Upon trying the catheter withdrawal it was noted to be unsatisfactory and there was a slight kink at the internal jugular vein site. Despite multiple attempts we are unable to get a correct curve of the catheter. Therefore at this point the procedure was abandoned and we will return the following day for catheter insertion on the right side once better venous access is obtained for this patient. She will need to have th right sided central line removed prior to PermCath placement on the right side. Estimated blood loss is approximately 300 cc sponge needle counts correct x2 the patient was transferred recovery in stable condition
[2020-01-17] MEDS ORDERED: NORMAL SALINE 250 ML IV PRN ×2 (11:04)
[2020-01-17 11:39] LABS: ABSOLUTE BASOPHILS # (AUTO) 0.1 10^3/uL (0.0-0.2); ABSOLUTE EOSINOPHILS # (AUTO) 0.5 10^3/uL (0.0-0.6); ABSOLUTE LYMPHOCYTES (AUTO) 1.8 10^3/uL (0.5-4.7); ABSOLUTE MONOCYTES (AUTO) 0.6 10^3/uL (0.1-1.4); ABSOLUTE NEUT (AUTO) 5.5 10^3/uL (1.7-8.2); BASOPHILS % (AUTO) 1.5 % (0-2); EOSINOPHILS % (AUTO) 5.7 % (0-6); HEMATOCRIT 26.6 % (36.0-47.0); HEMOGLOBIN 8.7 g/dL (12.0-15.5); LYMPHOCYTES % (AUTO) 20.8 % (13-45); MEAN CORPUSCULAR HEMOGLOBIN 28.5 pg (27.0-33.4); MEAN CORPUSCULAR HGB CONC 32.7 g/dL (32.0-36.0); MEAN CORPUSCULAR VOLUME 87 fl (80-97); MONOCYTES % (AUTO) 7.1 % (3-13); PLATELET COUNT 286 10^3/uL (150-450); RED BLOOD COUNT 3.06 10^6/uL (3.72-5.28); RED CELL DISTRIBUTION WIDTH 16.6 % (11.5-14.0); SEGMENTED NEUTROPHILS % (AUTO) 64.9 % (42-78); TOTAL CELLS COUNTED % (AUTO) 100 %; WHITE BLOOD COUNT 8.5 10^3/uL (4.0-10.5)
[2020-01-17] MEDS: SERTRALINE HCL 50 MG TABLET PO SCH ×2 (12:46→18:58)
[2020-01-17] MEDS: INSULIN GLARGINE,HUM.REC.ANLOG 1,000 UNIT/10 ML VIAL SUBCUT SCH (12:53)
[2020-01-17] MEDS: FLUTICASONE/VILANTEROL 200-25 MCG/DOSE IH SCH (12:53)
[2020-01-17] MEDS: MECLIZINE HCL 25 MG TABLET PO SCH ×2 (12:53→18:58)
[2020-01-17] MEDS: FAMOTIDINE 20 MG TABLET PO SCH (12:54)
[2020-01-17] MEDS ORDERED: FAMOTIDINE 20 MG TABLET PO ONE (13:00)
[2020-01-17] MEDS ORDERED: MECLIZINE HCL 25 MG TABLET PO ONE (13:00)
[2020-01-17] MEDS ORDERED: SERTRALINE HCL 50 MG TABLET PO ONE (13:00)
--- NOTE | 2020-01-17 14:28 | RADIOLOGY REPORT (SQ) ---
EXAM DESCRIPTION: NO CHG FLUORO IMAGES COMPLETED DATE/TIME: 01/17/2020 1:53 pm REASON FOR STUDY: ATTEMPTED LEFT PERMCATH PLACEMENT ASSISTED WITH FLUORO IN OR COMPARISON: None. FLUOROSCOPY TIME: 5.8 minutes 1 images saved to PACS. TECHNIQUE: Intra-operative images acquired during surgical procedure to evaluate progress. NUMBER OF IMAGES: 1 LIMITATIONS: None. FINDINGS: Image centered over right central line with tip overlying SVC. IMPRESSION: IMAGE(S) OBTAINED DURING PROCEDURE. COMMENT: Quality ID [id number]: Final reports for procedures using fluoroscopy that document radiation exp osure indices, or exposure time and number of fluorographic images (if radiation exposure indices are not available) Please consult full operative report of the attending physician for description of the procedure. TECHNICAL DOCUMENTATION: JOB ID: [id number] 2010 [employer]- All Rights Reserved Reading location - IP/workstation name: [email or web address]
[2020-01-17] MEDS: CIPROFLOXACIN HCL 500 MG TABLET PO SCH (18:58)
--- NOTE | 2020-01-17 19:17 | PDOC PROGRESS REPORT ---
Subjective Subjective:: Per previous physician: "Patient denies any new complaints questions for me this morningPatient was admitted with sepsis secondary to left lower extremity cellulitis and diabetic foot ulcer status post surgical debridement with wound VAC in place. She does have a chronic right below-knee amputation. Patient denies any other complaints this morning. She was found to have vancomycin induced nephrotoxicity however this has since been discontinued. Kidney function is still rising with a creatinine at 4.79 today up from 0.62 on admission, BUN was 12 on admission and is currently 29. She is acidotic with a CO2 of 18 Kidney function noted to be worsening and at this point the plan is to initiate dialysis in a.m. 01/08 Cr now 6.8, acidotic, awaiting HD 01/09Dialyzed yesterday, for IVF today and dialysis in am Kidney function noted, still anuric 01/10 she received a second dialysis today. 01/11No new complaints 01/13/2020-patient is comfortably in the bed talking to the family members on the phone. Last hemodialysis on Tuesday. Latest creatinine is 6.27. Potassium is 4.6. Patient may need a dialysis session tomorrow. Came in with normal kidney function now in a kidney failure secondary to vancomycin toxicity. Vancomycin is on hold. Patient has a wound VAC on the left lower leg. And has a right B KA. 01/14/2020-patient is comfortable in the bed communicating well. Urinary output in the last 24 hours is more than 700. Him creatinine today 6.46. Patient is requesting to remove Victoria's catheter at this time." 01/15/2020 Patient still with markedly elevated creatinine, likely will need long-term dialysis. Discussed the case with nephrology today. ID consulted who recommended patient be treated with vancomycin IV and ciprofloxacin. Left foot culture growing MRSA, strep mitis/paralysis, anAerococcus, E faecalis, Proteus vulgaris. Patient has no new specific complaints today. blood culture is negative. 01/16/2020 Creatinine higher again, very likely patient will continue on dialysis long-term and nephrology is working on setting this up outpatient with [facility]. Patient will need to be on oral ciprofloxacin and IV vancomycin both renally dosed for a total of 6 weeks starting from January 02. Possible patient can be given vancomycin infusions immediately after dialysis at the dialysis center as this would negate the need for her to get a PICC line which could compromise shefali vasculature that may be needed for future dialysis access. Patient has no new complaints today. Blood pressure improved with dialysis. 01/17/[address] Salas today regarding patient having a unsuccessful line placement in her left neck today for dialysis catheter, reportedly losing 250 cc of blood approximately. Dr. Salas is ordered her 1 unit of PRBC, recheck her hemoglobin afterwards. Plan to transfuse additional units PRBC if she is below 7 hemoglobin. Patient has no new complaints today. She is continued on antibiotics. If procedure successful tomorrow and patient feels up to it, she could be discharged to [facility]. She is in agreement with this plan assuming she is doing well. No new complaints. Reason For Visit: SEPSIS Physical Exam Vital Signs: Temp Pulse Resp BP Pulse Ox 97.3 F 75 18 143/73 H 95 01/17/20 16:06 01/17/20 16:06 01/17/20 16:06 01/17/20 16:06 01/17/20 16:06 Intake & Output 01/16/20 01/17/20 01/18/20 06:59 06:59 06:59 Intake Total 2550 1062 995 Output Total 300 1500 270 Balance 2250 -438 725 Weight 161.3 kg 165.1 kg Exam: General appearance: PRESENT: no acute distress, well-developed, well-nourished, states she tolerated the procedure well even though her line was not placed successfully Head exam: PRESENT: atraumatic, normocephalic Eye exam: PRESENT: conjunctiva pink Mouth exam: PRESENT: moist Respiratory exam: PRESENT: clear to auscultation armida. ABSENT: rales, rhonchi, wheezes Cardiovascular exam: PRESENT: RRR. ABSENT: diastolic murmur, rubs, systolic murmur GI/Abdominal exam: PRESENT: normal bowel sounds, soft. ABSENT: distended, guarding, mass, organolmegaly, rebound, tenderness Neurological exam: PRESENT: alert, awake, oriented to person, oriented to place, oriented to time, oriented to situation Psychiatric exam: PRESENT: appropriate affect, normal mood Skin exam: PRESENT: dry, warm, other - Diabetic ulcer of left heel with wound VAC in place Results Laboratory Results: 01/17/20 11:24 01/16/20 05:30 01/17/20 01/17/20 11:24 11:24 WBC 8.5 RBC 3.06 L Hgb 8.7 L Hct 26.6 L MCV 87 MCH 28.5 MCHC 32.7 RDW 16.6 H Plt Count 286 Seg Neutrophils % 64.9 Blood Type A POSITIVE Antibody Screen NEGATIVE 01/03/20 10:54 Troponin I < 0.012 Impressions: Foot X-Ray 01/03/20 11:17 IMPRESSION: 1. Cortical irregularity and lucency at the proximal base 5th digit proximal phalanx, possibly representing osteomyelitis. 2. Subcutaneous gas in the plantar soft tissues overlying the calcaneus. Clinical correlation for ulceration in this region recommended. Finding may represent necrotizing infection. Clinical correlation. Lower Extremity MRI 01/05/20 00:00 IMPRESSION: 1. Suspect mild reactive marrow edema in the calcaneus underlying a large ulcer. Doubt osteomyelitis but close follow-up is recommended. The should consist of surveillance followup radiographs predominantly with repeat MRI as needed. Chest X-Ray 01/05/20 12:24 IMPRESSION: No evidence for pneumothorax status post central line placement. Renal Ultrasound 01/07/20 00:00 IMPRESSION: Unable to verify normal blood flow in the right kidney. The study is otherwise unremarkable. The bladder was empty. Fluoroscopy 01/17/20 00:00 IMPRESSION: IMAGE(S) OBTAINED DURING PROCEDURE. Assessment and Plan - Diagnosis (1) Diabetic ulcer of heel Qualifiers: Diabetes mellitus type: type 2 Laterality: left Non-pressure ulcer stage: with other severity Qualified Code(s): E11.621 - Type 2 diabetes mellitus with foot ulcer; L97.428 - Non-pressure chronic ulcer of left heel and midfoot with other specified severity Is this a current diagnosis for this admission?: Yes Plan: Per previous physician: "MRI showed suspected mild reactive marrow edema in the calcaneus underlying a large ulcer; doubt osteomyelitis but close follow-up recommended with serial MRIs. Wound culture (01/06/2020) pending Wound culture (01/03/2020) MRSA and gram-positive cocci Wound culture (01/03/2020) MRSA, Enterococcus faecalis, gram-negative rods Blood cultures no growth to date. Surgery is consulted; greatly appreciate their assistance. Now status post multiple surgical debridements to the left heel; per op note wound would be a stage IV through subcutaneous tissue and to the muscle. Wound VAC in place; wound care per surgery expertise. Wound culture for January 05 yielding MRSA. Patient is currently off vancomycin due to toxicity. Will continue to monitor kidney function and restart antibiotics possibly Clindamycin Vanc level 28.2 01/13/2020-patient has left heel wound wound culture is growing MRSA. Blood cultures are negative. Patient has multiple surgical debridements. Wound VAC in place. Presently on IV cefepime every 12 hours. WBC count is 11,500 blood pressure is stable afebrile. 01/14/2020-patient is getting IV cefepime every 12 hours for wound cultures growing MRSA. Blood cultures are negative. Patient has multiple surgical debridements. Wound VAC in place." 01/15/2020 Consulted ID today and discussed the case with them in detail. They recommended patient complete antibiotic course with IV vancomycin and ciprofloxacin Will need PICC line and outpatient antibiotics arranged 01/16/2020 Continue total 6 weeks oral ciprofloxacin and IV vancomycin renally dosed, possible IV vancomycin can be given after each dialysis session and we could avoid needing PICC line which could compromise vasculature needed for future dialysis access (2) MONO (acute kidney injury) Is this a current diagnosis for this admission?: Yes Plan: Per previous physician: "Creatinine maximilian after HD Kidney function is at creatinine of 5.6 and BUN of 32 today. She is making urine. I am hopeful that her kidney function will continue to improve and kid titi function will recover 01/13/2020-patient developed vancomycin induced nephrotoxicity. Last hemo dialysis on Tuesday. Urinary output is 725 mL in the last 24 hours. Has a Victoria's catheter. Potassium is 4.6 creatinine 6.2 this morning most likely she needed dialysis tomorrow. Nephrology on board. 01/14/20-patient has vancomycin-induced nephrotoxicity last dialysis on Tuesday. Probably she may go for dialysis today. Urinary output is 775 mL in the last 24 hours. Serum creatinine today is 6.46 and bun is 43." 01/15/2020 Discussed case with nephrology, patient will likely need long-term dialysis of her urine output has not greatly improved by tomorrow Will need to be set up with outpatient dialysis at discharge 01/16/2020 Long-term dialysis needed, nephrology setting this up with [facility] outpatient 01/16/2022 Long-term dialysis catheter attempted to be placed in the left neck by Dr. Salas but torturous vasculature proved to make this unsuccessful, patient lost approximately 250 cc of blood and was transfused 1 unit PRBC Reattempt placement of long-term dialysis catheter and right side neck tomorrow, n.p.o. at midnight tonight (3) Anemia Qualifiers: Anemia type: unspecified type Qualified Code(s): D64.9 - Anemia, unspecified Is this a current diagnosis for this admission?: No (4) Hypertension Is this a current diagnosis for this admission?: No (5) Sepsis Qualifiers: Sepsis type: methicillin resistant Staphylococcus aureus Sepsis acute organ dysfunction status: without acute organ dysfunction Qualified Code(s): A41.02 - Sepsis due to Methicillin resistant Staphylococcus aureus Is this a current diagnosis for this admission?: Yes (6) Diabetes mellitus type 2 in obese Is this a current diagnosis for this admission?: No (7) Morbid (severe) obesity due to excess calories Is this a current diagnosis for this admission?: No - Plan Summary Summary: Patient is yielding methicillin-resistant Staphylococcus aureus, enterococcus faecalis as well as gram-negative rods from her wounds. She is currently on cefepime day 3 presumably to cover the gram-negative fam possibly as well as enterococcus. Vancomycin has been discontinued. I think she probably can be safely placed on clindamycin once her trough for vancomycin is subtherapeutic. She can be placed on ampicillin or 3rd-generation cephalosporin for the enterococcus and gram-negative fam to simplify antibiotics. The plan is to continue with current surgical management as per general surgery 01/10 kidney function unfortunately remains poor and patient still anuric. Creatinine is up to 6.3 today. She had discussed weekend to see if she will make some improvement. We will continue to follow kidney function. Acidosis is improving, she remains anemic and we will check her vancomycin level with her next blood work 01/11She is yielding MRSA, Streptococcus as well as Peptostreptococcus from her wound cultures. Blood cultures negative. Vancomycin level will be obtained in a.m. Patient can be started on clindamycin or another appropriate agent for MRSA management if clinically indicated once her vancomycin trough levels is down. Meanwhile she is on day 7 of cefepime and will consider a 10-day regimen - Time Time Spent with patient: 25-34 minutes Anticipated Discharge Disposition[facility] Anticipated Discharge Timeframe: within 24 hours - Inpatient Certification Based on my medical assessment, after consideration of the patient's comorbidities, presenting symptoms, or acuity I expect that the services needed warrant INPATIENT care.: Yes I certify that my determination is in accordance with my understanding of Medicare's requirements for reasonable and necessary INPATIENT services [42 CFR 412.3e].: Yes Medical Necessity: Significant Comorbidiites Make Outpatient Treatment Too Risky, Need Close Monitoring Due to Risk of Patient Decompensation, Need for IV Antibiotics, Need for Surgery, Risk of Complication if Not Cared For in Hospital, Risk of Diagnosis Which Will Require Inpatient Eval/Care/Monitoring
[2020-01-17 20:27] LABS: ABSOLUTE BASOPHILS # (AUTO) 0.1 10^3/uL (0.0-0.2); ABSOLUTE EOSINOPHILS # (AUTO) 0.5 10^3/uL (0.0-0.6); ABSOLUTE LYMPHOCYTES (AUTO) 1.8 10^3/uL (0.5-4.7); ABSOLUTE MONOCYTES (AUTO) 0.6 10^3/uL (0.1-1.4); ABSOLUTE NEUT (AUTO) 6.7 10^3/uL (1.7-8.2); BASOPHILS % (AUTO) 1.3 % (0-2); EOSINOPHILS % (AUTO) 5.1 % (0-6); HEMATOCRIT 27.6 % (36.0-47.0); HEMOGLOBIN 9.1 g/dL (12.0-15.5); LYMPHOCYTES % (AUTO) 18.3 % (13-45); MEAN CORPUSCULAR HEMOGLOBIN 28.6 pg (27.0-33.4); MEAN CORPUSCULAR HGB CONC 32.9 g/dL (32.0-36.0); MEAN CORPUSCULAR VOLUME 87 fl (80-97); PLATELET COUNT 251 10^3/uL (150-450); RED BLOOD COUNT 3.18 10^6/uL (3.72-5.28); RED CELL DISTRIBUTION WIDTH 16.5 % (11.5-14.0); SEGMENTED NEUTROPHILS % (AUTO) 69.3 % (42-78); TOTAL CELLS COUNTED % (AUTO) 100 %; WHITE BLOOD COUNT 9.7 10^3/uL (4.0-10.5)
[2020-01-17] MEDS: ATORVASTATIN CALCIUM 40 MG TABLET PO SCH (21:52)
[2020-01-17] MEDS: MELATONIN 5 MG TABLET PO SCH (21:52)
[2020-01-18] MEDS ORDERED: EPOETIN ALFA-EPBX 10,000 UNIT in SYRINGE, DISPOSABLE, 1 EACH IV PRN (05:00)
[2020-01-18] MEDS ORDERED: HEPARIN SOD (PORCINE) 1,000 UNIT/ML 10 ML VIAL IV PRN (05:00)
[2020-01-18] MEDS: PANTOPRAZOLE SODIUM 40 MG TABLET.DR PO SCH (06:20)
[2020-01-18] MEDS ORDERED: MIDAZOLAM 2 MG/2 ML INJ ONE (06:24)
[2020-01-18] MEDS ORDERED: KETAMINE HCL INJ 500 MG/10 ML VIAL ONE (06:24)
[2020-01-18] MEDS ORDERED: FENTANYL CITRATE INJ/PF 100 MCG/2 ML AMPUL ONE (06:24)
[2020-01-18] MEDS ORDERED: PROPOFOL INJ 200 MG/20 ML VIAL IV ONE (06:24)
[2020-01-18 07:13] LABS: ABSOLUTE BASOPHILS # (AUTO) 0.1 10^3/uL (0.0-0.2); ABSOLUTE EOSINOPHILS # (AUTO) 0.5 10^3/uL (0.0-0.6); ABSOLUTE LYMPHOCYTES (AUTO) 1.3 10^3/uL (0.5-4.7); ABSOLUTE MONOCYTES (AUTO) 0.6 10^3/uL (0.1-1.4); BASOPHILS % (AUTO) 1.2 % (0-2); EOSINOPHILS % (AUTO) 5.5 % (0-6); HEMATOCRIT 29.9 % (36.0-47.0); HEMOGLOBIN 9.9 g/dL (12.0-15.5); LYMPHOCYTES % (AUTO) 13.7 % (13-45); MEAN CORPUSCULAR HEMOGLOBIN 28.9 pg (27.0-33.4); MEAN CORPUSCULAR HGB CONC 33.1 g/dL (32.0-36.0); MEAN CORPUSCULAR VOLUME 87 fl (80-97); MONOCYTES % (AUTO) 6.1 % (3-13); PLATELET COUNT 296 10^3/uL (150-450); RED BLOOD COUNT 3.44 10^6/uL (3.72-5.28); RED CELL DISTRIBUTION WIDTH 17.1 % (11.5-14.0); SEGMENTED NEUTROPHILS % (AUTO) 73.5 % (42-78); TOTAL CELLS COUNTED % (AUTO) 100 %; WHITE BLOOD COUNT 9.5 10^3/uL (4.0-10.5)
[2020-01-18 07:27] LABS: ANION GAP 9 (5-19); BLOOD UREA NITROGEN 32 mg/dL (7-20); CALCIUM 8.4 mg/dL (8.4-10.2); CARBON DIOXIDE 25 mmol/L (22-30); CHLORIDE 103 mmol/L (98-107); GLUCOSE 132 mg/dL (75-110); POTASSIUM 4.7 mmol/L (3.6-5.0)
[2020-01-18] MEDS: INSULIN LISPRO 100 UNIT/ML 3 ML VIAL SUBCUT SCH ×7 (09:09→21:37)
[2020-01-18] MEDS: FLUTICASONE/VILANTEROL 200-25 MCG/DOSE IH SCH (11:00)
[2020-01-18] MEDS: MECLIZINE HCL 25 MG TABLET PO SCH ×2 (11:00→17:39)
[2020-01-18] MEDS: INSULIN GLARGINE,HUM.REC.ANLOG 1,000 UNIT/10 ML VIAL SUBCUT SCH (11:01)
[2020-01-18] MEDS ORDERED: HEPARIN SODIUM,PORCINE/NS/PF 0 UNIT/0 ML RTUINJ IV ONE (11:28)
[2020-01-18] MEDS ORDERED: BUPIVACAINE INJ/PF LIPOSOME/PF 266 MG/20 ML SDV ONE (11:29)
--- NOTE | 2020-01-18 11:45 | PDOC PROGRESS REPORT ---
Subjective Progress Note for:: 01/18/20 Reason For Visit: Patient seen in the hospital today on dialysis. She is undergoing dialysis without any issues. She had an unsuccessful left side IJ catheter placement yesterday by Dr. Salas which also led to some blood loss for which she was transfused. She denies any complaints of neck pains or headaches. Denies any complaints of chest pain or shortness of breath. Vital signs are stable. Labs and medications were reviewed. Dialysis orders were reviewed with the treating dialysis nurse.She is slated to go to the OR today postdialysis for a right IJ placement prior to her transfer [facility]. Physical Exam Vital Signs: Temp Pulse Resp BP Pulse Ox 97.9 F 98 18 168/80 H 91 L 01/18/20 04:08 01/18/20 04:08 01/18/20 04:08 01/18/20 04:08 01/18/20 04:08 Intake & Output 01/17/20 01/18/20 01/19/20 06:59 06:59 06:59 Intake Total 1062 995 550 Output Total 4068 428 1642 Balance -438 725 -450 Weight 165.1 kg 165.3 kg General appearance: PRESENT: no acute distress Respiratory exam: PRESENT: clear to auscultation armida, decreased breath sounds. ABSENT: crackles Cardiovascular exam: PRESENT: +S1, +S2 GI/Abdominal exam: PRESENT: normal bowel sounds, soft. ABSENT: organomegaly, tenderness Extremities exam: ABSENT: pedal edema Neurological exam: PRESENT: alert, awake, oriented to person, oriented to place Results Laboratory Results: 01/18/20 06:50 01/18/20 06:50 01/17/20 01/17/20 01/17/20 11:24 11:24 19:45 WBC 8.5 9.7 RBC 3.06 L 3.18 L Hgb 8.7 L 9.1 L Hct 26.6 L 27.6 L MCV 87 87 MCH 28.5 28.6 MCHC 32.7 32.9 RDW 16.6 H 16.5 H Plt Count 286 251 Seg Neutrophils % 64.9 69.3 Sodium Potassium Chloride Carbon Dioxide Anion Gap BUN Creatinine Est GFR ( Amer) Glucose Calcium Blood Type A POSITIVE Antibody Screen NEGATIVE 01/18/20 01/18/20 06:50 06:50 WBC 9.5 RBC 3.44 L Hgb 9.9 L Hct 29.9 L MCV 87 MCH 28.9 MCHC 33.1 RDW 17.1 H Plt Count 296 Seg Neutrophils % 73.5 Sodium 137.2 Potassium 4.7 Chloride 103 Carbon Dioxide 25 Anion Gap 9 BUN 32 H Creatinine 5.02 H Est GFR ( Amer) 11 L Glucose 132 H Calcium 8.4 Blood Type Antibody Screen 01/03/20 10:54 Troponin I < 0.012 Impressions: Foot X-Ray 01/03/20 11:17 IMPRESSION: 1. Cortical irregularity and lucency at the proximal base 5th digit proximal phalanx, possibly representing osteomyelitis. 2. Subcutaneous gas in the plantar soft tissues overlying the calcaneus. Clinical correlation for ulceration in this region recommended. Finding may represent necrotizing infection. Clinical correlation. Lower Extremity MRI 01/05/20 00:00 IMPRESSION: 1. Suspect mild reactive marrow edema in the calcaneus underlying a large ulcer. Doubt osteomyelitis but close follow-up is recommended. The should consist of surveillance followup radiographs predominantly with repeat MRI as needed. Chest X-Ray 01/05/20 12:24 IMPRESSION: No evidence for pneumothorax status post central line placement. Renal Ultrasound 01/07/20 00:00 IMPRESSION: Unable to verify normal blood flow in the right kidney. The study is otherwise unremarkable. The bladder was empty. Fluoroscopy 01/17/20 00:00 IMPRESSION: IMAGE(S) OBTAINED DURING PROCEDURE. Assessment & Plan - Diagnosis (1) MONO (acute kidney injury) Is this a current diagnosis for this admission?: Yes Plan: Currently oliguric. Secondary to combination of MONO from septic left foot ulcer/vancomycin toxicity. She currently undergoing dialysis through her temporary femoral catheter. Unsuccessful left IJ PermCath placement yesterday which also led to some blood loss for which she had transfusion. She is now posted for a right IJ PermCath placement postdialysis today. Plan for outpatient dialysis at [facility]. Plan to remove less than a liter of fluid as tolerated. Dialysis orders were reviewed with the treating dialysis nurse. Please make sure that her temporary femoral catheter is removed after successful placement of right IJ prior to her transfer to the [facility] (2) Diabetic ulcer of heel Qualifiers: Diabetes mellitus type: type 2 Laterality: left Non-pressure ulcer stage: with other severity Qualified Code(s): E11.621 - Type 2 diabetes mellitus with foot ulcer; L97.428 - Non-pressure chronic ulcer of left heel and midfoot with other specified severity Is this a current diagnosis for this admission?: Yes Plan: Being managed by surgeons and hospitalist. Please dose medications for GFR of less than 20 cc/min. (3) Sepsis Qualifiers: Sepsis type: methicillin resistant Staphylococcus aureus Sepsis acute organ dysfunction status: without acute organ dysfunction Qualified Code(s): A41.02 - Sepsis due to Methicillin resistant Staphylococcus aureus Is this a current diagnosis for this admission?: Yes Plan: Stable. (4) Diabetes mellitus type 2 in obese Is this a current diagnosis for this admission?: No Plan: Apparently uncontrolled as OP. As per hospitalist. (5) Morbid (severe) obesity due to excess calories Is this a current diagnosis for this admission?: No Plan: Status quo. (6) Anemia Qualifiers: Anemia type: unspecified type Qualified Code(s): D64.9 - Anemia, unspec ified Is this a current diagnosis for this admission?: No Plan: Of chronic disease. Getting erythropoietin on dialysis.
[2020-01-18] MEDS ORDERED: LIDOCAINE 1% INJ-PF (10 MG/ML) 30 ML SDV ONE (12:09)
[2020-01-18] MEDS ORDERED: CEFAZOLIN INJ 1 GM VIAL ONE (12:23)
[2020-01-18] MEDS ORDERED: PROMETHAZINE HCL INJ 25 MG/1 ML VIAL IV PRN ×2 (12:42)
[2020-01-18] MEDS ORDERED: FENTANYL CITRATE INJ/PF 100 MCG/2 ML AMPUL IV PRN ×3 (12:42)
[2020-01-18] MEDS ORDERED: DIPHENHYDRAMINE HCL 50 MG/ML VIAL IV PRN (12:42)
[2020-01-18] MEDS ORDERED: MEPERIDINE HCL/PF INJ 25 MG/1 ML DISP.SYRIN IV PRN (12:42)
--- NOTE | 2020-01-18 12:56 | Operative Report ---
Nonrecallable Operative Report DATE OF SURGERY: 01/18/20 PREOPERATIVE DIAGNOSIS: renal failure POSTOPERATIVE DIAGNOSIS: renal failure OPERATION: permacath placement SURGEON: MARILIA TATUM ANESTHESIA: GA TISSUE REMOVED OR ALTERED: none COMPLICATIONS: none ESTIMATED BLOOD LOSS: 25cc INTRAOPERATIVE FINDINGS: see note PROCEDURE: Brought to the operating when awake alert stable condition placed on the upper table supine position and given IV sedation. After appropriate timeout and site verification the procedure commenced. The right chest and right neck were prepped and draped in usual sterile fashion. The patient had a triple-lumen subclavian line in the right anterior chest wall which was removed prior to prepping. Using a 16-gauge needle the right internal jugular vein was accessed and a wire was placed through the needle. This was confirmed in the superior vena cava on fluoroscopy. The serial dilators supplied with the PermCath kit were utilized over the wire to dilate the tract. The tear-away introducer was then placed over the wire into the superior vena cava. A point was then picked on the left anterior chest wall which was anesthetized with 1% lidocaine plain. Using a 28 cm cuffed PermCath the point was picked on the left anterior chest wall where a small incision was made with a 15 blade and then the catheter was tunneled from that point to the internal jugular vein stick site. The end of the catheter was then placed through the tear-away introducer into the superior vena cava under fluoroscopy and the tear-away introducer was torn away. The catheter was then pulled back onto the left anterior chest wall where the cuff was underneath the skin just proximal to the exit site. Catheter easily withdrew and flushed heparinized saline solution. At this point the catheter was examined under fluoroscopy and had a gentle curve without evidence of kinking. The the internal jugular vein stick site was then closed with 3-0 Vicryl in the subdermal tissue. The catheter was then affixed to the left anterior chest wall with 3 stitches of 3-0 nylon suture. A sterile dressing applied. Estimated blood loss was less than 25 cc sponge needle counts were correct x2. Patient tolerated the procedure well was transferred recovery in stable condition. Chest x-ray is pending.
--- NOTE | 2020-01-18 13:58 | RADIOLOGY REPORT (SQ) ---
EXAM DESCRIPTION: CHEST SINGLE VIEW IMAGES COMPLETED DATE/TIME: 01/18/2020 1:21 pm REASON FOR STUDY: PERM CATH COMPARISON: AP view of the chest from 01/05/2020. EXAM PARAMETERS: NUMBER OF VIEWS: One view. TECHNIQUE: An AP view of the chest was obtained. RADIATION DOSE: NA LIMITATIONS: None. FINDINGS: LUNGS AND PLEURA: No consolidation, pleural effusion or pneumothorax. MEDIASTINUM AND HILAR STRUCTURES: No mediastinal or hilar contour abnormality. HEART AND VASCULAR STRUCTURES: The cardiac silhouette is borderline enlarged. BONES: No acute findings. HARDWARE: The tip of the tunneled right IJ HD catheter projects within the SVC. OTHER: No other finding. IMPRESSION: The tip of the tunneled right IJ HD catheter projects within the SVC. TECHNICAL DOCUMENTATION: JOB ID: [id number] 2010 [employer]- All Rights Reserved Reading location - IP/workstation name: [email or web address]
[2020-01-18] MEDS ORDERED: FAMOTIDINE 20 MG TABLET PO ONE (15:45)
[2020-01-18] MEDS ORDERED: SERTRALINE HCL 50 MG TABLET PO ONE (15:45)
[2020-01-18] MEDS: FAMOTIDINE 20 MG TABLET PO SCH (17:37)
[2020-01-18] MEDS: SERTRALINE HCL 50 MG TABLET PO SCH ×2 (17:37→17:38)
[2020-01-18] MEDS: CIPROFLOXACIN HCL 500 MG TABLET PO SCH (17:39)
--- NOTE | 2020-01-18 18:39 | PDOC PROGRESS REPORT ---
Subjective Subjective:: Per previous physician: "Patient denies any new complaints questions for me this morningPatient was admitted with sepsis secondary to left lower extremity cellulitis and diabetic foot ulcer status post surgical debridement with wound VAC in place. She does have a chronic right below-knee amputation. Patient denies any other complaints this morning. She was found to have vancomycin induced nephrotoxicity however this has since been discontinued. Kidney function is still rising with a creatinine at 4.79 today up from 0.62 on admission, BUN was 12 on admission and is currently 29. She is acidotic with a CO2 of 18 Kidney function noted to be worsening and at this point the plan is to initiate dialysis in a.m. 01/08 Cr now 6.8, acidotic, awaiting HD 01/09Dialyzed yesterday, for IVF today and dialysis in am Kidney function noted, still anuric 01/10 she received a second dialysis today. 01/11No new complaints 01/13/2020-patient is comfortably in the bed talking to the family members on the phone. Last hemodialysis on Tuesday. Latest creatinine is 6.27. Potassium is 4.6. Patient may need a dialysis session tomorrow. Came in with normal kidney function now in a kidney failure secondary to vancomycin toxicity. Vancomycin is on hold. Patient has a wound VAC on the left lower leg. And has a right B KA. 01/14/2020-patient is comfortable in the bed communicating well. Urinary output in the last 24 hours is more than 700. Him creatinine today 6.46. Patient is requesting to remove Victoria's catheter at this time." 01/15/2020 Patient still with markedly elevated creatinine, likely will need long-term dialysis. Discussed the case with nephrology today. ID consulted who recommended patient be treated with vancomycin IV and ciprofloxacin. Left foot culture growing MRSA, strep mitis/paralysis, anAerococcus, E faecalis, Proteus vulgaris. Patient has no new specific complaints today. blood culture is negative. 01/16/2020 Creatinine higher again, very likely patient will continue on dialysis long-term and nephrology is working on setting this up outpatient with [facility]. Patient will need to be on oral ciprofloxacin and IV vancomycin both renally dosed for a total of 6 weeks starting from January 02. Possible patient can be given vancomycin infusions immediately after dialysis at the dialysis center as this would negate the need for her to get a PICC line which could compromise shefali vasculature that may be needed for future dialysis access. Patient has no new complaints today. Blood pressure improved with dialysis. 01/17/[address] Salas today regarding patient having a unsuccessful line placement in her left neck today for dialysis catheter, reportedly losing 250 cc of blood approximately. Dr. Salas is ordered her 1 unit of PRBC, recheck her hemoglobin afterwards. Plan to transfuse additional units PRBC if she is below 7 hemoglobin. Patient has no new complaints today. She is continued on antibiotics. If procedure successful tomorrow and patient feels up to it, she could be discharged to [facility]. She is in agreement with this plan assuming she is doing well. No new complaints. 01/18/2020 Patient had right dialysis catheter placed today by general surgery. She is also dialyzed today however she was not given her vancomycin afterwards. Discussed with nursing to go ahead and give this now and to ensure that she gets her vancomycin after each subsequent dialysis session until the course is completed. Nursing will pull her left groin central line is this is no longer needed. They can establish peripheral IV access if necessary however patient is only receiving IV vancomycin currently which she gets through her dialysis catheter after dialysis. Patient has no new complaints today other than some additional pain from her surgery on her right neck. Hemoglobin stable. Per case management, patient cannot transition to [facility] until Tuesday. Reason For Visit: SEPSIS Physical Exam Vital Signs: Temp Pulse Resp BP Pulse Ox 97.6 F 85 15 135/76 H 92 01/18/20 13:45 01/18/20 13:45 01/18/20 13:45 01/18/20 13:45 01/18/20 13:45 Intake & Output 01/17/20 01/18/20 01/19/20 06:59 06:59 06:59 Intake Total 1062 995 950 Output Total 5512 324 1608 Balance -438 725 -50 Weight 165.1 kg 165.3 kg Exam: General appearance: PRESENT: no acute distress, well-developed, well-nourished, states her procedure went well today Head exam: PRESENT: atraumatic, normocephalic Eye exam: PRESENT: conjunctiva pink Mouth exam: PRESENT: moist Respiratory exam: PRESENT: clear to auscultation armida. ABSENT: rales, rhonchi, wheezes Cardiovascular exam: PRESENT: RRR. ABSENT: diastolic murmur, rubs, systolic murmur GI/Abdominal exam: PRESENT: normal bowel sounds, soft. ABSENT: distended, guarding, mass, organolmegaly, rebound, tenderness Neurological exam: PRESENT: alert, awake, oriented to person, oriented to place, oriented to time, oriented to situation Psychiatric exam: PRESENT: appropriate affect, normal mood Skin exam: PRESENT: dry, warm, other - Diabetic ulcer of left heel with wound VA C in place Results Laboratory Results: 01/18/20 06:50 01/18/20 06:50 01/17/20 01/18/20 01/18/20 19:45 06:50 06:50 WBC 9.7 9.5 RBC 3.18 L 3.44 L Hgb 9.1 L 9.9 L Hct 27.6 L 29.9 L MCV 87 87 MCH 28.6 28.9 MCHC 32.9 33.1 RDW 16.5 H 17.1 H Plt Count 251 296 Seg Neutrophils % 69.3 73.5 Sodium 137.2 Potassium 4.7 Chloride 103 Carbon Dioxide 25 Anion Gap 9 BUN 32 H Creatinine 5.02 H Est GFR ( Amer) 11 L Glucose 132 H Calcium 8.4 01/03/20 10:54 Troponin I < 0.012 Impressions: Foot X-Ray 01/03/20 11:17 IMPRESSION: 1. Cortical irregularity and lucency at the proximal base 5th digit proximal phalanx, possibly representing osteomyelitis. 2. Subcutaneous gas in the plantar soft tissues overlying the calcaneus. Clinical correlation for ulceration in this region recommended. Finding may represent necrotizing infection. Clinical correlation. Lower Extremity MRI 01/05/20 00:00 IMPRESSION: 1. Suspect mild reactive marrow edema in the calcaneus underlying a large ulcer. Doubt osteomyelitis but close follow-up is recommended. The should consist of surveillance followup radiographs predominantly with repeat MRI as needed. Renal Ultrasound 01/07/20 00:00 IMPRESSION: Unable to verify normal blood flow in the right kidney. The study is otherwise unremarkable. The bladder was empty. Fluoroscopy 01/17/20 00:00 IMPRESSION: IMAGE(S) OBTAINED DURING PROCEDURE. Chest X-Ray 01/18/20 00:00 IMPRESSION: The tip of the tunneled right IJ HD catheter projects within the SVC. Assessment and Plan - Diagnosis (1) Diabetic ulcer of heel Qualifiers: Diabetes mellitus type: type 2 Laterality: left Non-pressure ulcer stage: with other severity Qualified Code(s): E11.621 - Type 2 diabetes mellitus with foot ulcer; L97.428 - Non-pressure chronic ulcer of left heel and midfoot with other specified severity Is this a current diagnosis for this admission?: Yes Plan: Per previous physician: "MRI showed suspected mild reactive marrow edema in the calcaneus underlying a large ulcer; doubt osteomyelitis but close follow-up recommended with serial MRIs. Wound culture (01/06/2020) pending Wound culture (01/03/2020) MRSA and gram-positive cocci Wound culture (01/03/2020) MRSA, Enterococcus faecalis, gram-negative rods Blood cultures no growth to date. Surgery is consulted; greatly appreciate their assistance. Now status post multiple surgical debridements to the left heel; per op note wound would be a stage IV through subcutaneous tissue and to the muscle. Wound VAC in place; wound care per surgery expertise. Wound culture for January 05 yielding MRSA. Patient is currently off vancomycin due to toxicity. Will continue to monitor kidney function and restart antibiotics possibly Clindamycin Vanc level 28.2 01/13/2020-patient has left heel wound wound culture is growing MRSA. Blood cultures are negative. Patient has multiple surgical debridements. Wound VAC in place. Presently on IV cefepime every 12 hours. WBC count is 11,500 blood pressure is stable afebrile. 01/14/2020-patient is getting IV cefepime every 12 hours for wound cultures growing MRSA. Blood cultures are negative. Patient has multiple surgical debridements. Wound VAC in place." 01/15/2020 Consulted ID today and discussed the case with them in detail. They recommended patient complete antibiotic course with IV vancomycin and ciprofloxacin Will need PICC line and outpatient antibiotics arranged 01/16/2020 Continue total 6 weeks oral ciprofloxacin and IV vancomycin renally dosed, possible IV vancomycin can be given after each dialysis session and we could avoid needing PICC line which could compromise vasculature needed for future dialysis access Tolerating antibiotics well (2) MONO (acute kidney injury) Is this a current diagnosis for this admission?: Yes Plan: Per previous physician: "Creatinine maximilian after HD Kidney function is at creatinine of 5.6 and BUN of 32 today. She is making urine. I am hopeful that her kidney function will continue to improve and kidney function will recover 01/13/2020-patient developed vancomycin induced nephrotoxicity. Last hemodial ysis on Tuesday. Urinary output is 725 mL in the last 24 hours. Has a Victoria's catheter. Potassium is 4.6 creatinine 6.2 this morning most likely she needed dialysis tomorrow. Nephrology on board. 01/14/20-patient has vancomycin-induced nephrotoxicity last dialysis on Tuesday. Probably she may go for dialysis today. Urinary output is 775 mL in the last 24 hours. Serum creatinine today is 6.46 and bun is 43." 01/15/2020 Discussed case with nephrology, patient will likely need long-term dialysis of her urine output has not greatly improved by tomorrow Will need to be set up with outpatient dialysis at discharge 01/16/2020 Long-term dialysis needed, nephrology setting this up with [facility] outpatient 01/17/2020 Long-term dialysis catheter attempted to be placed in the left neck by Dr. Lor zhang but torturous vasculature proved to make this unsuccessful, patient lost approximately 250 cc of blood and was transfused 1 unit PRBC Reattempt placement of long-term dialysis catheter and right side neck tomorrow, n.p.o. at midnight tonight 01/18/2020 Right neck dialysis catheter placed by general surgery successfully today Must get vancomycin per dialysis catheter after each dialysis session (3) Anemia Qualifiers: Anemia type: unspecified type Qualified Code(s): D64.9 - Anemia, unspecified Is this a current diagnosis for this admission?: No (4) Hypertension Is this a current diagnosis for this admission?: No (5) Sepsis Qualifiers: Sepsis type: methicillin resistant Staphylococcus aureus Sepsis acute organ dysfunction status: without acute organ dysfunction Qualified Code(s): A41.02 - Sepsis due to Methicillin resistant Staphylococcus aureus Is this a current diagnosis for this admission?: Yes (6) Diabetes mellitus type 2 in obese Is this a current diagnosis for this admission?: No (7) Morbid (severe) obesity due to excess calories Is this a current diagnosis for this admission?: No - Time Time Spent with patient: 15-24 minutes Medications reviewed and adjusted accordingly: Yes Anticipated Discharge Disposition: [facility] Anticipated Discharge Timeframe: within 36 hours - Inpatient Certification Based on my medical assessment, after consideration of the patient's comorbidities, presenting symptoms, or acuity I expect that the services needed warrant INPATIENT care.: Yes I certify that my determination is in accordance with my understanding of Medicare's requirements for reasonable and necessary INPATIENT services [42 CFR 412.3e].: Yes Medical Necessity: Significant Comorbidiites Make Outpatient Treatment Too Risky, Need Close Monitoring Due to Risk of Patient Decompensation, Need for IV Antibiotics, Risk of Complication if Not Cared For in Hospital, Risk of Diagnosis Which Will Require Inpatient Eval/Care/Monitoring
[2020-01-18] MEDS: VANCOMYCIN HCL 750 MG in DEXTROSE 5%-WATER 250 ML IV SCH (19:04)
[2020-01-18] MEDS: NORMAL SALINE 1000 ML 1,000 ML IV PRN (19:53)
[2020-01-18] MEDS: ATORVASTATIN CALCIUM 40 MG TABLET PO SCH (21:38)
[2020-01-18] MEDS: MELATONIN 5 MG TABLET PO SCH (21:38)
[2020-01-18] MEDS: OXYCODONE-ACETAMINOPHEN 5-325 MG TABLET PO PRN (21:43)
[2020-01-19] MEDS: PANTOPRAZOLE SODIUM 40 MG TABLET.DR PO SCH (06:50)
[2020-01-19] MEDS: INSULIN LISPRO 100 UNIT/ML 3 ML VIAL SUBCUT SCH ×7 (09:24→21:40)
[2020-01-19] MEDS: SERTRALINE HCL 50 MG TABLET PO SCH ×2 (09:26→17:00)
[2020-01-19] MEDS: FLUTICASONE/VILANTEROL 200-25 MCG/DOSE IH SCH (09:26)
[2020-01-19] MEDS: FAMOTIDINE 20 MG TABLET PO SCH (09:26)
[2020-01-19] MEDS: MECLIZINE HCL 25 MG TABLET PO SCH ×2 (09:26→17:00)
[2020-01-19] MEDS: INSULIN GLARGINE,HUM.REC.ANLOG 1,000 UNIT/10 ML VIAL SUBCUT SCH (09:27)
[2020-01-19] MEDS: NORMAL SALINE 1000 ML 1,000 ML IV PRN (10:20)
[2020-01-19 11:18] LABS: ABSOLUTE BASOPHILS # (AUTO) 0.1 10^3/uL (0.0-0.2); ABSOLUTE EOSINOPHILS # (AUTO) 0.5 10^3/uL (0.0-0.6); ABSOLUTE LYMPHOCYTES (AUTO) 1.6 10^3/uL (0.5-4.7); ABSOLUTE MONOCYTES (AUTO) 0.6 10^3/uL (0.1-1.4); EOSINOPHILS % (AUTO) 5.4 % (0-6); HEMATOCRIT 30.4 % (36.0-47.0); LYMPHOCYTES % (AUTO) 18.1 % (13-45); MEAN CORPUSCULAR HEMOGLOBIN 28.8 pg (27.0-33.4); MEAN CORPUSCULAR VOLUME 87 fl (80-97); MONOCYTES % (AUTO) 6.6 % (3-13); PLATELET COUNT 218 10^3/uL (150-450); RED BLOOD COUNT 3.48 10^6/uL (3.72-5.28); RED CELL DISTRIBUTION WIDTH 16.7 % (11.5-14.0); SEGMENTED NEUTROPHILS % (AUTO) 68.9 % (42-78); TOTAL CELLS COUNTED % (AUTO) 100 %; WHITE BLOOD COUNT 8.8 10^3/uL (4.0-10.5)
[2020-01-19] MEDS: CIPROFLOXACIN HCL 500 MG TABLET PO SCH (17:00)
--- NOTE | 2020-01-19 18:46 | PDOC PROGRESS REPORT ---
Subjective Subjective:: Per previous physician: "Patient denies any new complaints questions for me this morningPatient was admitted with sepsis secondary to left lower extremity cellulitis and diabetic foot ulcer status post surgical debridement with wound VAC in place. She does have a chronic right below-knee amputation. Patient denies any other complaints this morning. She was found to have vancomycin induced nephrotoxicity however this has since been discontinued. Kidney function is still rising with a creatinine at 4.79 today up from 0.62 on admission, BUN was 12 on admission and is currently 29. She is acidotic with a CO2 of 18 Kidney function noted to be worsening and at this point the plan is to initiate dialysis in a.m. 01/08 Cr now 6.8, acidotic, awaiting HD 01/09Dialyzed yesterday, for IVF today and dialysis in am Kidney function noted, still anuric 01/10 she received a second dialysis today. 01/11No new complaints 01/13/2020-patient is comfortably in the bed talking to the family members on the phone. Last hemodialysis on Tuesday. Latest creatinine is 6.27. Potassium is 4.6. Patient may need a dialysis session tomorrow. Came in with normal kidney function now in a kidney failure secondary to vancomycin toxicity. Vancomycin is on hold. Patient has a wound VAC on the left lower leg. And has a right B KA. 01/14/2020-patient is comfortable in the bed communicating well. Urinary output in the last 24 hours is more than 700. Him creatinine today 6.46. Patient is requesting to remove Victoria's catheter at this time." 01/15/2020 Patient still with markedly elevated creatinine, likely will need long-term dialysis. Discussed the case with nephrology today. ID consulted who recommended patient be treated with vancomycin IV and ciprofloxacin. Left foot culture growing MRSA, strep mitis/paralysis, anAerococcus, E faecalis, Proteus vulgaris. Patient has no new specific complaints today. blood culture is negative. 01/16/2020 Creatinine higher again, very likely patient will continue on dialysis long-term and nephrology is working on setting this up outpatient with [facility]. Patient will need to be on oral ciprofloxacin and IV vancomycin both renally dosed for a total of 6 weeks starting from January 02. Possible patient can be given vancomycin infusions immediately after dialysis at the dialysis center as this would negate the need for her to get a PICC line which could compromise shefali vasculature that may be needed for future dialysis access. Patient has no new complaints today. Blood pressure improved with dialysis. 01/17/[address] Salas today regarding patient having a unsuccessful line placement in her left neck today for dialysis catheter, reportedly losing 250 cc of blood approximately. Dr. Salas is ordered her 1 unit of PRBC, recheck her hemoglobin afterwards. Plan to transfuse additional units PRBC if she is below 7 hemoglobin. Patient has no new complaints today. She is continued on antibiotics. If procedure successful tomorrow and patient feels up to it, she could be discharged to [place] nursing facility. She is in agreement with this plan assuming she is doing well. No new complaints. 01/18/2020 Patient had right dialysis catheter placed today by general surgery. She is also dialyzed today however she was not given her vancomycin afterwards. Discussed with nursing to go ahead and give this now and to ensure that she gets her vancomycin after each subsequent dialysis session until the course is completed. Nursing will pull her left groin central line is this is no longer needed. They can establish peripheral IV access if necessary however patient is only receiving IV vancomycin currently which she gets through her dialysis catheter after dialysis. Patient has no new complaints today other than some additional pain from her surgery on her right neck. Hemoglobin stable. Per case management, [facility] until Tuesday. 01/19/2020 Blood pressure mildly elevated, otherwise vital signs stable. Labs reviewed and these are also stable. Patient had successful placement of dialysis catheter in her right neck yesterday and seems to have lost significantly less blood than the initial attempt. She states she overall feels well just generalized weakness overall and is looking forward to going to rehab on Tuesday. She has no new complaints. Reason For Visit: SEPSIS Physical Exam Vital Signs: Temp Pulse Resp BP Pulse Ox 98.3 F 76 20 138/75 H 100 01/19/20 16:00 01/19/20 16:00 01/19/20 16:00 01/19/20 16:00 01/19/20 16:00 Intake & Output 01/18/20 01/19/20 01/20/20 06:59 06:59 06:59 Intake Total 1395 2105 1376 Output Total 270 1000 Balance 1125 1105 1376 Weight 165.3 kg 166.2 kg Exam: General appearance: PRESENT: no acute distress, well-developed, well-nourished, states she feels well overall today Head exam: PRESENT: atraumatic, normocephalic Eye exam: PRESENT: conjunctiva pink Mouth exam: PRESENT: moist Respiratory exam: PRESENT: clear to auscultation armida. ABSENT: rales, rhonchi, wheezes Cardiovascular exam: PRESENT: RRR. ABSENT: diastolic murmur, rubs, systolic murmur GI/Abdominal exam: PRESENT: normal bowel sounds, soft. ABSENT: distended, guarding, mass, organolmegaly, rebound, tenderness Neurological exam: PRESENT: alert, awake, oriented to person, oriented to place, oriented to time, oriented to situation Psychiatric exam: PRESENT: appropriate affect, normal mood Skin exam: PRESENT: dry, warm, other - Diabetic ulcer of left heel with wound VAC in place Results Laboratory Results: 01/19/20 10:43 01/18/20 06:50 01/19/20 10:43 WBC 8.8 RBC 3.48 L Hgb 10.0 L Hct 30.4 L MCV 87 MCH 28.8 MCHC 33.0 RDW 16.7 H Plt Count 218 Seg Neutrophils % 68.9 01/03/20 10:54 Troponin I < 0.012 Impressions: Foot X-Ray 01/03/20 11:17 IMPRESSION: 1. Cortical irregularity and lucency at the proximal base 5th digit proximal phalanx, possibly representing osteomyelitis. 2. Subcutaneous gas in the plantar soft tissues overlying the calcaneus. Clinical correlation for ulceration in this region recommended. Finding may represent necrotizing infection. Clinical correlation. Lower Extremity MRI 01/05/20 00:00 IMPRESSION: 1. Suspect mild reactive marrow edema in the calcaneus underlying a large ulcer. Doubt osteomyelitis but close follow-up is recommended. The should consist of surveillance followup radiographs predominantly with repeat MRI as needed. Renal Ultrasound 01/07/20 00:00 IMPRESSION: Unable to verify normal blood flow in the right kidney. The study is otherwise unremarkable. The bladder was empty. Fluoroscopy 01/17/20 00:00 IMPRESSION: IMAGE(S) OBTAINED DURING PROCEDURE. Chest X-Ray 01/18/20 00:00 IMPRESSION: The tip of the tunneled right IJ HD catheter projects within the SVC. Assessment and Plan - Diagnosis (1) Diabetic ulcer of heel Qualifiers: Diabetes mellitus type: type 2 Laterality: left Non-pressure ulcer stage: with other severity Qualified Code(s): E11.621 - Type 2 diabetes mellitus with foot ulcer; L97.428 - Non-pressure chronic ulcer of left heel and midfoot with other specified severity Is this a current diagnosis for this admission?: Yes Plan: Per previous physician: "MRI showed suspected mild reactive marrow edema in the calcaneus underlying a large ulcer; doubt osteomyelitis but close follow-up recommended with serial MRIs. Wound culture (01/06/2020) pending Wound culture (01/03/2020) MRSA and gram-positive cocci Wound culture (01/03/2020) MRSA, Enterococcus faecalis, gram-negative rods Blood cultures no growth to date. Surgery is consulted; greatly appreciate their assistance. Now status post multiple surgical debridements to the left heel; per op note wound would be a stage IV through subcutaneous tissue and to the muscle. Wound VAC in place; wound care per surgery expertise. Wound culture for January 05 yielding MRSA. Patient is currently off vancomycin due to toxicity. Will continue to monitor kidney function and restart antibiotics possibly Clindamycin Vanc level 28.2 01/13/2020-patient has left heel wound wound culture is growing MRSA. Blood cultures are negative. Patient has multiple surgical debridements. Wound VAC in place. Presently on IV cefepime every 12 hours. WBC count is 11,500 blood pressure is stable afebrile. 01/14/2020-patient is getting IV cefepime every 12 hours for wound cultures growing MRSA. Blood cultures are negative. Patient has multiple surgical debridements. Wound VAC in place." 01/15/2020 Consulted ID today and discussed the case with them in detail. They recommended patient complete antibiotic course with IV vancomycin and ciproflo xacin Will need PICC line and outpatient antibiotics arranged 01/16/2020 Continue total 6 weeks oral ciprofloxacin and IV vancomycin renally dosed, possible IV vancomycin can be given after each dialysis session and we could avoid needing PICC line which could compromise vasculature needed for future dialysis access Tolerating antibiotics well Stable, antibiotics continue (2) MONO (acute kidney injury) Is this a current diagnosis for this admission?: Yes Plan: Per previous physician: "Creatinine maximilian after HD Kidney function is at creatinine of 5.6 and BUN of 32 today. She is making urine. I am hopeful that her kidney function will continue to improve and kidney function will recover 01/13/2020-patient developed vancomycin induced nephrotoxicity. Last hemodialysis on Tuesday. Urinary output is 725 mL in the last 24 hours. Has a Victoria's catheter. Potassium is 4.6 creatinine 6.2 this morning most likely she needed dialysis tomorrow. Nephrology on board. 01/14/20-patient has vancomycin-induced nephrotoxicity last dialysis on Tuesday. Probably she may go for dialysis today. Urinary output is 775 mL in the last 24 hours. Serum creatinine today is 6.46 and bun is 43." 01/15/2020 Discussed case with nephrology, patient will likely need long-term dialysis of her urine output has not greatly improved by tomorrow Will need to be set up with outpatient dialysis at discharge 01/16/2020 Long-term dialysis needed, nephrology [facility] 01/17/2020 Long-term dialysis catheter attempted to be placed in the left neck by Dr. Salas but torturous vasculature proved to make this unsuccessful, patient lost approximately 250 cc of blood and was transfused 1 unit PRBC Reattempt placement of long-term dialysis catheter and right side neck tomorrow, n.p.o. at midnight tonight 01/18/2020 Right neck dialysis catheter placed by general surgery successfully today Must get vancomycin per dialysis catheter after each dialysis session Dialysis continues, to be set up outpatient by nephrology (3) Anemia Qualifiers: Anemia type: unspecified type Qualified Code(s): D64.9 - Anemia, unspecified Is this a current diagnosis for this admission?: No (4) Hypertension Is this a current diagnosis for this admission?: No (5) Sepsis Qualifiers: Sepsis type: methicillin resistant Staphylococcus aureus Sepsis acute organ dysfunction status: without acute organ dysfunction Qualified Code(s): A41.02 - Sepsis due to Methicillin resistant Staphylococcus aureus Is this a current diagnosis for this admission?: Yes (6) Diabetes mellitus type 2 in obese Is this a current diagnosis for this admission?: No (7) Morbid (severe) obesity due to excess calories Is this a current diagnosis for this admission?: No - Time Time Spent with patient: 15-24 minutes Medications reviewed and adjusted accordingly: Yes Anticipated Discharge Disposition: [facility] Anticipated Discharge Timeframe: within 48 hours - Inpatient Certification Based on my medical assessment, after consideration of the patient's comorbidities, presenting symptoms, or acuity I expect that the services needed warrant INPATIENT care.: Yes I certify that my determination is in accordance with my understanding of Medicare's requirements for reasonable and necessary INPATIENT services [42 CFR 412.3e].: Yes Medical Necessity: Significant Comorbidiites Make Outpatient Treatment Too Risky, Need Close Monitoring Due to Risk of Patient Decompensation, Need for IV Antibiotics, Risk of Complication if Not Cared For in Hospital, Risk of Diagnosis Which Will Require Inpatient Eval/Care/Monitoring
[2020-01-19] MEDS: ATORVASTATIN CALCIUM 40 MG TABLET PO SCH (21:40)
[2020-01-19] MEDS: OXYCODONE-ACETAMINOPHEN 5-325 MG TABLET PO PRN (21:40)
[2020-01-19] MEDS: MELATONIN 5 MG TABLET PO SCH (21:40)
[2020-01-20] MEDS: PANTOPRAZOLE SODIUM 40 MG TABLET.DR PO SCH (05:10)
[2020-01-20 05:45] LABS: ABSOLUTE BASOPHILS # (AUTO) 0.1 10^3/uL (0.0-0.2); ABSOLUTE EOSINOPHILS # (AUTO) 0.7 10^3/uL (0.0-0.6); ABSOLUTE LYMPHOCYTES (AUTO) 1.9 10^3/uL (0.5-4.7); ABSOLUTE MONOCYTES (AUTO) 0.7 10^3/uL (0.1-1.4); ABSOLUTE NEUT (AUTO) 5.5 10^3/uL (1.7-8.2); BASOPHILS % (AUTO) 1.4 % (0-2); EOSINOPHILS % (AUTO) 7.6 % (0-6); HEMATOCRIT 27.2 % (36.0-47.0); HEMOGLOBIN 9.1 g/dL (12.0-15.5); LYMPHOCYTES % (AUTO) 21.5 % (13-45); MEAN CORPUSCULAR HEMOGLOBIN 29.1 pg (27.0-33.4); MEAN CORPUSCULAR HGB CONC 33.3 g/dL (32.0-36.0); MEAN CORPUSCULAR VOLUME 87 fl (80-97); PLATELET COUNT 221 10^3/uL (150-450); RED BLOOD COUNT 3.12 10^6/uL (3.72-5.28); RED CELL DISTRIBUTION WIDTH 17.1 % (11.5-14.0); SEGMENTED NEUTROPHILS % (AUTO) 61.5 % (42-78); TOTAL CELLS COUNTED % (AUTO) 100 %; WHITE BLOOD COUNT 8.9 10^3/uL (4.0-10.5)
[2020-01-20 06:13] LABS: ANION GAP 8 (5-19); BLOOD UREA NITROGEN 26 mg/dL (7-20); CALCIUM 8.3 mg/dL (8.4-10.2); CARBON DIOXIDE 25 mmol/L (22-30); CHLORIDE 105 mmol/L (98-107); GLUCOSE 174 mg/dL (75-110); POTASSIUM 4.4 mmol/L (3.6-5.0)
[2020-01-20] MEDS: INSULIN LISPRO 100 UNIT/ML 3 ML VIAL SUBCUT SCH ×7 (09:09→22:20)
[2020-01-20] MEDS: MECLIZINE HCL 25 MG TABLET PO SCH ×2 (09:10→17:30)
[2020-01-20] MEDS: SERTRALINE HCL 50 MG TABLET PO SCH ×2 (09:10→17:30)
[2020-01-20] MEDS: INSULIN GLARGINE,HUM.REC.ANLOG 1,000 UNIT/10 ML VIAL SUBCUT SCH (09:10)
[2020-01-20] MEDS: FAMOTIDINE 20 MG TABLET PO SCH (09:10)
[2020-01-20] MEDS: FLUTICASONE/VILANTEROL 200-25 MCG/DOSE IH SCH (09:11)
[2020-01-20] MEDS: CIPROFLOXACIN HCL 500 MG TABLET PO SCH (17:31)
--- NOTE | 2020-01-20 20:23 | PDOC PROGRESS REPORT ---
Subjective Subjective:: Per previous physician: "Patient denies any new complaints questions for me this morningPatient was admitted with sepsis secondary to left lower extremity cellulitis and diabetic foot ulcer status post surgical debridement with wound VAC in place. She does have a chronic right below-knee amputation. Patient denies any other complaints this morning. She was found to have vancomycin induced nephrotoxicity however this has since been discontinued. Kidney function is still rising with a creatinine at 4.79 today up from 0.62 on admission, BUN was 12 on admission and is currently 29. She is acidotic with a CO2 of 18 Kidney function noted to be worsening and at this point the plan is to initiate dialysis in a.m. 01/08 Cr now 6.8, acidotic, awaiting HD 01/09Dialyzed yesterday, for IVF today and dialysis in am Kidney function noted, still anuric 01/10 she received a second dialysis today. 01/11No new complaints 01/13/2020-patient is comfortably in the bed talking to the family members on the phone. Last hemodialysis on Tuesday. Latest creatinine is 6.27. Potassium is 4.6. Patient may need a dialysis session tomorrow. Came in with normal kidney function now in a kidney failure secondary to vancomycin toxicity. Vancomycin is on hold. Patient has a wound VAC on the left lower leg. And has a right B KA. 01/14/2020-patient is comfortable in the bed communicating well. Urinary output in the last 24 hours is more than 700. Him creatinine today 6.46. Patient is requesting to remove Victoria's catheter at this time." 01/15/2020 Patient still with markedly elevated creatinine, likely will need long-term dialysis. Discussed the case with nephrology today. ID consulted who recommended patient be treated with vancomycin IV and ciprofloxacin. Left foot culture growing MRSA, strep mitis/paralysis, anAerococcus, E faecalis, Proteus vulgaris. Patient has no new specific complaints today. blood culture is negative. 01/16/2020 Creatinine higher again, very likely patient will continue on dialysis long-term and nephrology is working on setting this up outpatient with [facility]. Patient will need to be on oral ciprofloxacin and IV vancomycin both renally dosed for a total of 6 weeks starting from January 02. Possible patient can be given vancomycin infusions immediately after dialysis at the dialysis center as this would negate the need for her to get a PICC line which could compromise shefali vasculature that may be needed for future dialysis access. Patient has no new complaints today. Blood pressure improved with dialysis. 01/17/[address] Salas today regarding patient having a unsuccessful line placement in her left neck today for dialysis catheter, reportedly losing 250 cc of blood approximately. Dr. Salas is ordered her 1 unit of PRBC, recheck her hemoglobin afterwards. Plan to transfuse additional units PRBC if she is below 7 hemoglobin. Patient has no new complaints today. She is continued on antibiotics. If procedure successful tomorrow and patient feels up to it, she could be discharged to [facility] nursing facility. She is in agreement with this plan assuming she is doing well. No new complaints. 01/18/2020 Patient had right dialysis catheter placed today by general surgery. She is also dialyzed today however she was not given her vancomycin afterwards. Discussed with nursing to go ahead and give this now and to ensure that she gets her vancomycin after each subsequent dialysis session until the course is completed. Nursing will pull her left groin central line is this is no longer needed. They can establish peripheral IV access if necessary however patient is only receiving IV vancomycin currently which she gets through her dialysis catheter after dialysis. Patient has no new complaints today other than some additional pain from her surgery on her right neck. Hemoglobin stable. Per case management, patient cannot transition [facility] until Tuesday. 01/19/2020 Blood pressure mildly elevated, otherwise vital signs stable. Labs reviewed and these are also stable. Patient had successful placement of dialysis catheter in her right neck yesterday and seems to have lost significantly less blood than the initial attempt. She states she overall feels well just generalized weakness overall and is looking forward to going to rehab on Tuesday. She has no new complaints. 01/20/2020 Patient has been doing well today and states that she still has some pain in the right side of her neck from her catheter placement. Otherwise, she feels well and would like to go to rehab tomorrow. Labs and vitals reviewed with no significant changes. Plan on discharge tomorrow. Reason For Visit: SEPSIS Physical Exam Vital Signs: Temp Pulse Resp BP Pulse Ox 98.5 F 89 18 162/83 H 95 01/20/20 14:48 01/20/20 14:48 01/20/20 14:48 01/20/20 14:48 01/20/20 14:48 Intake & Output 01/19/20 01/20/20 01/21/20 06:59 06:59 06:59 Intake Total 2105 1896 2124 Output Total 1000 Balance 1104 1895 2124 Weight 166.2 kg 170.9 kg Results Laboratory Results: 01/20/20 05:20 01/20/20 05:20 01/20/20 01/20/20 05:20 05:20 WBC 8.9 RBC 3.12 L Hgb 9.1 L Hct 27.2 L MCV 87 MCH 29.1 MCHC 33.3 RDW 17.1 H Plt Count 221 Seg Neutrophils % 61.5 Sodium 137.5 Potassium 4.4 Chloride 105 Carbon Dioxide 25 Anion Gap 8 BUN 26 H Creatinine 4.78 H Est GFR ( Amer) 12 L Glucose 174 H Calcium 8.3 L 01/03/20 10:54 Troponin I < 0.012 Impressions: Foot X-Ray 01/03/20 11:17 IMPRESSION: 1. Cortical irregularity and lucency at the proximal base 5th digit proximal phalanx, possibly representing osteomyelitis. 2. Subcutaneous gas in the plantar soft tissues overlying the calcaneus. Clinical correlation for ulceration in this region recommended. Finding may represent necrotizing infection. Clinical correlation. Lower Extremity MRI 01/05/20 00:00 IMPRESSION: 1. Suspect mild reactive marrow edema in the calcaneus underlying a large ulcer. Doubt osteomyelitis but close follow-up is recommended. The should consist of surveillance followup radiographs predominantly with repeat MRI as needed. Renal Ultrasound 01/07/20 00:00 IMPRESSION: Unable to verify normal blood flow in the right kidney. The study is otherwise unremarkable. The bladder was empty. Chest X-Ray 01/18/20 00:00 IMPRESSION: The tip of the tunneled right IJ HD catheter projects within the SVC. Assessment and Plan - Diagnosis (1) Diabetic ulcer of heel Qualifiers: Diabetes mellitus type: type 2 Laterality: left Non-pressure ulcer stage: with other severity Qualified Code(s): E11.621 - Type 2 diabetes mellitus with foot ulcer; L97.428 - Non-pressure chronic ulcer of left heel and midfoot with other specified severity Is this a current diagnosis for this admission?: Yes Plan: Per previous physician: "MRI showed suspected mild reactive marrow edema in the calcaneus underlying a large ulcer; doubt osteomyelitis but close follow-up recommended with serial MRIs. Wound culture (01/06/2020) pending Wound culture (01/03/2020) MRSA and gram-positive cocci Wound culture (01/03/2020) MRSA, Enterococcus faecalis, gram-negative rods Blood cultures no growth to date. Surgery is consulted; greatly appreciate their assistance. Now status post multiple surgical debridements to the left heel; per op note wound would be a stage IV through subcutaneous tissue and to the muscle. Wound VAC in place; wound care per surgery expertise. Wound culture for January 05 yielding MRSA. Patient is currently off vancomycin due to toxicity. Will continue to monitor kidney function and restart antibiotics possibly Clindamycin Vanc level 28.2 01/13/2020-patient has left heel wound wound culture is growing MRSA. Blood cultures are negative. Patient has multiple surgical debridements. Wound VAC in place. Presently on IV cefepime every 12 hours. WBC count is 11,500 blood pressure is stable afebrile. 01/14/2020-patient is getting IV cefepime every 12 hours for wound cultures growing MRSA. Blood cultures are negative. Patient has multiple surgical debridements. Wound VAC in place." 01/15/2020 Consulted ID today and discussed the case with them in detail. They recommended patient complete antibiotic course with IV vancomycin and ciprofloxacin Will need PICC line and outpatient antibiotics arranged 01/16/2020 Continue total 6 weeks oral ciprofloxacin and IV vancomycin renally dosed, possible IV vancomycin can be given after each dialysis session and we could avoid needing PICC line which could compromise vasculature needed for future dialysis access Tolerating antibiotics well Stable, antibiotics continue (2) MONO (acute kidney injury) Is this a current diagnosis for this admission?: Yes Plan: Per previous physician: "Creatinine maximilian after HD Kidney function is at creatinine of 5.6 and BUN of 32 today. She is making urine. I am hopeful that her kidney function will continue to improve and kidney function will recover 01/13/2020-patient developed vancomycin induced nephrotoxicity. Last hemodialysis on Tuesday. Urinary output is 725 mL in the last 24 hours. Has a Victoria's catheter. Potassium is 4.6 creatinine 6.2 this morning most likely she needed dialysis tomorrow. Nephrology on board. 01/14/20-patient has vancomycin-induced nephrotoxicity last dialysis on Tuesday. Probably she may go for dialysis today. Urinary output is 775 mL in the last 24 hours. Serum creatinine today is 6.46 and bun is 43." 01/15/2020 Discussed case with nephrology, patient will likely need long-term dialysis of her urine output has not greatly improved by tomorrow Will need to be set up with outpatient dialysis at discharge 01/16/2020 Long-term dialysis needed, nephrology setting this up with [facility] outpatient 01/17/2020 Long-term dialysis catheter attempted to be placed in the left neck by Dr. Salas but torturous vasculature proved to make this unsuccessful, patient lost approximately 250 cc of blood and was transfused 1 unit PRBC Reattempt placement of long-term dialysis catheter and right side neck tomorrow, n.p.o. at midnight tonight 01/18/2020 Right neck dialysis catheter placed by general surgery successfully today Must get vancomycin per dialysis catheter after each dialysis session Dialysis continues, to be set up outpatient by nephrology (3) Anemia Qualifiers: Anemia type: unspecified type Qualified Code(s): D64.9 - Anemia, unspecified Is this a current diagnosis for this admission?: No (4) Hypertension Is this a current diagnosis for this admission?: No Plan: Stable (5) Sepsis Qualifiers: Sepsis type: methicillin resistant Staphylococcus aureus Sepsis acute organ dysfunction status: without acute organ dysfunction Qualified Code(s): A41.02 - Sepsis due to Methicillin resistant Staphylococcus aureus Is this a current diagnosis for this admission?: Yes Plan: Resolved; Per previous physician: "01/13/2020-patient came in with left heel wound, wound cultures are positive for MRSA receiving IV antibiotic therapy. White cell count is improving. May meet the criteria for sepsis." (6) Diabetes mellitus type 2 in obese Is this a current diagnosis for this admission?: No Plan: Per previous physician: "Decrease her dose of regular insulin as patient is getting 60 units of Lantus every 12 in addition to 15 units AC as well as sliding scale insulin. It appears that she actually had not been getting the a.m. 15 units on a regular basis. Her blood sugars are in the low 100 so have decided to decrease her insulin slightly just down to 12 units of Humalog AC we will continue to adjust as needed 01/07 will continue to monitor and adjust 01/09 Adjust insulin dose as her Blood sugars have been low 01/13/2020-patient has history of type 2 diabetes mellitus. Latest blood sugar is 89. Hemoglobin A1c is 13.4. Presently on Lantus 40 units subcu daily and insulin sliding scale. Diet compliance with medications discussed with the patient. 01/14/2020-patient has history of type 2 diabetes mellitus. Latest blood sugar is 101. Hemoglobin A1c is 13.1 point. Plan is to continue the present management at this time." (7) Morbid (severe) obesity due to excess calories Is this a current diagnosis for this admission?: No - Time Time Spent with patient: 15-24 minutes Medications reviewed and adjusted accordingly: Yes Anticipated Discharge Disposition: Snf Facility Anticipated Discharge Timeframe: within 24 hours - Inpatient Certification Based on my medical assessment, after consideration of the patient's comorbidities, presenting symptoms, or acuity I expect that the services needed warrant INPATIENT care.: Yes I certify that my determination is in accordance with my understanding of Medicare's requirements for reasonable and necessary INPATIENT services [42 CFR 412.3e].: Yes Medical Necessity: Significant Comorbidiites Make Outpatient Treatment Too Risky, Need Close Monitoring Due to Risk of Patient Decompensation, Need for IV Antibiotics, Risk of Complication if Not Cared For in Hospital, Risk of Diagnosis Which Will Require Inpatient Eval/Care/Monitoring
[2020-01-20] MEDS: MELATONIN 5 MG TABLET PO SCH (21:07)
[2020-01-20] MEDS: ATORVASTATIN CALCIUM 40 MG TABLET PO SCH (21:07)
[2020-01-20] MEDS: OXYCODONE-ACETAMINOPHEN 5-325 MG TABLET PO PRN (21:08)
[2020-01-21] MEDS ORDERED: HEPARIN SOD (PORCINE) 1,000 UNIT/ML 10 ML VIAL IV PRN (05:00)
[2020-01-21] MEDS ORDERED: EPOETIN ALFA-EPBX 10,000 UNIT in SYRINGE, DISPOSABLE, 1 EACH IV PRN (05:00)
[2020-01-21] MEDS: PANTOPRAZOLE SODIUM 40 MG TABLET.DR PO SCH (05:34)
[2020-01-21 07:25] LABS: VANCOMYCIN,TROUGH 17.6 ug/mL (5.0-20.0)
--- NOTE | 2020-01-21 08:52 | RADIOLOGY REPORT (SQ) ---
EXAM DESCRIPTION: INJECT VENOUS ACCESS DEVICE; NO CHG FLUORO IMAGES COMPLETED DATE/TIME: 01/18/2020 1:21 pm; 01/20/2020 2:25 pm REASON FOR STUDY: PERM CATH COMPARISON: None. FLUOROSCOPY TIME: 1.5 minutes Spot images saved to PACS. TECHNIQUE: Intra-operative images acquired during surgical procedure to evaluate progress. NUMBER OF IMAGES: 4 LIMITATIONS: None. FINDINGS: Fluoroscopy was provided for intraoperative procedure. Please refer to the operative repo rt for further discussion. IMPRESSION: IMAGE(S) OBTAINED DURING PROCEDURE. COMMENT: Quality ID [id number]: Final reports for procedures using fluoroscopy that document radiation exp osure indices, or exposure time and number of fluorographic images (if radiation exposure indices are not available) Please consult full operative report of the attending physician for description of the procedure. TECHNICAL DOCUMENTATION: JOB ID: [id number] 2010 [employer]- All Rights Reserved Reading location - IP/workstation name: [email or web address]
--- NOTE | 2020-01-21 08:52 | RADIOLOGY REPORT (SQ) ---
EXAM DESCRIPTION: INJECT VENOUS ACCESS DEVICE; NO CHG FLUORO IMAGES COMPLETED DATE/TIME: 01/18/2020 1:21 pm; 01/20/2020 2:25 pm REASON FOR STUDY: PERM CATH COMPARISON: None. FLUOROSCOPY TIME: 1.5 minutes Spot images saved to PACS. TECHNIQUE: Intra-operative images acquired during surgical procedure to evaluate progress. NUMBER OF IMAGES: 4 LIMITATIONS: None. FINDINGS: Fluoroscopy was provided for intraoperative procedure. Please refer to the operative repo rt for further discussion. IMPRESSION: IMAGE(S) OBTAINED DURING PROCEDURE. COMMENT: Quality ID [id number]: Final reports for procedures using fluoroscopy that document radiation exp osure indices, or exposure time and number of fluorographic images (if radiation exposure indices are not available) Please consult full operative report of the attending physician for description of the procedure. TECHNICAL DOCUMENTATION: JOB ID: [id number] 2010 [employer]- All Rights Reserved Reading location - IP/workstation name: [email or web address]
[2020-01-21] MEDS: INSULIN LISPRO 100 UNIT/ML 3 ML VIAL SUBCUT SCH ×7 (09:49→21:32)
[2020-01-21] MEDS: FAMOTIDINE 20 MG TABLET PO SCH (12:06)
[2020-01-21] MEDS: MECLIZINE HCL 25 MG TABLET PO SCH ×2 (12:07→18:09)
[2020-01-21] MEDS: INSULIN GLARGINE,HUM.REC.ANLOG 1,000 UNIT/10 ML VIAL SUBCUT SCH (12:07)
[2020-01-21] MEDS: SERTRALINE HCL 50 MG TABLET PO SCH ×2 (12:07→18:09)
[2020-01-21] MEDS: FLUTICASONE/VILANTEROL 200-25 MCG/DOSE IH SCH (12:10)
--- NOTE | 2020-01-21 12:25 | PDOC PROGRESS REPORT ---
Subjective Progress Note for:: 01/21/20 Reason For Visit: Patient seen on dialysis today. Undergoing dialysis for MONO, through her right IJ PermCath. She complains of some pain around the catheter insertion site and there is some amount of blood tinged discharge. However her dressing has not been changed post insertion. She denies any history of fever or chills. Labs and medications were reviewed. Unfortunately no labs were done today for reasons are not clear and therefore labs from yesterday was reviewed. Her Vanco trough came back today at 17.6. Dialysis orders were reviewed with the treating dialysis nurse.Temporary femoral catheter has been removed.[facility]. Physical Exam Vital Signs: Temp Pulse Resp BP Pulse Ox 97.9 F 86 18 141/68 H 96 01/21/20 08:28 01/21/20 07:00 01/21/20 04:31 01/21/20 04:31 01/21/20 04:31 Intake & Output 01/20/20 01/21/20 01/22/20 06:59 06:59 06:59 Intake Total 1896 2125 Balance 1896 2125 Weight 170.9 kg 170.2 kg General appearance: PRESENT: no acute distress Respiratory exam: PRESENT: clear to auscultation armida, decreased breath sounds. ABSENT: crackles Cardiovascular exam: PRESENT: +S1, +S2 GI/Abdominal exam: PRESENT: normal bowel sounds, soft. ABSENT: organomegaly, tenderness Extremities exam: ABSENT: pedal edema Neurological exam: PRESENT: alert, awake, oriented to person, oriented to place Psychiatric exam: PRESENT: appropriate affect Results Laboratory Results: 01/20/20 05:20 01/20/20 05:20 01/03/20 10:54 Troponin I < 0.012 Impressions: Foot X-Ray 01/03/20 11:17 IMPRESSION: 1. Cortical irregularity and lucency at the proximal base 5th digit proximal phalanx, possibly representing osteomyelitis. 2. Subcutaneous gas in the plantar soft tissues overlying the calcaneus. Clinical correlation for ulceration in this region recommended. Finding may represent necrotizing infection. Clinical correlation. Lower Extremity MRI 01/05/20 00:00 IMPRESSION: 1. Suspect mild reactive marrow edema in the calcaneus underlying a large ulcer. Doubt osteomyelitis but close follow-up is recommended. The should consist of surveillance followup radiographs predominantly with repeat MRI as needed. Renal Ultrasound 01/07/20 00:00 IMPRESSION: Unable to verify normal blood flow in the right kidney. The study is otherwise unremarkable. The bladder was empty. Chest X-Ray 01/18/20 00:00 IMPRESSION: The tip of the tunneled right IJ HD catheter projects within the SVC. Fluoroscopy 01/18/20 00:00 IMPRESSION: IMAGE(S) OBTAINED DURING PROCEDURE. Venous Access Device Injection 01/18/20 00:00 IMPRESSION: IMAGE(S) OBTAINED DURING PROCEDURE. Assessment & Plan - Diagnosis (1) MONO (acute kidney injury) Is this a current diagnosis for this admission?: Yes Plan: Currently oliguric. Secondary to combination of MONO from septic left foot ulcer/vancomycin toxicity. She currently undergoing dialysis through her right IJ PermCath. Plan for outpatient dialysis at [facility]. Plan to remove less than a liter of fluid as tolerated. Dialysis orders were reviewed with the treating dialysis nurse. (2) Diabetic ulcer of heel Qualifiers: Diabetes mellitus type: type 2 Laterality: left Non-pressure ulcer stage: with other severity Qualified Code(s): E11.621 - Type 2 diabetes mellitus with foot ulcer; L97.428 - Non-pressure chronic ulcer of left heel and midfoot with o ther specified severity Is this a current diagnosis for this admission?: Yes Plan: She is continuing to get vancomycin 750 mg postdialysis for a duration yet to be determined by the hospitalist once she is discharged as outpatient at [facility]. Her trough vancomycin came back at 17.6 which is good. (3) Sepsis Qualifiers: Sepsis type: methicillin resistant Staphylococcus aureus Sepsis acute organ dysfunction status: without acute organ dysfunction Qualified Code(s): A41.02 - Sepsis due to Methicillin resistant Staphylococcus aureus Is this a current diagnosis for this admission?: Yes Plan: Stable. (4) Diabetes mellitus type 2 in obese Is this a current diagnosis for this admission?: No Plan: Apparently uncontrolled as OP. As per hospitalist. (5) Morbid (severe) obesity due to excess calories Is this a current diagnosis for this admission?: No Plan: Status quo. (6) Anemia Qualifiers: Anemia type: unspecified type Qualified Code(s): D64.9 - Anemia, unspecified Is this a current diagnosis for this admission?: No Plan: Of chronic disease. Getting erythropoietin on dialysis.
[2020-01-21] MEDS: VANCOMYCIN HCL 750 MG in DEXTROSE 5%-WATER 250 ML IV SCH (18:09)
[2020-01-21] MEDS: CIPROFLOXACIN HCL 500 MG TABLET PO SCH (18:09)
[2020-01-21] MEDS: NYSTATIN TOPICAL POWDER 15 GM TP SCH (20:14)
[2020-01-21] MEDS: ATORVASTATIN CALCIUM 40 MG TABLET PO SCH (21:34)
[2020-01-21] MEDS: MELATONIN 5 MG TABLET PO SCH (21:34)
[2020-01-21] MEDS: TRAZODONE HCL 50 MG TABLET PO PRN (21:42)
[2020-01-22] MEDS: PANTOPRAZOLE SODIUM 40 MG TABLET.DR PO SCH (05:57)
[2020-01-22 07:46] LABS: ABSOLUTE BASOPHILS # (AUTO) 0.1 10^3/uL (0.0-0.2); ABSOLUTE EOSINOPHILS # (AUTO) 0.5 10^3/uL (0.0-0.6); ABSOLUTE LYMPHOCYTES (AUTO) 1.5 10^3/uL (0.5-4.7); ABSOLUTE MONOCYTES (AUTO) 0.6 10^3/uL (0.1-1.4); ABSOLUTE NEUT (AUTO) 4.5 10^3/uL (1.7-8.2); BASOPHILS % (AUTO) 1.5 % (0-2); EOSINOPHILS % (AUTO) 6.8 % (0-6); HEMATOCRIT 27.2 % (36.0-47.0); LYMPHOCYTES % (AUTO) 20.6 % (13-45); MEAN CORPUSCULAR HEMOGLOBIN 28.6 pg (27.0-33.4); MEAN CORPUSCULAR VOLUME 87 fl (80-97); MONOCYTES % (AUTO) 8.4 % (3-13); PLATELET COUNT 257 10^3/uL (150-450); RED BLOOD COUNT 3.14 10^6/uL (3.72-5.28); RED CELL DISTRIBUTION WIDTH 17.3 % (11.5-14.0); SEGMENTED NEUTROPHILS % (AUTO) 62.7 % (42-78); TOTAL CELLS COUNTED % (AUTO) 100 %; WHITE BLOOD COUNT 7.2 10^3/uL (4.0-10.5)
[2020-01-22 07:54] LABS: ANION GAP 9 (5-19); BLOOD UREA NITROGEN 26 mg/dL (7-20); CALCIUM 8.5 mg/dL (8.4-10.2); CARBON DIOXIDE 27 mmol/L (22-30); CHLORIDE 102 mmol/L (98-107); GLUCOSE 139 mg/dL (75-110)
[2020-01-22 08:07] LABS: POTASSIUM 4.7 mmol/L (3.6-5.0)
[2020-01-22 09:13] VITALS: BP 145/74
[2020-01-22] MEDS: INSULIN GLARGINE,HUM.REC.ANLOG 1,000 UNIT/10 ML VIAL SUBCUT SCH (09:30)
[2020-01-22] MEDS: INSULIN LISPRO 100 UNIT/ML 3 ML VIAL SUBCUT SCH ×6 (09:31→16:32)
[2020-01-22] MEDS: FAMOTIDINE 20 MG TABLET PO SCH (09:31)
[2020-01-22] MEDS: SERTRALINE HCL 50 MG TABLET PO SCH ×2 (09:31→18:43)
[2020-01-22] MEDS: MECLIZINE HCL 25 MG TABLET PO SCH ×2 (09:31→18:42)
[2020-01-22] MEDS: FLUTICASONE/VILANTEROL 200-25 MCG/DOSE IH SCH (09:33)
[2020-01-22] MEDS: NYSTATIN TOPICAL POWDER 15 GM TP SCH ×2 (09:34→18:42)
--- NOTE | 2020-01-22 09:44 | PDOC TRANSFER SUMMARY ---
Impression - Admit/DC Date/PCP Admission Date/Primary Care Provider: 01/03/20 14:59 VIDAL DEAL MD Discharge Date: 01/22/20 - Discharge Diagnosis (1) Diabetic ulcer of heel Is this a current diagnosis for this admission?: Yes (2) Cellulitis Is this a current diagnosis for this admission?: Yes (3) MONO (acute kidney injury) Is this a current diagnosis for this admission?: Yes (4) Diabetes mellitus type 2 in obese Is this a current diagnosis for this admission?: Yes (5) Morbid (severe) obesity due to excess calories Is this a current diagnosis for this admission?: Yes (6) Sepsis Is this a current diagnosis for this admission?: Yes (7) Hypertension Is this a current diagnosis for this admission?: No - Additional Information Resuscitation Status: Full Code Discharge Diet: Other (Comments) - Renal Discharge Activity: Activity As Tolerated, Balance Activity w/Rest Referrals: QIANA BERMUDEZ MD [ACTIVE STAFF] - (Office will call patient with appointment.) ASHLIE HANSON MD [ACTIVE STAFF] - 01/31/20 2:15 pm VIDAL GRANT MD [HONORARY] - 01/28/20 2:00 pm Prescriptions: Ciprofloxacin HCl [Cipro 500 mg Tablet] 500 mg PO QPM 28 Days tablet Fluconazole [Diflucan] 100 mg PO PDIA #3 tablet Oxycodone HCl/Acetaminophen [Percocet 5-325 mg Tablet] 1 tab PO Q6HP PRN #12 tablet PRN Reason: Home Medications: Albuterol Sulfate [Proair HFA Inhalation Aerosol 8.5 gm MDI] 2 puff IH Q6HP PRN 03/18/18 Atorvastatin Calcium [Lipitor 40 mg Tablet] 40 mg PO QHS 03/18/18 Sertraline HCl [Zoloft 50 mg Tablet] 50 mg PO BID 03/18/18 Budesonide/Formoterol Fumarate [Symbicort HFA 160-4.5 mcg Inhaler 6 gm] 2 puff IH BID 01/03/20 Esomeprazole Magnesium 40 mg PO Q6AM 01/03/20 Famotidine [Pepcid 20 mg Tablet] 40 mg PO DAILY 01/03/20 Meclizine HCl [Antivert 25 mg Tablet] 25 mg PO BID 01/03/20 Trazodone HCl [Desyrel 50 mg Tablet] 50 mg PO HSP PRN 01/03/20 Ciprofloxacin HCl [Cipro 500 mg Tablet] 500 mg PO QPM 28 Days tablet 01/21/20 Epoetin Wai-Epbx [Retacrit 10,000 Unit/ml Vial (Renal)] 10,000 unit IV .DIALYSIS PRN vial 01/21/20 Insulin Glargine,Hum.rec.anlog [Lantus Insulin 100 Unit/1 ml 10 ml] 40 unit SQ QPM #0 01/21/20 Insulin Lispro [Humalog Insulin (Lispro) 100 unit/mL] 0 - 12 unit SUBCUT ACHS unit 01/21/20 Insulin Lispro [Humalog Insulin (Lispro) 100 unit/mL] 2 unit SUBCUT AC unit 01/21/20 Oxycodone HCl/Acetaminophen [Percocet 5-325 mg Tablet] 1 tab PO Q6HP PRN #12 tablet 01/21/20 Vancomycin HCl [Vancocin Inj 1000 mg Vial] 750 mg IV PDIA 28 Days vial 01/21/20 Fluconazole [Diflucan] 100 mg PO PDIA #3 tablet 01/22/20 History of Present Illiness History of Present Illness: Per H&P by Dr. Kilgore: HANNAH VICTOR is a 49 year old female with medical history significant for uncontrolled insulin dependent diabetes mellitus type 2 c/b remote right BKA and peripheral neuropathy who developed a L heel ulcer after putting her foot down on a nail on Tuesday. She was seen at wound care today and sent to the ED due to concern for suspected sepsis. She states she has had fevers and chills for the last 2 days. She also has been having diarrhea and vomiting. She has no sick contacts. Hospital Course Hospital Course: (1) Diabetic ulcer of heel MRI showed suspected mild reactive marrow edema in the calcaneus underlying a large ulcer; doubt osteomyelitis but close follow-up recommended with serial MRIs. Wound culture (01/06/2020) MRSA and Streptococcus mitis Wound culture (01/03/2020) MRSA and Streptococcus mitis Wound culture (01/03/2020) MRSA, Enterococcus faecalis, Proteus vulgaris Blood cultures no growth to date. Surgery was consulted; greatly appreciate their assistance. Now status post multiple surgical debridements to the left heel; per op note wound would be a stage IV through subcutaneous tissue and to the muscle. Wound VAC in place; wound care per surgery expertise. Vancomycin on hold secondary to high trough level and development of ATN. We will repeat Vanco trough today; once under 20, will start daptomycin. IV Zosyn discontinued; start cefepime for decreased renal toxicity properties. Obtain tight glycemic control. Infectious Disease consulted (see Dr. Baig's note, 01/14); recommends continuing daily Cipro and renally dosed Vancomycin post dialysis x6 weeks. EOT 02/21/20. (2) Cellulitis Evaluation management as above. (3) MONO (acute kidney injury) Patient with MONO secondary to vancomycin toxicity resulting in likely ATN. Now requiring hemodialysis. PermCath to Right chest wall. Continue outpatient dialysis with [facility]. (4) Diabetes mellitus type 2 in obese Is this a current diagnosis for this admission?: Yes Plan: A1C 13.4% Patient is placed on a consistent carb diet. Lantus 40 units daily Humalog 2 units AC and sliding scale coverage. Hypoglycemia protocol in place. Registered dietitian simulation educator consulted. (5) Morbid (severe) obesity due to excess calories Lifestyle modification dietary discretion advised. Consistent carb diet. Registered dietitian and simulation educator were consulted. (6) Sepsis Resolved; vital signs now stable, leukocytosis is improved, lactic acid has normalized, and patient has no toxic appearance. Acute kidney injury is related to vancomycin ATN. Received appropriate IV fluid resuscitation. Cultures and antibiotics as above. (7) Hypertension Physical Exam Vital Signs: Temp Pulse Resp BP Pulse Ox 98.0 F 92 18 145/74 H 96 01/22/20 08:10 01/22/20 08:10 01/22/20 08:10 01/22/20 08:10 01/22/20 08:10 Intake & Output 01/21/20 01/22/20 01/23/20 06:59 06:59 06:59 Intake Total 2125 730 Output Total 1800 Balance 2125 -1070 Weight 170.2 kg 172.1 kg General appearance: PRESENT: no acute distress, cooperative, morbidly obese, well-developed, well-nourished Head exam: PRESENT: atraumatic, normocephalic Eye exam: PRESENT: conjunctiva pink, EOMI, PERRLA. ABSENT: scleral icterus Mouth exam: PRESENT: moist, tongue midline Respiratory exam: PRESENT: clear to auscultation armida, decreased breath sounds - throughout 2/2 body habitus and positioning, symmetrical, unlabored. ABSENT: rales, rhonchi, wheezes Cardiovascular exam: PRESENT: RRR. ABSENT: diastolic murmur, rubs, systolic murmur Vascular exam: PRESENT: normal capillary refill GI/Abdominal exam: PRESENT: normal bowel sounds, soft. ABSENT: rebound, tenderness Rectal exam: PRESENT: deferred Extremities exam: PRESENT: full ROM. ABSENT: calf tenderness, clubbing, pedal edema Neurological exam: PRESENT: alert, awake, oriented to person, oriented to place, oriented to time, oriented to situation, CN II-XII grossly intact. ABSENT: motor sensory deficit Psychiatric exam: PRESENT: appropriate affect, normal mood. ABSENT: homicidal ideation, suicidal ideation Skin exam: PRESENT: dry, erythema - luli to skin folds and L BKA, warm, other - Diabetic ulcer of left heel with wound VAC in place. ABSENT: cyanosis, rash Results Laboratory Results: WBC 7.2 10^3/uL (4.0-10.5) 01/22/20 06:56 RBC 3.14 10^6/uL (3.72-5.28) L 01/22/20 06:56 Hgb 9.0 g/dL (12.0-15.5) L 01/22/20 06:56 Hct 27.2 % (36.0-47.0) L 01/22/20 06:56 MCV 87 fl (80-97) 01/22/20 06:56 MCH 28.6 pg (27.0-33.4) 01/22/20 06:56 MCHC 33.0 g/dL (32.0-36.0) 01/22/20 06:56 RDW 17.3 % (11.5-14.0) H 01/22/20 06:56 Plt Count 257 10^3/uL (150-450) 01/22/20 06:56 Lymph % (Auto) 20.6 % (13-45) 01/22/20 06:56 Kerr % (Auto) 8.4 % (3-13) 01/22/20 06:56 Eos % (Auto) 6.8 % (0-6) H 01/22/20 06:56 Baso % (Auto) 1.5 % (0-2) 01/22/20 06:56 Reticulocyte # 0.050 10^6/uL (0.028-0.122) 01/09/20 06:27 Absolute Neuts (auto) 4.5 10^3/uL (1.7-8.2) 01/22/20 06:56 Absolute Lymphs (auto) 1.5 10^3/uL (0.5-4.7) 01/22/20 06:56 Absolute Monos (auto) 0.6 10^3/uL (0.1-1.4) 01/22/20 06:56 Absolute Eos (auto) 0.5 10^3/uL (0.0-0.6) 01/22/20 06:56 Absolute Basos (auto) 0.1 10^3/uL (0.0-0.2) 01/22/20 06:56 Total Counted 100 01/14/20 07:57 Seg Neutrophils % 62.7 % (42-78) 01/22/20 06:56 Seg Neuts % (Manual) 60 % (42-78) 01/14/20 07:57 Band Neutrophils % 1 % (3-5) L 01/14/20 07:57 Lymphocytes % (Manual) 23 % (13-45) 01/14/20 07:57 Atypical Lymphs % 5 % (0) 01/14/20 07:57 Monocytes % (Manual) 5 % (3-13) 01/14/20 07:57 Eosinophils % (Manual) 5 % (0-6) 01/14/20 07:57 Basophils % (Manual) 0 % (0-2) 01/14/20 07:57 Metamyelocytes % 1 % (0-1) 01/14/20 07:57 Abs Neuts (Manual) 6.1 10^3/uL (1.7-8.2) 01/14/20 07:57 Abs Lymphs (Manual) 2.8 10^3/uL (0.5-4.7) 01/14/20 07:57 Abs Monocytes (Manual) 0.5 10^3/uL (0.1-1.4) 01/14/20 07:57 Absolute Eos (Manual) 0.5 10^3/uL (0.0-0.6) 01/14/20 07:57 Abs Basophils (Manual) 0.0 10^3/uL (0.0-0.2) 01/14/20 07:57 Nucleated RBCs 2 /100 WBC (0) 01/12/20 05:30 Toxic Granulation 1+ 01/03/20 10:54 Clumped Platelets PRESENT 01/12/20 05:30 Large Platelets PRESENT 01/03/20 10:54 Giant Platelets PRESENT 01/05/20 05:30 Platelet Comment ADEQUATE 01/14/20 07:57 Polychromasia 1+ 01/14/20 07:57 Hypochromasia SLIGHT 01/10/20 06:15 Poikilocytosis 1+ 01/14/20 07:57 Anisocytosis SLIGHT 01/14/20 07:57 Tear Drop Cells SLIGHT 01/11/20 04:27 Ovalocytes 1+ 01/14/20 07:57 Schistocytes SLIGHT 01/11/20 04:27 ESR > 120 mm/hr (0-30) H 01/06/20 06:15 Retic Count (auto) 1.47 % (0.66-2.85) 01/09/20 06:27 PT 15.7 SEC (11.4-15.4) H 01/04/20 06:27 INR 1.23 01/04/20 06:27 VBG pH 7.35 (7.30-7.42) 01/03/20 10:54 VBG pCO2 41.8 mmHg (35-63) 01/03/20 10:54 VBG HCO3 22.5 mmol/L (20-32) 01/03/20 10:54 VBG Base Excess -3.0 mmol/L 01/03/20 10:54 Sodium 138.1 mmol/L (137-145) 01/22/20 06:56 Potassium 4.7 mmol/L (3.6-5.0) 01/22/20 06:56 Chloride 102 mmol/L (98-107) 01/22/20 06:56 Carbon Dioxide 27 mmol/L (22-30) 01/22/20 06:56 Anion Gap 9 (5-19) 01/22/20 06:56 BUN 26 mg/dL (7-20) H 01/22/20 06:56 Creatinine 4.41 mg/dL (0.52-1.25) H 01/22/20 06:56 Est GFR ( Amer) 13 (>60) L 01/22/20 06:56 Est GFR (Non-Af Amer) Cancelled 01/07/20 06:27 Est GFR (MDRD) Non-Af 11 (>60) L 01/22/20 06:56 Glucose 139 mg/dL (75-110) H 01/22/20 06:56 POC Glucose 135 mg/dL (70-110) H 01/22/20 08:08 Hemoglobin A1c % 13.4 % (4.7-6.0) H 01/07/20 06:27 Lactic Acid 1.1 mmol/L (0.7-2.1) 01/05/20 18:15 Calcium 8.5 mg/dL (8.4-10.2) 01/22/20 06:56 Phosphorus 6.8 mg/dL (2.5-4.5) H 01/16/20 05:30 Magnesium 1.7 mg/dL (1.6-2.3) 01/14/20 05:47 Iron 51.1 ug/dL (37-170) 01/09/20 06:27 TIBC 214 ug/dL (250-450) L 01/09/20 06:27 % Saturation 24 % 01/09/20 06:27 Ferritin 237.00 ng/mL (11.1-264.0) 01/09/20 06:27 Total Bilirubin 0.6 mg/dL (0.2-1.3) 01/12/20 05:30 Direct Bilirubin 0.5 mg/dL (0.0-0.4) H 01/12/20 05:30 Neonat Total Bilirubin Not Reportable 01/12/20 05:30 Neonat Direct Bilirubin Not Reportable 01/12/20 05:30 Neonat Indirect Bili Not Reportable 01/12/20 05:30 AST 18 U/L (14-36) 01/12/20 05:30 ALT 11 U/L (<35) 01/12/20 05:30 Alkaline Phosphatase 70 U/L (38-126) 01/12/20 05:30 Troponin I < 0.012 ng/mL 01/03/20 10:54 C-Reactive Protein 203.5 mg/L (<10.0) H 01/06/20 06:15 Total Protein 6.3 g/dL (6.3-8.2) 01/12/20 05:30 Albumin 2.7 g/dL (3.5-5.0) L 01/12/20 05:30 EGFR Cancelled 01/07/20 06:27 Vitamin B12 554.0 pg/mL (239-931) 01/09/20 06:27 Folate 8.34 ng/mL (>2.76) 01/09/20 06:27 Beta-Hydroxybutyrate 26 mg/dL (.) H 01/03/20 10:54 Serum HCG, Qual NEGATIVE (NEGATIVE) 01/03/20 10:54 PTH Intact 80.8 pg/mL (10.0-65.0) H 01/09/20 06:27 Urine Color YELLOW 01/03/20 13:08 Urine Appearance SLIGHTLY-CLOUDY 01/03/20 13:08 Urine pH 5.0 (5.0-9.0) 01/03/20 13:08 Ur Specific [place] 1.033 01/03/20 13:08 Urine Protein 100 mg/dL (NEGATIVE) H 01/03/20 13:08 Urine Glucose (UA) >=500 mg/dL (NEGATIVE) H 01/03/20 13:08 Urine Ketones 20 mg/dL (NEGATIVE) H 01/03/20 13:08 Urine Blood NEGATIVE (NEGATIVE) 01/03/20 13:08 Urine Nitrite (Reflex) NEGATIVE (NEGATIVE) 01/03/20 13:08 Urine Bilirubin NEGATIVE (NEGATIVE) 01/03/20 13:08 Urine Urobilinogen NEGATIVE mg/dL (<2.0) 01/03/20 13:08 Leukocyte Esterase Rfl NEGATIVE (NEGATIVE) 01/03/20 13:08 Urine RBC (Auto) 4 /HPF 01/03/20 13:08 Urine WBC (Reflex) 5 /HPF 01/03/20 13:08 Squamous Epi Cells Auto 6 /HPF 01/03/20 13:08 Urine Mucus (Auto) RARE /LPF 01/03/20 13:08 Urine Ascorbic Acid NEGATIVE (NEGATIVE) 01/03/20 13:08 Time Trough Drawn 61101/21/20 06:12 Vancomycin Trough 17.6 ug/mL (5.0-20.0) 01/21/20 06:12 Hep Bs Antigen Negative (Negative) 09/08/20 07:58 Hep Bs Antibody, Quant <3.1 mIU/mL (Immunity>9) L 01/08/20 07:58 Hep B Core Total Ab Negative (Negative) 01/08/20 07:58 HCV Quantitation HCV Not Detected IU/mL (.) 01/08/20 07:58 HCV RNA PCR Test Info Comment (.) 01/08/20 07:58 SARS-CoV-2 (PCR) NEGATIVE (NEGATIVE) 01/03/20 14:01 Blood Type A POSITIVE 01/17/20 11:24 Antibody Screen NEGATIVE 01/17/20 11:24 Crossmatch See Detail 01/17/20 11:24 01/03/20 10:54 Troponin I < 0.012 Impressions: Chest X-Ray 01/03/20 10:58 IMPRESSION: No focal airspace disease or other evidence of acute intrathoracic process. Foot X-Ray 01/03/20 11:17 IMPRESSION: 1. Cortical irregularity and lucency at the proximal base 5th digit proximal phalanx, possibly representing osteomyelitis. 2. Subcutaneous gas in the plantar soft tissues overlying the calcaneus. Clinical correlation for ulceration in this region recommended. Finding may represent necrotizing infection. Clinical correlation. Lower Extremity MRI 01/05/20 00:00 IMPRESSION: 1. Suspect mild reactive marrow edema in the calcaneus underlying a large ulcer. Doubt osteomyelitis but close follow-up is recommended. The should consist of surveillance followup radiographs predominantly with repeat MRI as needed. Chest X-Ray 01/05/20 12:24 IMPRESSION: No evidence for pneumothorax status post central line placement. Renal Ultrasound 01/07/20 00:00 IMPRESSION: Unable to verify normal blood flow in the right kidney. The study is otherwise unremarkable. The bladder was empty. Fluoroscopy 01/17/20 00:00 IMPRESSION: IMAGE(S) OBTAINED DURING PROCEDURE. Chest X-Ray 01/18/20 00:00 IMPRESSION: The tip of the tunneled right IJ HD catheter projects within the SVC. Fluoroscopy 01/18/20 00:00 IMPRESSION: IMAGE(S) OBTAINED DURING PROCEDURE. Venous Access Device Injection 01/18/20 00:00 IMPRESSION: IMAGE(S) OBTAINED DURING PROCEDURE. Plan Time Spent: Greater than 30 Minutes Stroke Is this a Stroke Patient?: No Acute Heart Failure Is this a Heart Failure Patient?: No
[2020-01-22] MEDS ORDERED: CIPROFLOXACIN HCL 750 MG TABLET PO SCH (11:00)
== END 2020-01-22 18:57 | DRG 853 ==
LOC: ER 10:42 → EH 14:59 → 3S 18:05 → 5 01-15 02:10
PROVIDERS: ADMIT Hospitalist; ATTEND Registered Nurse
PROC: 0JBR0ZZ Excision of Left Foot Subcutaneous Tissue and Fascia, Open Approach (ICD-10-PCS; principal; 2020-01-03 15:30)
PROC: 0JBR0ZZ Excision of Left Foot Subcutaneous Tissue and Fascia, Open Approach (ICD-10-PCS; 2020-01-04)
PROC: 02HV33Z Insertion of Infusion Device into Superior Vena Cava, Percutaneous Approach (ICD-10-PCS; 2020-01-05)
PROC: 0JBR0ZZ Excision of Left Foot Subcutaneous Tissue and Fascia, Open Approach (ICD-10-PCS; 2020-01-06)
PROC: 06HY33Z Insertion of Infusion Device into Lower Vein, Percutaneous Approach (ICD-10-PCS; 2020-01-08)
PROC: 5A1D70Z Performance of Urinary Filtration, Intermittent, Less than 6 Hours Per Day (ICD-10-PCS; 2020-01-09)
PROC: 30233N1 Transfusion of Nonautologous Red Blood Cells into Peripheral Vein, Percutaneous Approach (ICD-10-PCS; 2020-01-17)
PROC: 05JY3ZZ Inspection of Upper Vein, Percutaneous Approach (ICD-10-PCS; 2020-01-17)
PROC: 0JH60XZ Insertion of Tunneled Vascular Access Device into Chest Subcutaneous Tissue and Fascia, Open Approach (ICD-10-PCS; 2020-01-18)
DX: A41.02 Sepsis due to Methicillin resistant Staphylococcus aureus (principal); A48.0 Gas gangrene; L97.429 Non-pressure chronic ulcer of left heel and midfoot with unspecified severity; L03.116 Cellulitis of left lower limb; Z68.42 Body mass index [BMI] 45.0-49.9, adult; N17.9 Acute kidney failure, unspecified; E11.52 Type 2 diabetes mellitus with diabetic peripheral angiopathy with gangrene; E87.2 Acidosis; N14.1 Nephropathy induced by other drugs, medicaments and biological substances; T36.8X5A Adverse effect of other systemic antibiotics, initial encounter; Y92.230 Patient room in hospital as the place of occurrence of the external cause; E11.621 Type 2 diabetes mellitus with foot ulcer; E11.65 Type 2 diabetes mellitus with hyperglycemia; E11.40 Type 2 diabetes mellitus with diabetic neuropathy, unspecified; D64.9 Anemia, unspecified; E78.00 Pure hypercholesterolemia, unspecified; E87.6 Hypokalemia; E83.42 Hypomagnesemia; I10 Essential (primary) hypertension; J45.909 Unspecified asthma, uncomplicated; E66.01 Morbid (severe) obesity due to excess calories; Z53.09 Procedure and treatment not carried out because of other contraindication; Z20.828 Contact with and (suspected) exposure to other viral communicable diseases; Z89.511 Acquired absence of right leg below knee; Z79.4 Long term (current) use of insulin; Z79.51 Long term (current) use of inhaled steroids; Z79.899 Other long term (current) drug therapy; Z88.2 Allergy status to sulfonamides
CPT/HCPCS: 00400; 00532; 01916; 36415; 36430; 36598; 71045; 76775; 80048; 80053; 80202; 81001; 82010; 82565; 82607; 82728; 82746; 82803; 82962; 83036; 83540; 83550; 83605; 83735; 83970; 84100; 84484; 84703; 85025; 85045; 85610; 85652; 86140; 86317; 86704; 86850; 86900; 86901; 86920; 87040; 87070; 87075; 87077; 87186; 87205; 87340; 87522; 87635; 93005; 93010; 96361; 96365; 96367; 99140; 99285; 36557; C1713; C1752; C1769; C9290; C9803; J0690; J0692; J1642; J1644; J1650; J1815; J1885; J2060; J2250; J2270; J2405; J2543; J2704; J3010; J3370; J3475; J3490; J7030; J7050; J7060; J7120; P9016; Q5105; Q9967; S0119